=== PATIENT | female | born 1965 | race Caucasian/White ===

== ENCOUNTER → 2018-05-11 | Outpatient (CLI) | payer OTHER ==
--- NOTE | 2018-05-11 10:12 | RAD ---
EXAM: Left knee, 2 views; left hand, 2 views. HISTORY: Disability. COMPARISON: None. FINDINGS: Left knee: Frontal and lateral views of the left knee are obtained. There is no fracture, dislocation or subluxation. There is no joint effusion. There are incidental growth arrest lines within the distal femur and proximal tibia and fibula. Left hand: 2 views left hand are obtained. There is no fracture, dislocation or subluxation. IMPRESSION: No acute osseous finding or significant degenerative change. Electronically signed by: Miladys Ibarra MD (05/11/2018 10:08 AM) [place] [id number]
== END | disposition home or self-care (01) ==
LOC: DXRAD 09:32
PROVIDERS: ATTEND Surgery
DX: Z02.71 Encounter for disability determination (principal)
CPT/HCPCS: 73120; 73560

== ENCOUNTER 2018-07-06 15:14 | Emergency (ER) | payer OTHER ==
[~2018-07-06] VITALS: Ht 165.1 cm; Wt 76.2 kg
[2018-07-06] MEDS ORDERED: NAPROXEN 500 MG TABLET PO ONE (15:45)
[2018-07-06 16:32] LABS: BARBITURATES NEG (NEG); BENZODIAZEPINES NEG (NEG); CANNABINOIDS NEG (NEG); COCAINE NEG (NEG); METHADONE NEG (NEG); OPIATES NEG (NEG); PHENCYCLIDINE NEG (NEG)
[2018-07-06 16:33] LABS: BACTERIA,URINE MOD /HPF (0-FEW); BILIRUBIN,URINE NEG (NEG); CLARITY,URINE HAZY; COLOR,URINE YELLOW; GLUCOSE,URINE NEG (NEG); NITRITE,URINE NEG (NEG); RBC,URINE OCC /HPF (0-2); UROBILINOGEN,URINE 2 mg/dL (0.2 mg/dL)
[2018-07-06 16:34] LABS: SQUAMOUS EPITHELIAL CELL,UR MOD /LPF; YEAST,URINE PRESENT /HPF
[2018-07-06 16:36] LABS: AMPHETAMINE/METHAMPHETAMINE NEG (NEG)
[2018-07-06] MEDS ORDERED: NAPR-683 PO (16:48)
--- NOTE | 2018-07-06 16:48 | PHYS DOC ---
Past History Past Medical History: No Pertinent History Past Surgical History: , Other Smoking: Cigarettes Alcohol Use: None Drug Use: None Adult General Chief Complaint Chief Complaint: hurting all over [facility] HPI Patient is a 53 year old homeless female who presents with hurting all over. Patient complaining of hurting all of her body in joints and bones and the muscle for 2 months as a constant pain and rated her pain 10 over 10. Patient denies injury , focal neuro deficit, nausea and vomiting, fever and chills. Patient states she didn't take medication for her pain. Patient complaining of feeling cold after sent out of [facility] after 1500 and unable to return to the [facility] until 2100 tonight. Patient denies using alcohol and drugs. Review of Systems Review of Systems Constitutional: Denies fever or chills [] Eyes: Denies change in visual acuity, redness, or eye pain [] HENT: Denies nasal congestion or sore throat [] Respiratory: Denies cough or shortness of breath [] Cardiovascular: No additional information not addressed in HPI [] GI: Denies abdominal pain, nausea, vomiting, bloody stools or diarrhea [] : Denies dysuria or hematuria [] Musculoskeletal: Denies back pain, reports joint pain [] Integument: Denies rash or skin lesions [] Neurologic: Denies headache, focal weakness or sensory changes [] Endocrine: Denies polyuria or polydipsia [] All other systems were reviewed and found to be within normal limits, except as documented in this note. Current Medications Current Medications Current Medications Medications (Trade) Dose Ordered Sig/[facility] Start Time Stop Time Status Last Admin Dose Admin Naproxen (Naprosyn) 500 mg 1X ONCE 07/06/18 15:45 07/06/18 16:05 DC 07/06/18 16:21 500 MG Allergies Allergies Allergies Coded Allergies Type Severity Reaction Last Updated Verified aspirin Allergy Intermediate 07/06/18 Yes ketorolac Allergy Intermediate 07/06/18 Yes Physical Exam Physical Exam Constitutional: Well nourished, mild distress, non-toxic appearance. [] HENT: Normocephalic, atraumatic. Eyes: PERRLA, EOMI, conjunctiva normal, no discharge. [] Neck: Normal range of motion, no tenderness, supple, no stridor. [] Cardiovascular:Heart rate regular rhythm, no murmur [] Lungs & Thorax: Bilateral breath sounds clear to auscultation [] Abdomen: Bowel sounds normal, soft, no tenderness, no masses, no pulsatile masses. [] Skin: Warm, dry, no erythema, no rash. [] Back: No tenderness, no CVA tenderness. [] Extremities: No tenderness, no cyanosis, no clubbing, ROM intact, no edema. [] Neurologic: Alert and oriented X 3, normal motor function, normal sensory function, no focal deficits noted. [] Psychologic: Affect anxious, judgement normal, mood normal. [] Current Patient Data Vital Signs Vital Signs Date Time Temp Pulse Resp B/P (MAP) Pulse Ox O2 Delivery O2 Flow Rate FiO2 07/06/18 15:38 98.3 94 22 97 Room Air Lab Results Laboratory Tests Test 07/06/18 16:05 Urine Collection Type Unknown Urine Color Yellow Urine Clarity Hazy Urine pH 6.0 Urine Specific [place] 1.025 Urine Protein Neg (NEG-TRACE) Urine Glucose (UA) Neg mg/dL (NEG) Urine Ketones (Stick) Neg mg/dL (NEG) Urine Blood Neg (NEG) Urine Nitrite Neg (NEG) Urine Bilirubin Neg (NEG) Urine Urobilinogen Dipstick 2 mg/dL (0.2 mg/dL) Urine Leukocyte Esterase Neg (NEG) Urine RBC Occ /HPF (0-2) Urine WBC 1-4 /HPF (0-4) Urine Squamous Epithelial Cells Mod /LPF Urine Bacteria Mod /HPF (0-FEW) Urine Yeast Present /HPF Urine Opiates Screen Neg (NEG) Urine Methadone Screen Neg (NEG) Urine Barbiturates Neg (NEG) Urine Phencyclidine Screen Neg (NEG) Urine Amphetamine/Methamphetamine Neg (NEG) Urine Benzodiazepines Screen Neg (NEG) Urine Cocaine Screen Neg (NEG) Urine Cannabinoids Screen Neg (NEG) Urine Ethyl Alcohol Neg (NEG) EKG EKG [] Radiology/Procedures Radiology/Procedures [] Course & Med Decision Making Course & Med Decision Making Pertinent Labs reviewed. (See chart for details) Evaluation of patient in no showed 53-year-old female patient with complaining of hurting all over for 2 months and feeling cold after sent out of [facility]. She was anxious without sign of injury. Plan discharge patient home with diagnose of chronic pain. Dragon Disclaimer Dragon Disclaimer This electronic medical record was generated, in whole or in part, using a voice recognition dictation system. Departure Departure: Impression: Primary Impression: Chronic pain Additional Impressions: Arthralgia Tobacco abuse Tobacco abuse counseling Disposition: 01 HOME, SELF-CARE (at 1646) Condition: IMPROVED Referrals: PCP,MELANI (PCP) Patient Instructions: Arthritis, Degenerative-Brief, Smoking Cessation, Tips For Success Additional Instructions: Drink plenty of liquids Follow-up with your primary care physician in 3-5 days Return to ER if not getting better Scripts Naproxen (NAPROSYN) 500 Mg Tablet 1 TAB PO BID for pain, #20 TAB Prov: GALLITO BOGGS MD 07/06/18 Problem Qualifiers GALLITO BOGGS MD Jul 06, 2018 16:48
[2018-07-06 17:05] VITALS: BP 125/80
== END 2018-07-06 17:10 | disposition home or self-care (01) ==
LOC: ER 15:14
DX: G89.29 Other chronic pain (principal); M25.50 Pain in unspecified joint; F17.210 Nicotine dependence, cigarettes, uncomplicated; Z71.6 Tobacco abuse counseling; Z88.6 Allergy status to analgesic agent; Z88.8 Allergy status to other drugs, medicaments and biological substances; Z59.0 Homelessness
CPT/HCPCS: 36415; 80307; 81001; 87086; 99284

== ENCOUNTER 2018-07-09 22:41 | Emergency (ER) | payer OTHER ==
[~2018-07-09] VITALS: Ht 167.6 cm; Wt 86.2 kg
[~2018-07-09 22:41] MED LIST: NAPR-683 PO
--- NOTE | 2018-07-09 22:45 | ED.ADGEN ---
Past History Past Medical History: No Pertinent History, Arthritis, Bronchitis, Fibromyalgia , GERD, Other Additional Past Medical Histor: colitis, crohns Past Surgical History: Appendectomy, , Other Additional Past Surgical Histo: Partial Rt foot amputation- infection Smoking: Cigarettes Alcohol Use: Occasionally Drug Use: None Adult General Chief Complaint Chief Complaint ".. I was just sleeping on the park bench.. they said go to shelter or.. the ER... [facility] other day.. I got 10/10 pain.. all over my body.. I did drink a pint tonight for my pain... I got Crohn's... I think may be [facility] of the [facility] because I was fighting.. and was not listening to them.. " HPI HPI Patient is a 53 year old female who presents with a hx of Police referral by concerned citizen when pt found sleeping on park bench. Pt. seen on 07/06 for similar presentation after asked to leave [facility]. Pt. currently complaints of 10 / 10 all over her body pain. Admits to pint of vodka tonight. Pt. has hx chronic pain in joints. Hx of chronic pain in abdomen. Pt. Hx. of chronic bronchitis. Pt. states she drinks because she has to sleep. Review of Systems Review of Systems Constitutional: Denies fever or chills [] Eyes: Denies change in visual acuity, redness, or eye pain [] HENT: Denies nasal congestion or sore throat [] Respiratory: Denies cough or shortness of breath [] Cardiovascular: No additional information not addressed in HPI [] GI: Denies abdominal pain, nausea. Denies, vomiting, bloody stools or diarrhea [] : Denies dysuria or hematuria [] Musculoskeletal: Generalized acute on chronic back pain or joint pain [] Integument: Denies rash or skin lesions [] Neurologic: Denies headache, focal weakness or sensory changes [] Endocrine: Denies polyuria or polydipsia [] All other systems were reviewed and found to be within normal limits, except as documented in this note. Family History Family History Noncontributory Current Medications Current Medications Current Medications Medications (Trade) Dose Ordered Sig/[facility] Start Time Stop Time Status Last Admin Dose Admin Acetaminophen (Tylenol) 1,000 mg 1X ONCE 07/09/18 23:30 07/09/18 23:32 DC 07/10/18 00:06 1,000 MG Famotidine (Pepcid Vial) 20 mg 1X ONCE 07/09/18 23:30 07/09/18 23:32 DC 07/10/18 00:07 20 MG Folic Acid (FOLIC ACID SYRINGE for ER) 5 mg STK-MED ONCE 07/09/18 23:57 07/09/18 23:58 DC Multivitamins/ Minerals (Infuvite Adult) 10 ml STK-MED ONCE 07/09/18 23:56 07/09/18 23:57 DC Multivitamins/ Minerals 10 ml/ Folic Acid 1 mg/ Thiamine HCl 100 mg/Lactated Ringer's 1,011.2 ml @ 1,011.2 mls/hr 1X ONCE 07/09/18 23:30 07/10/18 00:29 DC 07/10/18 00:06 1,011.2 MLS/HR Ondansetron HCl (Zofran) 4 mg 1X ONCE 07/09/18 23:30 07/09/18 23:32 DC 07/10/18 00:06 4 MG Thiamine HCl (Thiamine Vial) 200 mg STK-MED ONCE 07/09/18 23:56 07/09/18 23:57 DC Allergies Allergies Allergies Coded Allergies Type Severity Reaction Last Updated Verified aspirin Allergy Intermediate 07/06/18 Yes ketorolac Allergy Intermediate 07/06/18 Yes Physical Exam Physical Exam Constitutional: no acute distress, intoxicated appearance. [] HENT: Normocephalic, atraumatic, bilateral external ears normal, oropharynx moist, no oral exudates, nose normal. Poor dentition Eyes: PERRLA, EOMI, conjunctiva normal, no discharge. [] Neck: Normal range of motion, no tenderness, supple, no stridor. [] Cardiovascular: Regular Heart rate regular rhythm, no murmur [] Lungs & Thorax: Bilateral breath sounds equal apex with scattered wheezes auscultation []visual nonproductive cough Abdomen: Bowel sounds normal, soft, generalized tenderness, no masses, no pulsatile masses. [] Old appendectomy and hysterectomy scar Skin: Warm, dry, no erythema, no rash. [] Poor turgor Back: No tenderness, no CVA tenderness. [] Extremities: Complains of generalized joint pain, no cyanosis, no clubbing, ROM intact, no edema. []Partial Amputation of foot on right. Diminished dorsal pedis pulses bilaterally. Capillary refill 3 seconds in toes on the left. Neurologic: Alert and oriented X 3, normal motor function, normal sensory function, no focal deficits noted. Very mild dis-coordination Psychologic: Affect anxious, judgement normal, mood normal. [] Current Patient Data Vital Signs Vital Signs Date Time Temp Pulse Resp B/P (MAP) Pulse Ox O2 Delivery O2 Flow Rate FiO2 07/10/18 02:05 72 22 100/52 (68) 99 Room Air 07/09/18 22:55 97.4 Lab Results Laboratory Tests Test 07/09/18 23:20 07/09/18 23:59 Urine Collection Type Void Urine Color Yellow Urine Clarity Clear Urine pH 5.5 Urine Specific [place] 1.015 Urine Protein Neg (NEG-TRACE) Urine Glucose (UA) Neg mg/dL (NEG) Urine Ketones (Stick) Neg mg/dL (NEG) Urine Blood Neg (NEG) Urine Nitrite Neg (NEG) Urine Bilirubin Neg (NEG) Urine Urobilinogen Dipstick 0.2 mg/dL (0.2 mg/dL) Urine Leukocyte Esterase Neg (NEG) Urine RBC 0 /HPF (0-2) Urine WBC 0 /HPF (0-4) Urine Squamous Epithelial Cells Few /LPF Urine Bacteria Few /HPF (0-FEW) Urine Mucus Slight /LPF Urine Opiates Screen Neg (NEG) Urine Methadone Screen Neg (NEG) Urine Barbiturates Neg (NEG) Urine Phencyclidine Screen Neg (NEG) Urine Amphetamine/Methamphetamine Neg (NEG) Urine Benzodiazepines Screen Neg (NEG) Urine Cocaine Screen Neg (NEG) Urine Cannabinoids Screen Neg (NEG) Urine Ethyl Alcohol Pos (NEG) White Blood Count 8.5 x10^3/uL (4.0-11.0) Red Blood Count 4.41 x10^6/uL (3.50-5.40) Hemoglobin 14.8 g/dL (12.0-15.5) Hematocrit 44.2 % (36.0-47.0) Mean Corpuscular Volume 100 fL (79-100) Mean Corpuscular Hemoglobin 34 pg (25-35) Mean Corpuscular Hemoglobin Concent 34 g/dL (31-37) Red Cell Distribution Width 12.9 % (11.5-14.5) Platelet Count 306 x10^3/uL (140-400) Neutrophils (%) (Auto) 50 % (31-73) Lymphocytes (%) (Auto) 40 % (24-48) Monocytes (%) (Auto) 6 % (0-9) Eosinophils (%) (Auto) 3 % (0-3) Basophils (%) (Auto) 1 % (0-3) Neutrophils # (Auto) 4.2 x10^3uL (1.8-7.7) Lymphocytes # (Auto) 3.4 x10^3/uL (1.0-4.8) Monocytes # (Auto) 0.5 x10^3/uL (0.0-1.1) Eosinophils # (Auto) 0.3 x10^3/uL (0.0-0.7) Basophils # (Auto) 0.1 x10^3/uL (0.0-0.2) Prothrombin Time 9.3 SEC (9.4-11.4) L Prothrombin Time INR 0.9 (0.9-1.1) PTT 26 SEC (23-33) Sodium Level 141 mmol/L (136-145) Potassium Level 3.8 mmol/L (3.5-5.1) Chloride Level 106 mmol/L (98-107) Carbon Dioxide Level 23 mmol/L (21-32) Anion Gap 12 (6-14) Blood Urea Nitrogen 17 mg/dL (7-20) Creatinine 0.8 mg/dL (0.6-1.0) Estimated GFR (Cockcroft-Gault) 75.3 Glucose Level 92 mg/dL (70-99) Calcium Level 8.7 mg/dL (8.5-10.1) Total Bilirubin 0.2 mg/dL (0.2-1.0) Direct Bilirubin 0.1 mg/dL (0.0-0.2) Aspartate Amino Transferase (AST) 21 U/L (15-37) Alanine Aminotransferase (ALT) 19 U/L (14-59) Alkaline Phosphatase 98 U/L (46-116) Total Protein 6.8 g/dL (6.4-8.2) Albumin 3.3 g/dL (3.4-5.0) L Lipase 256 U/L (73-393) Ethyl Alcohol Level 191 mg/dL (0-10) H EKG EKG My interpretation EKG shows a sinus rhythm at 86 bpm. There is occasional premature ventricular contraction. But no findings acute STEMI with contralateral changes.[] Radiology/Procedures Radiology/Procedures My interpretation of acute abdomen film shows chronic changes and lung crane. No free air under the diaphragm. Nonobstructive bowel gas pattern. Old surgery andres.[] Course & Med Decision Making Course & Med Decision Making Pertinent Labs and Imaging studies reviewed. (See chart for details). A she encouraged to stop alcohol and tobacco abuse. Patient to follow-up primary care. Patient avoid further alcohol and tobacco use. Patient to consider alcohol rehabilitation programs. [] Final Impression Final Impression 1. Chronic Pain[] 2. Bronchitis 3. Alcohol abuse Dragon Disclaimer Dragon Disclaimer This electronic medical record was generated, in whole or in part, using a voice recognition dictation system. ROBERTH ACOSTA MD Jul 09, 2018 22:45
[2018-07-09] MEDS ORDERED: ONDANSETRON PF 4 MG/2 ML VIAL. IV ONE (23:30)
[2018-07-09] MEDS ORDERED: FAMOTIDINE 20 MG/2 ML VIAL IVP ONE (23:30)
[2018-07-09] MEDS ORDERED: ACETAMINOPHEN 500 MG TABLET PO ONE (23:30)
[2018-07-09] MEDS ORDERED: MVI, ADULT NO.4 WITH VIT K 10 ML, FOLIC ACID SYRINGE for ER 1 MG, THIAMINE INJ 100 MG i... IV ONE ×4 (23:30)
--- NOTE | 2018-07-09 23:32 | EKG ---
[address] [address] Test Date: 2018-07-09 Test Time: 23:27:00 Pat Name: OUMOU GRAVES Department: Room: Gender: F Solution Strategist: : 1965 Requested By: ROBERTH ACOSTA Order Number: [id number] Reading MD: Christos Turk MD Measurements Intervals [place] Rate: 86 P: 71 OR: 176 QRS: 64 QRSD: 92 T: 36 QT: 358 QTc: 431 Interpretive Statements SINUS RHYTHM VENTRICULAR PREMATURE COMPLEX(ES) Electronically Signed On 07-12-2018 14:19:33 LEGAL REFEREE by Christos Turk MD
[2018-07-09] MEDS ORDERED: THIAMINE 200 MG/2 ML VIAL. IV ONE (23:56)
[2018-07-09] MEDS ORDERED: MVI, ADULT NO.4 WITH VIT K 10 ML VIAL IV ONE (23:56)
[2018-07-09] MEDS ORDERED: FOLIC ACID 5 MG/ML SYRINGE for ER IV ONE (23:57)
[2018-07-10 00:05] LABS: CLARITY,URINE CLEAR; COLOR,URINE YELLOW
[2018-07-10 00:06] LABS: BACTERIA,URINE FEW /HPF (0-FEW); BARBITURATES NEG (NEG); BENZODIAZEPINES NEG (NEG); BILIRUBIN,URINE NEG (NEG); CANNABINOIDS NEG (NEG); COCAINE NEG (NEG); GLUCOSE,URINE NEG (NEG); METHADONE NEG (NEG); NITRITE,URINE NEG (NEG); OPIATES NEG (NEG); PHENCYCLIDINE NEG (NEG); RBC,URINE 0 /HPF (0-2); SQUAMOUS EPITHELIAL CELL,UR FEW /LPF; UROBILINOGEN,URINE 0.2 mg/dL (0.2 mg/dL); WBC,URINE 0 /HPF (0-4)
[2018-07-10 00:08] LABS: AMPHETAMINE/METHAMPHETAMINE NEG (NEG)
[2018-07-10 00:33] LABS: ALBUMIN 3.3 g/dL (3.4-5.0); CALCIUM 8.7 mg/dL (8.5-10.1); CREATININE 0.8 mg/dL (0.6-1.0); DIRECT BILIRUBIN 0.1 mg/dL (0.0-0.2); GFR 75.3; POTASSIUM 3.8 mmol/L (3.5-5.1); TOTAL BILIRUBIN 0.2 mg/dL (0.2-1.0); TOTAL PROTEIN 6.8 g/dL (6.4-8.2)
[2018-07-10 00:36] LABS: BASO # 0.1 x10^3/uL (0.0-0.2); BASO % 1 % (0-3); EOS # 0.3 x10^3/uL (0.0-0.7); EOS % 3 % (0-3); HEMATOCRIT 44.2 % (36.0-47.0); HEMOGLOBIN 14.8 g/dL (12.0-15.5); LYMPH # 3.4 x10^3/uL (1.0-4.8); LYMPH % 40 % (24-48); MEAN CORPUSCULAR HEMOGLOBIN 34 pg (25-35); MEAN CORPUSCULAR HGB CONC 34 g/dL (31-37); MEAN CORPUSCULAR VOLUME 100 fL (79-100); MONO # 0.5 x10^3/uL (0.0-1.1); MONO % 6 % (0-9); NEUT # 4.2 x10^3uL (1.8-7.7); NEUT % 50 % (31-73); PLATELET COUNT 306 x10^3/uL (140-400); RED BLOOD COUNT 4.41 x10^6/uL (3.50-5.40); RED CELL DISTRIBUTION WIDTH 12.9 % (11.5-14.5); WHITE BLOOD COUNT 8.5 x10^3/uL (4.0-11.0)
[2018-07-10 02:05] VITALS: BP 100/52
--- NOTE | 2018-07-10 08:16 | RAD ---
EXAM: Frontal view of the chest, AP views of the abdomen in upright and supine positions. CLINICAL INDICATION: BACK PAIN, INTOXICATION COMPARISON: None. FINDINGS and IMPRESSION: The heart is not enlarged. Mediastinal and hilar contours are normal. No focal parenchymal airspace opacity. No pleural effusion or pneumothorax. No abnormal small or large bowel dilatation. Moderate colonic stool content most prominent in the ascending colon.. No abnormal soft tissue mass effect. No suspicious calcifications are seen. No free intraperitoneal gas. Electronically signed by: Jero Obrien MD (07/10/2018 8:13 AM) [facility]
== END 2018-07-10 02:05 | disposition home or self-care (01) ==
LOC: ER 22:41
DX: G89.29 Other chronic pain (principal); M54.89 Other dorsalgia; R10.84 Generalized abdominal pain; J40 Bronchitis, not specified as acute or chronic; F10.10 Alcohol abuse, uncomplicated; M19.90 Unspecified osteoarthritis, unspecified site; M79.7 Fibromyalgia; K21.9 Gastro-esophageal reflux disease without esophagitis; F17.210 Nicotine dependence, cigarettes, uncomplicated; Z90.89 Acquired absence of other organs; Z98.890 Other specified postprocedural states; Z88.8 Allergy status to other drugs, medicaments and biological substances; Z88.6 Allergy status to analgesic agent; Y90.6 Blood alcohol level of 120-199 mg/100 ml
CPT/HCPCS: 36415; 74022; 80048; 80076; 80307; 81001; 83690; 85025; 85610; 85730; 93005; 96365; 96375; 99285; G0480; J2405; J3490; J7120

== ENCOUNTER 2018-07-12 11:18 | Emergency (ER) | payer OTHER ==
[~2018-07-12] VITALS: Ht 165.1 cm; Wt 74.8 kg
[2018-07-12] MEDS ORDERED: hydrOXYzine PAMOATE 25 MG CAPSULE PO STA (11:35)
--- NOTE | 2018-07-12 11:42 | PHYS DOC ---
Past History Past Medical History: No Pertinent History, Arthritis, Bronchitis, Fibromyalgia , GERD, Other Additional Past Medical Histor: colitis, crohns Past Surgical History: Appendectomy, , Other Additional Past Surgical Histo: Partial Rt foot amputation- infection Smoking: Cigarettes Alcohol Use: Occasionally Drug Use: None Adult General Chief Complaint Chief Complaint: MULTIPLE COMPLAINTS HPI HPI 53-year-old female presents with complaints of pain. The patient is homeless and living at the longterm. She states that every day outside a local park 3 PM to 9 PM until the longterm reopens. She is having pain in her right foot which she has had all 5 toes previously amputated. She states that walking makes it worse. She also complains of generalized pain from sitting on park benches all day. She denies any recent fall or trauma. She did have an episode of flashing lights in her visual field that lasted for several minutes but has resolved at this time. She denies fever or chills. She is not taking any medications. Review of Systems Review of Systems Constitutional: Denies fever or chills [] Eyes: flashes of light [] HENT: Denies nasal congestion or sore throat [] Respiratory: Denies cough or shortness of breath [] Cardiovascular: No additional information not addressed in HPI [] GI: Denies abdominal pain, nausea, vomiting, bloody stools or diarrhea [] : Denies dysuria or hematuria [] Musculoskeletal: right foot pain and swelling [] Integument: Denies rash or skin lesions [] Neurologic: Denies headache, focal weakness or sensory changes [] Endocrine: Denies polyuria or polydipsia [] All other systems were reviewed and found to be within normal limits, except as documented in this note. Allergies Allergies Allergies Coded Allergies Type Severity Reaction Last Updated Verified aspirin Allergy Intermediate 07/06/18 Yes ketorolac Allergy Intermediate 07/06/18 Yes Physical Exam Physical Exam Constitutional: Well developed, well nourished, no acute distress, non-toxic appearance. [] HENT: Normocephalic, atraumatic, bilateral external ears normal, oropharynx moist, no oral exudates, nose normal. [] Eyes: PERRLA, EOMI, conjunctiva normal, no discharge. [] Neck: Normal range of motion, no tenderness, supple, no stridor. [] Cardiovascular:Heart rate regular rhythm, no murmur [] Lungs & Thorax: Bilateral breath sounds clear to auscultation [] Abdomen: Bowel sounds normal, soft, no tenderness, no masses, no pulsatile masses. [] Skin: Warm, dry, no erythema, no rash. [] Back: No tenderness, no CVA tenderness. [] Extremities: right foot all toes amputated, no signs of skin infection, 1+ non- pitting edema right ankle [] Neurologic: Alert and oriented X 3, normal motor function, normal sensory function, no focal deficits noted. [] Psychologic: Affect anxious, judgement normal, mood normal. [] EKG EKG [] Radiology/Procedures Radiology/Procedures [] Impressions: CT HEAD WO CONTRAST Indication: AMS, VISUAL DISTURBANCE . Flashes in visual crane. Exposure: One or more of the following individualized dose reduction techniques were utilized for this examination: 1. Automated exposure control 2. Adjustment of the mA and/or kV according to patient size 3. Use of iterative reconstruction technique. Comparison: None are available. Contrast: None FINDINGS: Small hypoattenuating region in the left cerebellar hemisphere, likely due to encephalomalacia or old infarct. No evidence of acute intracranial hemorrhage or abnormal extra-axial fluid collection. No evidence of mass effect or midline shift. Mild prominence of ventricles and sulci. Ventricles are symmetric. Visualized orbits are unremarkable. Visualized paranasal sinuses and mastoids are clear. No acute calvarial abnormality. Impression: 1. Small hypoattenuating region in the left cerebellum, most likely due to encephalomalacia or old infarct. 2. Prominence of ventricles and sulci, suggesting mild atrophy or involutional change. 3. No evidence of acute intracranial hemorrhage or mass effect. Electronically signed by: Babatunde Alfaro MD (07/12/2018 11:56 AM) [facility] Course & Med Decision Making Course & Med Decision Making Pertinent Labs and Imaging studies reviewed. (See chart for details) Patient's labs are unremarkable. Her head CT is unremarkable. She has had no further neuro symptoms. She is stable for discharge at this time. She will continue her gabapentin for pain as needed. [] Dragon Disclaimer Dragon Disclaimer This electronic medical record was generated, in whole or in part, using a voice recognition dictation system. Departure Departure: Referrals: PCP,MELANI (PCP) KAMARI ARIAS DO Jul 12, 2018 11:42
[2018-07-12] MEDS ORDERED: IV NORMAL SALINE 1,000ML 1,000 ML IV ONE (11:45)
--- NOTE | 2018-07-12 11:59 | RAD ---
CT HEAD WO CONTRAST Indication: AMS, VISUAL DISTURBANCE . Flashes in visual crane. Exposure: One or more of the following individualized dose reduction techniques were utilized for this examination: 1. Automated exposure control 2. Adjustment of the mA and/or kV according to patient size 3. Use of iterative reconstruction technique. Comparison: None are available. Contrast: None FINDINGS: Small hypoattenuating region in the left cerebellar hemisphere, likely due to encephalomalacia or old infarct. No evidence of acute intracranial hemorrhage or abnormal extra-axial fluid collection. No evidence of mass effect or midline shift. Mild prominence of ventricles and sulci. Ventricles are symmetric. Visualized orbits are unremarkable. Visualized paranasal sinuses and mastoids are clear. No acute calvarial abnormality. Impression: 1. Small hypoattenuating region in the left cerebellum, most likely due to encephalomalacia or old infarct. 2. Prominence of ventricles and sulci, suggesting mild atrophy or involutional change. 3. No evidence of acute intracranial hemorrhage or mass effect. Electronically signed by: Babatunde Alfaro MD (07/12/2018 11:56 AM) [facility]
[2018-07-12 12:33] LABS: BASO # 0.1 x10^3/uL (0.0-0.2); BASO % 1 % (0-3); EOS # 0.1 x10^3/uL (0.0-0.7); EOS % 1 % (0-3); HEMATOCRIT 41.7 % (36.0-47.0); HEMOGLOBIN 14.1 g/dL (12.0-15.5); LYMPH % 21 % (24-48); MEAN CORPUSCULAR HEMOGLOBIN 34 pg (25-35); MEAN CORPUSCULAR HGB CONC 34 g/dL (31-37); MEAN CORPUSCULAR VOLUME 101 fL (79-100); MONO # 0.6 x10^3/uL (0.0-1.1); MONO % 7 % (0-9); NEUT # 6.9 x10^3uL (1.8-7.7); NEUT % 71 % (31-73); PLATELET COUNT 252 x10^3/uL (140-400); RED BLOOD COUNT 4.15 x10^6/uL (3.50-5.40); RED CELL DISTRIBUTION WIDTH 12.7 % (11.5-14.5); WHITE BLOOD COUNT 9.8 x10^3/uL (4.0-11.0)
[2018-07-12 12:45] VITALS: BP 112/58
[2018-07-12 12:46] LABS: ALBUMIN 3.3 g/dL (3.4-5.0); GFR 58.2; POTASSIUM 3.9 mmol/L (3.5-5.1); TOTAL BILIRUBIN 0.5 mg/dL (0.2-1.0); TOTAL PROTEIN 6.7 g/dL (6.4-8.2)
[2018-07-12 13:11] LABS: % EOS 1 % (0-5); % LYMPHS 19 % (24-48); % MONOS 5 % (0-10); % SEGS 74 % (35-66); PLT ESTIMATE ADEQUATE (ADEQUATE)
== END 2018-07-12 14:10 | disposition home or self-care (01) ==
LOC: ER 11:18
DX: M79.671 Pain in right foot (principal); R22.41 Localized swelling, mass and lump, right lower limb; R41.82 Altered mental status, unspecified; H53.9 Unspecified visual disturbance; M19.90 Unspecified osteoarthritis, unspecified site; M79.7 Fibromyalgia; K21.9 Gastro-esophageal reflux disease without esophagitis; K50.90 Crohn's disease, unspecified, without complications; F17.210 Nicotine dependence, cigarettes, uncomplicated; Z59.0 Homelessness; Z88.6 Allergy status to analgesic agent; Z88.8 Allergy status to other drugs, medicaments and biological substances
CPT/HCPCS: 36415; 70450; 80053; 85007; 85025; 99284; Q0177; J7030

== ENCOUNTER 2018-07-30 22:04 | Emergency (ER) | payer OTHER ==
[~2018-07-30] VITALS: Ht 162.6 cm; Wt 70.0 kg
[2018-07-30] MEDS ORDERED: MVI, ADULT NO.4 WITH VIT K 10 ML VIAL IV ONE (22:48)
[2018-07-30] MEDS ORDERED: THIAMINE 200 MG/2 ML VIAL. IV ONE (22:48)
[2018-07-30] MEDS ORDERED: FOLIC ACID 5 MG/ML SYRINGE for ER IV ONE (22:48)
[2018-07-30 23:00] LABS: BASO # 0.1 x10^3/uL (0.0-0.2); BASO % 1 % (0-3); EOS # 0.2 x10^3/uL (0.0-0.7); EOS % 2 % (0-3); HEMOGLOBIN 13.8 g/dL (12.0-15.5); LYMPH # 3.9 x10^3/uL (1.0-4.8); LYMPH % 37 % (24-48); MEAN CORPUSCULAR HEMOGLOBIN 34 pg (25-35); MEAN CORPUSCULAR HGB CONC 34 g/dL (31-37); MEAN CORPUSCULAR VOLUME 99 fL (79-100); MONO # 0.6 x10^3/uL (0.0-1.1); MONO % 6 % (0-9); NEUT # 5.6 x10^3uL (1.8-7.7); NEUT % 54 % (31-73); PLATELET COUNT 252 x10^3/uL (140-400); RED BLOOD COUNT 4.12 x10^6/uL (3.50-5.40); RED CELL DISTRIBUTION WIDTH 13.2 % (11.5-14.5); WHITE BLOOD COUNT 10.4 x10^3/uL (4.0-11.0)
[2018-07-30] MEDS ORDERED: MVI, ADULT NO.4 WITH VIT K 10 ML, FOLIC ACID SYRINGE for ER 1 MG, THIAMINE INJ 100 MG i... IV ONE ×4 (23:00)
--- NOTE | 2018-07-30 23:35 | PHYS DOC ---
Adult General Chief Complaint Chief Complaint intoxication HPI HPI 53 female brought to ED because she is intoxicated from snf , she stated she is in pain all over her body , denies any other symptom Review of Systems Review of Systems limited due to patient intoxication Current Medications Current Medications Current Medications Medications (Trade) Dose Ordered Sig/[facility] Start Time Stop Time Status Last Admin Dose Admin Folic Acid (FOLIC ACID SYRINGE for ER) 5 mg STK-MED ONCE 07/30/18 22:48 07/30/18 22:49 DC Multivitamins/ Minerals (Infuvite Adult) 10 ml STK-MED ONCE 07/30/18 22:48 07/30/18 22:49 DC Multivitamins/ Minerals 10 ml/ Folic Acid 1 mg/ Thiamine HCl 100 mg/Sodium Chloride 1,011.1 ml @ 1,000 mls/ hr 1X ONCE 07/30/18 23:00 07/31/18 00:00 07/30/18 22:55 1,000 MLS/HR Thiamine HCl (Thiamine Vial) 200 mg STK-MED ONCE 07/30/18 22:48 07/30/18 22:49 DC Allergies Allergies Allergies Coded Allergies Type Severity Reaction Last Updated Verified aspirin Allergy Intermediate 07/06/18 Yes ketorolac Allergy Intermediate 07/06/18 Yes Physical Exam Physical Exam Eyes: PERRLA, EOMI, conjunctiva normal, no discharge. [] Neck: Normal range of motion, no tenderness, supple, no stridor. [] Cardiovascular:Heart rate regular rhythm, no murmur [] Lungs & Thorax: Bilateral breath sounds clear to auscultation [] Abdomen: Bowel sounds normal, soft, no tenderness, no masses, no pulsatile masses. [] Skin: Warm, dry, no erythema, no rash. [] Back: No tenderness, no CVA tenderness. [] Extremities: No tenderness, no cyanosis, no clubbing, ROM intact, no edema. [] Current Patient Data Vital Signs Vital Signs Date Time Temp Pulse Resp B/P (MAP) Pulse Ox O2 Delivery O2 Flow Rate FiO2 07/30/18 22:10 97.9 77 16 93 Room Air Lab Results Laboratory Tests Test 07/30/18 22:35 White Blood Count 10.4 x10^3/uL (4.0-11.0) Red Blood Count 4.12 x10^6/uL (3.50-5.40) Hemoglobin 13.8 g/dL (12.0-15.5) Hematocrit 41.0 % (36.0-47.0) Mean Corpuscular Volume 99 fL (79-100) Mean Corpuscular Hemoglobin 34 pg (25-35) Mean Corpuscular Hemoglobin Concent 34 g/dL (31-37) Red Cell Distribution Width 13.2 % (11.5-14.5) Platelet Count 252 x10^3/uL (140-400) Neutrophils (%) (Auto) 54 % (31-73) Lymphocytes (%) (Auto) 37 % (24-48) Monocytes (%) (Auto) 6 % (0-9) Eosinophils (%) (Auto) 2 % (0-3) Basophils (%) (Auto) 1 % (0-3) Neutrophils # (Auto) 5.6 x10^3uL (1.8-7.7) Lymphocytes # (Auto) 3.9 x10^3/uL (1.0-4.8) Monocytes # (Auto) 0.6 x10^3/uL (0.0-1.1) Eosinophils # (Auto) 0.2 x10^3/uL (0.0-0.7) Basophils # (Auto) 0.1 x10^3/uL (0.0-0.2) Ethyl Alcohol Level 239 mg/dL (0-10) H EKG EKG [] Radiology/Procedures Radiology/Procedures [] Course & Med Decision Making Course & Med Decision Making Pertinent Labs and Imaging studies reviewed. (See chart for details) [] Final Impression Final Impression [] Problems: (1) Intoxication Dragon Disclaimer Dragon Disclaimer This electronic medical record was generated, in whole or in part, using a voice recognition dictation system. CARLOTA GOLD MD Jul 30, 2018 23:35
[2018-07-30] MEDS ORDERED: LORazepam 2 MG/ML VIAL IV ONE (23:45)
[2018-07-31 00:08] LABS: CALCIUM 7.6 mg/dL (8.5-10.1); CREATININE 0.7 mg/dL (0.6-1.0); GFR 87.9; POTASSIUM 3.4 mmol/L (3.5-5.1)
[2018-07-31 06:30] VITALS: BP 108/65
== END 2018-07-31 06:30 | disposition home or self-care (01) ==
LOC: ER 22:04
DX: F10.129 Alcohol abuse with intoxication, unspecified (principal); M79.10 Myalgia, unspecified site; Z88.6 Allergy status to analgesic agent; Z88.8 Allergy status to other drugs, medicaments and biological substances; Y90.7 Blood alcohol level of 200-239 mg/100 ml
CPT/HCPCS: 36415; 80048; 83690; 85025; 96365; 96366; 96375; 99284; G0480; J2060; J7030

== ENCOUNTER 2018-09-01 22:24 | Emergency (ER) | payer OTHER ==
[~2018-09-01] VITALS: Ht 167.6 cm; Wt 71.7 kg
[2018-09-01 22:30] VITALS: BP 111/53
--- NOTE | 2018-09-01 23:05 | PHYS DOC ---
Past History Past Medical History: Alcoholism Additional Past Medical Histor: colitis, crohns Past Surgical History: No Surgical History Additional Past Surgical Histo: Partial Rt foot amputation- infection Smoking: Cigarettes Additional Smoking Information: 1 PPD Alcohol Use: Occasionally Drug Use: None Adult General Chief Complaint Chief Complaint: MECHANICAL FALL HPI HPI 53-year-old female presents via EMS [facility]. Patient is known to the emergency room. She was walking outside when she fell and landed on her right knee on concrete. She has an abrasion over the lower half of the knee. She denies hitting her head. She denies any other injuries. She states that it is painful to walk. The patient admits to drinking vodka today. She denies fever or chills. Review of Systems Review of Systems Constitutional: Denies fever or chills [] Eyes: Denies change in visual acuity, redness, or eye pain [] HENT: Denies nasal congestion or sore throat [] Respiratory: Denies cough or shortness of breath [] Cardiovascular: No additional information not addressed in HPI [] GI: Denies abdominal pain, nausea, vomiting, bloody stools or diarrhea [] : Denies dysuria or hematuria [] Musculoskeletal: Right knee pain[] Integument: Abrasion of the right knee[] Neurologic: Denies headache, focal weakness or sensory changes [] Endocrine: Denies polyuria or polydipsia [] All other systems were reviewed and found to be within normal limits, except as documented in this note. Allergies Allergies Allergies Coded Allergies Type Severity Reaction Last Updated Verified aspirin Allergy Intermediate 07/06/18 Yes ketorolac Allergy Intermediate 07/06/18 Yes Physical Exam Physical Exam Constitutional: Well developed, well nourished, no acute distress, non-toxic appearance. [] HENT: Normocephalic, atraumatic, bilateral external ears normal, oropharynx moist, no oral exudates, nose normal. [] Eyes: PERRLA, EOMI, conjunctiva normal, no discharge. [] Neck: Normal range of motion, no tenderness, supple, no stridor. [] Cardiovascular:Heart rate regular rhythm, no murmur [] Lungs & Thorax: Bilateral breath sounds clear to auscultation [] Abdomen: Bowel sounds normal, soft, no tenderness, no masses, no pulsatile masses. [] Skin: Superficial abrasion of the right knee. [] Back: No tenderness, no CVA tenderness. [] Extremities: Mild tenderness with palpation of the right knee. No cyanosis, no clubbing, ROM intact, no edema. Previous amputation of the right toes.[] Neurologic: Alert and oriented X 3, normal motor function, normal sensory function, no focal deficits noted. [] Psychologic: Affect inebriated, judgement normal, mood normal. [] Current Patient Data Vital Signs Vital Signs Date Time Temp Pulse Resp B/P (MAP) Pulse Ox O2 Delivery O2 Flow Rate FiO2 09/01/18 22:30 98.0 69 20 98 Room Air EKG EKG [] Radiology/Procedures Radiology/Procedures [] Impressions: Pulmonary interpretation: No acute fracture or dislocation of the right knee. Multiple surgical clips. Old healed fracture of the fibula. Course & Med Decision Making Course & Med Decision Making Pertinent Labs and Imaging studies reviewed. (See chart for details) The patient's x-rays are negative for acute fracture. We will clean and dress her abrasion. [] Dragon Disclaimer Dragon Disclaimer This electronic medical record was generated, in whole or in part, using a voice recognition dictation system. Departure Departure: Impression: Primary Impression: Intoxication Additional Impressions: Knee abrasion Knee pain, right Disposition: 01 HOME, SELF-CARE Condition: STABLE Referrals: PCP,NO (PCP) Problem Qualifiers Additional Impressions: Knee abrasion Encounter type: initial encounter Laterality: right Qualified Codes: S80.211A - Abrasion, right knee, initial encounter Knee pain, right Chronicity: acute Qualified Codes: M25.561 - Pain in right knee KAMARI ARIAS DO Sep 01, 2018 23:04
--- NOTE | 2018-09-02 01:31 | RAD ---
Right knee 3 views. HISTORY: Fall on the right knee, pain, abrasions 3 views were taken of the right knee. There is periosteal reaction along the proximal fibula which is chronic probably an old injury. There is no acute fracture at the knee. There is evidence of extensive vascular surgery with multiple andres. There is no joint effusion. IMPRESSION: 1. No fracture or acute osseous abnormality at the right knee. Electronically signed by: Adolfo Couch MD (09/02/2018 1:27 AM) [id number]
== END 2018-09-02 00:18 | disposition home or self-care (01) ==
LOC: ER 22:24
DX: S80.211A Abrasion, right knee, initial encounter (principal); F10.229 Alcohol dependence with intoxication, unspecified; M25.561 Pain in right knee; F17.210 Nicotine dependence, cigarettes, uncomplicated; Z88.6 Allergy status to analgesic agent; Z59.0 Homelessness; Z88.8 Allergy status to other drugs, medicaments and biological substances; Y90.9 Presence of alcohol in blood, level not specified; W18.30XA Fall on same level, unspecified, initial encounter; Y93.01 Activity, walking, marching and hiking; Y92.89 Other specified places as the place of occurrence of the external cause; Y99.8 Other external cause status
CPT/HCPCS: 73562; 99284

== ENCOUNTER 2018-09-09 15:19 | Emergency (ER) | payer OTHER ==
[~2018-09-09] VITALS: Ht 162.6 cm; Wt 68.0 kg
[2018-09-09] MEDS ORDERED: ONDANSETRON PF 4 MG/2 ML VIAL. ONE (15:33)
[2018-09-09] MEDS ORDERED: ONDANSETRON PF 4 MG/2 ML VIAL. IV ONE (15:45)
[2018-09-09] MEDS ORDERED: MVI, ADULT NO.4 WITH VIT K 10 ML, FOLIC ACID SYRINGE for ER 1 MG, THIAMINE INJ 100 MG i... IV ONE ×4 (15:45)
[2018-09-09 15:55] LABS: BASO # 0.1 x10^3/uL (0.0-0.2); BASO % 1 % (0-3); EOS # 0.1 x10^3/uL (0.0-0.7); EOS % 1 % (0-3); HEMATOCRIT 41.4 % (36.0-47.0); HEMOGLOBIN 13.9 g/dL (12.0-15.5); LYMPH # 3.6 x10^3/uL (1.0-4.8); LYMPH % 35 % (24-48); MEAN CORPUSCULAR HEMOGLOBIN 34 pg (25-35); MEAN CORPUSCULAR HGB CONC 34 g/dL (31-37); MEAN CORPUSCULAR VOLUME 100 fL (79-100); MONO % 9 % (0-9); NEUT # 5.7 x10^3uL (1.8-7.7); NEUT % 54 % (31-73); PLATELET COUNT 202 x10^3/uL (140-400); RED BLOOD COUNT 4.13 x10^6/uL (3.50-5.40); RED CELL DISTRIBUTION WIDTH 13.8 % (11.5-14.5); WHITE BLOOD COUNT 10.4 x10^3/uL (4.0-11.0)
[2018-09-09 16:15] LABS: ALBUMIN 3.3 g/dL (3.4-5.0); CALCIUM 8.7 mg/dL (8.5-10.1); CREATININE 0.9 mg/dL (0.6-1.0); GFR 65.8; POTASSIUM 3.5 mmol/L (3.5-5.1); TOTAL BILIRUBIN 0.3 mg/dL (0.2-1.0); TOTAL PROTEIN 6.6 g/dL (6.4-8.2)
[2018-09-09 16:29] LABS: BARBITURATES NEG (NEG); BENZODIAZEPINES NEG (NEG); CANNABINOIDS NEG (NEG); COCAINE NEG (NEG); METHADONE NEG (NEG); OPIATES NEG (NEG); PHENCYCLIDINE NEG (NEG)
[2018-09-09 16:33] LABS: AMPHETAMINE/METHAMPHETAMINE NEG (NEG)
--- NOTE | 2018-09-09 16:38 | RAD ---
EXAM: CT Head without IV contrast CLINICAL HISTORY: ALTERED MENTAL STATUS COMPARISON: 09/09/2018, 07/12/2018 TECHNIQUE: Routine CT of the head without contrast. Soft tissues and bone windows were reviewed. PQRS compliance statement - One or more of the following individualized dose reduction techniques were utilized for this study: 1. Automated exposure control 2. Adjustment of the mA and/or kV according to patient size 3. Use of iterative reconstruction technique FINDINGS: There is no evidence of hemorrhage, mass or extra-axial fluid collection. Hypodensity in the left cerebellum is stable. Melvin-white differentiation is otherwise maintained with no evidence of edema. There is no mass effect or shift of the intracranial structures. The ventricles and cerebral sulci are prominent for the patients age consistent with generalized cerebral volume loss. The cerebellum and brainstem are unremarkable. The calvarium demonstrates no evidence of fracture or focal lesion. There is normal aeration of the visualized paranasal sinuses and mastoid air cells. The visualized portions of the orbits are normal. IMPRESSION: No evidence for acute intracranial process. Electronically signed by: Jero Obrien MD (09/09/2018 4:34 PM) [id number]
--- NOTE | 2018-09-09 17:05 | PHYS DOC ---
CARLOTA GOLD MD 09/09/18 1705: Adult General Chief Complaint Chief Complaint intoxicated HPI HPI was found outside , unresponsive, smelling like ETOH , pt refused at answer any question, vitals stable . Review of Systems Review of Systems limited due to pat clinical condition Current Medications Current Medications Current Medications Medications (Trade) Dose Ordered Sig/Sharron Start Time Stop Time Status Last Admin Dose Admin Multivitamins/ Minerals 10 ml/ Folic Acid 1 mg/ Thiamine HCl 100 mg/Sodium Chloride 1,011.1 ml @ 1,000 mls/ hr 1X ONCE 09/09/18 15:45 09/09/18 16:45 DC Ondansetron HCl (Zofran) 4 mg STK-MED ONCE 09/09/18 15:33 09/09/18 15:34 DC Allergies Allergies Allergies Coded Allergies Type Severity Reaction Last Updated Verified aspirin Allergy Intermediate 07/06/18 Yes ketorolac Allergy Intermediate 07/06/18 Yes Physical Exam Physical Exam HENT: Normocephalic, atraumatic, bilateral external ears normal, oropharynx moist, no oral exudates, nose normal. [] Eyes: PERRLA, EOMI, conjunctiva normal, no discharge. [] Neck: Normal range of motion, no tenderness, supple, no stridor. [] Cardiovascular:Heart rate regular rhythm, no murmur [] Lungs & Thorax: Bilateral breath sounds clear to auscultation [] Abdomen: Bowel sounds normal, soft, no tenderness, no masses, no pulsatile masses. [] Skin: Warm, dry, no erythema, no rash. [] Back: No tenderness, no CVA tenderness. [] Extremities: No tenderness, no cyanosis, no clubbing, ROM intact, no edema. [] Current Patient Data Vital Signs Vital Signs Date Time Temp Pulse Resp B/P (MAP) Pulse Ox O2 Delivery O2 Flow Rate FiO2 09/09/18 15:20 96.7 73 24 95 Room Air Lab Results Laboratory Tests Test 09/09/18 15:40 09/09/18 16:00 White Blood Count 10.4 x10^3/uL (4.0-11.0) Red Blood Count 4.13 x10^6/uL (3.50-5.40) Hemoglobin 13.9 g/dL (12.0-15.5) Hematocrit 41.4 % (36.0-47.0) Mean Corpuscular Volume 100 fL (79-100) Mean Corpuscular Hemoglobin 34 pg (25-35) Mean Corpuscular Hemoglobin Concent 34 g/dL (31-37) Red Cell Distribution Width 13.8 % (11.5-14.5) Platelet Count 202 x10^3/uL (140-400) Neutrophils (%) (Auto) 54 % (31-73) Lymphocytes (%) (Auto) 35 % (24-48) Monocytes (%) (Auto) 9 % (0-9) Eosinophils (%) (Auto) 1 % (0-3) Basophils (%) (Auto) 1 % (0-3) Neutrophils # (Auto) 5.7 x10^3uL (1.8-7.7) Lymphocytes # (Auto) 3.6 x10^3/uL (1.0-4.8) Monocytes # (Auto) 1.0 x10^3/uL (0.0-1.1) Eosinophils # (Auto) 0.1 x10^3/uL (0.0-0.7) Basophils # (Auto) 0.1 x10^3/uL (0.0-0.2) Sodium Level 140 mmol/L (136-145) Potassium Level 3.5 mmol/L (3.5-5.1) Chloride Level 105 mmol/L (98-107) Carbon Dioxide Level 23 mmol/L (21-32) Anion Gap 12 (6-14) Blood Urea Nitrogen 20 mg/dL (7-20) Creatinine 0.9 mg/dL (0.6-1.0) Estimated GFR (Cockcroft-Gault) 65.8 BUN/Creatinine Ratio 22 (6-20) H Glucose Level 104 mg/dL (70-99) H Calcium Level 8.7 mg/dL (8.5-10.1) Total Bilirubin 0.3 mg/dL (0.2-1.0) Aspartate Amino Transferase (AST) 27 U/L (15-37) Alanine Aminotransferase (ALT) 27 U/L (14-59) Alkaline Phosphatase 105 U/L (46-116) Total Protein 6.6 g/dL (6.4-8.2) Albumin 3.3 g/dL (3.4-5.0) L Albumin/Globulin Ratio 1.0 (1.0-1.7) Lipase 211 U/L (73-393) Ethyl Alcohol Level 368 mg/dL (0-10) H Urine Opiates Screen Neg (NEG) Urine Methadone Screen Neg (NEG) Urine Barbiturates Neg (NEG) Urine Phencyclidine Screen Neg (NEG) Urine Amphetamine/Methamphetamine Neg (NEG) Urine Benzodiazepines Screen Neg (NEG) Urine Cocaine Screen Neg (NEG) Urine Cannabinoids Screen Neg (NEG) Urine Ethyl Alcohol Pos (NEG) EKG EKG [] Radiology/Procedures Radiology/Procedures [] Course & Med Decision Making Course & Med Decision Making Pertinent Labs and Imaging studies reviewed. (See chart for details) [] Final Impression Final Impression [] Problems: (1) Intoxication (2) ETOH abuse Dragon Disclaimer Dragon Disclaimer This electronic medical record was generated, in whole or in part, using a voice recognition dictation system. NEISHA PAULA DO 09/09/18 2008: Adult General Physical Exam Physical Exam Gen: Arousable to voice, Resp: No acute distress, no accessory muscle use Neuro: Awake and moving all extremities, normal speech Psych: Mood- irritated, Course & Med Decision Making Course & Med Decision Making Sign out received from Dr. Gold for patient who was brought in by EMS for ETOH intoxication. Patient with history of chronic ETOH abuse. Patient still sleeping at time of sign out. Patient with history of homelessness. Patient lives at shelters. Labs reviewed. Patient evaluated by myself. Arousable to voice and moving all extremities. Patient started to become belligerent with staff. Patient appears clinically sober. Estimated blood alcohol content at time of discharge around 250. [facility] contacted regarding reservation of bed. Patient stable for discharge with outpatient follow-up with PCP. Discussed findings and plan with patient, who acknowledges understanding and agreement. Final Impression Final Impression 1) Alcohol Abuse 2) Intoxication CARLOTA GOLD MD Sep 09, 2018 17:05 NEISHA PAULA DO Sep 09, 2018 20:08
[2018-09-09 18:38] VITALS: BP 110/38
== END 2018-09-09 20:18 | disposition home or self-care (01) ==
LOC: ER 15:19
DX: F10.129 Alcohol abuse with intoxication, unspecified (principal); Z59.0 Homelessness; Z88.6 Allergy status to analgesic agent; Z88.8 Allergy status to other drugs, medicaments and biological substances; Y90.8 Blood alcohol level of 240 mg/100 ml or more
CPT/HCPCS: 36415; 51701; 70450; 80053; 80307; 83690; 85025; 96365; 96366; 96375; 99284; G0480; J2405; J7030

== ENCOUNTER 2018-10-02 13:34 | Emergency (ER) | payer OTHER ==
[~2018-10-02] VITALS: Ht 162.6 cm; Wt 70.8 kg
[2018-10-02] MEDS ORDERED: IV NORMAL SALINE 1,000ML 1,000 ML IV SCH (13:42)
[2018-10-02 14:13] LABS: BASO # 0.1 x10^3/uL (0.0-0.2); BASO % 1 % (0-3); EOS # 0.2 x10^3/uL (0.0-0.7); EOS % 3 % (0-3); HEMOGLOBIN 15.3 g/dL (12.0-15.5); LYMPH # 2.2 x10^3/uL (1.0-4.8); LYMPH % 29 % (24-48); MEAN CORPUSCULAR HEMOGLOBIN 34 pg (25-35); MEAN CORPUSCULAR HGB CONC 34 g/dL (31-37); MEAN CORPUSCULAR VOLUME 100 fL (79-100); MONO # 0.6 x10^3/uL (0.0-1.1); MONO % 7 % (0-9); NEUT # 4.6 x10^3uL (1.8-7.7); NEUT % 60 % (31-73); PLATELET COUNT 259 x10^3/uL (140-400); RED BLOOD COUNT 4.51 x10^6/uL (3.50-5.40); RED CELL DISTRIBUTION WIDTH 13.7 % (11.5-14.5); WHITE BLOOD COUNT 7.7 x10^3/uL (4.0-11.0)
--- NOTE | 2018-10-02 14:33 | RAD ---
ANKLE LEFT 3V History: Fell 3 days ago. Twisting. Pain and swelling. FINDINGS: No evidence of acute fracture. No bone destruction. Mild soft tissue swelling. IMPRESSION: No evidence of acute fracture or dislocation. Electronically signed by: Babatunde Alfaro MD (10/02/2018 2:29 PM) [facility]
--- NOTE | 2018-10-02 14:37 | PHYS DOC ---
Past History Past Medical History: Alcoholism Additional Past Medical Histor: colitis, crohns Past Surgical History: No Surgical History Additional Past Surgical Histo: Partial Rt foot amputation- infection Smoking: Cigarettes Alcohol Use: Occasionally Drug Use: None Adult General Chief Complaint Chief Complaint: DIARRHEA HPI HPI Patient is a 53 year old female who brought in by EMS from homeless [facility] term complaining of diarrhea and left ankle injury. Patient complaining of episodes of diarrhea after eating breakfast, lunch and dinner for the last 4 or 5 days without abdominal pain, nausea and vomiting, fever and chills, urinary symptom. Patient also states she twisted her left ankle several days ago and complaining of pain in medial malleolus that getting worse with bearing weight. Patient has history of alcoholism and states she had a pint of vodka yesterday or the day before yesterday and denies drinking alcohol today. Review of Systems Review of Systems Constitutional: Denies fever or chills [] Eyes: Denies change in visual acuity, redness, or eye pain [] HENT: Denies nasal congestion or sore throat [] Respiratory: Denies cough or shortness of breath [] Cardiovascular: No additional information not addressed in HPI [] GI: Denies abdominal pain, nausea, vomiting, bloody stools, reports diarrhea [] : Denies dysuria or hematuria [] Musculoskeletal: Denies back pain, reports joint pain [] Integument: Denies rash or skin lesions [] Neurologic: Denies headache, focal weakness or sensory changes [] Endocrine: Denies polyuria or polydipsia [] All other systems were reviewed and found to be within normal limits, except as documented in this note. Current Medications Current Medications Current Medications Medications (Trade) Dose Ordered Sig/Sharron Start Time Stop Time Status Last Admin Dose Admin Sodium Chloride 1,000 ml @ 1,000 mls/hr Q1H 10/02/18 13:42 10/02/18 14:41 Allergies Allergies Allergies Coded Allergies Type Severity Reaction Last Updated Verified aspirin Allergy Intermediate 07/06/18 Yes ketorolac Allergy Intermediate 07/06/18 Yes Physical Exam Physical Exam Constitutional: Well nourished, no acute distress, non-toxic appearance, smell of alcohol on breath. [] HENT: Normocephalic, atraumatic, oropharynx moist, no oral exudates, nose normal. [] Eyes: PERRLA, Neck: Normal range of motion, no tenderness, supple, no stridor. [] Cardiovascular:Heart rate regular rhythm, no murmur [] Lungs & Thorax: Bilateral breath sounds clear to auscultation [] Abdomen: Bowel sounds normal, soft, no tenderness, no masses, no pulsatile masses. [] Skin: Warm, dry, no erythema, no rash. [] Back: No tenderness, no CVA tenderness. [] Extremities: Left ankle with mild erythema and edema in medial malleolus without deformity or ecchymosis, painful range of motion, no neurovascular deficit. Neurologic: Alert and oriented X 3, normal motor function, normal sensory function, no focal deficits noted. [] Psychologic: Affect normal, judgement normal, mood normal. [] Current Patient Data Lab Results Laboratory Tests Test 10/02/18 13:55 White Blood Count 7.7 x10^3/uL (4.0-11.0) Red Blood Count 4.51 x10^6/uL (3.50-5.40) Hemoglobin 15.3 g/dL (12.0-15.5) Hematocrit 45.0 % (36.0-47.0) Mean Corpuscular Volume 100 fL (79-100) Mean Corpuscular Hemoglobin 34 pg (25-35) Mean Corpuscular Hemoglobin Concent 34 g/dL (31-37) Red Cell Distribution Width 13.7 % (11.5-14.5) Platelet Count 259 x10^3/uL (140-400) Neutrophils (%) (Auto) 60 % (31-73) Lymphocytes (%) (Auto) 29 % (24-48) Monocytes (%) (Auto) 7 % (0-9) Eosinophils (%) (Auto) 3 % (0-3) Basophils (%) (Auto) 1 % (0-3) Neutrophils # (Auto) 4.6 x10^3uL (1.8-7.7) Lymphocytes # (Auto) 2.2 x10^3/uL (1.0-4.8) Monocytes # (Auto) 0.6 x10^3/uL (0.0-1.1) Eosinophils # (Auto) 0.2 x10^3/uL (0.0-0.7) Basophils # (Auto) 0.1 x10^3/uL (0.0-0.2) EKG EKG [] Radiology/Procedures Radiology/Procedures [address] [address] IMAGING REPORT Signed PATIENT: OUMOU GRAVES ACCOUNT: [id number] : 1965 LOCATION: ER AGE: 53 SEX: F EXAM STATUS: PRE ER ORD. PHYSICIAN: GALLITO BOGGS MD REASON: Fall 3 days ago, twisted left ankle, pain and swelling PROCEDURE: ANKLE LEFT 3V ANKLE LEFT 3V History: Fell 3 days ago. Twisting. Pain and swelling. FINDINGS: No evidence of acute fracture. No bone destruction. Mild soft tissue swelling. IMPRESSION: No evidence of acute fracture or dislocation. Electronically signed by: Babatunde Alfaro MD (10/02/2018 2:29 PM) [facility] DICTATED AND SIGNED BY: BABATUNDE ALFARO MD DATE: 10/02/18 1427 CC: GALLITO BOGGS MD; PCP,NO ~ Course & Med Decision Making Course & Med Decision Making Pertinent Labs and Imaging studies reviewed. (See chart for details) Evaluation of patient in ER showed 53-year-old female patient with history of alcohol abuse brought in by EMS from homeless long term because of diarrhea and left ankle injury. Several days. Patient had unremarkable physical exam except for possible of alcohol on breath and mild erythema of left ankle. X-ray and labs was unremarkable except for positive radius for cocaine and blood alcohol of 67. Patient ambulated without problem. Plan discharge patient home with diagnosis of ankle sprain. Dragon Disclaimer Dragon Disclaimer This electronic medical record was generated, in whole or in part, using a voice recognition dictation system. Departure Departure: Impression: Primary Impression: Viral diarrhea Additional Impressions: Mild ankle sprain Cocaine abuse Tobacco abuse Tobacco abuse counseling Alcohol abuse Homeless Elevated liver function tests Hypoalbuminemia Hyperchloremia Disposition: HOME, SELF-CARE (at 1623) Condition: IMPROVED Referrals: PCP,NO (PCP) Patient Instructions: Alcohol Problems, Ankle Sprain, Cocaine Abuse-Brief, Diarrhea, Diet for Diarrhea, Adult, Smoking Cessation, Tips For Success Additional Instructions: Drink plenty of liquids Follow-up with your primary care physician in 3-5 days Return to ER if not getting better Scripts [Percogesic] No Conflict Check 1 TAB PO QID for pain, #10 Prov: GALLITO BOGGS MD 10/02/18 Problem Qualifiers GALLITO BOGGS MD Oct 02, 2018 14:37
[2018-10-02 14:41] LABS: AMORPHOUS SEDIMENT,UR PRESENT /HPF; BACTERIA,URINE 0 /HPF (0-FEW); BILIRUBIN,URINE NEG (NEG); CLARITY,URINE CLOUDY; COLOR,URINE YELLOW; GLUCOSE,URINE NEG (NEG); NITRITE,URINE NEG (NEG); SQUAMOUS EPITHELIAL CELL,UR MOD /LPF; UROBILINOGEN,URINE 1 mg/dL (0.2 mg/dL)
[2018-10-02 14:42] LABS: AMPHETAMINE/METHAMPHETAMINE NEG (NEG); BARBITURATES NEG (NEG); BENZODIAZEPINES NEG (NEG); CANNABINOIDS NEG (NEG); COCAINE POS (NEG); METHADONE NEG (NEG); OPIATES NEG (NEG); PHENCYCLIDINE NEG (NEG)
[2018-10-02 15:50] VITALS: BP 166/87
[2018-10-02 15:51] LABS: ALBUMIN 2.7 g/dL (3.4-5.0); ALBUMIN/GLOBULIN RATIO 0.9 (1.0-1.7); CALCIUM 7.5 mg/dL (8.5-10.1); CREATININE 0.9 mg/dL (0.6-1.0); GFR 65.8; TOTAL BILIRUBIN 0.2 mg/dL (0.2-1.0); TOTAL PROTEIN 5.8 g/dL (6.4-8.2)
[2018-10-02] MEDS ORDERED: Percogesic PO (16:27)
== END 2018-10-02 16:37 | disposition home or self-care (01) ==
LOC: ER 13:34
DX: S93.402A Sprain of unspecified ligament of left ankle, initial encounter (principal); A08.4 Viral intestinal infection, unspecified; R19.7 Diarrhea, unspecified; F17.210 Nicotine dependence, cigarettes, uncomplicated; F12.10 Cannabis abuse, uncomplicated; F14.10 Cocaine abuse, uncomplicated; F10.10 Alcohol abuse, uncomplicated; R79.89 Other specified abnormal findings of blood chemistry; E88.09 Other disorders of plasma-protein metabolism, not elsewhere classified; E87.8 Other disorders of electrolyte and fluid balance, not elsewhere classified; Z59.0 Homelessness; Z71.6 Tobacco abuse counseling; Z88.6 Allergy status to analgesic agent; Z88.8 Allergy status to other drugs, medicaments and biological substances; Y90.3 Blood alcohol level of 60-79 mg/100 ml; X50.1XXA Overexertion from prolonged static or awkward postures, initial encounter; Y93.89 Activity, other specified; Y92.89 Other specified places as the place of occurrence of the external cause; Y99.8 Other external cause status
CPT/HCPCS: 36415; 73610; 80053; 80307; 81001; 83690; 85025; 87086; 96360; 99284; G0480; J7030

== ENCOUNTER → 2018-10-07 | Outpatient (CLI) | payer OTHER ==
[2018-10-02 15:50] VITALS: BP 166/87
[~2018-10-07] MED LIST changes: +ACET325T21 PO; +CLON0.5T11 PO; +CLOP75TA57 PO; +DIVA125C2 PO; +FLUV50TA2 PO; +HYDR-3165 PO; +MAG355OR17 PO; +MAGN2400 PO; +METH29OI TP; +ONDA4TAB7 PO; +OXYC1TAB15 PO; +PHEN100C PO; +Percogesic PO; +RISP0.5T3 PO; +TRAZ-120 PO
--- NOTE | 2018-10-07 15:40 | RAD ---
Left foot, 3 views, 10/07/2018: HISTORY: Pain, injury No acute fracture or dislocation is identified. There is mild subcutaneous edema. IMPRESSION: No acute bony abnormality is detected. Electronically signed by: Delio West MD (10/07/2018 3:37 PM) [facility]
== END | disposition home or self-care (01) ==
LOC: RAD 15:06
PROVIDERS: ATTEND Registered Nurse
DX: M79.672 Pain in left foot (principal); R60.0 Localized edema
CPT/HCPCS: 73630

== ENCOUNTER 2018-11-16 09:05 | Emergency (ER) | payer OTHER ==
[~2018-11-16] VITALS: Ht 162.6 cm; Wt 75.8 kg
[~2018-11-16 09:05] MED LIST changes: -ACET325T21 PO; -CLON0.5T11 PO; -CLOP75TA57 PO; -DIVA125C2 PO; -FLUV50TA2 PO; -HYDR-3165 PO; -MAG355OR17 PO; -MAGN2400 PO; -METH29OI TP; -ONDA4TAB7 PO; -OXYC1TAB15 PO; -PHEN100C PO; -RISP0.5T3 PO; -TRAZ-120 PO
[2018-11-16] MEDS ORDERED: MORPHINE SULFATE 4 MG/ML DISP.SYRIN. IV ONE (10:00)
[2018-11-16 10:11] LABS: BASO # 0.1 x10^3/uL (0.0-0.2); BASO % 1 % (0-3); EOS # 0.1 x10^3/uL (0.0-0.7); EOS % 1 % (0-3); HEMATOCRIT 42.1 % (36.0-47.0); HEMOGLOBIN 14.3 g/dL (12.0-15.5); LYMPH # 1.9 x10^3/uL (1.0-4.8); LYMPH % 18 % (24-48); MEAN CORPUSCULAR HEMOGLOBIN 33 pg (25-35); MEAN CORPUSCULAR HGB CONC 34 g/dL (31-37); MEAN CORPUSCULAR VOLUME 97 fL (79-100); MONO # 0.5 x10^3/uL (0.0-1.1); MONO % 5 % (0-9); NEUT # 7.8 x10^3uL (1.8-7.7); NEUT % 75 % (31-73); PLATELET COUNT 336 x10^3/uL (140-400); RED BLOOD COUNT 4.33 x10^6/uL (3.50-5.40); RED CELL DISTRIBUTION WIDTH 13.7 % (11.5-14.5); WHITE BLOOD COUNT 10.5 x10^3/uL (4.0-11.0)
[2018-11-16 10:19] LABS: ALBUMIN 2.9 g/dL (3.4-5.0); ALBUMIN/GLOBULIN RATIO 0.7 (1.0-1.7); CALCIUM 9.3 mg/dL (8.5-10.1); CREATININE 0.9 mg/dL (0.6-1.0); GFR 65.8; POTASSIUM 4.1 mmol/L (3.5-5.1); TOTAL BILIRUBIN 0.3 mg/dL (0.2-1.0); TOTAL PROTEIN 6.8 g/dL (6.4-8.2)
--- NOTE | 2018-11-16 10:22 | RAD ---
Left foot radiograph 11/16/2018 9:48 AM INDICATION: Foot pain, swelling and discoloration. COMPARISON: None available. TECHNIQUE: 3 views the left foot are provided. FINDINGS: There is a 2 mm ossific fragment along the superior margin of the distal tuft of the first digit which may represent a fracture. This fragment appears new since the prior examination. Bone mineralization is within normal limits. Joint spaces are maintained. Regional soft tissues are within normal limits. There is no soft tissue gas or osseous erosion. IMPRESSION: There is a 2 mm ossific fragment along the superior margin of the distal tuft of the first digit which may represent a fracture. Electronically signed by: Twila Song MD (11/16/2018 10:19 AM) [id number]
[2018-11-16] MEDS ORDERED: MORPHINE SULFATE 4 MG/ML DISP.SYRIN. IM ONE (10:45)
[2018-11-16 11:29] LABS: BILIRUBIN,URINE NEG (NEG); CLARITY,URINE CLEAR; COLOR,URINE YELLOW; GLUCOSE,URINE NEG (NEG); NITRITE,URINE NEG (NEG); UROBILINOGEN,URINE 0.2 mg/dL (0.2 mg/dL)
[2018-11-16 11:31] LABS: BARBITURATES NEG (NEG); BENZODIAZEPINES NEG (NEG); CANNABINOIDS NEG (NEG); COCAINE NEG (NEG); METHADONE NEG (NEG); OPIATES NEG (NEG); PHENCYCLIDINE NEG (NEG)
[2018-11-16 11:32] LABS: AMPHETAMINE/METHAMPHETAMINE NEG (NEG)
--- NOTE | 2018-11-16 12:31 | PHYS DOC ---
Past History Past Medical History: Alcoholism, Cancer, DVT, [place], Seizure, Stroke, Other Additional Past Medical Histor: colitis, crohns Past Surgical History: Other Additional Past Surgical Histo: Partial Rt foot amputation- infection Smoking: Cigarettes Alcohol Use: Occasionally Additional Alcohol Information: last drink 2 weeks ago Drug Use: None Social History Narrative: hx of drug use Adult General Chief Complaint Chief Complaint: FOOT INJURY PAIN HPI HPI Patient is a 53 year old female who presents with complaining of injury to left foot. Patient has history of alcoholism and long time smoking and lives at a homeless [facility] and he states she hit her left foot 2 weeks ago and seen at [facility] and had x-ray of her foot and treated with antibiotic. She states she hit her fluid taken last night and complaining of pain in the great toe. 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 She is to take patient had left fifth toe information and discharge that did not get better with antibiotic given from [facility]. The volunteer staff stated they were not able to get appointment with podiatric for evaluation of color change toes. Patient also has history of right toes amputation. Review of Systems Review of Systems Constitutional: Denies fever or chills [] Eyes: Denies change in visual acuity, redness, or eye pain [] HENT: Denies nasal congestion or sore throat [] Respiratory: Denies cough or shortness of breath [] Cardiovascular: No additional information not addressed in HPI [] GI: Denies abdominal pain, nausea, vomiting, bloody stools or diarrhea [] : Denies dysuria or hematuria [] Musculoskeletal: Denies back pain, reports joint pain [] Integument: Denies rash or skin lesions [] Neurologic: Denies headache, focal weakness or sensory changes [] Endocrine: Denies polyuria or polydipsia [] All other systems were reviewed and found to be within normal limits, except as documented in this note. Current Medications Current Medications Current Medications Medications (Trade) Dose Ordered Sig/[facility] Start Time Stop Time Status Last Admin Dose Admin Morphine Sulfate (Morphine 4mg Syringe) 4 mg 1X ONCE 11/16/18 10:45 11/16/18 10:46 DC 11/16/18 10:36 4 MG Allergies Allergies Allergies Coded Allergies Type Severity Reaction Last Updated Verified aspirin Allergy Intermediate 07/06/18 Yes ketorolac Allergy Intermediate 07/06/18 Yes Physical Exam Physical Exam Constitutional: Well nourished, mild distress, non-toxic appearance, anxious. [ ] HENT: Normocephalic, atraumatic. Eyes: PERRLA, EOMI, conjunctiva normal, no discharge. [] Neck: Normal range of motion, no tenderness, supple, no stridor. [] Cardiovascular:Heart rate regular rhythm, no murmur [] Lungs & Thorax: Bilateral breath sounds clear to auscultation [] Skin: Warm, dry, no erythema, no rash. [] Extremities: Right toes status post amputation, left toes with cyanosis and change of the color with dry gangrene in second and fourth toes, fifth toe with change of color of stool and marked discharge, tenderness of the great toe with change of color of toe nail. Neurologic: Alert and oriented , normal motor function, normal sensory function , no focal deficits noted. [] Psychologic: Affect anxious, asking for pain medication frequently Current Patient Data Vital Signs Vital Signs Date Time Temp Pulse Resp B/P (MAP) Pulse Ox O2 Delivery O2 Flow Rate FiO2 11/16/18 10:36 18 Room Air 11/16/18 09:17 97.6 91 98 Lab Results Laboratory Tests Test 11/16/18 09:53 11/16/18 11:00 White Blood Count 10.5 x10^3/uL (4.0-11.0) Red Blood Count 4.33 x10^6/uL (3.50-5.40) Hemoglobin 14.3 g/dL (12.0-15.5) Hematocrit 42.1 % (36.0-47.0) Mean Corpuscular Volume 97 fL (79-100) Mean Corpuscular Hemoglobin 33 pg (25-35) Mean Corpuscular Hemoglobin Concent 34 g/dL (31-37) Red Cell Distribution Width 13.7 % (11.5-14.5) Platelet Count 336 x10^3/uL (140-400) Neutrophils (%) (Auto) 75 % (31-73) H Lymphocytes (%) (Auto) 18 % (24-48) L Monocytes (%) (Auto) 5 % (0-9) Eosinophils (%) (Auto) 1 % (0-3) Basophils (%) (Auto) 1 % (0-3) Neutrophils # (Auto) 7.8 x10^3uL (1.8-7.7) H Lymphocytes # (Auto) 1.9 x10^3/uL (1.0-4.8) Monocytes # (Auto) 0.5 x10^3/uL (0.0-1.1) Eosinophils # (Auto) 0.1 x10^3/uL (0.0-0.7) Basophils # (Auto) 0.1 x10^3/uL (0.0-0.2) Sodium Level 142 mmol/L (136-145) Potassium Level 4.1 mmol/L (3.5-5.1) Chloride Level 105 mmol/L (98-107) Carbon Dioxide Level 29 mmol/L (21-32) Anion Gap 8 (6-14) Blood Urea Nitrogen 19 mg/dL (7-20) Creatinine 0.9 mg/dL (0.6-1.0) Estimated GFR (Cockcroft-Gault) 65.8 BUN/Creatinine Ratio 21 (6-20) H Glucose Level 89 mg/dL (70-99) Lactic Acid Level 0.7 mmol/L (0.4-2.0) Calcium Level 9.3 mg/dL (8.5-10.1) Total Bilirubin 0.3 mg/dL (0.2-1.0) Aspartate Amino Transferase (AST) 16 U/L (15-37) Alanine Aminotransferase (ALT) 15 U/L (14-59) Alkaline Phosphatase 116 U/L (46-116) Total Protein 6.8 g/dL (6.4-8.2) Albumin 2.9 g/dL (3.4-5.0) L Albumin/Globulin Ratio 0.7 (1.0-1.7) L Ethyl Alcohol Level < 10 mg/dL (0-10) Urine Collection Type U cath Urine Color Yellow Urine Clarity Clear Urine pH 7.0 Urine Specific [place] 1.015 Urine Protein Neg (NEG-TRACE) Urine Glucose (UA) Neg mg/dL (NEG) Urine Ketones (Stick) Trace mg/dL (NEG) Urine Blood Neg (NEG) Urine Nitrite Neg (NEG) Urine Bilirubin Neg (NEG) Urine Urobilinogen Dipstick 0.2 mg/dL (0.2 mg/dL) Urine Leukocyte Esterase Neg (NEG) Urine Opiates Screen Neg (NEG) Urine Methadone Screen Neg (NEG) Urine Barbiturates Neg (NEG) Urine Phencyclidine Screen Neg (NEG) Urine Amphetamine/Methamphetamine Neg (NEG) Urine Benzodiazepines Screen Neg (NEG) Urine Cocaine Screen Neg (NEG) Urine Cannabinoids Screen Neg (NEG) Urine Ethyl Alcohol Neg (NEG) EKG EKG [] Radiology/Procedures Radiology/Procedures [address] [address] IMAGING REPORT Signed PATIENT: OUMOU GRAVES ACCOUNT: [id number] : 1965 LOCATION: ER AGE: 53 SEX: F EXAM STATUS: REG ER ORD. PHYSICIAN: GALLITO BOGGS MD REASON: injury PROCEDURE: FOOT LEFT 3V Left foot radiograph 11/16/2018 9:48 AM INDICATION: Foot pain, swelling and discoloration. COMPARISON: None available. TECHNIQUE: 3 views the left foot are provided. FINDINGS: There is a 2 mm ossific fragment along the superior margin of the distal tuft of the first digit which may represent a fracture. This fragment appears new since the prior examination. Bone mineralization is within normal limits. Joint spaces are maintained. Regional soft tissues are within normal limits. There is no soft tissue gas or osseous erosion. IMPRESSION: There is a 2 mm ossific fragment along the superior margin of the distal tuft of the first digit which may represent a fracture. Electronically signed by: Silas Rodriguez MD (11/16/2018 10:19 AM) [id number] DICTATED AND SIGNED BY: SILAS RODRIGUEZ MD DATE: 11/16/18 1019 CC: GALLITO BOGGS MD; JOAQUIM JUÁREZ BIOINFORMATICS ANALYST-C ~ Course & Med Decision Making Course & Med Decision Making Pertinent Labs and Imaging studies reviewed. (See chart for details) Evaluation of patient in ER showed 53-year-old female patient with chronic discoloration of left toes that gradually getting force. Patient complaining of new injury with possible fracture of right great toe. Patient caregiver information about problem with finding Podiatric orthopedic physician for evaluation of vascular changes. Dr. Evans was consulted at 1356 and agreed to admit patient at [facility] for evaluation by vascular and orthopedic physician. Dragon Disclaimer Dragon Disclaimer This electronic medical record was generated, in whole or in part, using a voice recognition dictation system. Departure Departure: Impression: Primary Impression: Gangrene of toe of left foot Additional Impressions: Tobacco abuse Tobacco abuse counseling History of alcohol abuse Amputated toe of right foot Disposition: XFER SHT-TRM HOSP ([facility] at 1223) Admitting Physician: Samy Evans (accepted transfer to [facility] at 1222) Condition: IMPROVED Referrals: JOAQUIM JUÁREZ BIOINFORMATICS ANALYST-C (PCP) Problem Qualifiers GALLITO BOGGS MD Nov 16, 2018 12:31
[2018-11-16 13:53] VITALS: BP 93/44
[2018-11-17] MEDS ORDERED: ALTEPLASE 2 MG VIAL INT CAT ONE (12:30)
== END 2018-11-16 14:40 | disposition short-term general hospital (02) ==
LOC: ER 09:05
DX: I96 Gangrene, not elsewhere classified (principal); F10.20 Alcohol dependence, uncomplicated; F17.210 Nicotine dependence, cigarettes, uncomplicated; I25.2 Old myocardial infarction; Z86.718 Personal history of other venous thrombosis and embolism; Z86.73 Personal history of transient ischemic attack (TIA), and cerebral infarction without residual deficits; Z71.6 Tobacco abuse counseling; Z59.0 Homelessness; Z88.6 Allergy status to analgesic agent; Z88.8 Allergy status to other drugs, medicaments and biological substances; Z89.421 Acquired absence of other right toe(s); Y90.0 Blood alcohol level of less than 20 mg/100 ml
CPT/HCPCS: 36415; 73630; 80053; 80307; 81003; 83605; 85025; 87040; 96372; 99285; G0480; J2270

== ENCOUNTER 2018-12-01 16:49 | Inpatient (IN) | payer OTHER ==
[~2018-12-01] VITALS: Ht 162.6 cm; Wt 72.7 kg
--- NOTE | 2018-12-01 17:28 | EKG ---
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
[2018-12-01 17:36] LABS: BASO # 0.1 x10^3/uL (0.0-0.2); BASO % 1 % (0-3); EOS # 0.3 x10^3/uL (0.0-0.7); EOS % 3 % (0-3); HEMATOCRIT 33.1 % (36.0-47.0); LYMPH # 3.5 x10^3/uL (1.0-4.8); LYMPH % 36 % (24-48); MEAN CORPUSCULAR HEMOGLOBIN 33 pg (25-35); MEAN CORPUSCULAR HGB CONC 33 g/dL (31-37); MEAN CORPUSCULAR VOLUME 98 fL (79-100); MONO # 0.9 x10^3/uL (0.0-1.1); MONO % 9 % (0-9); NEUT # 4.8 x10^3uL (1.8-7.7); NEUT % 50 % (31-73); PLATELET COUNT 340 x10^3/uL (140-400); RED BLOOD COUNT 3.37 x10^6/uL (3.50-5.40); RED CELL DISTRIBUTION WIDTH 13.6 % (11.5-14.5); WHITE BLOOD COUNT 9.6 x10^3/uL (4.0-11.0)
[2018-12-01 17:50] LABS: CLARITY,URINE CLEAR; COLOR,URINE YELLOW
[2018-12-01 17:51] LABS: BACTERIA,URINE 0 /HPF (0-FEW); BILIRUBIN,URINE NEG (NEG); GLUCOSE,URINE NEG (NEG); NITRITE,URINE NEG (NEG); SQUAMOUS EPITHELIAL CELL,UR MANY /LPF; UROBILINOGEN,URINE 0.2 mg/dL (0.2 mg/dL); WBC,URINE OCC /HPF (0-4)
[2018-12-01 18:04] LABS: ALBUMIN 2.7 g/dL (3.4-5.0); ALBUMIN/GLOBULIN RATIO 0.7 (1.0-1.7); CALCIUM 8.9 mg/dL (8.5-10.1); CREATININE 1.1 mg/dL (0.6-1.0); GFR 52.2; MAGNESIUM 1.8 mg/dL (1.8-2.4); POTASSIUM 4.1 mmol/L (3.5-5.1); TOTAL BILIRUBIN 0.1 mg/dL (0.2-1.0); TOTAL PROTEIN 6.7 g/dL (6.4-8.2)
[2018-12-01] MEDS ORDERED: oxyCODONE/APAP 5/325 1 TAB TABLET PO ONE (18:30)
[2018-12-01] MEDS ORDERED: ENOXAPARIN ** NOTE DOSE ** SYRINGE SQ ONE (18:30)
--- NOTE | 2018-12-01 18:41 | ED.ADGEN ---
Past History Past Medical History: Alcoholism, Cancer, COPD, Diabetes, DVT, [place], Seizure, Stroke, Other Additional Past Medical Histor: colitis, crohns Past Surgical History: Other Additional Past Surgical Histo: Partial Rt foot amputation- infection Smoking: Cigarettes Alcohol Use: Occasionally Drug Use: None Adult General Chief Complaint Chief Complaint ".. I guess .. I got sent ... because of my fit.. hitting.. and throwing stuff..." HPI HPI Patient is a 53 year old female who presents with above hx and complaints of disruptive behavior. Patient lives at [facility] since 11/29/2018. Patient previously was at the homeless [facility] [place]. Patient has been yelling and cussing at staff. throwing items. throwing food. Hallucinating both visual and auditory. Patient having paranoid delusions that others are sleeping with her . Has been aggressive towards staff. Has had increased insomnia. Impossible to redirect. Patient has peripheral vascular disease with recent amputations of toes on the left foot previous amputation of toes on the right foot. Patient is partially blind, history of lung cancer, history of DVT, history of stents and bypass surgery to legs, history of hypertension, history of borderline personality, history of diabetes, history of seizure disorder when withdrawing from alcohol. Does have a history of COPD, tobacco and alcohol abuse. Patient has history of poor impulse control and noncompliance. Patient sent to the [facility] for evaluation of her disruptive behavior. Patient seen in the ED for baseline labs. Patient's primary care physician is at [facility]. Review of Systems Review of Systems Poor historian Constitutional: Denies fever or chills [] Eyes: Denies change in visual acuity, redness, or eye pain [] HENT: Denies nasal congestion or sore throat [] Respiratory: Denies cough or shortness of breath [] Cardiovascular: No additional information not addressed in HPI [] GI: Denies abdominal pain, nausea, vomiting, bloody stools or diarrhea [] : Denies dysuria or hematuria [] Musculoskeletal: Denies back pain or joint pain []Complaints of chronic pain. Integument: Denies rash or skin lesions [] Neurologic: Denies headache, focal weakness or sensory changes [] Endocrine: Denies polyuria or polydipsia [] All other systems were reviewed and found to be within normal limits, except as documented in this note. Family History Family History Not currently available. Current Medications Current Medications Current Medications Medications (Trade) Dose Ordered Sig/[facility] Start Time Stop Time Status Last Admin Dose Admin Albuterol/ Ipratropium (Duoneb) 3 ml RTQID 12/01/18 20:00 12/01/18 20:00 DC Enoxaparin Sodium (Lovenox 80mg Syringe) 80 mg 1X ONCE 12/01/18 18:30 12/01/18 18:31 DC 12/01/18 18:23 80 MG Oxycodone/ Acetaminophen (Percocet 5/325) 2 tab QIDPRN PRN 12/01/18 18:15 12/01/18 18:32 DC See Nursing for home meds Allergies Allergies Allergies Coded Allergies Type Severity Reaction Last Updated Verified aspirin Allergy Intermediate 07/06/18 Yes ketorolac Allergy Intermediate 07/06/18 Yes Physical Exam Physical Exam Constitutional: , no acute distress, non-toxic appearance. [] HENT: Normocephalic, atraumatic, bilateral external ears normal, oropharynx moist, no oral exudates, nose normal. Eyes: PERRLA, EOMI, conjunctiva normal, no discharge. [] Neck: Normal range of motion, no tenderness, supple, no stridor. [] Cardiovascular:Heart rate regular rhythm, no murmur [ occasional PVC on monitor Lungs & Thorax: Bilateral breath sounds equal apexes with scattered wheezes on auscultation [] Abdomen: Bowel sounds normal, soft, no tenderness, no masses, no pulsatile masses. [] Skin: Warm, dry, no erythema, no rash.. left foot- breakdown Back: No tenderness, no CVA tenderness. [] Extremities: No tenderness, no cyanosis, no clubbing, ROM intact, trace ankle edema. [] Amputation toe on Rt. . Vascular breakdown Lt foot -Dressing Neurologic: Alert and oriented X 3, normal motor function, decreased plantar sensory function, no focal deficits noted. [] Psychologic: Affect agitated, judgement normal, mood normal. [] Current Patient Data Vital Signs Vital Signs Date Time Temp Pulse Resp B/P (MAP) Pulse Ox O2 Delivery O2 Flow Rate FiO2 12/01/18 18:23 18 Room Air 12/01/18 16:55 98.2 92 96 Lab Results Laboratory Tests Test 12/01/18 17:17 White Blood Count 9.6 x10^3/uL (4.0-11.0) Red Blood Count 3.37 x10^6/uL (3.50-5.40) L Hemoglobin 11.0 g/dL (12.0-15.5) L Hematocrit 33.1 % (36.0-47.0) L Mean Corpuscular Volume 98 fL (79-100) Mean Corpuscular Hemoglobin 33 pg (25-35) Mean Corpuscular Hemoglobin Concent 33 g/dL (31-37) Red Cell Distribution Width 13.6 % (11.5-14.5) Platelet Count 340 x10^3/uL (140-400) Neutrophils (%) (Auto) 50 % (31-73) Lymphocytes (%) (Auto) 36 % (24-48) Monocytes (%) (Auto) 9 % (0-9) Eosinophils (%) (Auto) 3 % (0-3) Basophils (%) (Auto) 1 % (0-3) Neutrophils # (Auto) 4.8 x10^3uL (1.8-7.7) Lymphocytes # (Auto) 3.5 x10^3/uL (1.0-4.8) Monocytes # (Auto) 0.9 x10^3/uL (0.0-1.1) Eosinophils # (Auto) 0.3 x10^3/uL (0.0-0.7) Basophils # (Auto) 0.1 x10^3/uL (0.0-0.2) Urine Collection Type Unknown Urine Color Yellow Urine Clarity Clear Urine pH 5.5 Urine Specific [place] 1.020 Urine Protein Neg (NEG-TRACE) Urine Glucose (UA) Neg mg/dL (NEG) Urine Ketones (Stick) Neg mg/dL (NEG) Urine Blood Neg (NEG) Urine Nitrite Neg (NEG) Urine Bilirubin Neg (NEG) Urine Urobilinogen Dipstick 0.2 mg/dL (0.2 mg/dL) Urine Leukocyte Esterase Neg (NEG) Urine RBC 1-2 /HPF (0-2) Urine WBC Occ /HPF (0-4) Urine Squamous Epithelial Cells Many /LPF Urine Bacteria 0 /HPF (0-FEW) Sodium Level 139 mmol/L (136-145) Potassium Level 4.1 mmol/L (3.5-5.1) Chloride Level 105 mmol/L (98-107) Carbon Dioxide Level 26 mmol/L (21-32) Anion Gap 8 (6-14) Blood Urea Nitrogen 24 mg/dL (7-20) H Creatinine 1.1 mg/dL (0.6-1.0) H Estimated GFR (Cockcroft-Gault) 52.2 BUN/Creatinine Ratio 22 (6-20) H Glucose Level 116 mg/dL (70-99) H Calcium Level 8.9 mg/dL (8.5-10.1) Magnesium Level 1.8 mg/dL (1.8-2.4) Total Bilirubin 0.1 mg/dL (0.2-1.0) L Aspartate Amino Transferase (AST) 10 U/L (15-37) L Alanine Aminotransferase (ALT) 12 U/L (14-59) L Alkaline Phosphatase 155 U/L (46-116) H Total Protein 6.7 g/dL (6.4-8.2) Albumin 2.7 g/dL (3.4-5.0) L Albumin/Globulin Ratio 0.7 (1.0-1.7) L EKG EKG My interpretation of EKG shows a sinus rhythm at 84. Does have occasional PVC.[] Radiology/Procedures Radiology/Procedures My interpretation chest x-ray shows no acute cardiopulmonary findings. No free air under the diaphragm.[] Course & Med Decision Making Course & Med Decision Making Pertinent Labs and Imaging studies reviewed. (See chart for details). Pt. admitted to [facility]- Dr. Taylor and Consults to Dr. Evans- for medical issues. [] Final Impression Final Impression 1. Mental Status Change 2. Aggressive Behavior, Hitting, Throwing objects, food, threatening staff 3. Hallucinations 4. Delusions- Paranoid 5. PVDz[]- Stents and Bypass, amputations toes (current Lt. foot ) 6. Hx. Lung Ca 7. Hx DVT 8. Hx. HTN 9. Hx. Borderline Personality 10.Hx. COPD 11. Hx. ETOH and Tob use and dependance 12. Insomnia 13. Hx. ETOH withdrawal seizure when coming off alcohol 14. Hx. Non-compliance 15. Hx. Blindness- Marked decreased vision 16. Malnutrition- Alb. 2.7 18. Elevated BUN/Crea. 24/1.1 19. Elevated Alk. Phos 155 20. Hx Crohn's and inflammatory bowel disease Dr[place]on Disclaimer Salma Disclaimer This electronic medical record was generated, in whole or in part, using a voice recognition dictation system. Discharge Summary Visit Information Final Diagnosis Problems Medical Problems: (1) Mental status change resolved Status: Acute Brief Hospital Course Allergies Allergies Coded Allergies Type Severity Reaction Last Updated Verified aspirin Allergy Intermediate 07/06/18 Yes ketorolac Allergy Intermediate 07/06/18 Yes morphine Allergy Intermediate 12/01/18 Yes Vital Signs Vital Signs Date Time Temp Pulse Resp B/P (MAP) Pulse Ox O2 Delivery O2 Flow Rate FiO2 12/01/18 22:50 18 Room Air 12/01/18 21:58 98 12/01/18 18:50 97.6 82 105/62 (76) Lab Results Laboratory Tests Test 12/01/18 17:17 White Blood Count 9.6 x10^3/uL (4.0-11.0) Red Blood Count 3.37 x10^6/uL (3.50-5.40) Hemoglobin 11.0 g/dL (12.0-15.5) Hematocrit 33.1 % (36.0-47.0) Mean Corpuscular Volume 98 fL (79-100) Mean Corpuscular Hemoglobin 33 pg (25-35) Mean Corpuscular Hemoglobin Concent 33 g/dL (31-37) Red Cell Distribution Width 13.6 % (11.5-14.5) Platelet Count 340 x10^3/uL (140-400) Neutrophils (%) (Auto) 50 % (31-73) Lymphocytes (%) (Auto) 36 % (24-48) Monocytes (%) (Auto) 9 % (0-9) Eosinophils (%) (Auto) 3 % (0-3) Basophils (%) (Auto) 1 % (0-3) Neutrophils # (Auto) 4.8 x10^3uL (1.8-7.7) Lymphocytes # (Auto) 3.5 x10^3/uL (1.0-4.8) Monocytes # (Auto) 0.9 x10^3/uL (0.0-1.1) Eosinophils # (Auto) 0.3 x10^3/uL (0.0-0.7) Basophils # (Auto) 0.1 x10^3/uL (0.0-0.2) Urine Collection Type Unknown Urine Color Yellow Urine Clarity Clear Urine pH 5.5 Urine Specific [place] 1.020 Urine Protein Neg (NEG-TRACE) Urine Glucose (UA) Neg mg/dL (NEG) Urine Ketones (Stick) Neg mg/dL (NEG) Urine Blood Neg (NEG) Urine Nitrite Neg (NEG) Urine Bilirubin Neg (NEG) Urine Urobilinogen Dipstick 0.2 mg/dL (0.2 mg/dL) Urine Leukocyte Esterase Neg (NEG) Urine RBC 1-2 /HPF (0-2) Urine WBC Occ /HPF (0-4) Urine Squamous Epithelial Cells Many /LPF Urine Bacteria 0 /HPF (0-FEW) Sodium Level 139 mmol/L (136-145) Potassium Level 4.1 mmol/L (3.5-5.1) Chloride Level 105 mmol/L (98-107) Carbon Dioxide Level 26 mmol/L (21-32) Anion Gap 8 (6-14) Blood Urea Nitrogen 24 mg/dL (7-20) Creatinine 1.1 mg/dL (0.6-1.0) Estimated GFR (Cockcroft-Gault) 52.2 BUN/Creatinine Ratio 22 (6-20) Glucose Level 116 mg/dL (70-99) Calcium Level 8.9 mg/dL (8.5-10.1) Magnesium Level 1.8 mg/dL (1.8-2.4) Total Bilirubin 0.1 mg/dL (0.2-1.0) Aspartate Amino Transf (AST/SGOT) 10 U/L (15-37) Alanine Aminotransferase (ALT/SGPT) 12 U/L (14-59) Alkaline Phosphatase 155 U/L (46-116) Total Protein 6.7 g/dL (6.4-8.2) Albumin 2.7 g/dL (3.4-5.0) Albumin/Globulin Ratio 0.7 (1.0-1.7) Brief Hospital Course Ms. Guillermo is a 53 old female who presented with mental status change- disruptive behaviors. Admitted Dr. Taylor. Consult s to Dr. Evans for medical issues. Discharge Information Condition at Discharge: Stable Dischare Medications Current Medications Oxycodone/ Acetaminophen (Percocet 5/325) 2 tab 1X ONCE PO Last administered on 12/01/18at 18:23; Start 12/01/18 at 18:30; Stop 12/01/18 at 18:31; Status DC Enoxaparin Sodium (Lovenox 80mg Syringe) 80 mg 1X ONCE SQ Last administered on 12/01/18at 18:23; Start 12/01/18 at 18:30; Stop 12/01/18 at 18:31; Status DC Albuterol/ Ipratropium (Duoneb) 3 ml RTQID NEB Last administered on 12/01/18at 21:35; Start 12/01/18 at 20:00; Stop 12/02/18 at 19:59 Oxycodone/ Acetaminophen (Percocet 5/325) 2 tab QIDPRN PRN PO MARKED PAIN; Start 12/01/18 at 18:15 Clonazepam (KlonoPIN) 0.5 mg BID PO Last administered on 12/01/18 21:47; Start 12/01/18 at 21:00 Acetaminophen/ Hydrocodone Bitart (Lortab 5/325) 2 tab PRN Q4HRS PRN PO PAIN Last administered on 12/01/18at 21:48; Start 12/01/18 at 21:00 Ondansetron HCl (Zofran Odt) 4 mg PRN Q6HRS PRN PO NAUSEA/VOMITING; Start 12/01 at 21:00 Phenytoin Sodium (Dilantin) 300 mg BID PO Last administered on 12/01/18at 21:48 ; Start 12/01/18 at 21:00 Acetaminophen (Tylenol) 650 mg PRN Q6HRS PRN PO PAIN / TEMP; Start 12/01/18 at 23:30 Multi-Ingredient Ointment (Analgesic Quincy) 1 miley PRN QID PRN TP MUSCLE PAIN; Start 12/01/18 at 23:30 Al Hydroxide/Mg Hydroxide (Mylanta Plus Xs) 15 ml PRN AFTMEALHC PRN PO DYSPEPSIA; Start 12/01/18 at 23:30 Magnesium Hydroxide (Milk Of Magnesia) 2,400 mg PRN QHS PRN PO CONSTIPATION; Start 12/01/18 at 23:30 Active Scripts Active [Percogesic] 1 Tab PO QID Naprosyn (Naproxen) 500 Mg Tablet 1 Tab PO BID Reported Plavix (Clopidogrel Bisulfate) 75 Mg Tablet 75 Mg PO DAILY Zofran (Ondansetron Hcl) 4 Mg Tablet 4 Mg PO PRN Q6HRS PRN [place] 5-325 Tablet (Hydrocodone Bit/Acetaminophen) 1 Each Tablet 2 Tab PO PRN Q4HRS PRN Dilantin (Phenytoin Sodium Extended) 100 Mg Capsule 300 Mg PO BID Clonazepam 0.5 Mg Tablet 0.5 Mg PO BID Dailyon Disclaimer This chart was dictated in whole or in part using Voice Recognition software in a busy, high-work load, and often noisy Emergency Department environment. It may contain unintended and wholly unrecognized errors or omissions. ROBERTH ACOSTA MD Dec 01, 2018 18:41
[2018-12-01 18:50] VITALS: BP 105/62
[2018-12-01] MEDS ORDERED: CLOP75TA57 PO (20:32)
[2018-12-01] MEDS ORDERED: HYDR-3165 PO (20:32)
[2018-12-01] MEDS ORDERED: ONDA4TAB7 PO (20:32)
[2018-12-01] MEDS ORDERED: PHEN100C PO (20:32)
[2018-12-01] MEDS ORDERED: CLON0.5T11 PO (20:32)
[2018-12-01] MEDS ORDERED: ONDANSETRON ODT 4 MG TAB.RAPDIS PO PRN (21:00)
[2018-12-01] MEDS: IPRATRPIUM/ALBUTEROL 0.5/2.5MG 3 ML NEBU. NEB SCH (21:35)
[2018-12-01] MEDS: clonazePAM 0.5 MG TABLET PO SCH (21:47)
[2018-12-01] MEDS: PHENYTOIN SODIUM EXTENDED 100 MG CAPSULE PO SCH (21:48)
[2018-12-01] MEDS: HYDROcodone/APAP 5/325MG 1 TAB TABLET PO PRN (21:48)
--- NOTE | 2018-12-01 22:37 | PDOC ---
Exam Note: Adolfo Note: Please also refer to the separate dictated note~for this date of service dictated separately.~Patient seen individually. Discussed the patient with Nursing staff reviewed the chart.~Reviewed interim history and current functioning. Reviewed vital signs,~Labs/ Radiology~and current medications noted below. Continue current treatment with the changes noted in the dictated addendum note Assessment: Vital Signs: Vital Signs Date Time Temp Pulse Resp B/P (MAP) Pulse Ox O2 Delivery O2 Flow Rate FiO2 12/01/18 21:58 98 Room Air 12/01/18 21:48 18 12/01/18 18:50 97.6 82 105/62 (76) Labs: Laboratory Tests Test 12/01/18 17:17 White Blood Count 9.6 x10^3/uL (4.0-11.0) Red Blood Count 3.37 x10^6/uL (3.50-5.40) L Hemoglobin 11.0 g/dL (12.0-15.5) L Hematocrit 33.1 % (36.0-47.0) L Mean Corpuscular Volume 98 fL (79-100) Mean Corpuscular Hemoglobin 33 pg (25-35) Mean Corpuscular Hemoglobin Concent 33 g/dL (31-37) Red Cell Distribution Width 13.6 % (11.5-14.5) Platelet Count 340 x10^3/uL (140-400) Neutrophils (%) (Auto) 50 % (31-73) Lymphocytes (%) (Auto) 36 % (24-48) Monocytes (%) (Auto) 9 % (0-9) Eosinophils (%) (Auto) 3 % (0-3) Basophils (%) (Auto) 1 % (0-3) Neutrophils # (Auto) 4.8 x10^3uL (1.8-7.7) Lymphocytes # (Auto) 3.5 x10^3/uL (1.0-4.8) Monocytes # (Auto) 0.9 x10^3/uL (0.0-1.1) Eosinophils # (Auto) 0.3 x10^3/uL (0.0-0.7) Basophils # (Auto) 0.1 x10^3/uL (0.0-0.2) Urine Collection Type Unknown Urine Color Yellow Urine Clarity Clear Urine pH 5.5 Urine Specific [place] 1.020 Urine Protein Neg (NEG-TRACE) Urine Glucose (UA) Neg mg/dL (NEG) Urine Ketones (Stick) Neg mg/dL (NEG) Urine Blood Neg (NEG) Urine Nitrite Neg (NEG) Urine Bilirubin Neg (NEG) Urine Urobilinogen Dipstick 0.2 mg/dL (0.2 mg/dL) Urine Leukocyte Esterase Neg (NEG) Urine RBC 1-2 /HPF (0-2) Urine WBC Occ /HPF (0-4) Urine Squamous Epithelial Cells Many /LPF Urine Bacteria 0 /HPF (0-FEW) Sodium Level 139 mmol/L (136-145) Potassium Level 4.1 mmol/L (3.5-5.1) Chloride Level 105 mmol/L (98-107) Carbon Dioxide Level 26 mmol/L (21-32) Anion Gap 8 (6-14) Blood Urea Nitrogen 24 mg/dL (7-20) H Creatinine 1.1 mg/dL (0.6-1.0) H Estimated GFR (Cockcroft-Gault) 52.2 BUN/Creatinine Ratio 22 (6-20) H Glucose Level 116 mg/dL (70-99) H Calcium Level 8.9 mg/dL (8.5-10.1) Magnesium Level 1.8 mg/dL (1.8-2.4) Total Bilirubin 0.1 mg/dL (0.2-1.0) L Aspartate Amino Transferase (AST) 10 U/L (15-37) L Alanine Aminotransferase (ALT) 12 U/L (14-59) L Alkaline Phosphatase 155 U/L (46-116) H Total Protein 6.7 g/dL (6.4-8.2) Albumin 2.7 g/dL (3.4-5.0) L Albumin/Globulin Ratio 0.7 (1.0-1.7) L Current Medications: Meds: Current Medications Oxycodone/ Acetaminophen (Percocet 5/325) 2 tab 1X ONCE PO Last administered on 12/01/18at 18:23; Start 12/01/18 at 18:30; Stop 12/01/18 at 18:31; Status DC Enoxaparin Sodium (Lovenox 80mg Syringe) 80 mg 1X ONCE SQ Last administered on 12/01/18at 18:23; Start 12/01/18 at 18:30; Stop 12/01/18 at 18:31; Status DC Albuterol/ Ipratropium (Duoneb) 3 ml RTQID NEB Last administered on 12/01/18at 21:35; Start 12/01/18 at 20:00; Stop 12/02/18 at 19:59 Oxycodone/ Acetaminophen (Percocet 5/325) 2 tab QIDPRN PRN PO MARKED PAIN; Start 12/01/18 at 18:15 Clonazepam (KlonoPIN) 0.5 mg BID PO Last administered on 12/01/18at 21:47; Start 12/01/18 at 21:00 Acetaminophen/ Hydrocodone Bitart (Lortab 5/325) 2 tab PRN Q4HRS PRN PO PAIN Last administered on 12/01/18 21:48; Start 12/01/18 at 21:00 Ondansetron HCl (Zofran Odt) 4 mg PRN Q6HRS PRN PO NAUSEA/VOMITING; Start 12/01 at 21:00 Phenytoin Sodium (Dilantin) 300 mg BID PO Last administered on 12/01/18at 21:48 ; Start 12/01/18 at 21:00 Active Scripts Active [Percogesic] 1 Tab PO QID Naprosyn (Naproxen) 500 Mg Tablet 1 Tab PO BID Reported Plavix (Clopidogrel Bisulfate) 75 Mg Tablet 75 Mg PO DAILY Zofran (Ondansetron Hcl) 4 Mg Tablet 4 Mg PO PRN Q6HRS PRN [place] 5-325 Tablet (Hydrocodone Bit/Acetaminophen) 1 Each Tablet 2 Tab PO PRN Q4HRS PRN Dilantin (Phenytoin Sodium Extended) 100 Mg Capsule 300 Mg PO BID Clonazepam 0.5 Mg Tablet 0.5 Mg PO BID I have reviewed the current psychotropics carefully including drug interactions. Risk benefit ratio favors no change other than as noted in my dictated progress note. Diagnosis: Problems: (1) Viral diarrhea (2) Mild ankle sprain (3) Cocaine abuse (4) Tobacco abuse (5) Tobacco abuse counseling (6) Knee pain, right (7) Knee abrasion (8) Intoxication MAHENDRA THOMAS MD Dec 01, 2018 22:37
[2018-12-01] MEDS ORDERED: MAGNESIUM HYDROXIDE 2,400 MG/30 ML ORAL.SUSP. PO PRN (23:30)
[2018-12-01] MEDS ORDERED: MAG HYDROX/AL HYDROX/SIMETH 30 ML ORAL.SUSP PO PRN (23:30)
[2018-12-01] MEDS ORDERED: ACETAMINOPHEN 325 MG TABLET PO PRN (23:30)
[2018-12-01] MEDS ORDERED: METHYL SALICYLATE/MENTHOL TOPICAL OINTMENT 29GM TUBE. TP PRN (23:30)
--- NOTE | 2018-12-02 00:30 | NUR ---
Admission Note with Justification for Admission to [facility] Patient admitted to [facility] for protective oversight for emergency stabilization of acute psychiatric crisis. Pt admitted from: Hospital ER Mode of arrival: EMS Accompanied By: [facility] Staff Precipitating behaviors that initiated intake and admission: mood lability, throwing food, cussing and aggressive towards staff, visual and auditory hallucinations, yelling, paranoid that others are sleeping with her Description of failure of out patient attempts at stabilization in previous setting list behavior and medication trials: Klonopin BID, moved roommate out of room Behaviors and assessment findings upon admission: calm, cooperative, alert and oriented x 3, confused to situation, c/o pain bilateral feet, medication seeking, labile Plan: Admit for protective oversight for adjustment and stabilization of medications, behaviors and mood. Intense treatment regimen including groups, medication adjustments, therapy, consistent regimen for ADL's, self care, and sleep hygiene. Daily monitoring by Inpatient staff, Psychiatry, and Medical Physician.
[2018-12-02] MEDS: HYDROcodone/APAP 5/325MG 1 TAB TABLET PO PRN ×2 (02:43→07:35)
[2018-12-02 05:55] VITALS: BP 101/54
[2018-12-02] MEDS: IPRATRPIUM/ALBUTEROL 0.5/2.5MG 3 ML NEBU. NEB SCH ×3 (06:01→16:32)
[2018-12-02 07:41] LABS: PHENY 15.1 mcg/mL (10.0-20.0)
--- NOTE | 2018-12-02 07:42 | RAD ---
Examination: PORTABLE CHEST 1V History: admission to [facility], hx lung cancer, collapsed lung Comparison/Correlation: 06/24/2009 chest x-ray exam Findings: AP frontal view of the chest was obtained. Heart size and pulmonary vasculature are normal. No infiltrate or pleural effusion. No pneumothorax. Bony structures are unremarkable with no acute process. Impression: No active disease. Electronically signed by: Dennis Mead MD (12/02/2018 7:39 AM) [facility]
--- NOTE | 2018-12-02 08:33 | NUR ---
On 12/01/18 at 3:07pm, FLORIDALMA contacted [place] at [employer] [place] [address], [address], or [address] that no prior authorization or concurrent reviews would be required. Call reference number is [id number].
--- NOTE | 2018-12-02 09:06 | NUR ---
Wound Care Wound care consult for wounds to left foot. 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 Pt also has necrotic tip on 3rd toe from arterial insufficiency. Cleansed incisions with ChloraPrep and covered with Xeroform and ABD with Kerlix, Painted 3rd toe with Betadine and covered with ABD and Kerlix. Recommend to change every other day. Left TMA site is calloused and dry but no wounds found. No other wounds noted on full skin inspection. Discussed POC with Krystal STEEN. WC will continue to follow for possible changes.
[2018-12-02] MEDS: PHENYTOIN SODIUM EXTENDED 100 MG CAPSULE PO SCH ×2 (09:16→20:15)
[2018-12-02] MEDS: clonazePAM 0.5 MG TABLET PO SCH ×2 (09:17→20:16)
--- NOTE | 2018-12-02 09:20 | NUR ---
Nursing Note After breakfast in the day room, staff assisted pt in propping her feet in a chair as they were instructed. Pt became very upset and began to yell at staff saying, "You don't understand, I can't sit up for very long because my legs hurt too bad." When staff tried to explain that after she received her medications they would help her to bed. When this nurse attempted to explain to pt, pt put her hands over her ears and yelled, "You won't let me talk!! I can't sit here! I need to go to bed!!!" Pt was escorted to [facility] to calm. Pt given her medications. Attempted to explain that a Broda had been ordered to help pt be able to sit in a reclining position so that she could participate in groups and generally be out in the milieu. Pt was argumentative, and began yelling, "you killed my father, you killed my whole family." Pt was referring to the fact that her family had been killed in [place]. Pt was escorted to her room so that she could lie down. Will continue to monitor.
--- NOTE | 2018-12-02 11:41 | NUR ---
Nursing Note PT recommends that pt use a wheelchair w/ leg rests put up to 90 degrees and Broda. Pt is to switch between the two. The concern is that if pt uses only the Broda that pt will choose to do less for herself and loose the strength that she currently has.
--- NOTE | 2018-12-02 11:45 | NUR ---
WEEKLY NOTE: Pt is medication seeking and demanding things from staff. Pt is irritable and reports that she is blind in her right eye. Pt appeared to have some visual hallucinations in the hallway this morning and due to her behaviors, she was placed in the [facility] Hallway to calm down. Pt came in last night from [facility]. SW will complete PSA and figure out pt discharge plans.
[2018-12-02] MEDS: oxyCODONE/APAP 5/325 1 TAB TABLET PO PRN ×2 (13:14→20:22)
[2018-12-02 13:15] LABS: THYROID STIM HORMONE (TSH) 9.235 uIU/mL (0.358-3.740)
--- NOTE | 2018-12-02 16:08 | NUR ---
FLORIDALMA returned call from Gail at [employer]. She educated FLORIDALMA on what services they would be able to offer pt on a short term and residential basis. Gail reports that it will be a embedded case manager service offered to pt; however, pt does not have to agree on the service if she does not feel as though it is needed. FLORIDALMA explained that pt was still pretty irritable and acting out since admission; therefore, FLORIDALMA will meet with her tomorrow to not only complete the PSA, but would be able to let her know whether or not pt would be able to agree to the services. Gail's direct line is ; if she is not available, her cell number is .
[2018-12-02 16:26] VITALS: BP 105/68
[2018-12-02 17:08] LABS: THYROXINE 4.7 ug/dL (4.5-12.0)
--- NOTE | 2018-12-02 19:45 | NUR ---
Behavior Intervention Response and Plan: BIRP Note: Behavior: Assumed Care of patient, patient located in Hallway at shift change. Patient exhibited the following behavior Disorganized, Compulsive, Demanding. Brief assessment on rounds of vital signs, medication needs, lab studies, and pain. Treatment plan problems . Intervention: Patient assessed and the following interventions initiated safety checks 15 Minute Checks Cognitive Assessment , Head to toe Assessment , Medications. Response: After interactions and interventions patient responded in the following manner, Drowsy , Demanding ,Disorganized. Continue to assess behaviors and condition will continue to monitor throughout the shift as needed. Patient educated on ADL's, and hand hygiene. Plan: Continue to monitor Master Treatment Plan for patient's progress toward short term goals of Decreased Agitation, Decreased Anxiety, skilled nursing goals to return to previous living setting vs placement. Continue to assess patient for changes in above assessment. Monitor for medication needs, pain, and safety concerns. Hourly rounding performed to ensure safe environment.
--- NOTE | 2018-12-02 21:00 | HP ---
ADMIT DATE: 12/01/2018 PSYCHIATRIC ADMISSION HISTORY/EVALUATION IDENTIFYING DATA: The patient is a 53-year-old female, referred to us from [facility] by her primary care physician, Dr. Evans on account of worsening mood lability, throwing food, cursing at staff, yelling, hallucinating, both visual and auditory hallucinations with worsening paranoia that others were sleeping with her . They have been recent changes psychosocially that her roommate moved out of the room. Klonopin had been initiated to help with her anxiety. She has failed all of this has been aggressive towards staff as having marked insomnia and yelling. She has failed outpatient psychiatric interventions resulting in this referral. CHIEF COMPLAINT: "I have been here 4 days. They are lying. I did not come last night." In fact, the patient was admitted last evening. HISTORY OF PRESENT ILLNESS: The patient reportedly has poor vision, but she makes it out worse than it really is. She has been somatically preoccupied with marked mood lability and psychotic symptoms, and some increase in confusion. She has had sleep and appetite changes. No active suicidal or homicidal ideation. PAST PSYCHIATRIC HISTORY: As above. MEDICAL HISTORY: Peripheral vascular disease, poor vision, history of lung cancer, history of DVT, stents were placed, history of hypertension, borderline diabetes mellitus; history of seizure disorder, phenytoin level is 15.1; history of COPD, and past history of alcohol abuse. The patient has had a first and fifth toe amputated dressing changes are being done daily. ALLERGIES: ASPIRIN, MORPHINE, TORADOL. FAMILY HISTORY: Noncontributory. SOCIAL HISTORY: Positive for past history of alcohol abuse. No physical, sexual or elder abuse history is noted. She is not known to be a perpetrator. REVIEW OF SYSTEMS: Ambulation impaired. No CV, , pulmonary, eye, ENT system symptoms on review. MENTAL STATUS EXAMINATION: The patient is oriented to herself and situation. She is conveyed when she came here about 4 days back. Speech coherent, rapid at times, extremely paranoid, dismissive, abstraction fair, computation impaired, language function intact, attention span short. Mood and affect remains quite suspicious, irritable, and anxious. Earlier, she had been telling nursing staff "you killed my father." IMPRESSION: Psychotic disorder, unspecified; possible alcohol related, delusional disorder, probable major neurocognitive disorder, early multifactorial, consequent to alcohol, vascular with delusion, depression, behavioral disturbance; rule out bipolar disorder, unspecified. Rest as above including history of alcohol abuse dependence. TREATMENT PLAN: Admit to geropsychiatry unit at [facility]. I will see the patient daily individually from a psychiatric standpoint. We will check a CT head if not done in the past 1 month to rule out any intracranial lesion accounting for the above symptoms. She will maintain on Klonopin 0.5 b.i.d., but in fact would probably need the addition of Risperdal as an atypical antipsychotic. We will observe baseline, then make final decision in this respect. Estimated length of stay 10-12 days. DISPOSITION: Plans back to half-way. MAN Betty THOMAS MD DR: ASHLEY/miguelito JOB#: [id number] / [id number]
--- NOTE | 2018-12-02 22:44 | PDOC ---
Exam Note: Adolfo Note: Please also refer to the separate dictated note~for this date of service dictated separately.~Patient seen individually. Discussed the patient with Nursing staff reviewed the chart.~Reviewed interim history and current functioning. Reviewed vital signs,~Labs/ Radiology~and current medications noted below. Continue current treatment with the changes noted in the dictated addendum note Assessment: Vital Signs: Vital Signs Date Time Temp Pulse Resp B/P (MAP) Pulse Ox O2 Delivery O2 Flow Rate FiO2 12/02/18 20:22 Room Air 12/02/18 16:32 98 12/02/18 16:26 98.7 81 16 105/68 (80) I&O Intake and Output 12/02/18 07:00 Intake Total 240 ml Balance 240 ml Intake Oral 240 ml Labs: Laboratory Tests Test 12/02/18 07:20 Phenytoin (Dilantin) Level 15.1 mcg/mL (10.0-20.0) Phenytoin Last Dose Date 12/01/18 Phenytoin Last Dose Time 2200 Current Medications: Meds: Current Medications Oxycodone/ Acetaminophen (Percocet 5/325) 2 tab 1X ONCE PO Last administered on 12/01/18at 18:23; Start 12/01/18 at 18:30; Stop 12/01/18 at 18:31; Status DC Enoxaparin Sodium (Lovenox 80mg Syringe) 80 mg 1X ONCE SQ Last administered on 12/01/18at 18:23; Start 12/01/18 at 18:30; Stop 12/01/18 at 18:31; Status DC Albuterol/ Ipratropium (Duoneb) 3 ml RTQID NEB Last administered on 12/02/18at 16:32; Start 12/01/18 at 20:00; Stop 12/02/18 at 19:59; Status DC Oxycodone/ Acetaminophen (Percocet 5/325) 2 tab QIDPRN PRN PO MARKED PAIN Last administered on 12/02/18 20:22; Start 12/01/18 at 18:15 Clonazepam (KlonoPIN) 0.5 mg BID PO Last administered on 12/02/18at 20:16; Start 12/01/18 at 21:00 Acetaminophen/ Hydrocodone Bitart (Lortab 5/325) 2 tab PRN Q4HRS PRN PO PAIN Last administered on 12/02/18at 07:35; Start 12/01/18 at 21:00 Ondansetron HCl (Zofran Odt) 4 mg PRN Q6HRS PRN PO NAUSEA/VOMITING; Start 12/01 at 21:00 Phenytoin Sodium (Dilantin) 300 mg BID PO Last administered on 12/02/18at 20:15 ; Start 12/01/18 at 21:00 Acetaminophen (Tylenol) 650 mg PRN Q6HRS PRN PO PAIN / TEMP; Start 12/01/18 at 23:30 Multi-Ingredient Ointment (Analgesic [place]) 1 miley PRN QID PRN TP MUSCLE PAIN; Start 12/01/18 at 23:30 Al Hydroxide/Mg Hydroxide (Mylanta Plus Xs) 15 ml PRN AFTMEALHC PRN PO DYSPEPSIA; Start 12/01/18 at 23:30 Magnesium Hydroxide (Milk Of Magnesia) 2,400 mg PRN QHS PRN PO CONSTIPATION; Start 12/01/18 at 23:30 Active Scripts Active [Percogesic] 1 Tab PO QID Naprosyn (Naproxen) 500 Mg Tablet 1 Tab PO BID Reported Plavix (Clopidogrel Bisulfate) 75 Mg Tablet 75 Mg PO DAILY Zofran (Ondansetron Hcl) 4 Mg Tablet 4 Mg PO PRN Q6HRS PRN [place] 5-325 Tablet (Hydrocodone Bit/Acetaminophen) 1 Each Tablet 2 Tab PO PRN Q4HRS PRN Dilantin (Phenytoin Sodium Extended) 100 Mg Capsule 300 Mg PO BID Clonazepam 0.5 Mg Tablet 0.5 Mg PO BID I have reviewed the current psychotropics carefully including drug interactions. Risk benefit ratio favors no change other than as noted in my dictated progress note. 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
[2018-12-03 00:08] LABS: HEMOGLOBIN A1C 5.8 % (4.8-5.6)
[2018-12-03 06:09] VITALS: BP 101/53
--- NOTE | 2018-12-03 07:57 | RAD ---
Examination: CT HEAD WO CONTRAST History: altered in mental status Comparison/Correlation: 09/09/2018 CT head without contrast Findings: Axial images of the head were obtained without contrast. Ventricles are normal size. Mild atrophy. No intracranial hemorrhage, midline shift, or mass effect. Globes and optic nerves are grossly unremarkable. Subtle coloboma bilaterally suggested. Achalasia of the frontal sinuses noted. Impression: No suspicious process. PQRS Compliance Statement: One or more of the following individualized dose reduction techniques were utilized for this examination: 1. Automated exposure control 2. Adjustment of the mA and/or kV according to patient size 3. Use of iterative reconstruction technique Electronically signed by: Dennis Mead MD (12/03/2018 7:54 AM) [facility]
[2018-12-03] MEDS: PHENYTOIN SODIUM EXTENDED 100 MG CAPSULE PO SCH ×2 (07:58→20:09)
[2018-12-03] MEDS: clonazePAM 0.5 MG TABLET PO SCH ×2 (07:59→20:08)
[2018-12-03] MEDS: HYDROcodone/APAP 5/325MG 1 TAB TABLET PO PRN ×2 (08:06→20:08)
--- NOTE | 2018-12-03 08:49 | CONS ---
DATE OF CONSULTATION: 12/02/2018 REASON FOR CONSULTATION: Medical management. HISTORY OF PRESENT ILLNESS: The patient is a 53-year-old female patient, a resident at [facility] in [place], who was discharged recently from [facility] after undergoing revascularization of her left lower extremity and amputation of her left first and fifth toes. She used to [facility] at [facility] in [place] and that she has wounds and unable to walk. A decision was made to admit her to a correction facility; however, while there, she has been extremely disruptive, yelling, cursing at staff, throwing items, throwing food, hallucinating both visually and auditory, having paranoid delusion. She has been aggressive towards staff, has had increased insomnia and at times impossible to redirect, and therefore, she was admitted to this unit for inpatient psychiatric stabilization. PAST MEDICAL HISTORY: Significant for severe peripheral vascular disease, status post right forefoot amputation and left first and fifth toe amputation. She is legally blind, history of severe peripheral vascular disease requiring stent deployment to her left internal iliac artery as well as left tibial and peroneal arteries. She has a history of seizures for which she is on phenytoin, COPD, tobacco and alcohol abuse. PAST SURGICAL HISTORY: Significant for borderline personality, history of poor impulse control and noncompliance with medication. PAST SURGICAL HISTORY: Significant for right forefoot amputation, left first and fifth toe amputation. She has also underwent angioplasty and stent deployment of her left internal iliac artery as well as left peroneal as well as left tibial arteries. ALLERGIES: SHE IS ALLERGIC TO KETOROLAC AND MORPHINE. MEDICATIONS: She is currently on following medications: She is on Plavix 75 mg once a day, naproxen 500 mg twice a day, hydrocodone/APAP 2 tablets every 4 hours, clonazepam 0.5 mg twice a day, phenytoin sodium 300 mg p.o. b.i.d., ondansetron 4 mg every 6 hours. FAMILY HISTORY: Noncontributory. SOCIAL HISTORY: She lives in a homeless penitentiary in [place]. REVIEW OF SYSTEMS: She has a history of tobacco and alcohol abuse. PHYSICAL EXAMINATION: GENERAL: On examining her, she looked somewhat pale, but no jaundice, cyanosis, or thyromegaly. No jugular venous distension. No lower limb edema. VITAL SIGNS: Her heart rate was 78, blood pressure was 101/54, temperature was 97.9, respiratory rate 20 and oxygen saturation was 97% on room air. HEAD, EYES, EARS, NOSE AND THROAT: Showed normocephalic, atraumatic. NECK: Supple. HEART: Showed normal first and second heart sounds. No gallop, rub or murmur. CHEST: Clear to auscultation. No crepitation or rhonchi. ABDOMEN: Distended, soft, nontender. NEUROLOGIC: She is visually impaired, but all her other cranial nerves are intact. EXTREMITIES: She moves extremities without difficulty. She is mostly bedbound, chair bound that she has recently had her left first and fifth toe amputated. LABORATORY DATA: On admission showed that her white cell count was 9600, hemoglobin 11, hematocrit 33, MCV 98 and platelet count 340,000. Her chemistry showed a serum sodium 139, potassium 4.1, chloride 105, bicarbonate 26, anion gap of 8, BUN 24, creatinine 1.1. Estimated GFR was 52 mL per minute. Her glucose 116, calcium was 8.9, magnesium was 1.8. Her serum iron, TIBC and percent saturation are all low. Her total bilirubin, AST, ALT, alkaline phosphatase were normal. Total protein was 6.7, albumin was 2.7. Her serum triglycerides were 142. Total cholesterol was 223, LDL was 138, VLDL was 28, HDL cholesterol was 57 and cholesterol to HDL cholesterol ratio was 3. Her TSH was slightly elevated at 9.235. Urinalysis was unremarkable and toxic screen showed her phenytoin to be 15.1, which is well within therapeutic range. IMPRESSION: So in summary, this is a 53-year-old female patient, who was admitted through the Emergency Room on account of being very disruptive, has been yelling, cursing at staff, throwing items, throwing food, has both auditory and visual hallucination and having paranoid delusions and has been aggressive towards the staff, has increased insomnia and impossible to direct, all this on a background of borderline personality with poor impulse control. She generally seemed to be stable medically. She has all of these multiple medical problems including hypertension, seizure disorder, chronic obstructive pulmonary disease, chronic kidney disease, has protein-calorie malnutrition and severe peripheral vascular disease as well as hypothyroidism at least biochemically. PLAN: My plan is to check her T3, T4, free T4 and start her on Synthroid if all the T3, T4, free T4 are low. TANESHA HARRIS MD DR: DEVIN/miguelito JOB#: [id number] / [id number]
--- NOTE | 2018-12-03 10:00 | NUR ---
PSYCHOSOCIAL ASSESSMENT ADMISSION DATE: 12/01/18 CONTACT INFORMATION: DPOA/Guardian Contact Name: Pt is her own guardian Contact Address: Contact Phone #: ETHNIC ORIGIN: REASONS FOR ADMISSION: Agitated Delusions Hallucinations Poor impulse control Suspicious/paranoid ADDITIONAL ADMISSION COMMENTS: cursing staff, throwing food and thinks someone is sleeping with REASON FOR ADMISSION IN PATIENT/FAMILY'S OWN WORDS: Pt just wants to get healthy and back on her medications; otherwise, "nothing is wrong with me" PATIENT/FAMILY EXPECTATIONS FOR ADMISSION: Pt facility will look forward to medication and behavioral management. LIVING SITUATION: Patient lives with: Senior Living Contact Name: [facility] Contact Address: [address] [place] [address]; [place] [address] Contact Phone #: Contact Fax #: FAMILY RELATIONS: Marital Status: # of Marriages: # of Children: [facility] Family Support: Unavailable Uninvolved Additional Comments r/t Family: Pt did not wish to talk about her family. Pt mentioned that she lost her due to rumors and that she has children "I just don't want to talk about any of this". SIGNIFICANT PSYCHIATRIC/MEDICAL HISTORY: Psychiatric/Treatment History: Pt reports she has 14 medical conditions but denies any psychiatric hx. According to records, pt will be evaluated for a mood d/o Pertinent Family History: Pt reports that she was adoptive but has no relationship with her adoptive or biological family HISTORICAL DATA: Childhood Environment: Other-see below Comment: Pt reports that her biological father was an alcoholic and left the kids alone. Her biological mother "was a whore and left to sleep with random men all the time". Pt does report that she has one brother and one sister. They were all adopted out to different families Psychological Abuse: Additional Comments: Pt denies abuse; SW is unsure if pt is a reliable historian Drug Abuse History last 12 months: No Past Use Comment: Pt reports that she used to sling dope, but "I'm clean now". PERSONAL HISTORY: Vocational history: never worked according to pt service: N Synagogue background: No preference Sexual orientation: Heterosexual Educational Level: "I graduated high school with all A's and 1 B; I'm not stupid". Past/Present Interests/Hobbies: N/A Financial support/resources: SS Disability Monthly income: 975 Person handling finances: Pt handles her own finances Do you have a history of legal problems: Y Cultural considerations: None SOCIAL RELATIONSHIPS-CURRENT/PAST: Psychiatrist: None PCP: Dr. 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 Anxiety/Panic Dec. Hallucination/Delus Promote Coping Skill Improved Social Skills Medication Stabilization Other preliminary treatment comments: DISCHARGE PLANNING: Discharge planning/disposition: Current Living [facility]. [facility] Additional discharge needs identified: [facility] has agreed to take pt back once she is stable. ADDITIONAL INFORMATION: Other Pertinent Data: Pt met with SW and was irritated with staff and how "they treat me like I'm nobody". Pt made statement about how she knows people in high places and even lived in the [facility] before. Pt reports that everyone here thinks they know everything when they don't. Pt has no toes on her right foot and is missing 2 toes on the left. Pt does not believe she is able to walk and SW discussed making sure that pt can have a boot that would allow her to work with therapy and walk instead of using the w/c. Pt reports having arthritis, scoliosis, Crohn's and other medical challenges that need assistance. "they gave me 3-6 months to live and I have beat that by 15 years now". Pt reports that she was in [facility] Apr.25 but did not wish to talk about that either. Pt does not believe that staff is giving her medication appropriately and feels like she is being targeted all the time. SW and pt discussed pt volume with her voice and how she addresses others. Pt will work on her volume and thanked SW for her time.
--- NOTE | 2018-12-03 11:00 | NUR ---
Assumed care of pt @ approx 0700. Pt alert/oriented x 3. Was initially very angry and was shouting at the aides at the beginning of the shift, demanding to be allowed to brush her hair before going to the restroom. She was yelling about this as they were trying to assist her out of bed to go to the restroom. Pt calmed down shortly thereafter and was taken to Radiology for a head CT. She returned and was pleasant at the breakfast table, but made inappropriate comments such as: "Are there any men here around my age?" "What kind of men are around?" and "I need a man to take me out, maybe to dinner." Pt was redirected to drop the subject and eat her breakfast. Pt remained pleasant afterwards. May be med-seeking, as she requested PRN pain medication at breakfast, which was administered. A short time later, she asked for more pain medication and was advised that she had just taken 2 Lortab, and it is too soon to take any additional medication for pain. No other needs voiced @ this time. No signs of hallucinations, delusions, or paranoia so far this shift. Denies SI/HI. Pt is currently sitting in the Day Room quietly with her peers. Will continue to monitor and assist pt in working towards her treatment and D/C goals.
[2018-12-03] MEDS: oxyCODONE/APAP 5/325 1 TAB TABLET PO PRN (15:17)
[2018-12-03 16:04] VITALS: BP 99/67
--- NOTE | 2018-12-03 20:00 | NUR ---
Behavior Intervention Response and Plan: BIRP Note: Behavior: Assumed Care of patient, patient located in Patient Room at shift change. Patient exhibited the following behavior Interactive, Drowsy, Social. Brief assessment on rounds of vital signs, medication needs, lab studies, and pain. Treatment plan problems . Intervention: Patient assessed and the following interventions initiated safety checks 15 Minute Checks Cognitive Assessment , Head to toe Assessment , Medications. Response: After interactions and interventions patient responded in the following manner, Calm , Sleeping ,Drowsy. Continue to assess behaviors and condition will continue to monitor throughout the shift as needed. Patient educated on ADL's, and hand hygiene. 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 Continue to assess patient for changes in above assessment. Monitor for medication needs, pain, and safety concerns. Hourly rounding performed to ensure safe environment.
[2018-12-03] MEDS ORDERED: risperiDONE 0.25 MG TABLET. PO SCH (21:00)
--- NOTE | 2018-12-03 22:51 | PDOC ---
Exam Note: Adolfo Note: Please also refer to the separate dictated note~for this date of service dictated separately.~Patient seen individually. Discussed the patient with Nursing staff reviewed the chart.~Reviewed interim history and current functioning. Reviewed vital signs,~Labs/ Radiology~and current medications noted below. Continue current treatment with the changes noted in the dictated addendum note Assessment: Vital Signs: Vital Signs Date Time Temp Pulse Resp B/P (MAP) Pulse Ox O2 Delivery O2 Flow Rate FiO2 12/03/18 16:20 18 Room Air 12/03/18 16:04 97.3 94 99/67 (78) 100 I&O Intake and Output 12/03/18 07:00 Intake Total 1380 ml Balance 1380 ml Intake Oral 1380 ml # Voids 1 # Bowel Movements 1 Current Medications: Meds: Current Medications Oxycodone/ Acetaminophen (Percocet 5/325) 2 tab 1X ONCE PO Last administered on 12/01/18at 18:23; Start 12/01/18 at 18:30; Stop 12/01/18 at 18:31; Status DC Enoxaparin Sodium (Lovenox 80mg Syringe) 80 mg 1X ONCE SQ Last administered on 12/01/18 18:23; Start 12/01/18 at 18:30; Stop 12/01/18 at 18:31; Status DC Albuterol/ Ipratropium (Duoneb) 3 ml RTQID NEB Last administered on 12/02/18at 16:32; Start 12/01/18 at 20:00; Stop 12/02/18 at 19:59; Status DC Oxycodone/ Acetaminophen (Percocet 5/325) 2 tab QIDPRN PRN PO MARKED PAIN Last administered on 12/03/18at 15:17; Start 12/01/18 at 18:15 Clonazepam (KlonoPIN) 0.5 mg BID PO Last administered on 12/03/18 20:08; Start 12/01/18 at 21:00 Acetaminophen/ Hydrocodone Bitart (Lortab 5/325) 2 tab PRN Q4HRS PRN PO PAIN Last administered on 12/03/18 20:08; Start 12/01/18 at 21:00 Ondansetron HCl (Zofran Odt) 4 mg PRN Q6HRS PRN PO NAUSEA/VOMITING; Start 12/01 at 21:00 Phenytoin Sodium (Dilantin) 300 mg BID PO Last administered on 12/03/18at 20:09 ; Start 12/01/18 at 21:00 Acetaminophen (Tylenol) 650 mg PRN Q6HRS PRN PO PAIN / TEMP Last administered on 12/03/18at 18:11; Start 12/01/18 at 23:30 Multi-Ingredient Ointment (Analgesic [place]) 1 miley PRN QID PRN TP MUSCLE PAIN; Start 12/01/18 at 23:30 Al Hydroxide/Mg Hydroxide (Mylanta Plus Xs) 15 ml PRN AFTMEALHC PRN PO DYSPEPSIA; Start 12/01/18 at 23:30 Magnesium Hydroxide (Milk Of Magnesia) 2,400 mg PRN QHS PRN PO CONSTIPATION; Start 12/01/18 at 23:30 Risperidone (RisperDAL) 0.25 mg HS PO Last administered on 12/03/18at 20:08; Start 12/03/18 at 21:00 Active Scripts Active [Percogesic] 1 Tab PO QID Naprosyn (Naproxen) 500 Mg Tablet 1 Tab PO BID Reported Plavix (Clopidogrel Bisulfate) 75 Mg Tablet 75 Mg PO DAILY Zofran (Ondansetron Hcl) 4 Mg Tablet 4 Mg PO PRN Q6HRS PRN Sharps 5-325 Tablet (Hydrocodone Bit/Acetaminophen) 1 Each Tablet 2 Tab PO PRN Q4HRS PRN Dilantin (Phenytoin Sodium Extended) 100 Mg Capsule 300 Mg PO BID Clonazepam 0.5 Mg Tablet 0.5 Mg PO BID I have reviewed the current psychotropics carefully including drug interactions. Risk benefit ratio favors no change other than as noted in my dictated progress note. 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
[2018-12-04 06:24] VITALS: BP 110/71
[2018-12-04] MEDS: PHENYTOIN SODIUM EXTENDED 100 MG CAPSULE PO SCH ×2 (09:56→20:07)
[2018-12-04] MEDS: clonazePAM 0.5 MG TABLET PO SCH ×2 (10:51→20:01)
[2018-12-04] MEDS: HYDROcodone/APAP 5/325MG 1 TAB TABLET PO PRN (10:52)
[2018-12-04] MEDS: oxyCODONE/APAP 5/325 1 TAB TABLET PO PRN ×2 (13:41→20:11)
--- NOTE | 2018-12-04 14:45 | NUR ---
Behavior Intervention Response and Plan: BIRP Note: Behavior: Assumed Care of patient, patient located in Hallway at shift change. Patient exhibited the following behavior Disorganized, Compliant, Demanding. Brief assessment on rounds of vital signs, medication needs, lab studies, and pain. Treatment plan problems . Intervention: Patient assessed and the following interventions initiated safety checks 15 Minute Checks Cognitive Assessment , Head to toe Assessment , Medications. Response: After interactions and interventions patient responded in the following manner, Drowsy , Demanding ,Disorganized. Continue to assess behaviors and condition will continue to monitor throughout the shift as needed. Patient educated on ADL's, and hand hygiene. 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 Continue to assess patient for changes in above assessment. Monitor for medication needs, pain, and safety concerns. Hourly rounding performed to ensure safe environment.
[2018-12-04 16:02] VITALS: BP 100/61
[2018-12-04] MEDS: risperiDONE 0.25 MG TABLET. PO SCH (20:08)
--- NOTE | 2018-12-04 20:20 | NUR ---
Behavior Intervention Response and Plan: BIRP Note: Behavior: Assumed Care of patient, patient located in Patient Room at shift change. Patient exhibited the following behavior Interactive, Drowsy, Withdrawn. Brief assessment on rounds of vital signs, medication needs, lab studies, and pain. Treatment plan problems . Intervention: Patient assessed and the following interventions initiated safety checks 15 Minute Checks Cognitive Assessment , Head to toe Assessment , Medications. Response: After interactions and interventions patient responded in the following manner, Drowsy , Sleeping ,Cooperative. Continue to assess behaviors and condition will continue to monitor throughout the shift as needed. Patient educated on ADL's, and hand hygiene. 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 Continue to assess patient for changes in above assessment. Monitor for medication needs, pain, and safety concerns. Hourly rounding performed to ensure safe environment.
--- NOTE | 2018-12-04 21:04 | PN ---
DATE: 12/03/2018 PSYCHIATRIC PROGRESS NOTE This late entry 12/03/2018 covers elements not covered in my initial note. SUBJECTIVE: I met with the patient in the morning. The patient seemed angry, irritable, loud in the morning, throwing the ____. She slept 6-3/4 hours. She received 2 Lortab and then was calmer, remains extremely paranoid, psychotic. REVIEW OF SYSTEMS: Poor vision, blind right eye; low vision, left eye. Impaired ambulation, in a wheelchair. No CV, , pulmonary, ENT system symptoms on review. MENTAL STATUS EXAMINATION: Oriented to herself and situation. Speech is coherent, rapid at times. She minimizes any and all problems. Abstraction fair, computation impaired. Reviewed her history of significant psychosis or hallucinations. Attention span short. Language function intact. Affect remains labile. LABORATORY DATA: Reviewed. IMPRESSION: Psychotic disorder, unspecified; possible bipolar 1 disorder, mixed with psychotic features; cognitive disorder, unspecified versus major neurocognitive disorder, multifactorial consequent to past alcohol abuse; vascular with delusion, behavioral disturbance. Rest unchanged. PLAN: Continue current psychotropics, Klonopin 0.5 mg b.i.d. Start Risperdal 0.25 mg at bedtime, may consider a mood stabilizer depending on her progress. MAHENDRA THOMAS MD DR: ASHLEY/miguelito JOB#: [id number] / [id number]
[2018-12-05] MEDS: HYDROcodone/APAP 5/325MG 1 TAB TABLET PO PRN (03:56)
--- NOTE | 2018-12-05 03:57 | PN ---
DATE: 12/03/2018 PSYCHIATRIC PROGRESS NOTE This is a late entry, 12/03/2018 covers elements not covered in my initial note. SUBJECTIVE: I met with the patient in the evening. The patient DICTATION ENDS HERE MAN Betty THOMAS MD DR: ASHLEY/miguelito JOB#: [id number] / [id number]
[2018-12-05 05:43] VITALS: BP 95/60
--- NOTE | 2018-12-05 05:54 | PN ---
DATE: 12/04/2018 PSYCHIATRIC PROGRESS NOTE SUBJECTIVE: The patient was seen today, met with the staff, chart reviewed. The patient continues to be agitated, highly anxious, nervous. The patient is also blind. Complains of chronic pain. The patient states that she has been homeless in the past. The patient denies of any falls. She is on Broda chair. OBSERVATION: VITAL SIGNS: Temperature 98.6, blood pressure 110/71, pulse 83, respirations 18, O2 sat 94%. Slept about 6 hours last night. Her appetite is fair. MEDICATIONS: Reviewed. Currently on Risperdal 0.25 mg at night, to be increased to 0.75 mg at night. The patient also on phenytoin sodium 300 mg b.i.d., clonazepam 0.5 mg b.i.d. p.o., . ASSESSMENT: Psychotic disorder, unspecified; delusional disorder; neurocognitive disorder, most likely vascular and also alcohol-induced with behavior problems; rule out bipolar disorder. PLAN: The patient's Risperdal to be increased to 0.75 mg at night. The patient encouraged to attend all the activities. LENGTH OF STAY: Seven to ten days. MCKAY LASW MD DR: MEL/miguelito JOB#: [id number] / [id number]
[2018-12-05] MEDS: PHENYTOIN SODIUM EXTENDED 100 MG CAPSULE PO SCH ×2 (09:00→20:28)
[2018-12-05] MEDS: clonazePAM 0.5 MG TABLET PO SCH ×2 (09:01→20:27)
[2018-12-05] MEDS: oxyCODONE/APAP 5/325 1 TAB TABLET PO PRN ×4 (09:01→23:45)
--- NOTE | 2018-12-05 13:50 | NUR ---
ACTIVITY THERAPY ASSESSMENT Completed based on observation and interview. Pt. began talking with COUNTER HELPER at 1320. COUNTER HELPER asked if Adrianna was her name and Pt. replied "if I say yes will I get in trouble?" Pt. had difficulty focusing. She needed medication for pain and asked to talk to COUNTER HELPER at a different time. About 20 minutes later, another patient called COUNTER HELPER over to this patient and proceeded to speak for this patient. The other patient seemed to cheer on this Pt. as she talked about having carpet in her house and with the recent surgery she know when she can walk on it and doesn't like being yelled at and told to get up and walk, claiming staff was calling her a "B I" as the other patient finished it by repeating "bitch." She stated she is fearful of falling and busting her head open, she knows her limits and doesn't want to lópez it. Pt was difficult to redirect and to keep on topic. She is talkative with a loud voice and restless, often readjusting herself in her chair. She stated she has a visual impairment. Initial goal aimed to increase engagement for at least 30 minutes at a time: Pt. will participate in at least one Activity Therapy group per day, at least moderately.
--- NOTE | 2018-12-05 15:04 | NUR ---
Pt is alert and oriented to person and place. Per Dr Nagel orders at [facility] patient can be full weight bearing on left leg despite patient stating she needs to be non weight bearing for 1 year. Pt compliant with medications. Dressing changed today, incisions CDI, approximated and no signs or symptoms of infections. WCTM.
[2018-12-05 16:15] VITALS: BP 114/72
[2018-12-05] MEDS: risperiDONE 0.25 MG TABLET. PO SCH (20:28)
--- NOTE | 2018-12-06 00:02 | NUR ---
Patient in day room during initial assessment. Alert and oriented, compliant with medication administration and assessment. Patient educated on medications. Complaints of pain in foot and PRN medication given. No behaviors noted this shift. Will continue to monitor.
--- NOTE | 2018-12-06 04:50 | PN ---
DATE: 12/05/2018 SUBJECTIVE: The patient was seen today, met with the staff, chart reviewed. The patient continues to be agitated, highly anxious and nervous. The patient also has been complaining of chronic pain. The patient denies of any falls. The patient is on Broda chair. OBSERVATION: VITAL SIGNS: Temperature 98.8, blood pressure 95/60, pulse 78, respirations 20, O2 sat 96%. Slept about 5 hours last night. Her appetite decreased. MEDICATIONS: The patient's current medications include Risperdal 0.25 mg at night that was increased to 0.75 mg at night. The patient is also on phenytoin sodium 300 mg b.i.d. and Klonopin 0.5 mg b.i.d. p.o. p.r.n. ASSESSMENT: Psychotic disorder, unspecified; delusional disorder, neurocognitive disorder, most likely vascular and alcohol-induced dementia with behavior problems. The patient currently is not having any physical complaints and no falls. PLAN: To continue with the treatment. LENGTH OF STAY: 5-7 days. MCKAY LAWS MD DR: MEL/miguelito JOB#: [id number] / [id number]
[2018-12-06] MEDS: oxyCODONE/APAP 5/325 1 TAB TABLET PO PRN ×2 (05:23→21:07)
[2018-12-06 06:04] VITALS: BP 91/58
[2018-12-06] MEDS: PHENYTOIN SODIUM EXTENDED 100 MG CAPSULE PO SCH ×2 (08:28→20:11)
[2018-12-06] MEDS: clonazePAM 0.5 MG TABLET PO SCH ×2 (08:28→20:13)
[2018-12-06] MEDS: HYDROcodone/APAP 5/325MG 1 TAB TABLET PO PRN (12:46)
[2018-12-06 16:30] VITALS: BP 95/60
--- NOTE | 2018-12-06 18:07 | NUR ---
Pt has been cooperative and compliant with meds and assessment. Pt c/o pain and asks for specific pain meds (percocet versus lortab). Pt can be restless in her chair. Pt tends to sit with feet up on w/c; pt c/o PT/OT wanting pt to walk/transfer and pt claims to not be able to do it bc of her recent surgery. Pt assured that walking after surgery is normal and expected and part of rehab.
[2018-12-06] MEDS ORDERED: risperiDONE 0.5 MG TABLET. PO PRN (18:30)
[2018-12-06] MEDS: risperiDONE 0.25 MG TABLET. PO SCH (20:11)
--- NOTE | 2018-12-07 02:11 | PN ---
DATE: 12/06/2018 SUBJECTIVE: The patient was seen today, met with the staff, chart reviewed. The patient continues to show mood swings, irritability, high level of anxiety, and periods of agitation. The patient seems to be in chronic pain. The patient denies of any falls. OBSERVATION: VITAL SIGNS: Temperature 97.5, blood pressure , pulse 77, respiration 18, O2 sat 99%. Slept about 6 hours last night. Her appetite improved. CURRENT MEDICATIONS: Reviewed. Currently not having any side effects and she is on Risperdal 0.25 mg at night that was increased to 0.75 mg at night. The patient is also on Risperdal 0.5 mg q. 6 hours p.r.n. The patient is also on clonazepam 0.5 mg b.i.d. p.o. p.r.n. ASSESSMENT: 1. Psychotic disorder, unspecified; delusional disorder, neurocognitive disorder, most likely vascular versus alcohol induced. PLAN: To continue with the treatment. LENGTH OF STAY: 7 days. MCKAY LAWS MD DR: MEL/miguelito JOB#: [id number] / [id number]
[2018-12-07] MEDS: clonazePAM 0.5 MG TABLET PO SCH ×2 (06:11→20:37)
[2018-12-07] MEDS: oxyCODONE/APAP 5/325 1 TAB TABLET PO PRN ×4 (06:12→20:38)
[2018-12-07] MEDS: PHENYTOIN SODIUM EXTENDED 100 MG CAPSULE PO SCH ×2 (06:12→20:37)
[2018-12-07 06:20] VITALS: BP 92/53
--- NOTE | 2018-12-07 07:45 | NUR ---
Wound Care patient seen per f/u of Wound care consult for wounds to left foot. 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 Pt also has necrotic tip on 3rd toe from arterial insufficiency. Cleansed incisions and covered with Xeroform and ABD with Kerlix, Painted 3rd toe with Betadine and covered with ABD and Kerlix. Recommend to change every other day. Left TMA site is calloused and dry but no wounds found. No other wounds noted on full skin inspection. WC will continue to follow for possible changes.
--- NOTE | 2018-12-07 09:50 | NUR ---
SW met with pt who was escorted out of group for being disruptive. Pt reports that she didn't do anything wrong and really wanted to participate in that group. SW attempted to distract pt by discussing discharge plans. Pt put her hand up and "said don't go there". SW gave pt a minute to calm and then addressed discharge again. Pt has no recollection that she came from [facility] but said she came from the homeless assisted [facility]. [facility]. Pt brought up the fact again that she was not getting her medications. SW looked up pt medications and showed that she had received a pain med (Percocet), Dilantin and Klonopin this AM at 0612. Pt is adamant that she has not been getting her Dilantin since she's been here and said, "I'll have seizures without it and they are not pretty. Last time I had one, I bit my tongue". FLORIDALMA informed pt nurse that pt does not believe she is getting her meds and nursing will continue to educate pt on her medications when they are passed. FLORIDALMA also informed pt that she is not able to get her pain medications except for within a 4-6 hour time frame. Pt understood and requested to get her pain meds, as well as her wish to return to the day room. Pt did ask SW if she could have SW card "not that I can read it, but I can at least reference to it if I need to with staff".
--- NOTE | 2018-12-07 10:32 | NUR ---
Pt was cooperative with assessment; but stated that she never got her meds this morning, particularly Klonopin and Percocet. Pt was reassured that she did get her meds, and pt continued to argue that she did not, stating "I am not a liar." At approximately 0930, pt was in day room sitting at the table with group going on. Pt started to become agitated and started speaking loudly, stating "everyone is picking on me." This nurse asked the neonatal social worker that was leading group what was happening in group when she started saying this, and SW said that they were discussing a quote when out of nowhere the pt started saying that. Pt was redirected to talk to her neonatal social worker and was taken down to the SW's office. Pt c/o not getting her meds this morning to SW and SW confirmed through [employer] that she did get her meds.
--- NOTE | 2018-12-07 13:52 | NUR ---
FLORIDALMA received a call from the advocate at the [facility] to see if pt was transferred to [facility]. Pt is a self-sign and does not have a code; however, FLORIDALMA asked the advocate for pt D.O.B and SSN, which she had on file as they helped pt receive a new SS card and a photo ID. The advocate did have that information so SW confirmed that pt was here. The advocate just wanted to make sure the SW knew that pt could not come back to the [place] [facility] and would have to return to [place] upon discharge. She reports that the [facility] took all of her belongings there.
[2018-12-07 15:55] VITALS: BP 97/52
[2018-12-07] MEDS: risperiDONE 0.25 MG TABLET. PO SCH (20:37)
--- NOTE | 2018-12-07 23:01 | NUR ---
Behavior Intervention Response and Plan: BIRP Note: Behavior: Assumed Care of patient, patient located in Day Room at shift change. Patient exhibited the following behavior Able to Focus on Task, Calm, Interactive. Brief assessment on rounds of vital signs, medication needs, lab studies, and pain. Treatment plan problems . Intervention: Patient assessed and the following interventions initiated safety checks 15 Minute Checks Head to toe Assessment , Cognitive Assessment , Medications. Response: After interactions and interventions patient responded in the following manner, Appropriate , Compliant ,Cooperative. Continue to assess behaviors and condition will continue to monitor throughout the shift as needed. Patient educated on ADL's, and hand hygiene. 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 Continue to assess patient for changes in above assessment. Monitor for medication needs, pain, and safety concerns. Hourly rounding performed to ensure safe environment.
--- NOTE | 2018-12-08 05:37 | PN ---
DATE: 12/07/2018 SUBJECTIVE: The patient was seen today, met with the staff, chart reviewed. The patient is constantly asking for pain medications. The patient tends to get paranoid and suspicious. The patient also has episodes of increased agitation. The patient is not ____ stripping of her clothes lately. Overall, behavior has improved. OBSERVATION: VITAL SIGNS: Temperature 97.3, blood pressure 92/53, pulse 77, respirations 20, O2 sat 97%. Slept about 6 hours last night. The patient is not having any physical complaints. MEDICATIONS: The patient's medication reviewed. Currently, on Risperdal 0.5 mg q. 6 hours p.r.n. and also 0.75 mg at night. The patient is also on phenytoin sodium 300 mg b.i.d. Also, Klonopin 0.5 mg b.i.d. p.o. LABORATORY DATA: The patient's labs, no change from the previous level, her hemoglobin is 11, RBC 3.37, her hemoglobin A1c was 5.8. 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 PLAN: To continue with the treatment. LENGTH OF STAY: 5-7 days. MCKAY LAWS MD DR: MEL/miguelito JOB#: [id number] / [id number]
[2018-12-08 06:10] VITALS: BP 90/57
[2018-12-08] MEDS: PHENYTOIN SODIUM EXTENDED 100 MG CAPSULE PO SCH ×2 (07:47→19:51)
[2018-12-08] MEDS: clonazePAM 0.5 MG TABLET PO SCH ×2 (07:47→19:53)
[2018-12-08] MEDS: HYDROcodone/APAP 5/325MG 1 TAB TABLET PO PRN ×2 (08:43→20:05)
--- NOTE | 2018-12-08 11:13 | NUR ---
SW received a call from [employer], stating she has been trying to get in contact with pt. older adult social work specialist but hasn't received a call back. She is inquiring about pt. interest in case management services. SW took down her information and will pass along to pt. older adult social work specialist.
[2018-12-08] MEDS: oxyCODONE/APAP 5/325 1 TAB TABLET PO PRN ×2 (12:27→15:32)
--- NOTE | 2018-12-08 13:35 | NUR ---
FLORIDALMA returned call to Fern from [facility] who wanted to call the main number and speak with the pt; however, she did not have a code and needed SW to give it to her. FLORIDALMA explained that pt is a self-sign. Anytime she gets a phone call, she is at liberty to either accept the call or deny it. Fern reports that she is currently with another client and asked for the number to call. FLORIDALMA reported she could either call my number or call the main line at .
[2018-12-08 16:32] VITALS: BP 97/64
--- NOTE | 2018-12-08 18:54 | NUR ---
Patient complaining of persistent anxiety today and emotional lability. Very interactive and participating in group therapy and treatment. Received prn pain medications for right foot pain q 4 hours. Will continue to monitor.
[2018-12-08] MEDS: risperiDONE 0.25 MG TABLET. PO SCH (19:51)
[2018-12-08] MEDS: DIVALPROEX 125 MG CAP.SPRINK PO SCH (19:53)
--- NOTE | 2018-12-08 21:21 | NUR ---
Nursing Note The patient was located in the day room for her assessment and medication pass. The patient was compliant with her medications and assessment. The patient requested PRN Lortab with her HS medication. The patient was disorganized during her assessment but was appropriate. The patient is currently sleeping in her room.
[2018-12-09] MEDS: oxyCODONE/APAP 5/325 1 TAB TABLET PO PRN ×2 (01:24→15:02)
[2018-12-09 06:05] VITALS: BP 95/65
[2018-12-09] MEDS: PHENYTOIN SODIUM EXTENDED 100 MG CAPSULE PO SCH ×2 (07:41→19:47)
[2018-12-09] MEDS: DIVALPROEX 125 MG CAP.SPRINK PO SCH ×2 (07:41→19:47)
[2018-12-09] MEDS: clonazePAM 0.5 MG TABLET PO SCH ×2 (07:43→19:50)
[2018-12-09] MEDS: HYDROcodone/APAP 5/325MG 1 TAB TABLET PO PRN ×2 (07:50→19:53)
--- NOTE | 2018-12-09 09:23 | NUR ---
WEEKLY ACTIVITY THERAPY NOTE Date of Admission: 12/02/2018 Date of AT Assessment: 12/05/2018 Goal aimed: to increase engagement for a at least 30 minutes at a time Initial goal: Pt. will participate in at least one Activity Therapy group per day, at least moderately. Weekly progress towards goal: achieved Group participation level: moderate Weekly highlights: singing in group on Thursday morning Behaviors observed: less irritable and restless as week goes on, more engaged and social Plan: no change to goal Beneficial adaptations: enjoys music groups, cog stim
[2018-12-09 11:10] LABS: BASO # 0.1 x10^3/uL (0.0-0.2); BASO % 1 % (0-3); EOS # 0.2 x10^3/uL (0.0-0.7); EOS % 3 % (0-3); HEMATOCRIT 32.5 % (36.0-47.0); HEMOGLOBIN 10.7 g/dL (12.0-15.5); LYMPH # 2.4 x10^3/uL (1.0-4.8); LYMPH % 33 % (24-48); MEAN CORPUSCULAR HEMOGLOBIN 32 pg (25-35); MEAN CORPUSCULAR HGB CONC 33 g/dL (31-37); MEAN CORPUSCULAR VOLUME 98 fL (79-100); MONO # 0.5 x10^3/uL (0.0-1.1); MONO % 7 % (0-9); NEUT # 4.1 x10^3uL (1.8-7.7); NEUT % 57 % (31-73); PLATELET COUNT 353 x10^3/uL (140-400); RED BLOOD COUNT 3.31 x10^6/uL (3.50-5.40); RED CELL DISTRIBUTION WIDTH 14.5 % (11.5-14.5); WHITE BLOOD COUNT 7.2 x10^3/uL (4.0-11.0)
--- NOTE | 2018-12-09 11:23 | PN ---
DATE: 12/08/2018 SUBJECTIVE: The patient was seen today, met with the staff, chart reviewed. The patient continued to have behavior problems, increased agitation, restlessness, also periods where she tends to hallucinate both auditory and visual. Staff reports that she has been getting more paranoid and suspicious and also increased agitation at times. Overall, her behavior has improved. OBSERVATION: VITAL SIGNS: Temperature 98, blood pressure 90/57, respirations 18, pulse 71, O2 sat 97%. Slept about 5 hours last night. The patient's appetite is fair. LABORATORY DATA: The patient's lab reviewed. MEDICATIONS: Her medications also reviewed. She is currently on Risperdal 0.5 mg q.6 hours p.r.n. and Risperdal 0.75 mg at night. The patient is also on Klonopin 0.5 mg b.i.d. p.o. The patient is also on phenytoin sodium 300 mg b.i.d. 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 PLAN: To continue with the treatment. LENGTH OF STAY: 4-5 days. MCKAY LAWS MD DR: MEL/miguelito JOB#: [id number] / [id number]
[2018-12-09 11:25] LABS: ALBUMIN 2.6 g/dL (3.4-5.0); ALBUMIN/GLOBULIN RATIO 0.7 (1.0-1.7); CALCIUM 8.6 mg/dL (8.5-10.1); CREATININE 0.9 mg/dL (0.6-1.0); GFR 65.8; POTASSIUM 4.1 mmol/L (3.5-5.1); TOTAL BILIRUBIN 0.3 mg/dL (0.2-1.0); TOTAL PROTEIN 6.1 g/dL (6.4-8.2)
[2018-12-09 16:06] VITALS: BP 112/66
--- NOTE | 2018-12-09 17:49 | NUR ---
Behavior Intervention Response and Plan: BIRP Note: Behavior: Assumed Care of patient, patient located in Day Room at shift change. Patient exhibited the following behavior Compliant, Calm, Interactive. Brief assessment on rounds of vital signs, medication needs, lab studies, and pain. Treatment plan problems . Intervention: Patient assessed and the following interventions initiated safety checks 15 Minute Checks Head to toe Assessment , Cognitive Assessment , Medications. Response: After interactions and interventions patient responded in the following manner, Appropriate , Compliant , Interactive. Continue to assess behaviors and condition will continue to monitor throughout the shift as needed. Patient educated on ADL's, and hand hygiene. 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 Continue to assess patient for changes in above assessment. Monitor for medication needs, pain, and safety concerns. Hourly rounding performed to ensure safe environment.
[2018-12-09] MEDS: risperiDONE 0.25 MG TABLET. PO SCH (19:48)
--- NOTE | 2018-12-10 00:49 | PN ---
DATE: 12/09/2018 SUBJECTIVE: The patient was seen today, met with the staff, chart reviewed. The patient continues to present problems. The patient is argumentative, indifferent, also increased agitation. The patient also tends to get paranoid and suspicious at times. OBSERVATION: VITAL SIGNS: Temperature 97.6, blood pressure 97/64, pulse 76, respirations 18, O2 sat 95%. GENERAL: The patient's appetite is fair. Sleep fair. MEDICATIONS: The patient's current medications include Risperdal 0.75 mg at night and also Risperdal 0.5 mg q. 6 hours p.r.n. She is also on Klonopin 0.5 mg b.i.d. p.o. The patient is also on phenytoin sodium 300 mg b.i.d. ASSESSMENT: Psychotic disorder, unspecified, delusional disorder, neurocognitive disorder most likely vascular versus alcohol induced. PLAN: To continue with treatment. LENGTH OF STAY: 4 days. MCKAY LAWS MD DR: MEL/miguelito JOB#: [id number] / [id number]
--- NOTE | 2018-12-10 01:35 | NUR ---
Nursing Note The patient was located in the day room for her medications and assessment. The patient was compliant with her medications and took them whole. The patient requested PRN Lortab with her HS medications. The patient received a shower and her bandage on her left foot became wet and was changed and cleaned by this nurse. The patient is currently sleeping in her room.
[2018-12-10] MEDS: oxyCODONE/APAP 5/325 1 TAB TABLET PO PRN ×3 (04:41→20:00)
--- NOTE | 2018-12-10 04:58 | NUR ---
Nursing Note The patient required another dressing change R/T soiling her dressing with urine. The patient stated that she was in pain and requested PRN Percocet. The patient is currently laying in her bed.
[2018-12-10 05:49] VITALS: BP 95/59
[2018-12-10] MEDS: clonazePAM 0.5 MG TABLET PO SCH ×2 (10:25→20:05)
[2018-12-10] MEDS: DIVALPROEX 125 MG CAP.SPRINK PO SCH ×2 (10:25→19:58)
[2018-12-10] MEDS: PHENYTOIN SODIUM EXTENDED 100 MG CAPSULE PO SCH ×2 (10:26→19:58)
--- NOTE | 2018-12-10 10:44 | NUR ---
Behavior Intervention Response and Plan: BIRP Note: Behavior: Assumed Care of patient, patient located in Dining Room at shift change. Patient exhibited the following behavior Calm, Social, Cooperative. Brief assessment on rounds of vital signs, medication needs, lab studies, and pain. Treatment plan problems . Intervention: Patient assessed and the following interventions initiated safety checks 15 Minute Checks Personal Alarm in place , Cognitive Assessment , Head to toe Assessment. Response: After interactions and interventions patient responded in the following manner, Calm , Compliant ,Cooperative. Continue to assess behaviors and condition will continue to monitor throughout the shift as needed. Patient educated on ADL's, and hand hygiene. 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 Continue to assess patient for changes in above assessment. Monitor for medication needs, pain, and safety concerns. Hourly rounding performed to ensure safe environment.
--- NOTE | 2018-12-10 12:15 | NUR ---
FLORIDALMA returned call to Gail from [facility] to inform her that her request to visit pt on Thursday is fine. Gail requested to meet pt between 11 and 1330. FLORIDALMA just asked that if she came during noon that she allow for pt to eat lunch. If anything is to change, FLORIDALMA requested that Gail let FLORIDALMA know.
[2018-12-10 15:44] VITALS: BP 97/67
[2018-12-10] MEDS: risperiDONE 0.25 MG TABLET. PO SCH (19:58)
--- NOTE | 2018-12-10 22:31 | NUR ---
Nursing Note The patient was located in her room for her medications and assessment. The patient was compliant with her medications and took them whole. The patient requested PRN Percocet with her HS medications. The patient was appropriate during interactions with this nurse. The patient is currently sleeping in her room.
[2018-12-11] MEDS: clonazePAM 0.5 MG TABLET PO SCH ×2 (08:19→20:20)
[2018-12-11] MEDS: PHENYTOIN SODIUM EXTENDED 100 MG CAPSULE PO SCH ×2 (08:19→20:20)
[2018-12-11] MEDS: DIVALPROEX 125 MG CAP.SPRINK PO SCH ×2 (08:19→20:20)
[2018-12-11 09:00] VITALS: BP 97/82
--- NOTE | 2018-12-11 10:05 | NUR ---
Behavior Intervention Response and Plan: BIRP Note: Behavior: Assumed Care of patient, patient located in Dining Room at shift change. Patient exhibited the following behavior Attention Seeking, Social, Cooperative. Brief assessment on rounds of vital signs, medication needs, lab studies, and pain. Treatment plan problems . Intervention: Patient assessed and the following interventions initiated safety checks 15 Minute Checks Personal Alarm in place , Call alvarenga in reach , Head to toe Assessment. Response: After interactions and interventions patient responded in the following manner, Calm , Compliant ,Compliant. Continue to assess behaviors and condition will continue to monitor throughout the shift as needed. Patient educated on ADL's, and hand hygiene. 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 Continue to assess patient for changes in above assessment. Monitor for medication needs, pain, and safety concerns. Hourly rounding performed to ensure safe environment.
[2018-12-11 15:55] VITALS: BP 100/78
--- NOTE | 2018-12-11 17:29 | PN ---
DATE: 12/10/2018 SUBJECTIVE: The patient was seen today, met with the staff, chart reviewed. The patient tends to isolate herself on wheelchair, able to make eye contact, able to hold a conversation. The patient mainly focusing on physical complaints, complaining of pain around her hips and also lower extremity. The patient also is irritable and morin at times. The patient has not exhibited any psychotic symptoms at this time, but the patient tends to be paranoid, suspicious, and episodes of agitation. OBSERVATION: VITAL SIGNS: Temperature 98, blood pressure 95/59, pulse 76, respirations 18, O2 sat 96%. GENERAL: Slept about 6 hours last night. CURRENT MEDICATIONS: The patient's current medications include Risperdal 0.5 mg q. 6 hours p.r.n., Risperdal 0.75 mg at night. The patient is also on Klonopin 0.5 mg b.i.d. p.o. The patient is also on phenytoin sodium 300 mg daily. ASSESSMENT: 1. Psychotic disorder, unspecified. 2. Delusional disorder, paranoid type. 3. Neurocognitive disorder, most likely vascular versus alcohol induced. PLAN: To continue with the treatment. Length of stay four days. MCKAY LAWS MD DR: MEL/miguelito JOB#: [id number] / [id number]
[2018-12-11] MEDS: oxyCODONE/APAP 5/325 1 TAB TABLET PO PRN (18:34)
--- NOTE | 2018-12-11 18:42 | NUR ---
Patient complained of pain in her feet gave patient prn gisselleet will continue to monitor patient for med effectiveness.
[2018-12-11] MEDS: risperiDONE 0.25 MG TABLET. PO SCH (20:21)
--- NOTE | 2018-12-11 23:26 | PN ---
DATE: 12/11/2018 SUBJECTIVE: The patient was seen today, met with the staff, chart reviewed. Staff reports increased behavior problems, being argumentative, indifferent, increased agitation, also tends to get paranoid and suspicious, and also argumentative and talking to imaginary figures. VITAL SIGNS: Temperature 98.7, blood pressure 97/62, pulse 53, respirations 16, O2 sat 98%. Slept about 8 hours last night. The patient's appetite improved. MEDICATIONS: The patient is currently on Risperdal 0.75 mg at night and also Risperdal 0.5 mg q.6 hours p.r.n. The patient is also on Klonopin 0.5 mg b.i.d. p.o. The patient is also on phenytoin sodium 300 mg b.i.d. 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 PLAN: To continue with the treatment. Length of stay 3-4 days. MCKAY LAWS MD DR: MEL/miguelito JOB#: [id number] / [id number]
--- NOTE | 2018-12-11 23:36 | NUR ---
Nursing Note The patient was located in the shower room for her medication pass. The patient took her medications whole and was compliant but irritable during cares. The patient is currently sleeping in her room.
[2018-12-12] MEDS: HYDROcodone/APAP 5/325MG 1 TAB TABLET PO PRN ×3 (04:23→20:28)
[2018-12-12 05:53] VITALS: BP 105/60
[2018-12-12] MEDS: PHENYTOIN SODIUM EXTENDED 100 MG CAPSULE PO SCH ×2 (08:09→19:59)
[2018-12-12] MEDS: DIVALPROEX 125 MG CAP.SPRINK PO SCH ×2 (08:09→19:59)
[2018-12-12] MEDS: clonazePAM 0.5 MG TABLET PO SCH ×2 (08:09→19:58)
[2018-12-12] MEDS: oxyCODONE/APAP 5/325 1 TAB TABLET PO PRN (09:12)
--- NOTE | 2018-12-12 10:10 | NUR ---
Behavior Intervention Response and Plan: BIRP Note: Behavior: Assumed Care of patient, patient located in Dining Room at shift change. Patient exhibited the following behavior Attention Seeking, Disorganized, Cooperative. Brief assessment on rounds of vital signs, medication needs, lab studies, and pain. Treatment plan problems . Intervention: Patient assessed and the following interventions initiated safety checks 15 Minute Checks Personal Alarm in place , Cognitive Assessment , Head to toe Assessment. Response: After interactions and interventions patient responded in the following manner, Disorganized , Calm ,Sarcastic. Continue to assess behaviors and condition will continue to monitor throughout the shift as needed. Patient educated on ADL's, and hand hygiene. 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 Continue to assess patient for changes in above assessment. Monitor for medication needs, pain, and safety concerns. Hourly rounding performed to ensure safe environment.
--- NOTE | 2018-12-12 10:13 | NUR ---
Patient requested prn percocet for pain in both feet 9/10 medication effective will continue to monitor patient.
[2018-12-12 15:41] VITALS: BP 100/63
--- NOTE | 2018-12-12 16:49 | NUR ---
Patient stated percocet wore off and needed something else for pain. Patient was given lortab for pain 8/10 in both feet which she stated was slightly effective. Will continue to monitor patient.
[2018-12-12] MEDS: risperiDONE 0.25 MG TABLET. PO SCH (19:58)
--- NOTE | 2018-12-12 21:00 | NUR ---
Nursing Note: Pt is restless, anxious, rubbing legs with her hands and c/o pain while sitting in the dayroom. Pt compliant with assessment and medications and otherwise pleasant.
[2018-12-13] MEDS: oxyCODONE/APAP 5/325 1 TAB TABLET PO PRN ×3 (02:00→22:42)
[2018-12-13 05:51] VITALS: BP 102/70
--- NOTE | 2018-12-13 06:35 | PN ---
DATE: 12/12/2018 SUBJECTIVE: The patient was seen today, and staff reports continued behavior problems. OBSERVATION: VITAL SIGNS: Temperature 97.5, blood pressure 105/68, pulse 95, respirations 20, and O2 sat 95%. Slept about 4 hours last night. CURRENT MEDICATIONS: The patient's current medications include Risperdal 0.75 mg at night and also Risperdal 0.5 mg q.6 hours p.r.n. She is also on Klonopin 0.5 mg b.i.d. p.o. 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 PLAN: The plan is to continue with the treatment. LENGTH OF STAY: Three to four days. MCKAY LAWS MD DR: MEL/miguelito JOB#: [id number] / [id number]
[2018-12-13] MEDS: DIVALPROEX 125 MG CAP.SPRINK PO SCH ×2 (07:24→19:27)
[2018-12-13] MEDS: PHENYTOIN SODIUM EXTENDED 100 MG CAPSULE PO SCH ×2 (07:24→19:27)
[2018-12-13] MEDS: clonazePAM 0.5 MG TABLET PO SCH ×2 (07:24→19:32)
--- NOTE | 2018-12-13 09:43 | NUR ---
Behavior Intervention Response and Plan: BIRP Note: Behavior: Assumed Care of patient, patient located in Dining Room at shift change. Patient exhibited the following behavior Calm, Cooperative, Compliant. Brief assessment on rounds of vital signs, medication needs, lab studies, and pain. Treatment plan problems . Intervention: Patient assessed and the following interventions initiated safety checks 15 Minute Checks Personal Alarm in place , Cognitive Assessment , Head to toe Assessment. Response: After interactions and interventions patient responded in the following manner, Calm , Cooperative ,Compliant. Continue to assess behaviors and condition will continue to monitor throughout the shift as needed. Patient educated on ADL's, and hand hygiene. 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 Continue to assess patient for changes in above assessment. Monitor for medication needs, pain, and safety concerns. Hourly rounding performed to ensure safe environment.
[2018-12-13 16:18] VITALS: BP 110/66
--- NOTE | 2018-12-13 18:17 | NUR ---
At dinner patient complained of her feet hurting 04/02 gave patient prn percocet which she stated medication was effective. Will continue to monitor patient.
[2018-12-13] MEDS: risperiDONE 0.25 MG TABLET. PO SCH (19:29)
--- NOTE | 2018-12-13 20:00 | NUR ---
Behavior Intervention Response and Plan: BIRP Note: Behavior: Assumed Care of patient, patient located in Patient Room at shift change. Patient exhibited the following behavior Disorganized, Cooperative, Anxious. Brief assessment on rounds of vital signs, medication needs, lab studies, and pain. Treatment plan problems . Intervention: Patient assessed and the following interventions initiated safety checks 15 Minute Checks Cognitive Assessment , Head to toe Assessment , Medications. Response: After interactions and interventions patient responded in the following manner, Drowsy , Compulsive ,Calm. Continue to assess behaviors and condition will continue to monitor throughout the shift as needed. Patient educated on ADL's, and hand hygiene. 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 Continue to assess patient for changes in above assessment. Monitor for medication needs, pain, and safety concerns. Hourly rounding performed to ensure safe environment.
--- NOTE | 2018-12-13 20:00 | NUR ---
Behavior Intervention Response and Plan: BIRP Note: Behavior: Assumed Care of patient, patient located in Patient Room at shift change. Patient exhibited the following behavior Drowsy, Withdrawn, Interactive. Brief assessment on rounds of vital signs, medication needs, lab studies, and pain. Treatment plan problems . Intervention: Patient assessed and the following interventions initiated safety checks 15 Minute Checks Cognitive Assessment , Head to toe Assessment , Medications. Response: After interactions and interventions patient responded in the following manner, Drowsy , Calm ,Interactive. Continue to assess behaviors and condition will continue to monitor throughout the shift as needed. Patient educated on ADL's, and hand hygiene. 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 Continue to assess patient for changes in above assessment. Monitor for medication needs, pain, and safety concerns. Hourly rounding performed to ensure safe environment.
--- NOTE | 2018-12-13 22:48 | PDOC ---
Exam Note: Adolfo Note: Please also refer to the separate dictated note~for this date of service dictated separately.~Patient seen individually. Discussed the patient with Nursing staff reviewed the chart.~Reviewed interim history and current functioning. Reviewed vital signs,~Labs/ Radiology~and current medications noted below. Continue current treatment with the changes noted in the dictated addendum note Assessment: Vital Signs: Vital Signs Date Time Temp Pulse Resp B/P (MAP) Pulse Ox O2 Delivery O2 Flow Rate FiO2 12/13/18 18:17 96 12/13/18 16:18 98.1 83 20 110/66 (81) 12/13/18 03:00 Room Air I&O Intake and Output 12/13/18 06:59 Intake Total 1320 ml Balance 1320 ml Intake Oral 1320 ml # Voids 1 Current Medications: Meds: Current Medications Oxycodone/ Acetaminophen (Percocet 5/325) 2 tab 1X ONCE PO Last administered on 12/01/18at 18:23; Start 12/01/18 at 18:30; Stop 12/01/18 at 18:31; Status DC Enoxaparin Sodium (Lovenox 80mg Syringe) 80 mg 1X ONCE SQ Last administered on 12/01/18at 18:23; Start 12/01/18 at 18:30; Stop 12/01/18 at 18:31; Status DC Albuterol/ Ipratropium (Duoneb) 3 ml RTQID NEB Last administered on 12/02/18at 16:32; Start 12/01/18 at 20:00; Stop 12/02/18 at 19:59; Status DC Oxycodone/ Acetaminophen (Percocet 5/325) 2 tab QIDPRN PRN PO MARKED PAIN Last administered on 12/13/18at 22:42; Start 12/01/18 at 18:15 Clonazepam (KlonoPIN) 0.5 mg BID PO Last administered on 12/13/18at 19:32; St art 12/01/18 at 21:00 Acetaminophen/ Hydrocodone Bitart (Lortab 5/325) 2 tab PRN Q4HRS PRN PO PAIN Last administered on 12/12/18at 20:28; Start 12/01/18 at 21:00 Ondansetron HCl (Zofran Odt) 4 mg PRN Q6HRS PRN PO NAUSEA/VOMITING; Start 12/01/18 at 21:00 Phenytoin Sodium (Dilantin) 300 mg BID PO Last administered on 12/13/18at 19:27; Start 12/01/18 at 21:00 Acetaminophen (Tylenol) 650 mg PRN Q6HRS PRN PO PAIN / TEMP Last administered on 12/03/18at 18:11; Start 12/01/18 at 23:30 Multi-Ingredient Ointment (Analgesic [place]) 1 miley PRN QID PRN TP MUSCLE PAIN; Start 12/01/18 at 23:30 Al Hydroxide/Mg Hydroxide (Mylanta Plus Xs) 15 ml PRN AFTMEALHC PRN PO DYSPEPSIA; Start 12/01/18 at 23:30 Magnesium Hydroxide (Milk Of Magnesia) 2,400 mg PRN QHS PRN PO CONSTIPATION; Start 12/01/18 at 23:30 Risperidone (RisperDAL) 0.25 mg HS PO Last administered on 12/03/18at 20:08; Start 12/03/18 at 21:00; Stop 12/04/18 at 18:21; Status DC Risperidone (RisperDAL) 0.75 mg HS PO Last administered on 12/13/18at 19:29; Start 12/04/18 at 21:00 Risperidone (RisperDAL) 0.5 mg PRN Q6HRS PRN PO ANXIETY; Start 12/06/18 at 18:30 Divalproex Sodium (Depakote Sprinkles) 125 mg BID PO Last administered on 12/13/18at 19:27; Start 12/08/18 at 21:00 Active Scripts Active [Percogesic] 1 Tab PO QID Naprosyn (Naproxen) 500 Mg Tablet 1 Tab PO BID Reported Plavix (Clopidogrel Bisulfate) 75 Mg Tablet 75 Mg PO DAILY Zofran (Ondansetron Hcl) 4 Mg Tablet 4 Mg PO PRN Q6HRS PRN [place] 5-325 Tablet (Hydrocodone Bit/Acetaminophen) 1 Each Tablet 2 Tab PO PRN Q4HRS PRN Dilantin (Phenytoin Sodium Extended) 100 Mg Capsule 300 Mg PO BID Clonazepam 0.5 Mg Tablet 0.5 Mg PO BID I have reviewed the current psychotropics carefully including drug interactions. Risk benefit ratio favors no change other than as noted in my dictated progress note. 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
[2018-12-14 05:10] VITALS: BP 103/39
[2018-12-14] MEDS: PHENYTOIN SODIUM EXTENDED 100 MG CAPSULE PO SCH ×2 (07:33→19:13)
[2018-12-14] MEDS: oxyCODONE/APAP 5/325 1 TAB TABLET PO PRN ×4 (07:34→22:48)
[2018-12-14] MEDS: clonazePAM 0.5 MG TABLET PO SCH ×2 (07:34→19:14)
[2018-12-14] MEDS: DIVALPROEX 125 MG CAP.SPRINK PO SCH ×2 (07:34→19:49)
--- NOTE | 2018-12-14 08:59 | NUR ---
Wound Care patient seen per f/u of Wound care consult for wounds to left foot. 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 Pt also has necrotic tip on 3rd toe from arterial insufficiency. Cleansed incisions with betadine and covered with Xeroform and Kerlix, Painted 3rd toe with Betadine and covered with Kerlix. Recommend to change every other day. Left TMA site is calloused and dry but no wounds found. No other wounds noted on full skin inspection. WC will continue to follow for possible changes.
--- NOTE | 2018-12-14 09:40 | NUR ---
Pt has been very agitated and angry. Upset that we took bed batista away, pt is able to get self into and out of wheelchair. Was yelling in dining room, placed patient in secured west hallway, pt calmed down and is now back in day room. DAVID.
[2018-12-14 16:25] VITALS: BP 118/78
[2018-12-14] MEDS: risperiDONE 0.25 MG TABLET. PO SCH (19:14)
--- NOTE | 2018-12-14 22:47 | PDOC ---
Exam Note: Adolfo Note: Please also refer to the separate dictated note~for this date of service dictated separately.~Patient seen individually. Discussed the patient with Nursing staff reviewed the chart.~Reviewed interim history and current functioning. Reviewed vital signs,~Labs/ Radiology~and current medications noted below. Continue current treatment with the changes noted in the dictated addendum note Assessment: Vital Signs: Vital Signs Date Time Temp Pulse Resp B/P (MAP) Pulse Ox O2 Delivery O2 Flow Rate FiO2 12/14/18 18:42 98 12/14/18 16:25 98.4 74 20 118/78 (91) 12/14/18 05:10 Room Air I&O Intake and Output 12/14/18 07:00 Intake Total 1440 ml Balance 1440 ml Intake Oral 1440 ml Current Medications: Meds: Current Medications Oxycodone/ Acetaminophen (Percocet 5/325) 2 tab 1X ONCE PO Last administered on 12/01/18 18:23; Start 12/01/18 at 18:30; Stop 12/01/18 at 18:31; Status DC Enoxaparin Sodium (Lovenox 80mg Syringe) 80 mg 1X ONCE SQ Last administered on 12/01/18at 18:23; Start 12/01/18 at 18:30; Stop 12/01/18 at 18:31; Status DC Albuterol/ Ipratropium (Duoneb) 3 ml RTQID NEB Last administered on 12/02/18at 16:32; Start 12/01/18 at 20:00; Stop 12/02/18 at 19:59; Status DC Oxycodone/ Acetaminophen (Percocet 5/325) 2 tab QIDPRN PRN PO MARKED PAIN Last administered on 12/14/18at 17:42; Start 12/01/18 at 18:15 Clonazepam (KlonoPIN) 0.5 mg BID PO Last administered on 12/14/18 19:14; Start 12/01/18 at 21:00 Acetaminophen/ Hydrocodone Bitart (Lortab 5/325) 2 tab PRN Q4HRS PRN PO PAIN Last administered on 12/12/18at 20:28; Start 12/01/18 at 21:00 Ondansetron HCl (Zofran Odt) 4 mg PRN Q6HRS PRN PO NAUSEA/VOMITING; Start 12/01/18 at 21:00 Phenytoin Sodium (Dilantin) 300 mg BID PO Last administered on 12/14/18at 19:13; Start 12/01/18 at 21:00 Acetaminophen (Tylenol) 650 mg PRN Q6HRS PRN PO PAIN / TEMP Last administered on 12/03/18at 18:11; Start 12/01/18 at 23:30 Multi-Ingredient Ointment (Analgesic [place]) 1 miley PRN QID PRN TP MUSCLE PAIN; Start 12/01/18 at 23:30 Al Hydroxide/Mg Hydroxide (Mylanta Plus Xs) 15 ml PRN AFTMEALHC PRN PO DYSPEPSIA; Start 12/01/18 at 23:30 Magnesium Hydroxide (Milk Of Magnesia) 2,400 mg PRN QHS PRN PO CONSTIPATION; Start 12/01/18 at 23:30 Risperidone (RisperDAL) 0.25 mg HS PO Last administered on 12/03/18at 20:08; Start 12/03/18 at 21:00; Stop 12/04/18 at 18:21; Status DC Risperidone (RisperDAL) 0.75 mg HS PO Last administered on 12/14/18at 19:14; Start 12/04/18 at 21:00 Risperidone (RisperDAL) 0.5 mg PRN Q6HRS PRN PO ANXIETY; Start 12/06/18 at 18:30 Divalproex Sodium (Depakote Sprinkles) 125 mg BID PO Last administered on 12/14/18at 07:34; Start 12/08/18 at 21:00; Stop 12/14/18 at 17:38; Status DC Divalproex Sodium (Depakote Sprinkles) 250 mg BID PO Last administered on 12/14/18at 19:49; Start 12/14/18 at 21:00 Active Scripts Active [Percogesic] 1 Tab PO QID Naprosyn (Naproxen) 500 Mg Tablet 1 Tab PO BID Reported Plavix (Clopidogrel Bisulfate) 75 Mg Tablet 75 Mg PO DAILY Zofran (Ondansetron Hcl) 4 Mg Tablet 4 Mg PO PRN Q6HRS PRN [place] 5-325 Tablet (Hydrocodone Bit/Acetaminophen) 1 Each Tablet 2 Tab PO PRN Q4HRS PRN Dilantin (Phenytoin Sodium Extended) 100 Mg Capsule 300 Mg PO BID Clonazepam 0.5 Mg Tablet 0.5 Mg PO BID I have reviewed the current psychotropics carefully including drug interactions. Risk benefit ratio favors no change other than as noted in my dictated progress note. 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
--- NOTE | 2018-12-14 23:35 | PN ---
DATE: 12/13/2018 PSYCHIATRIC PROGRESS NOTE This late entry 12/13/2018 covers elements not covered in my initial note. SUBJECTIVE: I met with the patient in the evening and reviewed detailed history and interim history from Dr. Jordan. The patient slept 6 hours previous night. I met with her at length in her room. She has been talking to herself at times. States she is still having voices intermittently. No CV, , pulmonary, eye system symptoms on review. MENTAL STATUS EXAM: Oriented to herself and situation. Speech has some latency, often responses monosyllabic. Abstraction fair, computation impaired, language function intact. Tearful at times. LABORATORY DATA: Reviewed. IMPRESSION: Unchanged from initial note. She remains in a wheelchair. PLAN: Continue psychotropics from initial note including Klonopin, Risperdal, and Depakote Sprinkles. We may need to adjust the Depakote depending on her progress. Valproic acid level 15.1 on 12/02/2018. MAN Betty THOMAS MD DR: ASHLEY/miguelito JOB#: [id number] / [id number]
[2018-12-15] MEDS: oxyCODONE/APAP 5/325 1 TAB TABLET PO PRN ×3 (05:12→14:29)
[2018-12-15 06:25] VITALS: BP 100/68
[2018-12-15] MEDS: PHENYTOIN SODIUM EXTENDED 100 MG CAPSULE PO SCH ×2 (07:59→19:13)
[2018-12-15] MEDS: clonazePAM 0.5 MG TABLET PO SCH ×2 (07:59→19:12)
[2018-12-15] MEDS: DIVALPROEX 125 MG CAP.SPRINK PO SCH ×2 (07:59→19:12)
--- NOTE | 2018-12-15 15:59 | NUR ---
Patient observed in her room for breakfast, she stated she had a granola bar and wasn't hungry and also did not feel good, calm/cooperative with assessment, she requested her "pain pill" again and was advised that it was 2 hours too early, she was assisted from her bed to her wheel chair to the bathroom, she needed assistance into the bathroom , she used the bathroom and needed assistance getting back into bed, she attempts to wheel herself in her wheel chair using her hands and then after a short time she states "oh, I can't anymore my hands hurt" patient took her prn of percocet of 1010 and 1430, she stated her pain was "all over and her whole body burned",
[2018-12-15 16:32] VITALS: BP 106/73
[2018-12-15] MEDS: risperiDONE 0.25 MG TABLET. PO SCH (19:13)
--- NOTE | 2018-12-15 20:00 | NUR ---
Behavior Intervention Response and Plan: BIRP Note: Behavior: Assumed Care of patient, patient located in Day Room at shift change. Patient exhibited the following behavior Compulsive, Demanding, Anxious. Brief assessment on rounds of vital signs, medication needs, lab studies, and pain. Treatment plan problems . Intervention: Patient assessed and the following interventions initiated safety checks 15 Minute Checks Cognitive Assessment , Head to toe Assessment , Medications. Response: After interactions and interventions patient responded in the following manner, Drowsy , Cooperative ,Withdrawn. Continue to assess behaviors and condition will continue to monitor throughout the shift as needed. Patient educated on ADL's, and hand hygiene. 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 Continue to assess patient for changes in above assessment. Monitor for medication needs, pain, and safety concerns. Hourly rounding performed to ensure safe environment.
--- NOTE | 2018-12-15 22:48 | PDOC ---
Exam Note: Adolfo Note: Please also refer to the separate dictated note~for this date of service dictated separately.~Patient seen individually. Discussed the patient with Nursing staff reviewed the chart.~Reviewed interim history and current functioning. Reviewed vital signs,~Labs/ Radiology~and current medications noted below. Continue current treatment with the changes noted in the dictated addendum note Assessment: Vital Signs: Vital Signs Date Time Temp Pulse Resp B/P (MAP) Pulse Ox O2 Delivery O2 Flow Rate FiO2 12/15/18 16:32 98.4 75 17 106/73 (84) 98 12/15/18 15:42 Room Air I&O Intake and Output 12/15/18 07:00 Intake Total 780 ml Balance 780 ml Intake Oral 780 ml Current Medications: Meds: Current Medications Oxycodone/ Acetaminophen (Percocet 5/325) 2 tab 1X ONCE PO Last administered on 12/01/18 18:23; Start 12/01/18 at 18:30; Stop 12/01/18 at 18:31; Status DC Enoxaparin Sodium (Lovenox 80mg Syringe) 80 mg 1X ONCE SQ Last administered on 12/01/18at 18:23; Start 12/01/18 at 18:30; Stop 12/01/18 at 18:31; Status DC Albuterol/ Ipratropium (Duoneb) 3 ml RTQID NEB Last administered on 12/02/18at 16:32; Start 12/01/18 at 20:00; Stop 12/02/18 at 19:59; Status DC Oxycodone/ Acetaminophen (Percocet 5/325) 2 tab QIDPRN PRN PO MARKED PAIN Last administered on 12/15/18 14:29; Start 12/01/18 at 18:15 Clonazepam (KlonoPIN) 0.5 mg BID PO Last administered on 12/15/18 19:12; Start 12/01/18 at 21:00 Acetaminophen/ Hydrocodone Bitart (Lortab 5/325) 2 tab PRN Q4HRS PRN PO PAIN Last administered on 12/12/18at 20:28; Start 12/01/18 at 21:00 Ondansetron HCl (Zofran Odt) 4 mg PRN Q6HRS PRN PO NAUSEA/VOMITING; Start 12/01/18 at 21:00 Phenytoin Sodium (Dilantin) 300 mg BID PO Last administered on 12/15/18 19:13; Start 12/01/18 at 21:00 Acetaminophen (Tylenol) 650 mg PRN Q6HRS PRN PO PAIN / TEMP Last administered on 12/03/18at 18:11; Start 12/01/18 at 23:30 Multi-Ingredient Ointment (Analgesic [place]) 1 miley PRN QID PRN TP MUSCLE PAIN; Start 12/01/18 at 23:30 Al Hydroxide/Mg Hydroxide (Mylanta Plus Xs) 15 ml PRN AFTMEALHC PRN PO DYSPEPSIA; Start 12/01/18 at 23:30 Magnesium Hydroxide (Milk Of Magnesia) 2,400 mg PRN QHS PRN PO CONSTIPATION; Start 12/01/18 at 23:30 Risperidone (RisperDAL) 0.25 mg HS PO Last administered on 12/03/18 20:08; Start 12/03/18 at 21:00; Stop 12/04/18 at 18:21; Status DC Risperidone (RisperDAL) 0.75 mg HS PO Last administered on 12/15/18 19:13; Start 12/04/18 at 21:00 Risperidone (RisperDAL) 0.5 mg PRN Q6HRS PRN PO ANXIETY; Start 12/06/18 at 18:30 Divalproex Sodium (Depakote Sprinkles) 125 mg BID PO Last administered on 11/23 07:34; Start 12/08/18 at 21:00; Stop 12/14/18 at 17:38; Status DC Divalproex Sodium (Depakote Sprinkles) 250 mg BID PO Last administered on 12/15/18 19:12; Start 12/14/18 at 21:00 Active Scripts Active [Percogesic] 1 Tab PO QID Naprosyn (Naproxen) 500 Mg Tablet 1 Tab PO BID Reported Plavix (Clopidogrel Bisulfate) 75 Mg Tablet 75 Mg PO DAILY Zofran (Ondansetron Hcl) 4 Mg Tablet 4 Mg PO PRN Q6HRS PRN [place] 5-325 Tablet (Hydrocodone Bit/Acetaminophen) 1 Each Tablet 2 Tab PO PRN Q4HRS PRN Dilantin (Phenytoin Sodium Extended) 100 Mg Capsule 300 Mg PO BID Clonazepam 0.5 Mg Tablet 0.5 Mg PO BID I have reviewed the current psychotropics carefully including drug interactions. Risk benefit ratio favors no change other than as noted in my dictated progress note. 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
[2018-12-16] MEDS: oxyCODONE/APAP 5/325 1 TAB TABLET PO PRN ×4 (00:20→19:50)
--- NOTE | 2018-12-16 01:23 | PN ---
DATE: 12/14/2018 PSYCHIATRIC PROGRESS NOTE This late entry 12/14/2018 covers elements not covered in my initial note. SUBJECTIVE: I met with the patient in the evening. The patient slept 6 hours previous night. In the morning, she was quite agitated when staff members took a bedpan away. She had to being in the west hallway and continues to have some mood lability. I met with her in her room at length. REVIEW OF SYSTEMS: No CV, , pulmonary, eye system symptoms on review, but she complains of impaired ambulation. MENTAL STATUS EXAM: Oriented to herself and situation. Speech coherent, rapid at times. She was anxious, restless, constantly moving in her bed as I sat with her in her room. Abstraction fair, computation impaired, language function intact. She remains somewhat paranoid, suspicious. LABORATORY DATA: Reviewed. IMPRESSION: Bipolar 1 disorder, unspecified; anxiety disorder, unspecified; impulse control disorder, unspecified; mild cognitive impairment. PLAN: Valproic acid level was 15 on day 11th, on Depakote 1 Sprinkle 125 b.i.d., we will increase to 250 b.i.d. Check CBC, CMP, valproic acid level in 3 days. Rest unchanged per initial note. MAHENDRA THOMAS MD DR: ASHLEY/miguelito JOB#: [id number] / [id number]
[2018-12-16 05:49] VITALS: BP 106/74
[2018-12-16] MEDS: clonazePAM 0.5 MG TABLET PO SCH ×2 (09:11→19:44)
[2018-12-16] MEDS: DIVALPROEX 125 MG CAP.SPRINK PO SCH ×2 (09:11→19:41)
[2018-12-16] MEDS: PHENYTOIN SODIUM EXTENDED 100 MG CAPSULE PO SCH ×2 (09:12→19:41)
--- NOTE | 2018-12-16 09:24 | NUR ---
WEEKLY ACTIVITY THERAPY NOTE Date of Admission: 12/02/2018 Date of AT Assessment: 12/05/2018 Goal aimed: to increase engagement for a at least 30 minutes at a time Initial goal: Pt. will participate in at least one Activity Therapy group per day, at least moderately. Weekly progress towards goal: did not achieve, only minimal group participation in both groups on Thursday Group participation level: moderate Weekly highlights: full participation in egg toss on Thursday morning and Thursday afternoon Behaviors observed: enjoys music, trivia, social with others Plan: no change to goal Beneficial adaptations: enjoys music groups, cog stim
--- NOTE | 2018-12-16 10:04 | NUR ---
WEEKLY NOTE: Pt is medication seeking and has poor tolerance; she has explosive verbal aggression. Pt attends groups and appears to have some behaviors in them during the morning hours. Pt is eating and sleeping okay. Pt Depakote will be increased and labs will be checked in 3 days. Team is requesting a mini-mental and SW will access. Pt will return to [facility] in [place] within the next week to 10 days.
--- NOTE | 2018-12-16 14:26 | NUR ---
Pt has been labile all morning. Pt pleasant and compliant with medications and assessment. Pt was interactive and social. After lunch, pt tearful and yelling, stating that she was in pain. PRN Percocet administered at 1300.
[2018-12-16 16:17] VITALS: BP 93/58
[2018-12-16] MEDS: risperiDONE 0.25 MG TABLET. PO SCH (19:41)
--- NOTE | 2018-12-16 22:58 | PDOC ---
Exam Note: Adolfo Note: Please also refer to the separate dictated note~for this date of service dictated separately.~Patient seen individually. Discussed the patient with Nursing staff reviewed the chart.~Reviewed interim history and current functioning. Reviewed vital signs,~Labs/ Radiology~and current medications noted below. Continue current treatment with the changes noted in the dictated addendum note Assessment: Vital Signs: Vital Signs Date Time Temp Pulse Resp B/P (MAP) Pulse Ox O2 Delivery O2 Flow Rate FiO2 12/16/18 20:38 18 97 12/16/18 19:50 Room Air 12/16/18 16:17 97.1 78 93/58 (70) I&O Intake and Output 12/16/18 07:00 Intake Total 600 ml Balance 600 ml Intake Oral 600 ml # Voids 1 Current Medications: Meds: Current Medications Oxycodone/ Acetaminophen (Percocet 5/325) 2 tab 1X ONCE PO Last administered on 12/01/18 18:23; Start 12/01/18 at 18:30; Stop 12/01/18 at 18:31; Status DC Enoxaparin Sodium (Lovenox 80mg Syringe) 80 mg 1X ONCE SQ Last administered on 12/01/18 18:23; Start 12/01/18 at 18:30; Stop 12/01/18 at 18:31; Status DC Albuterol/ Ipratropium (Duoneb) 3 ml RTQID NEB Last administered on 12/02/18at 16:32; Start 12/01/18 at 20:00; Stop 12/02/18 at 19:59; Status DC Oxycodone/ Acetaminophen (Percocet 5/325) 2 tab QIDPRN PRN PO MARKED PAIN Last administered on 12/16/18 19:50; Start 12/01/18 at 18:15 Clonazepam (KlonoPIN) 0.5 mg BID PO Last administered on 12/16/18 19:44; Start 12/01/18 at 21:00 Acetaminophen/ Hydrocodone Bitart (Lortab 5/325) 2 tab PRN Q4HRS PRN PO PAIN Last administered on 12/12/18at 20:28; Start 12/01/18 at 21:00 Ondansetron HCl (Zofran Odt) 4 mg PRN Q6HRS PRN PO NAUSEA/VOMITING; Start 12/01/18 at 21:00 Phenytoin Sodium (Dilantin) 300 mg BID PO Last administered on 12/16/18at 19:41; Start 12/01/18 at 21:00 Acetaminophen (Tylenol) 650 mg PRN Q6HRS PRN PO PAIN / TEMP Last administered on 12/03/18 18:11; Start 12/01/18 at 23:30 Multi-Ingredient Ointment (Analgesic [place]) 1 miley PRN QID PRN TP MUSCLE PAIN; Start 12/01/18 at 23:30 Al Hydroxide/Mg Hydroxide (Mylanta Plus Xs) 15 ml PRN AFTMEALHC PRN PO DYSPEPSIA; Start 12/01/18 at 23:30 Magnesium Hydroxide (Milk Of Magnesia) 2,400 mg PRN QHS PRN PO CONSTIPATION; Start 12/01/18 at 23:30 Risperidone (RisperDAL) 0.25 mg HS PO Last administered on 12/03/18at 20:08; Start 12/03/18 at 21:00; Stop 12/04/18 at 18:21; Status DC Risperidone (RisperDAL) 0.75 mg HS PO Last administered on 12/16/18 19:41; Start 12/04/18 at 21:00 Risperidone (RisperDAL) 0.5 mg PRN Q6HRS PRN PO ANXIETY; Start 12/06/18 at 18:30 Divalproex Sodium (Depakote Sprinkles) 125 mg BID PO Last administered on 12/14/18at 07:34; Start 12/08/18 at 21:00; Stop 12/14/18 at 17:38; Status DC Divalproex Sodium (Depakote Sprinkles) 250 mg BID PO Last administered on 12/16/18 19:41; Start 12/14/18 at 21:00 Active Scripts Active [Percogesic] 1 Tab PO QID Naprosyn (Naproxen) 500 Mg Tablet 1 Tab PO BID Reported Plavix (Clopidogrel Bisulfate) 75 Mg Tablet 75 Mg PO DAILY Zofran (Ondansetron Hcl) 4 Mg Tablet 4 Mg PO PRN Q6HRS PRN [place] 5-325 Tablet (Hydrocodone Bit/Acetaminophen) 1 Each Tablet 2 Tab PO PRN Q4HRS PRN Dilantin (Phenytoin Sodium Extended) 100 Mg Capsule 300 Mg PO BID Clonazepam 0.5 Mg Tablet 0.5 Mg PO BID I have reviewed the current psychotropics carefully including drug interactions. Risk benefit ratio favors no change other than as noted in my dictated progress note. 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
[2018-12-17] MEDS: oxyCODONE/APAP 5/325 1 TAB TABLET PO PRN ×3 (01:14→17:26)
[2018-12-17 05:48] VITALS: BP 109/53
[2018-12-17 07:51] LABS: ALBUMIN 2.5 g/dL (3.4-5.0); ALBUMIN/GLOBULIN RATIO 0.6 (1.0-1.7); ALK PHOS 124 U/L (46-116); ALT (SGPT) 12 U/L (14-59); ANION GAP 5 (6-14); AST (SGOT) 13 U/L (15-37); BLOOD UREA NITROGEN 23 mg/dL (7-20); BUN/CREATININE RATIO 23 (6-20); CALCIUM 8.7 mg/dL (8.5-10.1); CARBON DIOXIDE 32 mmol/L (21-32); CHLORIDE 105 mmol/L (98-107); GFR 58.2; GLUCOSE 81 mg/dL (70-99); POTASSIUM 4.4 mmol/L (3.5-5.1); SODIUM 142 mmol/L (136-145); TOTAL BILIRUBIN 0.2 mg/dL (0.2-1.0); TOTAL PROTEIN 6.4 g/dL (6.4-8.2)
[2018-12-17 07:58] LABS: VAL ACID 17 mcg/mL (50-100)
[2018-12-17 08:06] LABS: HEMOGLOBIN 11.1 g/dL (12.0-15.5); RED BLOOD COUNT 3.45 x10^6/uL (3.50-5.40); RED CELL DISTRIBUTION WIDTH 15.5 % (11.5-14.5)
[2018-12-17] MEDS: DIVALPROEX 125 MG CAP.SPRINK PO SCH ×2 (08:31→19:14)
[2018-12-17] MEDS: PHENYTOIN SODIUM EXTENDED 100 MG CAPSULE PO SCH ×2 (08:31→19:15)
[2018-12-17] MEDS: clonazePAM 0.5 MG TABLET PO SCH ×2 (08:32→19:17)
--- NOTE | 2018-12-17 11:47 | NUR ---
Pt calm and social this morning. Complaining of pain. PRN Percocet administered.
[2018-12-17] MEDS: HYDROcodone/APAP 5/325MG 1 TAB TABLET PO PRN ×2 (13:01→22:19)
[2018-12-17 16:12] VITALS: BP 111/68
[2018-12-17] MEDS ORDERED: traZODone 50 MG TABLET. PO PRN (19:00)
[2018-12-17] MEDS: risperiDONE 0.25 MG TABLET. PO SCH (19:15)
[2018-12-17] MEDS: traZODone 50 MG TABLET. PO SCH (19:17)
--- NOTE | 2018-12-17 21:18 | NUR ---
Behavior Intervention Response and Plan: BIRP Note: Behavior: Assumed Care of patient, patient located in Patient room at shift change. Patient exhibited the following behavior Somatic, Helpless, Compulsive. Brief assessment on rounds of vital signs, medication needs, lab studies, and pain. Treatment plan problems 1-2. Intervention: Patient assessed and the following interventions initiated safety checks 15 Minute Checks Cognitive Assessment , Head to toe Assessment , Medications. Response: After interactions and interventions patient responded in the following manner, Drowsy , Cooperative ,Withdrawn. Continue to assess behaviors and condition will continue to monitor throughout the shift as needed. Patient educated on ADL's, and hand hygiene. 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 Continue to assess patient for changes in above assessment. Monitor for medication needs, pain, and safety concerns. Hourly rounding performed to ensure safe environment.
--- NOTE | 2018-12-17 22:39 | PDOC ---
Exam Note: Adolfo Note: Please also refer to the separate dictated note~for this date of service dictated separately.~Patient seen individually. Discussed the patient with Nursing staff reviewed the chart.~Reviewed interim history and current functioning. Reviewed vital signs,~Labs/ Radiology~and current medications noted below. Continue current treatment with the changes noted in the dictated addendum note Assessment: Vital Signs: Vital Signs Date Time Temp Pulse Resp B/P (MAP) Pulse Ox O2 Delivery O2 Flow Rate FiO2 12/17/18 22:19 20 99 Room Air 12/17/18 16:12 97.2 88 111/68 (82) I&O Intake and Output 12/17/18 07:00 Intake Total 1200 ml Balance 1200 ml Intake Oral 1200 ml # Voids 1 Labs: Laboratory Tests Test 12/17/18 06:52 White Blood Count 6.0 x10^3/uL (4.0-11.0) Red Blood Count 3.45 x10^6/uL (3.50-5.40) L Hemoglobin 11.1 g/dL (12.0-15.5) L Hematocrit 34.0 % (36.0-47.0) L Mean Corpuscular Volume 99 fL (79-100) Mean Corpuscular Hemoglobin 32 pg (25-35) Mean Corpuscular Hemoglobin Concent 33 g/dL (31-37) Red Cell Distribution Width 15.5 % (11.5-14.5) H Platelet Count 365 x10^3/uL (140-400) Sodium Level 142 mmol/L (136-145) Potassium Level 4.4 mmol/L (3.5-5.1) Chloride Level 105 mmol/L (98-107) Carbon Dioxide Level 32 mmol/L (21-32) Anion Gap 5 (6-14) L Blood Urea Nitrogen 23 mg/dL (7-20) H Creatinine 1.0 mg/dL (0.6-1.0) Estimated GFR (Cockcroft-Gault) 58.2 BUN/Creatinine Ratio 23 (6-20) H Glucose Level 81 mg/dL (70-99) Calcium Level 8.7 mg/dL (8.5-10.1) Total Bilirubin 0.2 mg/dL (0.2-1.0) Aspartate Amino Transferase (AST) 13 U/L (15-37) L Alanine Aminotransferase (ALT) 12 U/L (14-59) L Alkaline Phosphatase 124 U/L (46-116) H Total Protein 6.4 g/dL (6.4-8.2) Albumin 2.5 g/dL (3.4-5.0) L Albumin/Globulin Ratio 0.6 (1.0-1.7) L Valproic Acid Level 17 mcg/mL (50-100) L Valproic Acid Last Dose Date 12/16/18 Valproic Acid Last Dose Time 1700 Current Medications: Meds: Current Medications Oxycodone/ Acetaminophen (Percocet 5/325) 2 tab 1X ONCE PO Last administered on 12/01/18at 18:23; Start 12/01/18 at 18:30; Stop 12/01/18 at 18:31; Status DC Enoxaparin Sodium (Lovenox 80mg Syringe) 80 mg 1X ONCE SQ Last administered on 12/01/18 18:23; Start 12/01/18 at 18:30; Stop 12/01/18 at 18:31; Status DC Albuterol/ Ipratropium (Duoneb) 3 ml RTQID NEB Last administered on 12/02/18at 16:32; Start 12/01/18 at 20:00; Stop 12/02/18 at 19:59; Status DC Oxycodone/ Acetaminophen (Percocet 5/325) 2 tab QIDPRN PRN PO MARKED PAIN Last administered on 12/17/18 17:26; Start 12/01/18 at 18:15 Clonazepam (KlonoPIN) 0.5 mg BID PO Last administered on 12/17/18at 19:17; St art 12/01/18 at 21:00 Acetaminophen/ Hydrocodone Bitart (Lortab 5/325) 2 tab PRN Q4HRS PRN PO PAIN Last administered on 12/17/18 22:19; Start 12/01/18 at 21:00 Ondansetron HCl (Zofran Odt) 4 mg PRN Q6HRS PRN PO NAUSEA/VOMITING; Start 12/01/18 at 21:00 Phenytoin Sodium (Dilantin) 300 mg BID PO Last administered on 12/17/18 19:15; Start 12/01/18 at 21:00 Acetaminophen (Tylenol) 650 mg PRN Q6HRS PRN PO PAIN / TEMP Last administered on 12/03/18at 18:11; Start 12/01/18 at 23:30 Multi-Ingredient Ointment (Analgesic [place]) 1 miley PRN QID PRN TP MUSCLE PAIN; Start 12/01/18 at 23:30 Al Hydroxide/Mg Hydroxide (Mylanta Plus Xs) 15 ml PRN AFTMEALHC PRN PO DYSPEPSIA; Start 12/01/18 at 23:30 Magnesium Hydroxide (Milk Of Magnesia) 2,400 mg PRN QHS PRN PO CONSTIPATION; Start 12/01/18 at 23:30 Risperidone (RisperDAL) 0.25 mg HS PO Last administered on 12/03/18at 20:08; Start 12/03/18 at 21:00; Stop 12/04/18 at 18:21; Status DC Risperidone (RisperDAL) 0.75 mg HS PO Last administered on 12/17/18at 19:15; Start 12/04/18 at 21:00 Risperidone (RisperDAL) 0.5 mg PRN Q6HRS PRN PO ANXIETY; Start 12/06/18 at 18:30 Divalproex Sodium (Depakote Sprinkles) 125 mg BID PO Last administered on 12/14/18at 07:34; Start 12/08/18 at 21:00; Stop 12/14/18 at 17:38; Status DC Divalproex Sodium (Depakote Sprinkles) 250 mg BID PO Last administered on 12/17/18at 19:14; Start 12/14/18 at 21:00 Trazodone HCl (Desyrel) 50 mg QHS PO Last administered on 12/17/18at 19:17; Start 12/17/18 at 21:00 Trazodone HCl (Desyrel) 50 mg PRN QHS PRN PO INSOMNIA; Start 12/17/18 at 19:00 Active Scripts Active [Percogesic] 1 Tab PO QID Naprosyn (Naproxen) 500 Mg Tablet 1 Tab PO BID Reported Plavix (Clopidogrel Bisulfate) 75 Mg Tablet 75 Mg PO DAILY Zofran (Ondansetron Hcl) 4 Mg Tablet 4 Mg PO PRN Q6HRS PRN [place] 5-325 Tablet (Hydrocodone Bit/Acetaminophen) 1 Each Tablet 2 Tab PO PRN Q 4HRS PRN Dilantin (Phenytoin Sodium Extended) 100 Mg Capsule 300 Mg PO BID Clonazepam 0.5 Mg Tablet 0.5 Mg PO BID I have reviewed the current psychotropics carefully including drug interactions. Risk benefit ratio favors no change other than as noted in my dictated progress note. 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
--- NOTE | 2018-12-18 00:55 | PN ---
DATE: 12/16/2018 PSYCHIATRIC PROGRESS NOTE This late entry 12/16/2018 covers elements not covered in my initial note. SUBJECTIVE: I met with the patient in the early afternoon, staffed at a treatment team meeting in the morning with the entire team. Reviewed her history at length of homelessness, alcohol abuse, fairly dramatic presentation. She has lost her vision due to glaucoma and inadequate followup previously. We will check a Mini-Mental Status Exam. Plan is for her to return to [facility]. She used to live in homeless shelters in the past. REVIEW OF SYSTEMS: Poor vision, impaired ambulation, in wheelchair. No CV, , pulmonary, ENT system symptoms on review. MENTAL STATUS EXAM: Oriented to herself and situation. Speech coherent, rapid at times. Abstraction fair, computation impaired, language function intact, attention span short. Mood and affect remain somewhat anxious, labile, dramatic, but improved. LABORATORY DATA: Reviewed. IMPRESSION: Unchanged from initial note. PLAN: No change from initial note. We have increased the Depakote. Labs are awaited on 12/17/2018 and we will adjust thereafter. MAHENDRA THOMAS MD DR: SAHLEY/miguelito JOB#: [id number] / [id number]
--- NOTE | 2018-12-18 01:19 | PN ---
DATE: 12/15/2018 PSYCHIATRIC PROGRESS NOTE This late entry 12/15/2018 covers elements not covered in my initial note. SUBJECTIVE: I met with the patient in the evening. The patient slept 4 hours previous night. Previous night, she got quite angry, labile, obsessive regarding Percocet being given every 4 hours and I addressed this with her. 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 Ambulation impaired, in wheelchair. No CV, , pulmonary, ENT system symptoms on review. MENTAL STATUS EXAM: Oriented to herself and situation. Speech coherent. We talked at some length about her past homelessness, alcohol abuse, which she minimizes. She states she used to walk from town to town with her partner. Speech is coherent, rapid at times. She still had some yelling at times. Abstraction fair, computation impaired, language function intact, attention span short. Mood and affect labile, but showing improvement. LABORATORY DATA: Reviewed. IMPRESSION: Unchanged from initial note. PLAN: No change from initial note. We will maintain Dilantin for her seizures and we are adjusting the Depakote to reach therapeutic level. MAHENDRA THOMAS MD DR: ASHLEY/miguelito JOB#: [id number] / [id number]
[2018-12-18] MEDS: oxyCODONE/APAP 5/325 1 TAB TABLET PO PRN ×3 (06:01→22:45)
[2018-12-18 06:10] VITALS: BP 119/47
[2018-12-18] MEDS: DIVALPROEX 125 MG CAP.SPRINK PO SCH ×2 (08:02→19:19)
[2018-12-18] MEDS: PHENYTOIN SODIUM EXTENDED 100 MG CAPSULE PO SCH ×2 (08:03→19:19)
[2018-12-18] MEDS: clonazePAM 0.5 MG TABLET PO SCH ×2 (08:04→19:20)
[2018-12-18] MEDS: HYDROcodone/APAP 5/325MG 1 TAB TABLET PO PRN ×2 (11:00→20:13)
--- NOTE | 2018-12-18 14:45 | NUR ---
Patient in dining room during initial assessment. Cooperative with assessment and medication administration. Teary periodically throughout the day, saying " no one comes to see me" and "I am a burden to everyone here." Complaints of pain 05/03, pain medication given at 1055. Patient currently in day room watching movie. Will continue to monitor.
[2018-12-18 15:55] VITALS: BP 102/65
[2018-12-18] MEDS: risperiDONE 0.25 MG TABLET. PO SCH (19:19)
[2018-12-18] MEDS: traZODone 50 MG TABLET. PO SCH (19:19)
--- NOTE | 2018-12-18 22:49 | PDOC ---
Exam Note: Adolfo Note: Please also refer to the separate dictated note~for this date of service dictated separately.~Patient seen individually. Discussed the patient with Nursing staff reviewed the chart.~Reviewed interim history and current functioning. Reviewed vital signs,~Labs/ Radiology~and current medications noted below. Continue current treatment with the changes noted in the dictated addendum note Assessment: Vital Signs: Vital Signs Date Time Temp Pulse Resp B/P (MAP) Pulse Ox O2 Delivery O2 Flow Rate FiO2 12/18/18 22:45 99 12/18/18 17:38 14 12/18/18 15:55 97.5 82 102/65 (77) Room Air I&O Intake and Output 12/18/18 07:00 Intake Total 1200 ml Balance 1200 ml Intake Oral 1200 ml # Voids 1 # Bowel Movements 1 Current Medications: Meds: Current Medications Oxycodone/ Acetaminophen (Percocet 5/325) 2 tab 1X ONCE PO Last administered on 12/01/18at 18:23; Start 12/01/18 at 18:30; Stop 12/01/18 at 18:31; Status DC Enoxaparin Sodium (Lovenox 80mg Syringe) 80 mg 1X ONCE SQ Last administered on 12/01/18at 18:23; Start 12/01/18 at 18:30; Stop 12/01/18 at 18:31; Status DC Albuterol/ Ipratropium (Duoneb) 3 ml RTQID NEB Last administered on 12/02/18at 16:32; Start 12/01/18 at 20:00; Stop 12/02/18 at 19:59; Status DC Oxycodone/ Acetaminophen (Percocet 5/325) 2 tab QIDPRN PRN PO MARKED PAIN Last administered on 12/18/18at 22:45; Start 12/01/18 at 18:15 Clonazepam (KlonoPIN) 0.5 mg BID PO Last administered on 12/18/18at 19:20; Start 12/01/18 at 21:00 Acetaminophen/ Hydrocodone Bitart (Lortab 5/325) 2 tab PRN Q4HRS PRN PO PAIN Last administered on 12/18/18at 20:13; Start 12/01/18 at 21:00 Ondansetron HCl (Zofran Odt) 4 mg PRN Q6HRS PRN PO NAUSEA/VOMITING; Start 12/01/18 at 21:00 Phenytoin Sodium (Dilantin) 300 mg BID PO Last administered on 12/18/18 19:19; Start 12/01/18 at 21:00 Acetaminophen (Tylenol) 650 mg PRN Q6HRS PRN PO PAIN / TEMP Last administered on 12/03/18at 18:11; Start 12/01/18 at 23:30 Multi-Ingredient Ointment (Analgesic [place]) 1 miley PRN QID PRN TP MUSCLE PAIN; Start 12/01/18 at 23:30 Al Hydroxide/Mg Hydroxide (Mylanta Plus Xs) 15 ml PRN AFTMEALHC PRN PO DYSPEPSIA; Start 12/01/18 at 23:30 Magnesium Hydroxide (Milk Of Magnesia) 2,400 mg PRN QHS PRN PO CONSTIPATION; Start 12/01/18 at 23:30 Risperidone (RisperDAL) 0.25 mg HS PO Last administered on 12/03/18at 20:08; Start 12/03/18 at 21:00; Stop 12/04/18 at 18:21; Status DC Risperidone (RisperDAL) 0.75 mg HS PO Last administered on 12/18/18 19:19; Start 12/04/18 at 21:00 Risperidone (RisperDAL) 0.5 mg PRN Q6HRS PRN PO ANXIETY; Start 12/06/18 at 18:30 Divalproex Sodium (Depakote Sprinkles) 125 mg BID PO Last administered on 12/14/18at 07:34; Start 12/08/18 at 21:00; Stop 12/14/18 at 17:38; Status DC Divalproex Sodium (Depakote Sprinkles) 250 mg BID PO Last administered on 12/18/18 19:19; Start 12/14/18 at 21:00 Trazodone HCl (Desyrel) 50 mg QHS PO Last administered on 12/18/18at 19:19; Start 12/17/18 at 21:00 Trazodone HCl (Desyrel) 50 mg PRN QHS PRN PO INSOMNIA; Start 12/17/18 at 19:00 Clonazepam (KlonoPIN) 0.25 mg DAILY@1500 PO ; Start 4/28/19 at 15:00 Active Scripts Active [Percogesic] 1 Tab PO QID Naprosyn (Naproxen) 500 Mg Tablet 1 Tab PO BID Reported Plavix (Clopidogrel Bisulfate) 75 Mg Tablet 75 Mg PO DAILY Zofran (Ondansetron Hcl) 4 Mg Tablet 4 Mg PO PRN Q6HRS PRN [place] 5-325 Tablet (Hydrocodone Bit/Acetaminophen) 1 Each Tablet 2 Tab PO PRN Q4HRS PRN Dilantin (Phenytoin Sodium Extended) 100 Mg Capsule 300 Mg PO BID Clonazepam 0.5 Mg Tablet 0.5 Mg PO BID I have reviewed the current psychotropics carefully including drug interactions. Risk benefit ratio favors no change other than as noted in my dictated progress note. 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
--- NOTE | 2018-12-18 23:41 | NUR ---
Pt withdrawn to room all evening. No tearfulness noted, pt in pleasant spirits. Complaining of pain 05/03. Lortab administered with HS medications. Pt continued to be restless, stating she was still in pain. PRN Percocet administered at 2245.
[2018-12-19 05:52] VITALS: BP 100/60
[2018-12-19] MEDS: clonazePAM 0.5 MG TABLET PO SCH ×3 (07:53→19:49)
[2018-12-19] MEDS: PHENYTOIN SODIUM EXTENDED 100 MG CAPSULE PO SCH ×2 (07:53→19:48)
[2018-12-19] MEDS: DIVALPROEX 125 MG CAP.SPRINK PO SCH ×2 (07:53→19:49)
[2018-12-19] MEDS: oxyCODONE/APAP 5/325 1 TAB TABLET PO PRN ×3 (07:54→20:26)
--- NOTE | 2018-12-19 10:34 | NUR ---
Pt up in wheelchair. Alert. RN gave patient pain medications this morning. At 10:00 pt asking when she can have more. Complaining of pain left 5th toe amputation site. Site is intact, no signs or symptoms of swelling, however right leg red and swollen. Dr Evans notified, order for LE duplex. Pt states that she wants to go to the hospital because she feels sick. Will discuss more with Dr Evans when he arrives to unit. While RN talking with another patient, this patient kept interrupting. Pt had to be told that RN was talking to someone else and she needed to allow us to finish our conversation. Pt followed instructions. WCTM.
--- NOTE | 2018-12-19 12:29 | RAD ---
Right lower extremity venous Doppler ultrasound exam HISTORY:Right lower extremity swelling greater in the calf COMPARISON: None FINDINGS: Multiple grayscale and color images and spectral analysis waveform images were acquired of the right lower extremity veins to evaluate for the presence of DVT. Normal compression, color-flow, and augmentation is demonstrated from the right common femoral to the popliteal veins. There is normal phasicity. There is normal color flow of the proximal profunda femoris and greater saphenous veins. There is normal color flow in segments of calf veins. There is a large heterogeneous collection in the right calf region about 8.8 x 4.2 x 1.57 m, no internal vascularity on color Doppler imaging. Impression: 1. There is no evidence of deep venous thrombosis from the right common femoral to popliteal veins. 2. There is a large heterogeneous avascular collection in the right calf region likely a large hematoma. If there has not been recent trauma or explanation for the findings, short-term follow-up is recommended.
[2018-12-19 16:29] VITALS: BP 106/66
[2018-12-19] MEDS: traZODone 50 MG TABLET. PO SCH (19:48)
[2018-12-19] MEDS: risperiDONE 0.25 MG TABLET. PO SCH (19:48)
--- NOTE | 2018-12-19 23:09 | PDOC ---
Exam Note: Adolfo Note: Please also refer to the separate dictated note~for this date of service dictated separately.~Patient seen individually. Discussed the patient with Nursing staff reviewed the chart.~Reviewed interim history and current functioning. Reviewed vital signs,~Labs/ Radiology~and current medications noted below. Continue current treatment with the changes noted in the dictated addendum note Assessment: Vital Signs: Vital Signs Date Time Temp Pulse Resp B/P (MAP) Pulse Ox O2 Delivery O2 Flow Rate FiO2 12/19/18 21:38 91 12/19/18 16:29 98.0 74 16 106/66 (79) 12/18/18 15:55 Room Air I&O Intake and Output 12/19/18 06:59 Intake Total 1710 ml Balance 1710 ml Intake Oral 1710 ml # Bowel Movements 1 Current Medications: Meds: Current Medications Oxycodone/ Acetaminophen (Percocet 5/325) 2 tab 1X ONCE PO Last administered on 12/01/18 18:23; Start 12/01/18 at 18:30; Stop 12/01/18 at 18:31; Status DC Enoxaparin Sodium (Lovenox 80mg Syringe) 80 mg 1X ONCE SQ Last administered on 12/01/18at 18:23; Start 12/01/18 at 18:30; Stop 12/01/18 at 18:31; Status DC Albuterol/ Ipratropium (Duoneb) 3 ml RTQID NEB Last administered on 12/02/18at 16:32; Start 12/01/18 at 20:00; Stop 12/02/18 at 19:59; Status DC Oxycodone/ Acetaminophen (Percocet 5/325) 2 tab QIDPRN PRN PO MARKED PAIN Last administered on 12/19/18 20:26; Start 12/01/18 at 18:15 Clonazepam (KlonoPIN) 0.5 mg BID PO Last administered on 12/19/18at 19:49; Start 12/01/18 at 21:00 Acetaminophen/ Hydrocodone Bitart (Lortab 5/325) 2 tab PRN Q4HRS PRN PO PAIN Last administered on 12/18/18at 20:13; Start 12/01/18 at 21:00 Ondansetron HCl (Zofran Odt) 4 mg PRN Q6HRS PRN PO NAUSEA/VOMITING; Start 12/01/18 at 21:00 Phenytoin Sodium (Dilantin) 300 mg BID PO Last administered on 12/19/18at 19:48; Start 12/01/18 at 21:00 Acetaminophen (Tylenol) 650 mg PRN Q6HRS PRN PO PAIN / TEMP Last administered on 12/03/18at 18:11; Start 12/01/18 at 23:30 Multi-Ingredient Ointment (Analgesic [place]) 1 miley PRN QID PRN TP MUSCLE PAIN; Start 12/01/18 at 23:30 Al Hydroxide/Mg Hydroxide (Mylanta Plus Xs) 15 ml PRN AFTMEALHC PRN PO DYSPEPSIA; Start 12/01/18 at 23:30 Magnesium Hydroxide (Milk Of Magnesia) 2,400 mg PRN QHS PRN PO CONSTIPATION; Start 12/01/18 at 23:30 Risperidone (RisperDAL) 0.25 mg HS PO Last administered on 12/03/18at 20:08; Start 12/03/18 at 21:00; Stop 12/04/18 at 18:21; Status DC Risperidone (RisperDAL) 0.75 mg HS PO Last administered on 12/19/18at 19:48; Start 12/04/18 at 21:00 Risperidone (RisperDAL) 0.5 mg PRN Q6HRS PRN PO ANXIETY; Start 12/06/18 at 18:30 Divalproex Sodium (Depakote Sprinkles) 125 mg BID PO Last administered on 12/14/18at 07:34; Start 12/08/18 at 21:00; Stop 12/14/18 at 17:38; Status DC Divalproex Sodium (Depakote Sprinkles) 250 mg BID PO Last administered on 12/19/18at 07:53; Start 12/14/18 at 21:00; Stop 12/19/18 at 17:49; Status DC Trazodone HCl (Desyrel) 50 mg QHS PO Last administered on 12/19/18at 19:48; Start 12/17/18 at 21:00 Trazodone HCl (Desyrel) 50 mg PRN QHS PRN PO INSOMNIA; Start 12/17/18 at 19:00 Clonazepam (KlonoPIN) 0.25 mg DAILY@1500 PO Last administered on 12/19/18at 14:29; Start 12/19/18 at 15:00 Divalproex Sodium (Depakote Sprinkles) 500 mg BID PO Last administered on 11/23 04/11at 19:49; Start 12/19/18 at 21:00 Active Scripts Active [Percogesic] 1 Tab PO QID Naprosyn (Naproxen) 500 Mg Tablet 1 Tab PO BID Reported Plavix (Clopidogrel Bisulfate) 75 Mg Tablet 75 Mg PO DAILY Zofran (Ondansetron Hcl) 4 Mg Tablet 4 Mg PO PRN Q6HRS PRN [place] 5-325 Tablet (Hydrocodone Bit/Acetaminophen) 1 Each Tablet 2 Tab PO PRN Q4HRS PRN Dilantin (Phenytoin Sodium Extended) 100 Mg Capsule 300 Mg PO BID Clonazepam 0.5 Mg Tablet 0.5 Mg PO BID I have reviewed the current psychotropics carefully including drug interactions. Risk benefit ratio favors no change other than as noted in my dictated progress note. 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
--- NOTE | 2018-12-19 23:21 | NUR ---
Pt sitting calmly in wheelchair in dayroom this evening. Pt pleasant and interactive. Requested pain medication, rating pain 9/10. PRN Percocet administered with HS medications. Pt very thankful and hugged nurse.
[2018-12-20 05:42] VITALS: BP 106/69
[2018-12-20] MEDS: PHENYTOIN SODIUM EXTENDED 100 MG CAPSULE PO SCH ×2 (07:43→20:04)
[2018-12-20] MEDS: DIVALPROEX 125 MG CAP.SPRINK PO SCH ×2 (07:43→20:05)
[2018-12-20] MEDS: clonazePAM 0.5 MG TABLET PO SCH ×3 (07:44→20:09)
[2018-12-20] MEDS: oxyCODONE/APAP 5/325 1 TAB TABLET PO PRN ×2 (07:52→20:18)
--- NOTE | 2018-12-20 11:55 | NUR ---
NURSING NOTE PT WAS UP IN HER WHEELCHAIR FOR A MAJORITY OF THE MORNING. PT WAS SPEAKING OUT TO HERSELF. PT C/O PAIN IN HER RIGHT FOOT 04/02. PERCOCET GIVEN THIS AM WITH MORNING MEDS. PT ASKING FOR MORE PAIN MEDICATION AT 1100. PT STATES SHE DOES NOT WANT TO EAT LUNCH AND IS WITHDRAWN IN HER ROOM AND STATES SHE WANTS TO TAKE A NAP. WILL CONTINUE TO MONITOR. CELSA HERNANDEZ.
[2018-12-20 16:47] VITALS: BP 93/65
[2018-12-20] MEDS: risperiDONE 0.25 MG TABLET. PO SCH (20:05)
[2018-12-20] MEDS: traZODone 50 MG TABLET. PO SCH (20:05)
--- NOTE | 2018-12-20 21:45 | PN ---
DATE: 12/18/2018 PSYCHIATRIC PROGRESS NOTE This late entry 12/18/2018 covers elements not covered in my initial note. SUBJECTIVE: I met with the patient in the evening. She has been tearful at times, repeatedly stating to me that "no one likes me." She has many somatic symptoms, wanting more of her narcotics and her Klonopin. REVIEW OF SYSTEMS: Ambulation impaired. No CV, , pulmonary, eye system symptoms on review. She does complain of chronic pain. MENTAL STATUS EXAMINATION: Oriented to herself and situation. Speech is coherent, rapid at times. Abstraction fair, computation impaired, language function intact, attention span short. Mood and affect remains labile. LABORATORY DATA: Reviewed. IMPRESSION: Unchanged from initial note. PLAN: Increase Klonopin from 0.5 b.i.d. to 0.5 b.i.d. plus 0.25 mg daily. Maintain Risperdal along with Depakote. Check labs level on the Depakote, adjust to reach therapeutic level as a mood stabilizer. MAN Betty THOMAS MD DR: ASHLEY/miguelito JOB#: [id number] / [id number]
--- NOTE | 2018-12-20 22:03 | PN ---
DATE: 12/19/2018 PSYCHIATRIC PROGRESS NOTE This late entry 12/19/2018 covers elements not covered in my initial note. SUBJECTIVE: I met with the patient in the evening. The patient slept 5-1/2 hours previous night. Overall, the patient continues to have ongoing mood lability, anxiety, yelling out at staff, wanting narcotics in increasing dosage and Klonopin. REVIEW OF SYSTEMS: Positive for chronic pain, impaired ambulation, in wheelchair. No CV, , pulmonary, eye, ENT system symptoms on review. MENTAL STATUS EXAM: Oriented to herself and situation. Speech coherent, rapid at times. Abstraction fair, computation impaired, language function intact, attention span short. Mood and affect remain somewhat labile. LABORATORY DATA: Reviewed. IMPRESSION: Unchanged from initial note; probable bipolar 1 disorder, mixed; impulse control disorder; anxiety disorder, unspecified; mild cognitive impairment. PLAN: Valproic acid level subtherapeutic at 17 on Depakote 250 b.i.d. We will increase to 500 b.i.d. Check CBC, CMP, valproic acid level in 3 days. Continue rest psychotropics of the unchanged. MAN Betty THOMAS MD DR: ASHLEY/miguelito JOB#: [id number] / [id number]
--- NOTE | 2018-12-20 22:37 | PN ---
DATE: 12/17/2018 PSYCHIATRIC PROGRESS NOTE This late entry 12/17/2018 covers elements not covered in my initial note. SUBJECTIVE: I met with the patient in the evening. The patient slept 5-1/2 hours previous night. She is quite labile in her mood, pleasant, one minute screaming in pain and otherwise anxious, labile the next minute per nursing report or when she requested to go to the bathroom is the same sequence. REVIEW OF SYSTEMS: Ambulation impaired, in wheelchair. No CV, , pulmonary, eye system symptoms on review. Does complain of chronic pain, wanting more narcotics. MENTAL STATUS EXAM: Oriented to herself and situation. Speech is coherent, rapid at times, fixated on wanting more narcotics. I addressed this with her. Abstraction fair, computation impaired, language function intact, attention span short. Mood and affect remains labile. LABORATORY DATA: Reviewed. IMPRESSION: Unchanged from initial note. PLAN: Continue current psychotropics and we will add trazodone at bedtime p.r.n. insomnia, Dilantin is therapeutic. We will adjust Depakote to reach therapeutic level for her bipolar symptoms. MAHENDRA THOMAS MD DR: ASHLEY/miguelito JOB#: [id number] / [id number]
--- NOTE | 2018-12-20 22:39 | PDOC ---
Exam Note: Adolfo Note: Please also refer to the separate dictated note~for this date of service dictated separately.~Patient seen individually. Discussed the patient with Nursing staff reviewed the chart.~Reviewed interim history and current functioning. Reviewed vital signs,~Labs/ Radiology~and current medications noted below. Continue current treatment with the changes noted in the dictated addendum note Assessment: Vital Signs: Vital Signs Date Time Temp Pulse Resp B/P (MAP) Pulse Ox O2 Delivery O2 Flow Rate FiO2 12/20/18 20:18 20 97 Room Air 12/20/18 16:47 98.2 88 93/65 (74) I&O Intake and Output 12/20/18 07:00 Intake Total 1560 ml Balance 1560 ml Intake Oral 1560 ml Current Medications: Meds: Current Medications Oxycodone/ Acetaminophen (Percocet 5/325) 2 tab 1X ONCE PO Last administered on 12/01/18 18:23; Start 12/01/18 at 18:30; Stop 12/01/18 at 18:31; Status DC Enoxaparin Sodium (Lovenox 80mg Syringe) 80 mg 1X ONCE SQ Last administered on 12/01/18at 18:23; Start 12/01/18 at 18:30; Stop 12/01/18 at 18:31; Status DC Albuterol/ Ipratropium (Duoneb) 3 ml RTQID NEB Last administered on 12/02/18at 16:32; Start 12/01/18 at 20:00; Stop 12/02/18 at 19:59; Status DC Oxycodone/ Acetaminophen (Percocet 5/325) 2 tab QIDPRN PRN PO MARKED PAIN Last administered on 12/20/18 20:18; Start 12/01/18 at 18:15 Clonazepam (KlonoPIN) 0.5 mg BID PO Last administered on 12/20/18 20:09; Start 12/01/18 at 21:00 Acetaminophen/ Hydrocodone Bitart (Lortab 5/325) 2 tab PRN Q4HRS PRN PO PAIN Last administered on 12/18/18 20:13; Start 12/01/18 at 21:00 Ondansetron HCl (Zofran Odt) 4 mg PRN Q6HRS PRN PO NAUSEA/VOMITING; Start 12/01/18 at 21:00 Phenytoin Sodium (Dilantin) 300 mg BID PO Last administered on 12/20/18 20:04; Start 12/01/18 at 21:00 Acetaminophen (Tylenol) 650 mg PRN Q6HRS PRN PO PAIN / TEMP Last administered on 12/03/18at 18:11; Start 12/01/18 at 23:30 Multi-Ingredient Ointment (Analgesic [place]) 1 miley PRN QID PRN TP MUSCLE PAIN; Start 12/01/18 at 23:30 Al Hydroxide/Mg Hydroxide (Mylanta Plus Xs) 15 ml PRN AFTMEALHC PRN PO DYSPEPSIA; Start 12/01/18 at 23:30 Magnesium Hydroxide (Milk Of Magnesia) 2,400 mg PRN QHS PRN PO CONSTIPATION; Start 12/01/18 at 23:30 Risperidone (RisperDAL) 0.25 mg HS PO Last administered on 12/03/18at 20:08; Start 12/03/18 at 21:00; Stop 12/04/18 at 18:21; Status DC Risperidone (RisperDAL) 0.75 mg HS PO Last administered on 12/20/18 20:05; Start 12/04/18 at 21:00 Risperidone (RisperDAL) 0.5 mg PRN Q6HRS PRN PO ANXIETY; Start 12/06/18 at 18:30 Divalproex Sodium (Depakote Sprinkles) 125 mg BID PO Last administered on at 07:34; Start 12/08/18 at 21:00; Stop 12/14/18 at 17:38; Status DC Divalproex Sodium (Depakote Sprinkles) 250 mg BID PO Last administered on 12/19/18at 07:53; Start 12/14/18 at 21:00; Stop 12/19/18 at 17:49; Status DC Trazodone HCl (Desyrel) 50 mg QHS PO Last administered on 12/20/18 20:05; Start 12/17/18 at 21:00 Trazodone HCl (Desyrel) 50 mg PRN QHS PRN PO INSOMNIA; Start 12/17/18 at 19:00 Clonazepam (KlonoPIN) 0.25 mg DAILY@1500 PO Last administered on 12/20/18at 14:39; Start 12/19/18 at 15:00 Divalproex Sodium (Depakote Sprinkles) 500 mg BID PO Last administered on 12/20/18at 20:05; Start 12/19/18 at 21:00 Active Scripts Active [Percogesic] 1 Tab PO QID Naprosyn (Naproxen) 500 Mg Tablet 1 Tab PO BID Reported Plavix (Clopidogrel Bisulfate) 75 Mg Tablet 75 Mg PO DAILY Zofran (Ondansetron Hcl) 4 Mg Tablet 4 Mg PO PRN Q6HRS PRN [place] 5-325 Tablet (Hydrocodone Bit/Acetaminophen) 1 Each Tablet 2 Tab PO PRN Q4HRS PRN Dilantin (Phenytoin Sodium Extended) 100 Mg Capsule 300 Mg PO BID Clonazepam 0.5 Mg Tablet 0.5 Mg PO BID I have reviewed the current psychotropics carefully including drug interactions. Risk benefit ratio favors no change other than as noted in my dictated progress note. 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
[2018-12-21] MEDS: oxyCODONE/APAP 5/325 1 TAB TABLET PO PRN ×2 (04:34→19:40)
[2018-12-21 06:16] VITALS: BP 118/78
[2018-12-21] MEDS: PHENYTOIN SODIUM EXTENDED 100 MG CAPSULE PO SCH ×2 (08:26→19:38)
[2018-12-21] MEDS: DIVALPROEX 125 MG CAP.SPRINK PO SCH ×2 (08:26→19:37)
[2018-12-21] MEDS: clonazePAM 0.5 MG TABLET PO SCH ×3 (08:28→19:40)
--- NOTE | 2018-12-21 10:25 | NUR ---
Wound Care patient seen per f/u of Wound care consult for wounds to left foot. 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 Pt also has necrotic tip on 3rd toe from arterial insufficiency. Incisions are beginning to look red and swollen with scant serous drainage, but remain approximated with sutures intact. Cleansed incisions with betadine and covered with Xeroform and ABD and Kerlix, Painted 3rd toe with Betadine and covered with Kerlix. Recommend to change every other day. Left TMA site is calloused and dry but no wounds found. No other wounds noted on full skin inspection. Discussed wound assessment with CELSA Trivedi. WC will continue to follow for possible changes.
[2018-12-21] MEDS: HYDROcodone/APAP 5/325MG 1 TAB TABLET PO PRN (10:56)
--- NOTE | 2018-12-21 12:29 | NUR ---
Patient in dining room during initial assessment. Patient finished breakfast and was sleeping in her w/c. Patient weepy at times, and wanted to lay down after breakfast. PRN pain meds given at 1100 for foot pain. No behaviors noted at this time. Will continue to monitor.
[2018-12-21 15:58] VITALS: BP 95/58
[2018-12-21] MEDS: risperiDONE 0.25 MG TABLET. PO SCH (19:37)
[2018-12-21] MEDS: traZODone 50 MG TABLET. PO SCH (19:37)
--- NOTE | 2018-12-21 21:41 | PDOC ---
Exam Note: Adolfo Note: Please also refer to the separate dictated note~for this date of service dictated separately.~Patient seen individually. Discussed the patient with Nursing staff reviewed the chart.~Reviewed interim history and current functioning. Reviewed vital signs,~Labs/ Radiology~and current medications noted below. Continue current treatment with the changes noted in the dictated addendum note Assessment: Vital Signs: Vital Signs Date Time Temp Pulse Resp B/P (MAP) Pulse Ox O2 Delivery O2 Flow Rate FiO2 12/21/18 20:40 18 92 12/21/18 15:58 97.2 70 95/58 (70) Room Air I&O Intake and Output 12/21/18 07:00 Intake Total 1320 ml Balance 1320 ml Intake Oral 1320 ml # Voids 1 Current Medications: Meds: Current Medications Oxycodone/ Acetaminophen (Percocet 5/325) 2 tab 1X ONCE PO Last administered on 12/01/18at 18:23; Start 12/01/18 at 18:30; Stop 12/01/18 at 18:31; Status DC Enoxaparin Sodium (Lovenox 80mg Syringe) 80 mg 1X ONCE SQ Last administered on 12/01/18at 18:23; Start 12/01/18 at 18:30; Stop 12/01/18 at 18:31; Status DC Albuterol/ Ipratropium (Duoneb) 3 ml RTQID NEB Last administered on 12/02/18at 16:32; Start 12/01/18 at 20:00; Stop 12/02/18 at 19:59; Status DC Oxycodone/ Acetaminophen (Percocet 5/325) 2 tab QIDPRN PRN PO MARKED PAIN Last administered on 12/21/18at 19:40; Start 12/01/18 at 18:15 Clonazepam (KlonoPIN) 0.5 mg BID PO Last administered on 12/21/18 19:40; Start 12/01/18 at 21:00 Acetaminophen/ Hydrocodone Bitart (Lortab 5/325) 2 tab PRN Q4HRS PRN PO PAIN Last administered on 12/21/18at 10:56; Start 12/01/18 at 21:00 Ondansetron HCl (Zofran Odt) 4 mg PRN Q6HRS PRN PO NAUSEA/VOMITING; Start 12/01/18 at 21:00 Phenytoin Sodium (Dilantin) 300 mg BID PO Last administered on 12/21/18 19:38; Start 12/01/18 at 21:00 Acetaminophen (Tylenol) 650 mg PRN Q6HRS PRN PO PAIN / TEMP Last administered on 12/03/18at 18:11; Start 12/01/18 at 23:30 Multi-Ingredient Ointment (Analgesic [place]) 1 miley PRN QID PRN TP MUSCLE PAIN; Start 12/01/18 at 23:30 Al Hydroxide/Mg Hydroxide (Mylanta Plus Xs) 15 ml PRN AFTMEALHC PRN PO DYSPEPSIA; Start 12/01/18 at 23:30 Magnesium Hydroxide (Milk Of Magnesia) 2,400 mg PRN QHS PRN PO CONSTIPATION; Start 12/01/18 at 23:30 Risperidone (RisperDAL) 0.25 mg HS PO Last administered on 12/03/18at 20:08; Start 12/03/18 at 21:00; Stop 12/04/18 at 18:21; Status DC Risperidone (RisperDAL) 0.75 mg HS PO Last administered on 12/21/18 19:37; Start 12/04/18 at 21:00 Risperidone (RisperDAL) 0.5 mg PRN Q6HRS PRN PO ANXIETY; Start 12/06/18 at 18:30 Divalproex Sodium (Depakote Sprinkles) 125 mg BID PO Last administered on 12/14/18 07:34; Start 12/08/18 at 21:00; Stop 12/14/18 at 17:38; Status DC Divalproex Sodium (Depakote Sprinkles) 250 mg BID PO Last administered on 12/19/18 07:53; Start 12/14/18 at 21:00; Stop 12/19/18 at 17:49; Status DC Trazodone HCl (Desyrel) 50 mg QHS PO Last administered on 12/21/18 19:37; Start 12/17/18 at 21:00 Trazodone HCl (Desyrel) 50 mg PRN QHS PRN PO INSOMNIA; Start 12/17/18 at 19:00 Clonazepam (KlonoPIN) 0.25 mg DAILY@1500 PO Last administered on 4/30/19at 14:29; Start 12/19/18 at 15:00 Divalproex Sodium (Depakote Sprinkles) 500 mg BID PO Last administered on 12/21/18at 19:37; Start 12/19/18 at 21:00 Active Scripts Active [Percogesic] 1 Tab PO QID Naprosyn (Naproxen) 500 Mg Tablet 1 Tab PO BID Reported Plavix (Clopidogrel Bisulfate) 75 Mg Tablet 75 Mg PO DAILY Zofran (Ondansetron Hcl) 4 Mg Tablet 4 Mg PO PRN Q6HRS PRN [place] 5-325 Tablet (Hydrocodone Bit/Acetaminophen) 1 Each Tablet 2 Tab PO PRN Q4HRS PRN Dilantin (Phenytoin Sodium Extended) 100 Mg Capsule 300 Mg PO BID Clonazepam 0.5 Mg Tablet 0.5 Mg PO BID I have reviewed the current psychotropics carefully including drug interactions. Risk benefit ratio favors no change other than as noted in my dictated progress note. 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
--- NOTE | 2018-12-22 00:55 | NUR ---
Behavior Intervention Response and Plan: BIRP Note: Behavior: Assumed Care of patient, patient located in Patient Room at shift change. Patient exhibited the following behavior Calm, Able to Focus on Task, Compliant. Brief assessment on rounds of vital signs, medication needs, lab studies, and pain. Treatment plan problems . Intervention: Patient assessed and the following interventions initiated safety checks 15 Minute Checks Head to toe Assessment , Cognitive Assessment , Medications. Response: After interactions and interventions patient responded in the following manner, Sleeping , Withdrawn ,Cooperative. Continue to assess behaviors and condition will continue to monitor throughout the shift as needed. Patient educated on ADL's, and hand hygiene. 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 Continue to assess patient for changes in above assessment. Monitor for medication needs, pain, and safety concerns. Hourly rounding performed to ensure safe environment.
--- NOTE | 2018-12-22 01:16 | PN ---
DATE: 12/20/2018 PSYCHIATRIC PROGRESS NOTE This late entry 12/20/2018 covers elements not covered in my initial note. SUBJECTIVE: I met with the patient in the evening. The patient slept 6-3/4 hours previous night. She has been withdrawn, spending much time in her room, wanting to lie down in bed, frequently asking for her pain medications. She took a nap after lunch, very intense as I met with her in the evening, wanting extra narcotics, wanting to be taken back to her room as the staff are encouraging her to stay out with the group and activities after supper. Quite agitated as she addressed this with me. REVIEW OF SYSTEMS: Ambulation impaired, in wheelchair. No CV, , pulmonary, eye system symptoms on review. Complains of chronic pain. Reliability poor. MENTAL STATUS EXAM: Oriented to herself and situation. Speech coherent, rapid at times. Abstraction fair, computation impaired, language function intact, attention span short. Mood and affect remains labile. LABORATORY DATA: Reviewed. IMPRESSION: Bipolar 1 disorder, mixed with psychotic features; impulse control disorder; anxiety disorder, unspecified; mild cognitive impairment. Rest unchanged. PLAN: Continue current psychotropics. Depakote was increased. Repeat labs level with a plan to reach therapeutic level on the valproic acid. MAHENDRA THOMAS MD DR: ASHLEY/miguelito JOB#: [id number] / [id number]
[2018-12-22 06:27] VITALS: BP 108/72
[2018-12-22 07:42] LABS: HEMATOCRIT 39.3 % (36.0-47.0); RED BLOOD COUNT 3.92 x10^6/uL (3.50-5.40); RED CELL DISTRIBUTION WIDTH 16.1 % (11.5-14.5); WHITE BLOOD COUNT 7.1 x10^3/uL (4.0-11.0)
[2018-12-22] MEDS: oxyCODONE/APAP 5/325 1 TAB TABLET PO PRN ×2 (07:45→14:50)
[2018-12-22 07:57] LABS: ALBUMIN 2.9 g/dL (3.4-5.0); ALBUMIN/GLOBULIN RATIO 0.7 (1.0-1.7); ALK PHOS 135 U/L (46-116); ALT (SGPT) 9 U/L (14-59); ANION GAP 9 (6-14); AST (SGOT) 15 U/L (15-37); BLOOD UREA NITROGEN 22 mg/dL (7-20); BUN/CREATININE RATIO 22 (6-20); CALCIUM 9.1 mg/dL (8.5-10.1); CARBON DIOXIDE 27 mmol/L (21-32); CHLORIDE 105 mmol/L (98-107); GFR 58.2; GLUCOSE 77 mg/dL (70-99); POTASSIUM 4.2 mmol/L (3.5-5.1); SODIUM 141 mmol/L (136-145); TOTAL BILIRUBIN 0.2 mg/dL (0.2-1.0); TOTAL PROTEIN 7.2 g/dL (6.4-8.2)
[2018-12-22 07:58] LABS: VAL ACID 23 mcg/mL (50-100)
[2018-12-22] MEDS: PHENYTOIN SODIUM EXTENDED 100 MG CAPSULE PO SCH ×2 (08:35→19:40)
[2018-12-22] MEDS: clonazePAM 0.5 MG TABLET PO SCH ×3 (08:35→19:42)
[2018-12-22] MEDS: DIVALPROEX 125 MG CAP.SPRINK PO SCH ×2 (08:35→19:39)
[2018-12-22 15:55] VITALS: BP 107/71
--- NOTE | 2018-12-22 16:24 | NUR ---
Patient was observed attending groups today, she denies SI/HI/AVH, rated her anxiety 1/10, patient stated she had no goal for the day, she was asked what her plan was for where she was going when she left the facility and she began to cry, she stated "I don't have anywhere to go, people are picking on me" she received her scheduled anxiety meds and her prn pain meds for her foot pain which she rated a 9/10
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
[2018-12-22] MEDS: traZODone 50 MG TABLET. PO SCH (19:39)
[2018-12-22] MEDS: risperiDONE 0.25 MG TABLET. PO SCH (19:40)
[2018-12-22] MEDS: HYDROcodone/APAP 5/325MG 1 TAB TABLET PO PRN (19:54)
--- NOTE | 2018-12-22 22:12 | NUR ---
Nursing note: Assumed care of pt in the seclusion hallway where she was yelling and demanding her medication. She was taken in to the quiet room but soon after was attempting to climb onto the window ledge. She was put on a mattress on the floor for her safety. She calmed down after a few minutes. She was compliant w/meds and requested and given PRN lortab. I assisted her to the restroom where she acted like she couldn't see. I explained to her that her behavior was inappropriate and she stated she could not see more than 30%.
--- NOTE | 2018-12-22 23:10 | PDOC ---
Exam Note: Adolfo Note: Please also refer to the separate dictated note~for this date of service dictated separately.~Patient seen individually. Discussed the patient with Nursing staff reviewed the chart.~Reviewed interim history and current functioning. Reviewed vital signs,~Labs/ Radiology~and current medications noted below. Continue current treatment with the changes noted in the dictated addendum note Assessment: Vital Signs: Vital Signs Date Time Temp Pulse Resp B/P (MAP) Pulse Ox O2 Delivery O2 Flow Rate FiO2 12/22/18 20:54 98 Room Air 12/22/18 19:54 18 12/22/18 15:55 98.2 69 107/71 (83) I&O Intake and Output0 12/22/18 06:59 Intake Total 960 ml Balance 960 ml Intake Oral 960 ml # Voids 1 Labs: Laboratory Tests Test 12/22/18 07:29 White Blood Count 7.1 x10^3/uL (4.0-11.0) Red Blood Count 3.92 x10^6/uL (3.50-5.40) Hemoglobin 13.0 g/dL (12.0-15.5) Hematocrit 39.3 % (36.0-47.0) Mean Corpuscular Volume 100 fL (79-100) Mean Corpuscular Hemoglobin 33 pg (25-35) Mean Corpuscular Hemoglobin Concent 33 g/dL (31-37) Red Cell Distribution Width 16.1 % (11.5-14.5) H Platelet Count 355 x10^3/uL (140-400) Sodium Level 141 mmol/L (136-145) Potassium Level 4.2 mmol/L (3.5-5.1) Chloride Level 105 mmol/L (98-107) Carbon Dioxide Level 27 mmol/L (21-32) Anion Gap 9 (6-14) Blood Urea Nitrogen 22 mg/dL (7-20) H Creatinine 1.0 mg/dL (0.6-1.0) Estimated GFR (Cockcroft-Gault) 58.2 BUN/Creatinine Ratio 22 (6-20) H Glucose Level 77 mg/dL (70-99) Calcium Level 9.1 mg/dL (8.5-10.1) Total Bilirubin 0.2 mg/dL (0.2-1.0) Aspartate Amino Transferase (AST) 15 U/L (15-37) Alanine Aminotransferase (ALT) 9 U/L (14-59) L Alkaline Phosphatase 135 U/L (46-116) H Total Protein 7.2 g/dL (6.4-8.2) Albumin 2.9 g/dL (3.4-5.0) L Albumin/Globulin Ratio 0.7 (1.0-1.7) L Valproic Acid Level 23 mcg/mL (50-100) L Valproic Acid Last Dose Date 12/21/18 Valproic Acid Last Dose Time 2100 Current Medications: Meds: Current Medications Oxycodone/ Acetaminophen (Percocet 5/325) 2 tab 1X ONCE PO Last administered on 12/01/18 18:23; Start 12/01/18 at 18:30; Stop 12/01/18 at 18:31; Status DC Enoxaparin Sodium (Lovenox 80mg Syringe) 80 mg 1X ONCE SQ Last administered on 12/01/18 18:23; Start 12/01/18 at 18:30; Stop 12/01/18 at 18:31; Status DC Albuterol/ Ipratropium (Duoneb) 3 ml RTQID NEB Last administered on 12/02/18at 16:32; Start 12/01/18 at 20:00; Stop 12/02/18 at 19:59; Status DC Oxycodone/ Acetaminophen (Percocet 5/325) 2 tab QIDPRN PRN PO MARKED PAIN Last administered on 12/22/18 14:50; Start 12/01/18 at 18:15 Clonazepam (KlonoPIN) 0.5 mg BID PO Last administered on 12/22/18 19:42; Start 12/01/18 at 21:00 Acetaminophen/ Hydrocodone Bitart (Lortab 5/325) 2 tab PRN Q4HRS PRN PO PAIN Last administered on 12/22/18 19:54; Start 12/01/18 at 21:00 Ondansetron HCl (Zofran Odt) 4 mg PRN Q6HRS PRN PO NAUSEA/VOMITING; Start 12/01/18 at 21:00 Phenytoin Sodium (Dilantin) 300 mg BID PO Last administered on 12/22/18 19:40; Start 12/01/18 at 21:00 Acetaminophen (Tylenol) 650 mg PRN Q6HRS PRN PO PAIN / TEMP Last administered on 12/03/18at 18:11; Start 12/01/18 at 23:30 Multi-Ingredient Ointment (Analgesic [place]) 1 miley PRN QID PRN TP MUSCLE PAIN; Start 12/01/18 at 23:30 Al Hydroxide/Mg Hydroxide (Mylanta Plus Xs) 15 ml PRN AFTMEALHC PRN PO DYSPEPSIA; Start 12/01/18 at 23:30 Magnesium Hydroxide (Milk Of Magnesia) 2,400 mg PRN QHS PRN PO CONSTIPATION; Start 12/01/18 at 23:30 Risperidone (RisperDAL) 0.25 mg HS PO Last administered on 12/03/18at 20:08; Start 12/03/18 at 21:00; Stop 12/04/18 at 18:21; Status DC Risperidone (RisperDAL) 0.75 mg HS PO Last administered on 12/22/18at 19:40; Start 12/04/18 at 21:00 Risperidone (RisperDAL) 0.5 mg PRN Q6HRS PRN PO ANXIETY; Start 12/06/18 at 18:30 Divalproex Sodium (Depakote Sprinkles) 125 mg BID PO Last administered on 12/14/18 07:34; Start 12/08/18 at 21:00; Stop 12/14/18 at 17:38; Status DC Divalproex Sodium (Depakote Sprinkles) 250 mg BID PO Last administered on 12/19/18at 07:53; Start 12/14/18 at 21:00; Stop 12/19/18 at 17:49; Status DC Trazodone HCl (Desyrel) 50 mg QHS PO Last administered on 12/22/18at 19:39; Start 12/17/18 at 21:00 Trazodone HCl (Desyrel) 50 mg PRN QHS PRN PO INSOMNIA; Start 12/17/18 at 19:00 Clonazepam (KlonoPIN) 0.25 mg DAILY@1500 PO Last administered on 12/22/18at 14:50; Start 12/19/18 at 15:00 Divalproex Sodium (Depakote Sprinkles) 500 mg BID PO Last administered on 12/22/18 08:35; Start 12/19/18 at 21:00; Stop 12/22/18 at 17:07; Status DC Divalproex Sodium (Depakote Sprinkles) 750 mg BID PO Last administered on 12/22/18at 19:39; Start 12/22/18 at 21:00 Active Scripts Active [Percogesic] 1 Tab PO QID Naprosyn (Naproxen) 500 Mg Tablet 1 Tab PO BID Reported Plavix (Clopidogrel Bisulfate) 75 Mg Tablet 75 Mg PO DAILY Zofran (Ondansetron Hcl) 4 Mg Tablet 4 Mg PO PRN Q6HRS PRN [place] 5-325 Tablet (Hydrocodone Bit/Acetaminophen) 1 Each Tablet 2 Tab PO PRN Q4HRS PRN Dilantin (Phenytoin Sodium Extended) 100 Mg Capsule 300 Mg PO BID Clonazepam 0.5 Mg Tablet 0.5 Mg PO BID I have reviewed the current psychotropics carefully including drug interactions. Risk benefit ratio favors no change other than as noted in my dictated progress note. 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
--- NOTE | 2018-12-23 00:30 | PN ---
DATE: 12/21/2018 PSYCHIATRIC PROGRESS NOTE This late entry 12/21/2018 covers elements not covered in my initial note. SUBJECTIVE: I met with the patient in the evening. The patient slept 5-3/4 hours previous night. Complained of pain in the morning, received Lortab at 11:00 a.m., tearful at times. We will check labs morning of 12/22/2018. REVIEW OF SYSTEMS: Ambulation impaired, in a wheelchair, complains of pain as above. No CV, , pulmonary, eye, ENT system symptoms on review. MENTAL STATUS EXAM: Oriented to herself. 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 Poor vision, left eye. Speech coherent, rapid at times. Abstraction fair, computation impaired, language function intact. Quite insistent repetitively asking me to take a wheelchair down to her room, so that she could get into bed. LABORATORY DATA: Reviewed. IMPRESSION: Unchanged from initial note. PLAN: No change from initial note. We will check labs morning of 12/22/2018 for the valproic acid level, then adjust Depakote to reach therapeutic level. MAN Betty THOMAS MD DR: ASHLEY/miguelito JOB#: [id number] / [id number]
[2018-12-23] MEDS: HYDROcodone/APAP 5/325MG 1 TAB TABLET PO PRN ×2 (05:10→19:25)
[2018-12-23 05:37] VITALS: BP 121/76
[2018-12-23] MEDS: DIVALPROEX 125 MG CAP.SPRINK PO SCH ×2 (07:49→19:19)
[2018-12-23] MEDS: PHENYTOIN SODIUM EXTENDED 100 MG CAPSULE PO SCH ×2 (07:50→19:20)
[2018-12-23] MEDS: clonazePAM 0.5 MG TABLET PO SCH ×3 (07:53→19:20)
--- NOTE | 2018-12-23 09:55 | NUR ---
WEEKLY ACTIVITY THERAPY NOTE Date of Admission: 12/02/2018 Date of AT Assessment: 12/05/2018 Goal aimed: to increase engagement for a at least 30 minutes at a time Initial goal: Pt. will participate in at least one Activity Therapy group per day, at least moderately. Weekly progress towards goal: did not achieve Group participation level: moderate Weekly highlights: Thursday's participation and discussion on emptying out the negative Behaviors observed: more frustrated this week-Thursday morning over coffee, less group participation as week continues Plan: no change to goal Beneficial adaptations: enjoys music groups and music to help deescalate, cog stim
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
--- NOTE | 2018-12-23 12:40 | NUR ---
Patient in dining room when care assumed and was finishing her breakfast. Patient stated she had a pain pill and asked if she could have another one. I told her she had one at 0500 and she stated it was working. Continues to say she doesn't know how to get to her room and I again explained she was the 6th door on the left when leaving dining reid. No further complaints of pain. Compliant with medication administration and assessment. Needs reassurance that this nurse will be back and will not forget about her. Will continue to monitor.
[2018-12-23] MEDS: oxyCODONE/APAP 5/325 1 TAB TABLET PO PRN (14:45)
[2018-12-23 16:12] VITALS: BP 119/79
[2018-12-23] MEDS: risperiDONE 0.25 MG TABLET. PO SCH (19:20)
[2018-12-23] MEDS: traZODone 50 MG TABLET. PO SCH (19:20)
--- NOTE | 2018-12-23 21:25 | NUR ---
Nursing note: Assumed care of pt in her room after she had her shower. She was pleasant and conversational. She was combing her hair. I changed the bandage on her toes and she was compliant and cooperative meds/assessment. Pt was appreciative. A&OX2. Pain 6/10 but pain meds given w/HS meds.
--- NOTE | 2018-12-23 22:39 | PDOC ---
Exam Note: Adolfo Note: Please also refer to the separate dictated note~for this date of service dictated separately.~Patient seen individually. Discussed the patient with Nursing staff reviewed the chart.~Reviewed interim history and current functioning. Reviewed vital signs,~Labs/ Radiology~and current medications noted below. Continue current treatment with the changes noted in the dictated addendum note Assessment: Vital Signs: Vital Signs Date Time Temp Pulse Resp B/P (MAP) Pulse Ox O2 Delivery O2 Flow Rate FiO2 12/23/18 20:39 18 94 Room Air 12/23/18 16:12 97.9 75 119/79 (92) I&O Intake and Output 12/23/18 07:00 Intake Total 600 ml Balance 600 ml Intake Oral 600 ml # Voids 1 Current Medications: Meds: Current Medications Oxycodone/ Acetaminophen (Percocet 5/325) 2 tab 1X ONCE PO Last administered on 12/01/18 18:23; Start 12/01/18 at 18:30; Stop 12/01/18 at 18:31; Status DC Enoxaparin Sodium (Lovenox 80mg Syringe) 80 mg 1X ONCE SQ Last administered on 12/01/18at 18:23; Start 12/01/18 at 18:30; Stop 12/01/18 at 18:31; Status DC Albuterol/ Ipratropium (Duoneb) 3 ml RTQID NEB Last administered on 12/02/18at 16:32; Start 12/01/18 at 20:00; Stop 12/02/18 at 19:59; Status DC Oxycodone/ Acetaminophen (Percocet 5/325) 2 tab QIDPRN PRN PO MARKED PAIN Last administered on 12/23/18 14:45; Start 12/01/18 at 18:15 Clonazepam (KlonoPIN) 0.5 mg BID PO Last administered on 12/23/18 19:20; Start 12/01/18 at 21:00 Acetaminophen/ Hydrocodone Bitart (Lortab 5/325) 2 tab PRN Q4HRS PRN PO PAIN Last administered on 12/23/18 19:25; Start 12/01/18 at 21:00 Ondansetron HCl (Zofran Odt) 4 mg PRN Q6HRS PRN PO NAUSEA/VOMITING; Start 12/01/18 at 21:00 Phenytoin Sodium (Dilantin) 300 mg BID PO Last administered on 12/23/18 19:20; Start 12/01/18 at 21:00 Acetaminophen (Tylenol) 650 mg PRN Q6HRS PRN PO PAIN / TEMP Last administered on 12/03/18at 18:11; Start 12/01/18 at 23:30 Multi-Ingredient Ointment (Analgesic [place]) 1 miley PRN QID PRN TP MUSCLE PAIN; Start 12/01/18 at 23:30 Al Hydroxide/Mg Hydroxide (Mylanta Plus Xs) 15 ml PRN AFTMEALHC PRN PO DYSPEPSIA; Start 12/01/18 at 23:30 Magnesium Hydroxide (Milk Of Magnesia) 2,400 mg PRN QHS PRN PO CONSTIPATION; Start 12/01/18 at 23:30 Risperidone (RisperDAL) 0.25 mg HS PO Last administered on 12/03/18at 20:08; Start 12/03/18 at 21:00; Stop 12/04/18 at 18:21; Status DC Risperidone (RisperDAL) 0.75 mg HS PO Last administered on 12/23/18 19:20; Start 12/04/18 at 21:00 Risperidone (RisperDAL) 0.5 mg PRN Q6HRS PRN PO ANXIETY; Start 12/06/18 at 18:30 Divalproex Sodium (Depakote Sprinkles) 125 mg BID PO Last administered on 12/14/18at 07:34; Start 12/08/18 at 21:00; Stop 12/14/18 at 17:38; Status DC Divalproex Sodium (Depakote Sprinkles) 250 mg BID PO Last administered on 12/19/18at 07:53; Start 12/14/18 at 21:00; Stop 12/19/18 at 17:49; Status DC Trazodone HCl (Desyrel) 50 mg QHS PO Last administered on 12/23/18 19:20; Start 12/17/18 at 21:00 Trazodone HCl (Desyrel) 50 mg PRN QHS PRN PO INSOMNIA; Start 12/17/18 at 19:00 Clonazepam (KlonoPIN) 0.25 mg DAILY@1500 PO Last administered on 12/23/18at 14:40; Start 12/19/18 at 15:00 Divalproex Sodium (Depakote Sprinkles) 500 mg BID PO Last administered on 12/22/18at 08:35; Start 12/19/18 at 21:00; Stop 12/22/18 at 17:07; Status DC Divalproex Sodium (Depakote Sprinkles) 750 mg BID PO Last administered on 12/23/18at 19:19; Start 12/22/18 at 21:00 Fluvoxamine Maleate (Luvox) 25 mg DAILY PO ; Start 12/24/18 at 09:00; Stop 12/26/18 at 09:01 Fluvoxamine Maleate (Luvox) 50 mg DAILY PO ; Start 12/27/18 at 09:00 Active Scripts Active [Percogesic] 1 Tab PO QID Naprosyn (Naproxen) 500 Mg Tablet 1 Tab PO BID Reported Plavix (Clopidogrel Bisulfate) 75 Mg Tablet 75 Mg PO DAILY Zofran (Ondansetron Hcl) 4 Mg Tablet 4 Mg PO PRN Q6HRS PRN [place] 5-325 Tablet (Hydrocodone Bit/Acetaminophen) 1 Each Tablet 2 Tab PO PRN Q4HRS PRN Dilantin (Phenytoin Sodium Extended) 100 Mg Capsule 300 Mg PO BID Clonazepam 0.5 Mg Tablet 0.5 Mg PO BID I have reviewed the current psychotropics carefully including drug interactions. Risk benefit ratio favors no change other than as noted in my dictated progress note. Diagnosis: Problems: (1) Alcohol-induced persisting dementia (2) Anxiety disorder (3) Alcoholic psychosis (4) Dementia, vascular, with delusions (5) Dementia, vascular, with depression (6) Impulse control disorder (7) Knee pain, right (8) Knee abrasion MAHENDRA THOMAS MD December 23, 2018 22:39
[2018-12-24] MEDS: oxyCODONE/APAP 5/325 1 TAB TABLET PO PRN ×2 (04:45→20:22)
[2018-12-24 05:30] VITALS: BP 108/70
[2018-12-24] MEDS: PHENYTOIN SODIUM EXTENDED 100 MG CAPSULE PO SCH ×2 (07:40→19:57)
[2018-12-24] MEDS: DIVALPROEX 125 MG CAP.SPRINK PO SCH ×2 (07:41→19:56)
[2018-12-24] MEDS: clonazePAM 0.5 MG TABLET PO SCH ×3 (07:42→19:58)
--- NOTE | 2018-12-24 08:55 | NUR ---
Wound Care patient seen per f/u of Wound care consult for wounds to left foot. 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 Pt also has necrotic tip on 3rd toe from arterial insufficiency. Incision redness and drainage have resolved and remain approximated with sutures intact. Cleansed incisions with Betadine and covered with Xeroform and ABD and Kerlix, Painted 3rd toe with Betadine and covered with Kerlix. Recommend to change every other day. Left TMA site is calloused and dry but no wounds found. No other wounds noted on full skin inspection. WC will continue to follow for possible changes.
[2018-12-24] MEDS: HYDROcodone/APAP 5/325MG 1 TAB TABLET PO PRN (11:06)
--- NOTE | 2018-12-24 11:40 | NUR ---
Pt very pleasant and interactive this morning. Compliant with whole medications. Around 1100, pt became tearful and stated pain 9/10. PRN Lortab administered.
[2018-12-24 15:42] VITALS: BP 94/62
[2018-12-24] MEDS: traZODone 50 MG TABLET. PO SCH (19:56)
[2018-12-24] MEDS: risperiDONE 0.25 MG TABLET. PO SCH (19:57)
--- NOTE | 2018-12-24 22:07 | NUR ---
Nursing note: Assumed care of pt in her room. She was pleasant, compliant, c/o pain 04/02 and gave PRN Percocet per order. I showed her how to "find" her bathroom and helped her get on the toilet. Pt still acting as though she is blind and helpless.
--- NOTE | 2018-12-24 22:33 | PN ---
DATE: 12/22/2018 PSYCHIATRIC PROGRESS NOTE This late entry 12/22/2018 covers elements not covered in my initial note. SUBJECTIVE: I met with the patient in the evening. The patient slept 6-1/2 hours previous night. She has been tearful, labile, anxious, believes people are picking on her. I addressed this at length with her individually. REVIEW OF SYSTEMS: Ambulation impaired, in wheelchair, poor vision. No CV, , pulmonary, ENT system symptoms on review. MENTAL STATUS EXAM: Oriented to herself and situation. Speech coherent, rapid, loud at times. Abstraction fair, computation impaired, language function intact, attention span short. Mood and affect remains labile. PLAN: Valproic acid level is 23. We will increase Depakote Sprinkles from 500 mg b.i.d. to 750 mg b.i.d. Check CBC, CMP, valproic acid level, ammonia level in 3 days. Rest unchanged per initial note. Increasing the Depakote as mood stabilizer should help some of her marked mood lability, which persists. MAHENDRA THOMAS MD DR: ASHLEY/miguelito JOB#: [id number] / [id number]
--- NOTE | 2018-12-24 22:50 | PDOC ---
Exam Note: Adolfo Note: Please also refer to the separate dictated note~for this date of service dictated separately.~Patient seen individually. Discussed the patient with Nursing staff reviewed the chart.~Reviewed interim history and current functioning. Reviewed vital signs,~Labs/ Radiology~and current medications noted below. Continue current treatment with the changes noted in the dictated addendum note Assessment: Vital Signs: Vital Signs Date Time Temp Pulse Resp B/P (MAP) Pulse Ox O2 Delivery O2 Flow Rate FiO2 12/24/18 21:22 96 Room Air 12/24/18 20:22 16 12/24/18 15:42 98.0 89 94/62 (73) I&O Intake and Output 12/24/18 07:00 Intake Total 1440 ml Balance 1440 ml Intake Oral 1440 ml Current Medications: Meds: Current Medications Oxycodone/ Acetaminophen (Percocet 5/325) 2 tab 1X ONCE PO Last administered on 12/01/18 18:23; Start 12/01/18 at 18:30; Stop 12/01/18 at 18:31; Status DC Enoxaparin Sodium (Lovenox 80mg Syringe) 80 mg 1X ONCE SQ Last administered on 12/01/18 18:23; Start 12/01/18 at 18:30; Stop 12/01/18 at 18:31; Status DC Albuterol/ Ipratropium (Duoneb) 3 ml RTQID NEB Last administered on 12/02/18at 16:32; Start 12/01/18 at 20:00; Stop 12/02/18 at 19:59; Status DC Oxycodone/ Acetaminophen (Percocet 5/325) 2 tab QIDPRN PRN PO MARKED PAIN Last administered on 12/24/18 20:22; Start 12/01/18 at 18:15 Clonazepam (KlonoPIN) 0.5 mg BID PO Last administered on 12/24/18 19:58; Start 12/01/18 at 21:00 Acetaminophen/ Hydrocodone Bitart (Lortab 5/325) 2 tab PRN Q4HRS PRN PO PAIN Last administered on 12/24/18 11:06; Start 12/01/18 at 21:00 Ondansetron HCl (Zofran Odt) 4 mg PRN Q6HRS PRN PO NAUSEA/VOMITING; Start 12/01/18 at 21:00 Phenytoin Sodium (Dilantin) 300 mg BID PO Last administered on 12/24/18 19:57; Start 12/01/18 at 21:00 Acetaminophen (Tylenol) 650 mg PRN Q6HRS PRN PO PAIN / TEMP Last administered on 12/03/18at 18:11; Start 12/01/18 at 23:30 Multi-Ingredient Ointment (Analgesic [place]) 1 miley PRN QID PRN TP MUSCLE PAIN; Start 12/01/18 at 23:30 Al Hydroxide/Mg Hydroxide (Mylanta Plus Xs) 15 ml PRN AFTMEALHC PRN PO DYSPE PSIA; Start 12/01/18 at 23:30 Magnesium Hydroxide (Milk Of Magnesia) 2,400 mg PRN QHS PRN PO CONSTIPATION; Start 12/01/18 at 23:30 Risperidone (RisperDAL) 0.25 mg HS PO Last administered on 12/03/18at 20:08; Start 12/03/18 at 21:00; Stop 12/04/18 at 18:21; Status DC Risperidone (RisperDAL) 0.75 mg HS PO Last administered on 12/24/18 19:57; Start 12/04/18 at 21:00 Risperidone (RisperDAL) 0.5 mg PRN Q6HRS PRN PO ANXIETY; Start 12/06/18 at 18:30 Divalproex Sodium (Depakote Sprinkles) 125 mg BID PO Last administered on 12/14/18at 07:34; Start 12/08/18 at 21:00; Stop 12/14/18 at 17:38; Status DC Divalproex Sodium (Depakote Sprinkles) 250 mg BID PO Last administered on 12/19/18at 07:53; Start 12/14/18 at 21:00; Stop 12/19/18 at 17:49; Status DC Trazodone HCl (Desyrel) 50 mg QHS PO Last administered on 12/24/18at 19:56; Start 12/17/18 at 21:00 Trazodone HCl (Desyrel) 50 mg PRN QHS PRN PO INSOMNIA; Start 12/17/18 at 19:00 Clonazepam (KlonoPIN) 0.25 mg DAILY@1500 PO Last administered on 12/24/18at 15:12; Start 12/19/18 at 15:00 Divalproex Sodium (Depakote Sprinkles) 500 mg BID PO Last administered on 12/22/18at 08:35; Start 12/19/18 at 21:00; Stop 12/22/18 at 17:07; Status DC Divalproex Sodium (Depakote Sprinkles) 750 mg BID PO Last administered on 12/24/18at 19:56; Start 12/22/18 at 21:00 Fluvoxamine Maleate (Luvox) 25 mg DAILY PO Last administered on 12/24/18at 07:42; Start 12/24/18 at 09:00; Stop 12/26/18 at 09:01 Fluvoxamine Maleate (Luvox) 50 mg DAILY PO ; Start 12/27/18 at 09:00 Active Scripts Active [Percogesic] 1 Tab PO QID Naprosyn (Naproxen) 500 Mg Tablet 1 Tab PO BID Reported Plavix (Clopidogrel Bisulfate) 75 Mg Tablet 75 Mg PO DAILY Zofran (Ondansetron Hcl) 4 Mg Tablet 4 Mg PO PRN Q6HRS PRN [place] 5-325 Tablet (Hydrocodone Bit/Acetaminophen) 1 Each Tablet 2 Tab PO PRN Q4HRS PRN Dilantin (Phenytoin Sodium Extended) 100 Mg Capsule 300 Mg PO BID Clonazepam 0.5 Mg Tablet 0.5 Mg PO BID I have reviewed the current psychotropics carefully including drug interactions. Risk benefit ratio favors no change other than as noted in my dictated progress note. Diagnosis: Problems: (1) Anxiety disorder (2) Alcohol-induced persisting dementia (3) Alcoholic psychosis (4) Dementia, vascular, with delusions (5) Dementia, vascular, with depression (6) Impulse control disorder (7) Knee pain, right (8) Knee abrasion MAHENDRA THOMAS MD December 24, 2018 22:50
--- NOTE | 2018-12-24 23:24 | PN ---
DATE: 12/23/2018 PSYCHIATRIC PROGRESS NOTE This late entry 12/23/2018 covers elements not covered in my initial note. SUBJECTIVE: I met with the patient in the evening. The patient was staffed at a treatment team meeting with the entire team in the morning. I reviewed the patient's history, diagnosis, placement options at length. She reportedly had a "bad day." Per nursing report, the patient has been yelling, climbing on the window, slapped nursing staff, had to be in seclusion, tried to climb on to the ledge of the window, remains quite obsessive. REVIEW OF SYSTEMS: Ambulation impaired, in wheelchair. Poor vision. No CV, , pulmonary, ENT system symptoms on review. MENTAL STATUS EXAM: Oriented to herself and situation. Speech is coherent, rapid at times, loud. Abstraction fair, computation impaired, language function intact. Complains of chronic pain, obsessed about this. LABORATORY DATA: Reviewed. IMPRESSION: Unchanged from initial note. PLAN: Start Luvox 25 mg a day for 3 days and 50 mg a day. We will check a valproic acid level on 12/25/2018. Continue Risperdal, Klonopin at current dosage, Depakote and trazodone for now. MAHENDRA THOMAS MD DR: ASHLEY/miguelito JOB#: [id number] / [id number]
[2018-12-25] MEDS: HYDROcodone/APAP 5/325MG 1 TAB TABLET PO PRN ×3 (03:32→15:31)
[2018-12-25 06:25] VITALS: BP 114/78
[2018-12-25 07:29] LABS: BASO % 1 % (0-3); EOS # 0.2 x10^3/uL (0.0-0.7); EOS % 4 % (0-3); HEMATOCRIT 35.2 % (36.0-47.0); HEMOGLOBIN 11.7 g/dL (12.0-15.5); LYMPH # 2.2 x10^3/uL (1.0-4.8); LYMPH % 37 % (24-48); MEAN CORPUSCULAR HEMOGLOBIN 33 pg (25-35); MEAN CORPUSCULAR HGB CONC 33 g/dL (31-37); MEAN CORPUSCULAR VOLUME 98 fL (79-100); MONO # 0.5 x10^3/uL (0.0-1.1); MONO % 9 % (0-9); NEUT % 50 % (31-73); PLATELET COUNT 381 x10^3/uL (140-400); RED CELL DISTRIBUTION WIDTH 15.3 % (11.5-14.5); WHITE BLOOD COUNT 5.9 x10^3/uL (4.0-11.0)
[2018-12-25 07:45] LABS: ALBUMIN 2.7 g/dL (3.4-5.0); ALBUMIN/GLOBULIN RATIO 0.8 (1.0-1.7); ALK PHOS 119 U/L (46-116); ALT (SGPT) 10 U/L (14-59); ANION GAP 9 (6-14); AST (SGOT) 12 U/L (15-37); BLOOD UREA NITROGEN 22 mg/dL (7-20); BUN/CREATININE RATIO 22 (6-20); CALCIUM 8.7 mg/dL (8.5-10.1); CARBON DIOXIDE 28 mmol/L (21-32); CHLORIDE 106 mmol/L (98-107); GFR 58.2; GLUCOSE 78 mg/dL (70-99); POTASSIUM 4.2 mmol/L (3.5-5.1); SODIUM 143 mmol/L (136-145); TOTAL BILIRUBIN 0.2 mg/dL (0.2-1.0); TOTAL PROTEIN 6.3 g/dL (6.4-8.2)
[2018-12-25 07:47] LABS: VAL ACID 28 mcg/mL (50-100)
[2018-12-25] MEDS: clonazePAM 0.5 MG TABLET PO SCH ×3 (08:51→19:13)
[2018-12-25] MEDS: DIVALPROEX 125 MG CAP.SPRINK PO SCH ×2 (08:52→19:11)
[2018-12-25] MEDS: PHENYTOIN SODIUM EXTENDED 100 MG CAPSULE PO SCH ×2 (08:52→19:12)
[2018-12-25 16:17] VITALS: BP 123/86
--- NOTE | 2018-12-25 17:28 | NUR ---
Behavior Intervention Response and Plan: BIRP Note: Behavior: Assumed Care of patient, patient located in Patient Room at shift change. Patient exhibited the following behavior Calm, Able to Focus on Task, Compliant. Brief assessment on rounds of vital signs, medication needs, lab studies, and pain. Treatment plan problems . Intervention: Patient assessed and the following interventions initiated safety checks 15 Minute Checks Head to toe Assessment , Cognitive Assessment , Medications. Response: After interactions and interventions patient responded in the following manner, Sleeping , Withdrawn ,Cooperative. Continue to assess behaviors and condition will continue to monitor throughout the shift as needed. Patient educated on ADL's, and hand hygiene. Plan: Continue to monitor Master Treatment Plan for patient's progress toward short term goals of Improved Mood, Decreased Agitation, termination clerk goals to return to previous living setting vs placement. Continue to assess patient for changes in above assessment. Monitor for medication needs, pain, and safety concerns. Hourly rounding performed to ensure safe environment.
[2018-12-25] MEDS: risperiDONE 0.25 MG TABLET. PO SCH (19:11)
[2018-12-25] MEDS: traZODone 50 MG TABLET. PO SCH (19:12)
[2018-12-25] MEDS: oxyCODONE/APAP 5/325 1 TAB TABLET PO PRN (21:18)
--- NOTE | 2018-12-25 23:00 | NUR ---
Patient in dayroom during initial assessment. Patient agitated, stating "I just want to go to my room" and "everybody hates me." Patient argumentative and demanding. Pain pill given at 2120. Will continue to monitor.
--- NOTE | 2018-12-25 23:15 | PDOC ---
Exam Note: Adolfo Note: Please also refer to the separate dictated note~for this date of service dictated separately.~Patient seen individually. Discussed the patient with Nursing staff reviewed the chart.~Reviewed interim history and current functioning. Reviewed vital signs,~Labs/ Radiology~and current medications noted below. Continue current treatment with the changes noted in the dictated addendum note Assessment: Vital Signs: Vital Signs Date Time Temp Pulse Resp B/P (MAP) Pulse Ox O2 Delivery O2 Flow Rate FiO2 12/25/18 22:49 12 12/25/18 16:17 98.1 78 123/86 (98) 94 12/25/18 06:25 Room Air I&O Intake and Output0 12/25/18 06:59 Intake Total 1200 ml Balance 1200 ml Intake Oral 1200 ml Labs: Laboratory Tests Test 12/25/18 07:07 White Blood Count 5.9 x10^3/uL (4.0-11.0) Red Blood Count 3.60 x10^6/uL (3.50-5.40) Hemoglobin 11.7 g/dL (12.0-15.5) L Hematocrit 35.2 % (36.0-47.0) L Mean Corpuscular Volume 98 fL (79-100) Mean Corpuscular Hemoglobin 33 pg (25-35) Mean Corpuscular Hemoglobin Concent 33 g/dL (31-37) Red Cell Distribution Width 15.3 % (11.5-14.5) H Platelet Count 381 x10^3/uL (140-400) Neutrophils (%) (Auto) 50 % (31-73) Lymphocytes (%) (Auto) 37 % (24-48) Monocytes (%) (Auto) 9 % (0-9) Eosinophils (%) (Auto) 4 % (0-3) H Basophils (%) (Auto) 1 % (0-3) Neutrophils # (Auto) 3.0 x10^3uL (1.8-7.7) Lymphocytes # (Auto) 2.2 x10^3/uL (1.0-4.8) Monocytes # (Auto) 0.5 x10^3/uL (0.0-1.1) Eosinophils # (Auto) 0.2 x10^3/uL (0.0-0.7) Basophils # (Auto) 0.0 x10^3/uL (0.0-0.2) Sodium Level 143 mmol/L (136-145) Potassium Level 4.2 mmol/L (3.5-5.1) Chloride Level 106 mmol/L (98-107) Carbon Dioxide Level 28 mmol/L (21-32) Anion Gap 9 (6-14) Blood Urea Nitrogen 22 mg/dL (7-20) H Creatinine 1.0 mg/dL (0.6-1.0) Estimated GFR (Cockcroft-Gault) 58.2 BUN/Creatinine Ratio 22 (6-20) H Glucose Level 78 mg/dL (70-99) Calcium Level 8.7 mg/dL (8.5-10.1) Total Bilirubin 0.2 mg/dL (0.2-1.0) Aspartate Amino Transferase (AST) 12 U/L (15-37) L Alanine Aminotransferase (ALT) 10 U/L (14-59) L Alkaline Phosphatase 119 U/L (46-116) H Ammonia 41 mcmol/L (11-34) H Total Protein 6.3 g/dL (6.4-8.2) L Albumin 2.7 g/dL (3.4-5.0) L Albumin/Globulin Ratio 0.8 (1.0-1.7) L Valproic Acid Level 28 mcg/mL (50-100) L Valproic Acid Last Dose Date 12/24/18 Valproic Acid Last Dose Time 2100 Current Medications: Meds: Current Medications Oxycodone/ Acetaminophen (Percocet 5/325) 2 tab 1X ONCE PO Last administered on 12/01/18at 18:23; Start 12/01/18 at 18:30; Stop 12/01/18 at 18:31; Status DC Enoxaparin Sodium (Lovenox 80mg Syringe) 80 mg 1X ONCE SQ Last administered on 12/01/18at 18:23; Start 12/01/18 at 18:30; Stop 12/01/18 at 18:31; Status DC Albuterol/ Ipratropium (Duoneb) 3 ml RTQID NEB Last administered on 12/02/18at 16:32; Start 12/01/18 at 20:00; Stop 12/02/18 at 19:59; Status DC Oxycodone/ Acetaminophen (Percocet 5/325) 2 tab QIDPRN PRN PO MARKED PAIN Last administered on 12/25/18 21:18; Start 12/01/18 at 18:15 Clonazepam (KlonoPIN) 0.5 mg BID PO Last administered on 12/25/18 19:13; Start 12/01/18 at 21:00 Acetaminophen/ Hydrocodone Bitart (Lortab 5/325) 2 tab PRN Q4HRS PRN PO PAIN Last administered on 12/25/18 15:31; Start 12/01/18 at 21:00 Ondansetron HCl (Zofran Odt) 4 mg PRN Q6HRS PRN PO NAUSEA/VOMITING; Start 12/01/18 at 21:00 Phenytoin Sodium (Dilantin) 300 mg BID PO Last administered on 12/25/18 19:12; Start 12/01/18 at 21:00 Acetaminophen (Tylenol) 650 mg PRN Q6HRS PRN PO PAIN / TEMP Last administered on 12/03/18 18:11; Start 12/01/18 at 23:30 Multi-Ingredient Ointment (Analgesic [place]) 1 miley PRN QID PRN TP MUSCLE PAIN; Start 12/01/18 at 23:30 Al Hydroxide/Mg Hydroxide (Mylanta Plus Xs) 15 ml PRN AFTMEALHC PRN PO DYSPEPSIA; Start 12/01/18 at 23:30 Magnesium Hydroxide (Milk Of Magnesia) 2,400 mg PRN QHS PRN PO CONSTIPATION; Start 12/01/18 at 23:30 Risperidone (RisperDAL) 0.25 mg HS PO Last administered on 12/03/18 20:08; Start 12/03/18 at 21:00; Stop 12/04/18 at 18:21; Status DC Risperidone (RisperDAL) 0.75 mg HS PO Last administered on 12/25/18 19:11; Start 12/04/18 at 21:00 Risperidone (RisperDAL) 0.5 mg PRN Q6HRS PRN PO ANXIETY; Start 12/06/18 at 18:30 Divalproex Sodium (Depakote Sprinkles) 125 mg BID PO Last administered on 12/14/18 07:34; Start 12/08/18 at 21:00; Stop 12/14/18 at 17:38; Status DC Divalproex Sodium (Depakote Sprinkles) 250 mg BID PO Last administered on at 07:53; Start 12/14/18 at 21:00; Stop 12/19/18 at 17:49; Status DC Trazodone HCl (Desyrel) 50 mg QHS PO Last administered on 12/25/18at 19:12; Start 12/17/18 at 21:00 Trazodone HCl (Desyrel) 50 mg PRN QHS PRN PO INSOMNIA; Start 12/17/18 at 19:00 Clonazepam (KlonoPIN) 0.25 mg DAILY@1500 PO Last administered on 12/25/18at 15:31; Start 12/19/18 at 15:00 Divalproex Sodium (Depakote Sprinkles) 500 mg BID PO Last administered on 12/22/18at 08:35; Start 12/19/18 at 21:00; Stop 12/22/18 at 17:07; Status DC Divalproex Sodium (Depakote Sprinkles) 750 mg BID PO Last administered on 12/25/18at 19:11; Start 12/22/18 at 21:00 Fluvoxamine Maleate (Luvox) 25 mg DAILY PO Last administered on 12/25/18at 08:52; Start 12/24/18 at 09:00; Stop 12/26/18 at 09:01 Fluvoxamine Maleate (Luvox) 50 mg DAILY PO ; Start 12/27/18 at 09:00 Active Scripts Active [Percogesic] 1 Tab PO QID Naprosyn (Naproxen) 500 Mg Tablet 1 Tab PO BID Reported Plavix (Clopidogrel Bisulfate) 75 Mg Tablet 75 Mg PO DAILY Zofran (Ondansetron Hcl) 4 Mg Tablet 4 Mg PO PRN Q6HRS PRN [place] 5-325 Tablet (Hydrocodone Bit/Acetaminophen) 1 Each Tablet 2 Tab PO PRN Q4HRS PRN Dilantin (Phenytoin Sodium Extended) 100 Mg Capsule 300 Mg PO BID Clonazepam 0.5 Mg Tablet 0.5 Mg PO BID I have reviewed the current psychotropics carefully including drug interactions. Risk benefit ratio favors no change other than as noted in my dictated progress note. Diagnosis: Problems: (1) Anxiety disorder (2) Alcohol-induced persisting dementia (3) Alcoholic psychosis (4) Viral diarrhea (5) Dementia, vascular, with delusions (6) Dementia, vascular, with depression (7) Mild ankle sprain (8) Impulse control disorder (9) Cocaine abuse (10) Tobacco abuse (11) Tobacco abuse counseling (12) Knee pain, right (13) Knee abrasion (14) Intoxication MAHENDRA THOMAS MD December 25, 2018 23:15
[2018-12-26] MEDS: oxyCODONE/APAP 5/325 1 TAB TABLET PO PRN ×3 (05:20→16:34)
[2018-12-26 06:08] VITALS: BP 118/80
[2018-12-26] MEDS: DIVALPROEX 125 MG CAP.SPRINK PO SCH ×2 (08:10→19:51)
[2018-12-26] MEDS: PHENYTOIN SODIUM EXTENDED 100 MG CAPSULE PO SCH ×2 (08:11→19:51)
[2018-12-26] MEDS: clonazePAM 0.5 MG TABLET PO SCH ×3 (08:13→19:53)
--- NOTE | 2018-12-26 11:13 | NUR ---
Patient has had a good morning. Has been asking when her next pain pill was. Her last one was at 0520. She mentioned starting to have some pain in her legs and elbows. Allowed for morning assessment, took medications well. No signs of agitation noted.
--- NOTE | 2018-12-26 12:20 | NUR ---
During lunch patient still mentioned that she was in pain. Asked for PRN pain med. Percocet given @8146.
[2018-12-26 15:48] VITALS: BP 105/65
--- NOTE | 2018-12-26 16:45 | NUR ---
The nurse removed seven stitches from patients left foot along her big toe as well as her pinki toe. PRN Percocet given @1634. Patient tolerated procedure well. Patient is currently resting in her bed. Will continue to monitor.
[2018-12-26] MEDS: risperiDONE 0.25 MG TABLET. PO SCH (19:51)
[2018-12-26] MEDS: traZODone 50 MG TABLET. PO SCH (19:53)
[2018-12-26] MEDS: HYDROcodone/APAP 5/325MG 1 TAB TABLET PO PRN (20:48)
--- NOTE | 2018-12-26 22:44 | PDOC ---
Exam Note: Adolfo Note: Please also refer to the separate dictated note~for this date of service dictated separately.~Patient seen individually. Discussed the patient with Nursing staff reviewed the chart.~Reviewed interim history and current functioning. Reviewed vital signs,~Labs/ Radiology~and current medications noted below. Continue current treatment with the changes noted in the dictated addendum note Assessment: Vital Signs: Vital Signs Date Time Temp Pulse Resp B/P (MAP) Pulse Ox O2 Delivery O2 Flow Rate FiO2 12/26/18 22:21 97 12/26/18 17:50 16 Room Air 12/26/18 15:48 97.8 72 105/65 (78) I&O Intake and Output0 12/26/18 07:00 Intake Total 1200 ml Balance 1200 ml Intake Oral 1200 ml # Bowel Movements 1 Current Medications: Meds: Current Medications Oxycodone/ Acetaminophen (Percocet 5/325) 2 tab 1X ONCE PO Last administered on 12/01/18 18:23; Start 12/01/18 at 18:30; Stop 12/01/18 at 18:31; Status DC Enoxaparin Sodium (Lovenox 80mg Syringe) 80 mg 1X ONCE SQ Last administered on 12/01/18at 18:23; Start 12/01/18 at 18:30; Stop 12/01/18 at 18:31; Status DC Albuterol/ Ipratropium (Duoneb) 3 ml RTQID NEB Last administered on 12/02/18at 16:32; Start 12/01/18 at 20:00; Stop 12/02/18 at 19:59; Status DC Oxycodone/ Acetaminophen (Percocet 5/325) 2 tab QIDPRN PRN PO MARKED PAIN Last administered on 12/26/18 16:34; Start 12/01/18 at 18:15 Clonazepam (KlonoPIN) 0.5 mg BID PO Last administered on 12/26/18 19:53; Start 12/01/18 at 21:00 Acetaminophen/ Hydrocodone Bitart (Lortab 5/325) 2 tab PRN Q4HRS PRN PO PAIN Last administered on 12/26/18 20:48; Start 12/01/18 at 21:00 Ondansetron HCl (Zofran Odt) 4 mg PRN Q6HRS PRN PO NAUSEA/VOMITING; Start 12/01/18 at 21:00 Phenytoin Sodium (Dilantin) 300 mg BID PO Last administered on 12/26/18 19:51; Start 12/01/18 at 21:00 Acetaminophen (Tylenol) 650 mg PRN Q6HRS PRN PO PAIN / TEMP Last administered on 12/03/18at 18:11; Start 12/01/18 at 23:30 Multi-Ingredient Ointment (Analgesic [place]) 1 miley PRN QID PRN TP MUSCLE PAIN; Start 12/01/18 at 23:30 Al Hydroxide/Mg Hydroxide (Mylanta Plus Xs) 15 ml PRN AFTMEALHC PRN PO DYSPEPSIA; Start 12/01/18 at 23:30 Magnesium Hydroxide (Milk Of Magnesia) 2,400 mg PRN QHS PRN PO CONSTIPATION; Start 12/01/18 at 23:30 Risperidone (RisperDAL) 0.25 mg HS PO Last administered on 12/03/18at 20:08; Start 12/03/18 at 21:00; Stop 12/04/18 at 18:21; Status DC Risperidone (RisperDAL) 0.75 mg HS PO Last administered on 12/26/18 19:51; Start 12/04/18 at 21:00 Risperidone (RisperDAL) 0.5 mg PRN Q6HRS PRN PO ANXIETY; Start 12/06/18 at 18:30 Divalproex Sodium (Depakote Sprinkles) 125 mg BID PO Last administered on 12/14/18at 07:34; Start 12/08/18 at 21:00; Stop 12/14/18 at 17:38; Status DC Divalproex Sodium (Depakote Sprinkles) 250 mg BID PO Last administered on 12/19/18at 07:53; Start 12/14/18 at 21:00; Stop 12/19/18 at 17:49; Status DC Trazodone HCl (Desyrel) 50 mg QHS PO Last administered on 12/26/18 19:53; Start 12/17/18 at 21:00 Trazodone HCl (Desyrel) 50 mg PRN QHS PRN PO INSOMNIA; Start 12/17/18 at 19:00 Clonazepam (KlonoPIN) 0.25 mg DAILY@1500 PO Last administered on 12/26/18at 14:46; Start 12/19/18 at 15:00 Divalproex Sodium (Depakote Sprinkles) 500 mg BID PO Last administered on 12/22/18at 08:35; Start 12/19/18 at 21:00; Stop 12/22/18 at 17:07; Status DC Divalproex Sodium (Depakote Sprinkles) 750 mg BID PO Last administered on 12/26/18at 19:51; Start 12/22/18 at 21:00 Fluvoxamine Maleate (Luvox) 25 mg DAILY PO Last administered on 12/26/18at 08:11; Start 12/24/18 at 09:00; Stop 12/26/18 at 09:01; Status DC Fluvoxamine Maleate (Luvox) 50 mg DAILY PO ; Start 12/27/18 at 09:00 Active Scripts Active [Percogesic] 1 Tab PO QID Naprosyn (Naproxen) 500 Mg Tablet 1 Tab PO BID Reported Plavix (Clopidogrel Bisulfate) 75 Mg Tablet 75 Mg PO DAILY Zofran (Ondansetron Hcl) 4 Mg Tablet 4 Mg PO PRN Q6HRS PRN [place] 5-325 Tablet (Hydrocodone Bit/Acetaminophen) 1 Each Tablet 2 Tab PO PRN Q4HRS PRN Dilantin (Phenytoin Sodium Extended) 100 Mg Capsule 300 Mg PO BID Clonazepam 0.5 Mg Tablet 0.5 Mg PO BID I have reviewed the current psychotropics carefully including drug interactions. Risk benefit ratio favors no change other than as noted in my dictated prog ress note. 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
--- NOTE | 2018-12-27 00:27 | NUR ---
Pt located in her room this evening. Pt pleasant and interactive. Pt complaining of pain 05/03. PRN Lortab administered with HS medications. Pt tearful at times, voicing frustration over not being able to see anymore.
[2018-12-27] MEDS: oxyCODONE/APAP 5/325 1 TAB TABLET PO PRN ×3 (01:31→19:29)
[2018-12-27 06:00] VITALS: BP 115/62
[2018-12-27] MEDS: HYDROcodone/APAP 5/325MG 1 TAB TABLET PO PRN (06:06)
[2018-12-27] MEDS: DIVALPROEX 125 MG CAP.SPRINK PO SCH ×2 (07:37→19:16)
[2018-12-27] MEDS: PHENYTOIN SODIUM EXTENDED 100 MG CAPSULE PO SCH ×2 (07:38→19:15)
[2018-12-27] MEDS: clonazePAM 0.5 MG TABLET PO SCH ×3 (07:40→19:19)
--- NOTE | 2018-12-27 11:09 | NUR ---
Patient has had a sleepy morning, slept through breakfast. Took medications well and allowed morning assessment. Asked for Percocet once waking up. Received this @1026. No signs of agitation noted. Patient is quietly resting in her room.
[2018-12-27 15:21] VITALS: BP 93/58
[2018-12-27] MEDS: risperiDONE 0.25 MG TABLET. PO SCH (19:15)
[2018-12-27] MEDS: traZODone 50 MG TABLET. PO SCH (19:19)
--- NOTE | 2018-12-27 21:50 | PDOC ---
Exam Note: Adolfo Note: Please also refer to the separate dictated note~for this date of service dictated separately.~Patient seen individually. Discussed the patient with Nursing staff reviewed the chart.~Reviewed interim history and current functioning. Reviewed vital signs,~Labs/ Radiology~and current medications noted below. Continue current treatment with the changes noted in the dictated addendum note Assessment: Vital Signs: Vital Signs Date Time Temp Pulse Resp B/P (MAP) Pulse Ox O2 Delivery O2 Flow Rate FiO2 12/27/18 19:29 20 95 12/27/18 15:21 97.8 73 93/58 (70) 12/27/18 11:26 Room Air I&O Intake and Output 12/27/18 06:59 Intake Total 680 ml Balance 680 ml Intake Oral 680 ml # Bowel Movements 1 Labs: Laboratory Tests Test 12/27/18 06:58 Ammonia 48 mcmol/L (11-34) H Current Medications: Meds: Current Medications Oxycodone/ Acetaminophen (Percocet 5/325) 2 tab 1X ONCE PO Last administered on 12/01/18at 18:23; Start 12/01/18 at 18:30; Stop 12/01/18 at 18:31; Status DC Enoxaparin Sodium (Lovenox 80mg Syringe) 80 mg 1X ONCE SQ Last administered on 12/01/18 18:23; Start 12/01/18 at 18:30; Stop 12/01/18 at 18:31; Status DC Albuterol/ Ipratropium (Duoneb) 3 ml RTQID NEB Last administered on 12/02/18at 16:32; Start 12/01/18 at 20:00; Stop 12/02/18 at 19:59; Status DC Oxycodone/ Acetaminophen (Percocet 5/325) 2 tab QIDPRN PRN PO MARKED PAIN Last administered on 12/27/18 19:29; Start 12/01/18 at 18:15 Clonazepam (KlonoPIN) 0.5 mg BID PO Last administered on 12/27/18 19:19; Start 12/01/18 at 21:00 Acetaminophen/ Hydrocodone Bitart (Lortab 5/325) 2 tab PRN Q4HRS PRN PO PAIN Last administered on 12/27/18at 06:06; Start 12/01/18 at 21:00 Ondansetron HCl (Zofran Odt) 4 mg PRN Q6HRS PRN PO NAUSEA/VOMITING; Start 12/01/18 at 21:00 Phenytoin Sodium (Dilantin) 300 mg BID PO Last administered on 12/27/18at 19:15; Start 12/01/18 at 21:00 Acetaminophen (Tylenol) 650 mg PRN Q6HRS PRN PO PAIN / TEMP Last administered on 12/03/18at 18:11; Start 12/01/18 at 23:30 Multi-Ingredient Ointment (Analgesic [place]) 1 miley PRN QID PRN TP MUSCLE PAIN; Start 12/01/18 at 23:30 Al Hydroxide/Mg Hydroxide (Mylanta Plus Xs) 15 ml PRN AFTMEALHC PRN PO DYSPEPSIA; Start 12/01/18 at 23:30 Magnesium Hydroxide (Milk Of Magnesia) 2,400 mg PRN QHS PRN PO CONSTIPATION; Start 12/01/18 at 23:30 Risperidone (RisperDAL) 0.25 mg HS PO Last administered on 12/03/18at 20:08; Start 12/03/18 at 21:00; Stop 12/04/18 at 18:21; Status DC Risperidone (RisperDAL) 0.75 mg HS PO Last administered on 12/27/18 19:15; Start 12/04/18 at 21:00 Risperidone (RisperDAL) 0.5 mg PRN Q6HRS PRN PO ANXIETY; Start 12/06/18 at 18:30 Divalproex Sodium (Depakote Sprinkles) 125 mg BID PO Last administered on 12/14/18at 07:34; Start 12/08/18 at 21:00; Stop 12/14/18 at 17:38; Status DC Divalproex Sodium (Depakote Sprinkles) 250 mg BID PO Last administered on 12/19/18at 07:53; Start 12/14/18 at 21:00; Stop 12/19/18 at 17:49; Status DC Trazodone HCl (Desyrel) 50 mg QHS PO Last administered on 12/27/18 19:19; Start 12/17/18 at 21:00 Trazodone HCl (Desyrel) 50 mg PRN QHS PRN PO INSOMNIA; Start 12/17/18 at 19:00 Clonazepam (KlonoPIN) 0.25 mg DAILY@1500 PO Last administered on 12/27/18at 15:00; Start 12/19/18 at 15:00 Divalproex Sodium (Depakote Sprinkles) 500 mg BID PO Last administered on 12/22/18at 08:35; Start 12/19/18 at 21:00; Stop 12/22/18 at 17:07; Status DC Divalproex Sodium (Depakote Sprinkles) 750 mg BID PO Last administered on 12/27/18at 19:16; Start 12/22/18 at 21:00 Fluvoxamine Maleate (Luvox) 25 mg DAILY PO Last administered on 12/26/18at 08:11; Start 12/24/18 at 09:00; Stop 12/26/18 at 09:01; Status DC Fluvoxamine Maleate (Luvox) 50 mg DAILY PO Last administered on 12/27/18at 07:40; Start 12/27/18 at 09:00 Active Scripts Active [Percogesic] 1 Tab PO QID Naprosyn (Naproxen) 500 Mg Tablet 1 Tab PO BID Reported Plavix (Clopidogrel Bisulfate) 75 Mg Tablet 75 Mg PO DAILY Zofran (Ondansetron Hcl) 4 Mg Tablet 4 Mg PO PRN Q6HRS PRN [place] 5-325 Tablet (Hydrocodone Bit/Acetaminophen) 1 Each Tablet 2 Tab PO PRN Q4HRS PRN Dilantin (Phenytoin Sodium Extended) 100 Mg Capsule 300 Mg PO BID Clonazepam 0.5 Mg Tablet 0.5 Mg PO BID I have reviewed the current psychotropics carefully including drug interactions. Risk benefit ratio favors no change other than as noted in my dictated progress note. 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
--- NOTE | 2018-12-27 22:48 | NUR ---
Pt. was out in the day room this evening, when this blurb writer came on shift. Pt. has been compliant with taking her medications this evening/HS. Pt. still saying that she can not see, staff have been encouraging her to do as much as she can for herself. Dressing to her left foot is still C/D/I.
--- NOTE | 2018-12-27 23:43 | PN ---
DATE: 12/25/2018 PSYCHIATRIC PROGRESS NOTE This late entry 12/25/2018 covers elements not covered in my initial note. SUBJECTIVE: I met with the patient in the evening of 12/25/2018. The patient remains somewhat withdrawn, anxious, at times somewhat labile. REVIEW OF SYSTEMS: No CV, , pulmonary, eye system symptoms on review. Reliability varies. Vision is poor and ambulation impaired, in wheelchair. MENTAL STATUS EXAM: Oriented to herself, situation. Insight, judgment, recent memory is impaired. Language function is intact. Attention span short. Mood and affect remain somewhat anxious, labile, but less so than before. LABORATORY DATA: Reviewed. IMPRESSION: Unchanged from initial note. PLAN: No change from initial note. Luvox has been adjusted for his OCD symptoms. May need to increase beyond 50 mg a day, which we will reach on 12/27/2018. MAN Betty THOMAS MD DR: ASHLEY/miguelito JOB#: [id number] / [id number]
--- NOTE | 2018-12-27 23:55 | PN ---
DATE: 12/24/2018 PSYCHIATRIC PROGRESS NOTE This late entry 12/24/2018 covers elements not covered in my initial note. SUBJECTIVE: I met with the patient in the evening. The patient slept 7 hours previous night, was quite tearful in the evening. Did better in the morning, more compliant, but still labile. REVIEW OF SYSTEMS: Poor vision, impaired ambulation, in wheelchair. No CV, , pulmonary, ENT system symptoms on review, slightly hard of hearing. MENTAL STATUS EXAM: Oriented to herself and situation. Speech is coherent, rapid at times. Abstraction fair, computation impaired, language function intact, attention span short. Mood and affect remain somewhat anxious, labile at times, very intense when she wants something, obsessive. LABORATORY DATA: Reviewed. IMPRESSION: Unchanged from initial note. PLAN: No change from initial note. MAN Betty THOMAS MD DR: ASHLEY/miguelito JOB#: [id number] / [id number]
--- NOTE | 2018-12-28 00:12 | PN ---
DATE: 12/26/2018 PSYCHIATRIC PROGRESS NOTE This late entry 12/26/2018 covers elements not covered in my initial note. SUBJECTIVE: I met with the patient in the evening of 12/26/2018. The patient slept 5-3/4 hours previous night. For the most part, she is doing reasonably well. The patient gets a little anxious, but no active hallucinations noted, and yelling and cursing have not been noted. Ammonia was elevated at 41. We are repeating it on 12/27/2018 and then we will decide on the Depakote. Depakote is probably being additionally used for her seizure disorder and we may have to have Dr. Courtney, Neurology consult as well to make recommendations. REVIEW OF SYSTEMS: Poor vision, impaired ambulation, in wheelchair. No CV, , pulmonary, ENT system symptoms on review, slightly hard of hearing. MENTAL STATUS EXAM: Oriented to herself and situation. Speech coherent, abstraction fair, computation impaired, language function intact, attention span short. Mood and affect, somewhat anxious, at times labile, but improved. LABORATORY DATA: Reviewed. IMPRESSION: Unchanged from initial note. PLAN: No change from initial note other than what is noted above. We will make further decision after ammonia is repeated on 12/27/2018. MAHENDRA THOMAS MD DR: ASHLEY/miguelito JOB#: [id number] / [id number]
--- NOTE | 2018-12-28 05:28 | NUR ---
This morning it was found that pt. had peed in a styform cup, trash can, and on the floor. Pt. said that she had called out for help throughout the night. None of the aids or nurse heard her calling out during the night and she was visual check q15 mins. She was never up, when the staff did the q15 mins checks. Pt. stated, "i'm a good Yazidi women and I would not do that."
[2018-12-28 06:10] VITALS: BP 104/67
[2018-12-28] MEDS: HYDROcodone/APAP 5/325MG 1 TAB TABLET PO PRN (06:26)
[2018-12-28] MEDS: DIVALPROEX 125 MG CAP.SPRINK PO SCH ×2 (08:03→19:56)
[2018-12-28] MEDS: PHENYTOIN SODIUM EXTENDED 100 MG CAPSULE PO SCH ×2 (08:04→19:55)
[2018-12-28] MEDS: clonazePAM 0.5 MG TABLET PO SCH ×3 (08:06→19:58)
--- NOTE | 2018-12-28 10:22 | NUR ---
Patient has had a sleepy morning. Upon assessment she was in the dining room. Took medications as prescribed, allowed nursing assessment. After eating breakfast she did want to go back to her room. Once there, patient asked to be back in bed and she became tearful. She stated that she felt she was "getting teamed up on, and that no one likes her." When the nurse further asked patient who is causing her to feel that way she said she didn't want to say and that she just wanted to go back to sleep. Patient is currently sleeping in her room. No signs of agitation noted. Will continue to monitor.
--- NOTE | 2018-12-28 11:45 | NUR ---
Wound Care Wound care follow up visit. Sutures were reported to be removed by RN on 12/26. Cleansed suture lines with Betadine and covered with ABD and Kerlix for padding. Great toe incision line is slightly dehisced, pt states she keeps bumping it. Painted 3rd toe with Betadine, appears to be slowly resolving. Recommend to change dressings every 3 days. Discussed lack of footwear with RN, she will follow up on Draw End Hand referral today. No other wounds noted on full skin inspection. WC will continue to follow for possible changes.
[2018-12-28] MEDS: oxyCODONE/APAP 5/325 1 TAB TABLET PO PRN ×2 (15:11→20:10)
--- NOTE | 2018-12-28 15:22 | NUR ---
Upon med pass patient mentioned needing something for pain. PRN Percocet given @1511. Will continue to monitor.
[2018-12-28 16:20] VITALS: BP 117/75
[2018-12-28] MEDS: risperiDONE 0.25 MG TABLET. PO SCH (19:56)
[2018-12-28] MEDS: traZODone 50 MG TABLET. PO SCH (19:58)
--- NOTE | 2018-12-28 21:46 | NUR ---
Pt. was in her bedroom this evening when her medication was taken to her. She was cooperative with taking her HS medications this evening. When she took her HS medicine, she requested percocet. Percocet given, Per OCT.
--- NOTE | 2018-12-28 22:35 | PDOC ---
Exam Note: Adolfo Note: Please also refer to the separate dictated note~for this date of service dictated separately.~Patient seen individually. Discussed the patient with Nursing staff reviewed the chart.~Reviewed interim history and current functioning. Reviewed vital signs,~Labs/ Radiology~and current medications noted below. Continue current treatment with the changes noted in the dictated addendum note Assessment: Vital Signs: Vital Signs Date Time Temp Pulse Resp B/P (MAP) Pulse Ox O2 Delivery O2 Flow Rate FiO2 12/28/18 20:10 14 12/28/18 16:27 Room Air 12/28/18 16:20 98.1 75 117/75 (89) 96 I&O Intake and Output0 12/28/18 07:00 Intake Total 600 ml Balance 600 ml Intake Oral 600 ml # Voids 1 Current Medications: Meds: Current Medications Oxycodone/ Acetaminophen (Percocet 5/325) 2 tab 1X ONCE PO Last administered on 12/01/18at 18:23; Start 12/01/18 at 18:30; Stop 12/01/18 at 18:31; Status DC Enoxaparin Sodium (Lovenox 80mg Syringe) 80 mg 1X ONCE SQ Last administered on 12/01/18at 18:23; Start 12/01/18 at 18:30; Stop 12/01/18 at 18:31; Status DC Albuterol/ Ipratropium (Duoneb) 3 ml RTQID NEB Last administered on 12/02/18at 16:32; Start 12/01/18 at 20:00; Stop 12/02/18 at 19:59; Status DC Oxycodone/ Acetaminophen (Percocet 5/325) 2 tab QIDPRN PRN PO MARKED PAIN Last administered on 12/28/18at 20:10; Start 12/01/18 at 18:15 Clonazepam (KlonoPIN) 0.5 mg BID PO Last administered on 12/28/18 19:58; Start 12/01/18 at 21:00 Acetaminophen/ Hydrocodone Bitart (Lortab 5/325) 2 tab PRN Q4HRS PRN PO PAIN Last administered on 12/28/18 06:26; Start 12/01/18 at 21:00 Ondansetron HCl (Zofran Odt) 4 mg PRN Q6HRS PRN PO NAUSEA/VOMITING; Start 12/01/18 at 21:00 Phenytoin Sodium (Dilantin) 300 mg BID PO Last administered on 12/28/18 19:55; Start 12/01/18 at 21:00 Acetaminophen (Tylenol) 650 mg PRN Q6HRS PRN PO PAIN / TEMP Last administered on 12/03/18at 18:11; Start 12/01/18 at 23:30 Multi-Ingredient Ointment (Analgesic [place]) 1 miley PRN QID PRN TP MUSCLE PAIN; Start 12/01/18 at 23:30 Al Hydroxide/Mg Hydroxide (Mylanta Plus Xs) 15 ml PRN AFTMEALHC PRN PO DYSPEPSIA; Start 12/01/18 at 23:30 Magnesium Hydroxide (Milk Of Magnesia) 2,400 mg PRN QHS PRN PO CONSTIPATION; Start 12/01/18 at 23:30 Risperidone (RisperDAL) 0.25 mg HS PO Last administered on 12/03/18at 20:08; Start 12/03/18 at 21:00; Stop 12/04/18 at 18:21; Status DC Risperidone (RisperDAL) 0.75 mg HS PO Last administered on 12/28/18 19:56; Start 12/04/18 at 21:00 Risperidone (RisperDAL) 0.5 mg PRN Q6HRS PRN PO ANXIETY; Start 12/06/18 at 18:30 Divalproex Sodium (Depakote Sprinkles) 125 mg BID PO Last administered on 12/14/18at 07:34; Start 12/08/18 at 21:00; Stop 12/14/18 at 17:38; Status DC Divalproex Sodium (Depakote Sprinkles) 250 mg BID PO Last administered on 12/19/18at 07:53; Start 12/14/18 at 21:00; Stop 12/19/18 at 17:49; Status DC Trazodone HCl (Desyrel) 50 mg QHS PO Last administered on 12/28/18at 19:58; Start 12/17/18 at 21:00 Trazodone HCl (Desyrel) 50 mg PRN QHS PRN PO INSOMNIA; Start 12/17/18 at 19:00 Clonazepam (KlonoPIN) 0.25 mg DAILY@1500 PO Last administered on 12/28/18 14:59 ; Start 12/19/18 at 15:00 Divalproex Sodium (Depakote Sprinkles) 500 mg BID PO Last administered on 12/22/18at 08:35; Start 12/19/18 at 21:00; Stop 12/22/18 at 17:07; Status DC Divalproex Sodium (Depakote Sprinkles) 750 mg BID PO Last administered on 9at 19:56; Start 12/22/18 at 21:00 Fluvoxamine Maleate (Luvox) 25 mg DAILY PO Last administered on 12/26/18at 08:11; Start 12/24/18 at 09:00; Stop 12/26/18 at 09:01; Status DC Fluvoxamine Maleate (Luvox) 50 mg DAILY PO Last administered on 12/28/18at 08:04; Start 12/27/18 at 09:00 Active Scripts Active [Percogesic] 1 Tab PO QID Naprosyn (Naproxen) 500 Mg Tablet 1 Tab PO BID Reported Plavix (Clopidogrel Bisulfate) 75 Mg Tablet 75 Mg PO DAILY Zofran (Ondansetron Hcl) 4 Mg Tablet 4 Mg PO PRN Q6HRS PRN [place] 5-325 Tablet (Hydrocodone Bit/Acetaminophen) 1 Each Tablet 2 Tab PO PRN Q4HRS PRN Dilantin (Phenytoin Sodium Extended) 100 Mg Capsule 300 Mg PO BID Clonazepam 0.5 Mg Tablet 0.5 Mg PO BID I have reviewed the current psychotropics carefully including drug interactions. Risk benefit ratio favors no change other than as noted in my dictated progress note. 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
--- NOTE | 2018-12-28 22:54 | PN ---
DATE: 12/27/2018 PSYCHIATRIC PROGRESS NOTE This late entry 12/27/2018 covers elements not covered in my initial note. SUBJECTIVE: I met with the patient at great length in her room. The patient reportedly has had a good day. Stitches were taken off the day before. She slept through breakfast, slept 5-1/2 hours previous night. Ammonia level is still elevated at 48, perhaps a little more than on 12/26/2018, which was at 41. She does have a history of seizure disorder, is on Depakote, which could increase ammonia level. We will consult Dr. Courtney, Neurology for possible consideration of changing Depakote to an alternate anti-seizure medication. REVIEW OF SYSTEMS: Poor vision, impaired ambulation, in wheelchair. No CV, , pulmonary, eye system symptoms on review other than above. MENTAL STATUS EXAM: Oriented to herself and situation. Speech coherent, rapid at times. Abstraction fair, computation impaired, language function intact, attention span short. Mood and affect remain somewhat anxious, labile. LABORATORY DATA: Reviewed. IMPRESSION: Unchanged from initial note. PLAN: No change from initial note other than noted above. MAN Betty THOMAS MD DR: ASHLEY/miguelito JOB#: [id number] / [id number]
[2018-12-29 05:54] VITALS: BP 104/72
[2018-12-29] MEDS: DIVALPROEX 125 MG CAP.SPRINK PO SCH ×2 (08:03→19:51)
[2018-12-29] MEDS: PHENYTOIN SODIUM EXTENDED 100 MG CAPSULE PO SCH ×2 (08:03→19:49)
[2018-12-29] MEDS: clonazePAM 0.5 MG TABLET PO SCH ×3 (08:05→19:53)
[2018-12-29] MEDS: HYDROcodone/APAP 5/325MG 1 TAB TABLET PO PRN ×2 (08:06→14:42)
--- NOTE | 2018-12-29 10:46 | NUR ---
Behavior Intervention Response and Plan: BIRP Note: Behavior: Assumed Care of patient, patient located in Patient Room at shift change. Patient exhibited the following behavior Calm, Able to Focus on Task, Compliant. Brief assessment on rounds of vital signs, medication needs, lab studies, and pain. Treatment plan problems . Intervention: Patient assessed and the following interventions initiated safety checks 15 Minute Checks Head to toe Assessment , Cognitive Assessment , Medications. Response: After interactions and interventions patient responded in the following manner, Sleeping , Withdrawn ,Cooperative. Continue to assess behaviors and condition will continue to monitor throughout the shift as needed. Patient educated on ADL's, and hand hygiene. Plan: Continue to monitor Master Treatment Plan for patient's progress toward short term goals of Improved Mood, Decreased Agitation, inspector materials and processes goals to return to previous living setting vs placement. Continue to assess patient for changes in above assessment. Monitor for medication needs, pain, and safety concerns. Hourly rounding performed to ensure safe environment.
--- NOTE | 2018-12-29 12:11 | NUR ---
FLORIDALMA returned call to Dolly, one of the volunteers at the homeless group home. Dolly just wanted to update FLORIDALMA on their visits with pt; they have told pt multiple times that she is not allowed to return to the group home, as they cannot meet her needs. FLORIDALMA did let Dolly know that pt will look towards discharge on Thursday; unless the psychiatrist has plans otherwise.
[2018-12-29 16:26] VITALS: BP 92/60
[2018-12-29] MEDS: risperiDONE 0.25 MG TABLET. PO SCH (19:48)
[2018-12-29] MEDS: traZODone 50 MG TABLET. PO SCH (19:49)
[2018-12-29] MEDS: oxyCODONE/APAP 5/325 1 TAB TABLET PO PRN (19:54)
--- NOTE | 2018-12-29 21:35 | NUR ---
Pt. is in the bathroom in her room this evening when this scientific technical writer took her medications to her. Her roommate was trying to help her in the bathroom, this scientific technical writer finish helping the pt. With a lot of encouragement she was able to pull her pants up, transfer back into her W/C and make it to her bed with this scientific technical writer doing standby assist only. She was at the chair that sit at they end of her roommate bed and asked is that my bed over their and she was pointing at her bed when she asked the question. Pt. has been cooperative with taking her HS medications this evening. Gave PRN Percocet, Per OCT because pt. was requesting it for pain.
--- NOTE | 2018-12-29 22:25 | PN ---
DATE: 12/28/2018 PSYCHIATRIC PROGRESS NOTE This late entry 12/28/2018 covers elements not covered in my initial note. SUBJECTIVE: I met with the patient in the evening of 12/28/2018 in her room at length. The patient slept 5-3/4 hours previous night. Earlier in the day per nursing report, she had urinated in a Styrofoam cup and put this in the trashcan. She stated she had been calling out to nursing staff for help, but no one had heard her. She received her pain medications x 1. Per nursing report, tearful in the morning, frequently wanting to be taken back to her bed. Her ammonia level is awaited and she is on Depakote for her seizure disorder. We have consulted Dr. Courtney for consideration of an alternate medication, but in the meantime, we are repeating ammonia level as well. REVIEW OF SYSTEMS: Poor vision, impaired ambulation, in wheelchair. No CV, , pulmonary, eye system symptoms on review. MENTAL STATUS EXAM: Oriented to herself and situation. Speech is coherent, somewhat rapid at times. Abstraction fair, computation impaired, language function intact, attention span short. Mood and affect somewhat anxious, labile. LABORATORY DATA: Reviewed. IMPRESSION: Unchanged from initial note. PLAN: No change other than above. MAHENDRA THOMAS MD DR: ASHLEY/miguelito JOB#: [id number] / [id number]
--- NOTE | 2018-12-29 22:40 | PDOC ---
Exam Note: Adolfo Note: Please also refer to the separate dictated note~for this date of service dictated separately.~Patient seen individually. Discussed the patient with Nursing staff reviewed the chart.~Reviewed interim history and current functioning. Reviewed vital signs,~Labs/ Radiology~and current medications noted below. Continue current treatment with the changes noted in the dictated addendum note Assessment: Vital Signs: Vital Signs Date Time Temp Pulse Resp B/P (MAP) Pulse Ox O2 Delivery O2 Flow Rate FiO2 12/29/18 20:50 18 96 12/29/18 16:26 97.8 65 92/60 (71) 12/29/18 05:54 Room Air I&O Intake and Output 12/29/18 06:59 Intake Total 1000 ml Balance 1000 ml Intake Oral 1000 ml # Voids 1 Labs: Laboratory Tests Test 12/29/18 07:55 Ammonia < 10 mcmol/L (11-34) L Current Medications: Meds: Current Medications Oxycodone/ Acetaminophen (Percocet 5/325) 2 tab 1X ONCE PO Last administered on 12/01/18 18:23; Start 12/01/18 at 18:30; Stop 12/01/18 at 18:31; Status DC Enoxaparin Sodium (Lovenox 80mg Syringe) 80 mg 1X ONCE SQ Last administered on 12/01/18 18:23; Start 12/01/18 at 18:30; Stop 12/01/18 at 18:31; Status DC Albuterol/ Ipratropium (Duoneb) 3 ml RTQID NEB Last administered on 12/02/18 16:32; Start 12/01/18 at 20:00; Stop 12/02/18 at 19:59; Status DC Oxycodone/ Acetaminophen (Percocet 5/325) 2 tab QIDPRN PRN PO MARKED PAIN Last administered on 12/29/18 19:54; Start 12/01/18 at 18:15 Clonazepam (KlonoPIN) 0.5 mg BID PO Last administered on 12/29/18 19:53; Start 12/01/18 at 21:00 Acetaminophen/ Hydrocodone Bitart (Lortab 5/325) 2 tab PRN Q4HRS PRN PO PAIN Last administered on 12/29/18 14:42; Start 12/01/18 at 21:00 Ondansetron HCl (Zofran Odt) 4 mg PRN Q6HRS PRN PO NAUSEA/VOMITING; Start 12/01/18 at 21:00 Phenytoin Sodium (Dilantin) 300 mg BID PO Last administered on 12/29/18 19:49; Start 12/01/18 at 21:00 Acetaminophen (Tylenol) 650 mg PRN Q6HRS PRN PO PAIN / TEMP Last administered on 12/03/18at 18:11; Start 12/01/18 at 23:30 Multi-Ingredient Ointment (Analgesic [place]) 1 miley PRN QID PRN TP MUSCLE PAIN; Start 12/01/18 at 23:30 Al Hydroxide/Mg Hydroxide (Mylanta Plus Xs) 15 ml PRN AFTMEALHC PRN PO DYSPEPSIA; Start 12/01/18 at 23:30 Magnesium Hydroxide (Milk Of Magnesia) 2,400 mg PRN QHS PRN PO CONSTIPATION; Start 12/01/18 at 23:30 Risperidone (RisperDAL) 0.25 mg HS PO Last administered on 12/03/18at 20:08; Start 12/03/18 at 21:00; Stop 12/04/18 at 18:21; Status DC Risperidone (RisperDAL) 0.75 mg HS PO Last administered on 12/29/18 19:48; Start 12/04/18 at 21:00 Risperidone (RisperDAL) 0.5 mg PRN Q6HRS PRN PO ANXIETY; Start 12/06/18 at 18:30 Divalproex Sodium (Depakote Sprinkles) 125 mg BID PO Last administered on 12/14/18at 07:34; Start 12/08/18 at 21:00; Stop 12/14/18 at 17:38; Status DC Divalproex Sodium (Depakote Sprinkles) 250 mg BID PO Last administered on 12/19/18 07:53; Start 12/14/18 at 21:00; Stop 12/19/18 at 17:49; Status DC Trazodone HCl (Desyrel) 50 mg QHS PO Last administered on 12/29/18 19:49; Start 12/17/18 at 21:00 Trazodone HCl (Desyrel) 50 mg PRN QHS PRN PO INSOMNIA; Start 12/17/18 at 19:00 Clonazepam (KlonoPIN) 0.25 mg DAILY@1500 PO Last administered on 12/29/18 14:47; Start 12/19/18 at 15:00 Divalproex Sodium (Depakote Sprinkles) 500 mg BID PO Last administered on 12/22/18 08:35; Start 12/19/18 at 21:00; Stop 12/22/18 at 17:07; Status DC Divalproex Sodium (Depakote Sprinkles) 750 mg BID PO Last administered on 12/29/18 08:03; Start 12/22/18 at 21:00; Stop 12/29/18 at 17:20; Status DC Fluvoxamine Maleate (Luvox) 25 mg DAILY PO Last administered on 12/26/18 08:11; Start 12/24/18 at 09:00; Stop 12/26/18 at 09:01; Status DC Fluvoxamine Maleate (Luvox) 50 mg DAILY PO Last administered on 12/29/18 08:03; Start 12/27/18 at 09:00 Divalproex Sodium (Depakote Sprinkles) 1,000 mg BID PO Last administered on 12/29/18 19:51; Start 12/29/18 at 21:00 Active Scripts Active [Percogesic] 1 Tab PO QID Naprosyn (Naproxen) 500 Mg Tablet 1 Tab PO BID Reported Plavix (Clopidogrel Bisulfate) 75 Mg Tablet 75 Mg PO DAILY Zofran (Ondansetron Hcl) 4 Mg Tablet 4 Mg PO PRN Q6HRS PRN [place] 5-325 Tablet (Hydrocodone Bit/Acetaminophen) 1 Each Tablet 2 Tab PO PRN Q4HRS PRN Dilantin (Phenytoin Sodium Extended) 100 Mg Capsule 300 Mg PO BID Clonazepam 0.5 Mg Tablet 0.5 Mg PO BID I have reviewed the current psychotropics carefully including drug interactions. Risk benefit ratio favors no change other than as noted in my dictated progress note. 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
[2018-12-30] MEDS: HYDROcodone/APAP 5/325MG 1 TAB TABLET PO PRN ×2 (00:16→14:16)
[2018-12-30 05:51] VITALS: BP 124/80
--- NOTE | 2018-12-30 06:22 | NUR ---
Pt. during the night was notice to be sitting in the hallway on the floor. Pt. denies any new pain, V/S obtained and pt. was assisted up into her W/C and taken to the bathroom. Pt. stated that "I thought it would be quicker to crawl because I had pee running down my leg" Their was no pee on the floor in her room or in the hallway. V/S within normal accept her BP was slightly low 95/58. BP was reassess later on and it was 124/80. Pt. have not requested any more pain medicine then what she usually does during the evening/night.
[2018-12-30 07:18] LABS: BASO % 1 % (0-3); EOS # 0.2 x10^3/uL (0.0-0.7); EOS % 3 % (0-3); HEMOGLOBIN 13.1 g/dL (12.0-15.5); LYMPH # 2.5 x10^3/uL (1.0-4.8); LYMPH % 29 % (24-48); MEAN CORPUSCULAR HEMOGLOBIN 33 pg (25-35); MEAN CORPUSCULAR HGB CONC 34 g/dL (31-37); MEAN CORPUSCULAR VOLUME 98 fL (79-100); MONO # 0.6 x10^3/uL (0.0-1.1); MONO % 7 % (0-9); NEUT # 5.4 x10^3uL (1.8-7.7); NEUT % 62 % (31-73); PLATELET COUNT 368 x10^3/uL (140-400); RED BLOOD COUNT 3.99 x10^6/uL (3.50-5.40); RED CELL DISTRIBUTION WIDTH 15.1 % (11.5-14.5); WHITE BLOOD COUNT 8.7 x10^3/uL (4.0-11.0)
[2018-12-30 07:32] LABS: ALBUMIN 3.1 g/dL (3.4-5.0); ALBUMIN/GLOBULIN RATIO 0.8 (1.0-1.7); GFR 58.2; POTASSIUM 4.2 mmol/L (3.5-5.1); TOTAL BILIRUBIN 0.2 mg/dL (0.2-1.0); TOTAL PROTEIN 6.8 g/dL (6.4-8.2)
[2018-12-30] MEDS: DIVALPROEX 125 MG CAP.SPRINK PO SCH ×2 (07:51→19:17)
[2018-12-30] MEDS: PHENYTOIN SODIUM EXTENDED 100 MG CAPSULE PO SCH ×2 (07:52→19:17)
[2018-12-30] MEDS: clonazePAM 0.5 MG TABLET PO SCH ×3 (07:52→19:20)
[2018-12-30] MEDS: oxyCODONE/APAP 5/325 1 TAB TABLET PO PRN ×2 (09:12→19:21)
--- NOTE | 2018-12-30 09:44 | NUR ---
WEEKLY ACTIVITY THERAPY NOTE Date of Admission: 12/02/2018 Date of AT Assessment: 12/05/2018 Goal aimed: to increase engagement for a at least 30 minutes at a time Initial goal: Pt. will participate in at least one Activity Therapy group per day, at least moderately. Weekly progress towards goal: did not achieve Group participation level: minimal Weekly highlights: full participation in activity on Thursday morning Behavioral observed: sleepy, four days without participation in activities, around the day room half the week Plan: no change to goal Beneficial adaptations: enjoys music groups and music to help deescalate, cog stim
--- NOTE | 2018-12-30 10:16 | NUR ---
WEEKLY NOTE: Pt averaged 6 hours of sleep and eating roughly 75% of meals. Pt is medication seeking and attention seeks due to her "inability to see". Pt sutures were just removed this past weekend and has minimal group participation. Pt reports being tired more but not having any behaviors. Pt to discharge to [place] on Thursday.
--- NOTE | 2018-12-30 10:58 | NUR ---
Nursing Note: On initial meeting, pt pleasant and cooperative with this nurse. Pt took medications without issue and was conversing and joking with this nurse. Pt then requested for this nurse to assist her from the dining room to her room. When this nurse told her that she would have to wait until this nurse had completed her current task, the pt became upset and stated to this nurse "I hate sitting in here! Why can't you just take me now?" Pt attempted to curl in on herself and looked as if she were crying, however no tears were observed. When pt moved to the day room following breakfast, pt became agitated and started yelling out. When this nurse spoke with her, she stated that it had been hours since she'd had any pain medication and she was in pain. PRN Percocet administered as ordered and pt has been calm and cooperative. Continue to monitor.
[2018-12-30 15:51] VITALS: BP 109/73
[2018-12-30] MEDS: traZODone 50 MG TABLET. PO SCH (19:17)
[2018-12-30] MEDS: risperiDONE 0.25 MG TABLET. PO SCH (19:17)
--- NOTE | 2018-12-30 22:12 | NUR ---
Pt laying in bed with eyes closed at shift change. Pt calm and cooperative, c/o bilateral foot pain, requesting Percocet. PRN Percocet administered as ordered. Pt compliant with assessment and medications.
--- NOTE | 2018-12-30 22:32 | PDOC ---
Exam Note: Adolfo Note: Please also refer to the separate dictated note~for this date of service dictated separately.~Patient seen individually. Discussed the patient with Nursing staff reviewed the chart.~Reviewed interim history and current functioning. Reviewed vital signs,~Labs/ Radiology~and current medications noted below. Continue current treatment with the changes noted in the dictated addendum note Assessment: Vital Signs: Vital Signs Date Time Temp Pulse Resp B/P (MAP) Pulse Ox O2 Delivery O2 Flow Rate FiO2 12/30/18 20:21 95 12/30/18 15:51 98.2 69 20 109/73 (85) Room Air I&O Intake and Output 12/30/18 07:00 Intake Total 1200 ml Balance 1200 ml Intake Oral 1200 ml Labs: Laboratory Tests Test 12/30/18 07:02 White Blood Count 8.7 x10^3/uL (4.0-11.0) Red Blood Count 3.99 x10^6/uL (3.50-5.40) Hemoglobin 13.1 g/dL (12.0-15.5) Hematocrit 39.0 % (36.0-47.0) Mean Corpuscular Volume 98 fL (79-100) Mean Corpuscular Hemoglobin 33 pg (25-35) Mean Corpuscular Hemoglobin Concent 34 g/dL (31-37) Red Cell Distribution Width 15.1 % (11.5-14.5) H Platelet Count 368 x10^3/uL (140-400) Neutrophils (%) (Auto) 62 % (31-73) Lymphocytes (%) (Auto) 29 % (24-48) Monocytes (%) (Auto) 7 % (0-9) Eosinophils (%) (Auto) 3 % (0-3) Basophils (%) (Auto) 1 % (0-3) Neutrophils # (Auto) 5.4 x10^3uL (1.8-7.7) Lymphocytes # (Auto) 2.5 x10^3/uL (1.0-4.8) Monocytes # (Auto) 0.6 x10^3/uL (0.0-1.1) Eosinophils # (Auto) 0.2 x10^3/uL (0.0-0.7) Basophils # (Auto) 0.0 x10^3/uL (0.0-0.2) Sodium Level 142 mmol/L (136-145) Potassium Level 4.2 mmol/L (3.5-5.1) Chloride Level 105 mmol/L (98-107) Carbon Dioxide Level 30 mmol/L (21-32) Anion Gap 7 (6-14) Blood Urea Nitrogen 26 mg/dL (7-20) H Creatinine 1.0 mg/dL (0.6-1.0) Estimated GFR (Cockcroft-Gault) 58.2 BUN/Creatinine Ratio 26 (6-20) H Glucose Level 109 mg/dL (70-99) H Calcium Level 9.0 mg/dL (8.5-10.1) Total Bilirubin 0.2 mg/dL (0.2-1.0) Aspartate Amino Transferase (AST) 15 U/L (15-37) Alanine Aminotransferase (ALT) 12 U/L (14-59) L Alkaline Phosphatase 120 U/L (46-116) H Total Protein 6.8 g/dL (6.4-8.2) Albumin 3.1 g/dL (3.4-5.0) L Albumin/Globulin Ratio 0.8 (1.0-1.7) L Current Medications: Meds: Current Medications Oxycodone/ Acetaminophen (Percocet 5/325) 2 tab 1X ONCE PO Last administered on 12/01/18at 18:23; Start 12/01/18 at 18:30; Stop 12/01/18 at 18:31; Status DC Enoxaparin Sodium (Lovenox 80mg Syringe) 80 mg 1X ONCE SQ Last administered on 12/01/18 18:23; Start 12/01/18 at 18:30; Stop 12/01/18 at 18:31; Status DC Albuterol/ Ipratropium (Duoneb) 3 ml RTQID NEB Last administered on 12/02/18at 16:32; Start 12/01/18 at 20:00; Stop 12/02/18 at 19:59; Status DC Oxycodone/ Acetaminophen (Percocet 5/325) 2 tab QIDPRN PRN PO MARKED PAIN Last administered on 12/30/18 19:21; Start 12/01/18 at 18:15 Clonazepam (KlonoPIN) 0.5 mg BID PO Last administered on 12/30/18 19:20; Start 12/01/18 at 21:00 Acetaminophen/ Hydrocodone Bitart (Lortab 5/325) 2 tab PRN Q4HRS PRN PO PAIN Last administered on 12/30/18 14:16; Start 12/01/18 at 21:00 Ondansetron HCl (Zofran Odt) 4 mg PRN Q6HRS PRN PO NAUSEA/VOMITING; Start 12/01/18 at 21:00 Phenytoin Sodium (Dilantin) 300 mg BID PO Last administered on 12/30/18 19:17; Start 12/01/18 at 21:00 Acetaminophen (Tylenol) 650 mg PRN Q6HRS PRN PO PAIN / TEMP Last administered on 12/03/18 18:11; Start 12/01/18 at 23:30 Multi-Ingredient Ointment (Analgesic [place]) 1 miley PRN QID PRN TP MUSCLE PAIN; Start 12/01/18 at 23:30 Al Hydroxide/Mg Hydroxide (Mylanta Plus Xs) 15 ml PRN AFTMEALHC PRN PO DYSPEPSIA; Start 12/01/18 at 23:30 Magnesium Hydroxide (Milk Of Magnesia) 2,400 mg PRN QHS PRN PO CONSTIPATION; Start 12/01/18 at 23:30 Risperidone (RisperDAL) 0.25 mg HS PO Last administered on 12/03/18 20:08; Start 12/03/18 at 21:00; Stop 12/04/18 at 18:21; Status DC Risperidone (RisperDAL) 0.75 mg HS PO Last administered on 12/30/18 19:17; Start 12/04/18 at 21:00 Risperidone (RisperDAL) 0.5 mg PRN Q6HRS PRN PO ANXIETY; Start 12/06/18 at 18:30 Divalproex Sodium (Depakote Sprinkles) 125 mg BID PO Last administered on 12/14/18 07:34; Start 12/08/18 at 21:00; Stop 12/14/18 at 17:38; Status DC Divalproex Sodium (Depakote Sprinkles) 250 mg BID PO Last administered on 12/19/18 07:53; Start 12/14/18 at 21:00; Stop 12/19/18 at 17:49; Status DC Trazodone HCl (Desyrel) 50 mg QHS PO Last administered on 12/30/18at 19:17; Start 12/17/18 at 21:00 Trazodone HCl (Desyrel) 50 mg PRN QHS PRN PO INSOMNIA; Start 12/17/18 at 19:00 Clonazepam (KlonoPIN) 0.25 mg DAILY@1500 PO Last administered on 12/30/18at 14:16; Start 12/19/18 at 15:00 Divalproex Sodium (Depakote Sprinkles) 500 mg BID PO Last administered on 12/22/18at 08:35; Start 12/19/18 at 21:00; Stop 12/22/18 at 17:07; Status DC Divalproex Sodium (Depakote Sprinkles) 750 mg BID PO Last administered on 12/29/18at 08:03; Start 12/22/18 at 21:00; Stop 12/29/18 at 17:20; Status DC Fluvoxamine Maleate (Luvox) 25 mg DAILY PO Last administered on 12/26/18at 08:11; Start 12/24/18 at 09:00; Stop 12/26/18 at 09:01; Status DC Fluvoxamine Maleate (Luvox) 50 mg DAILY PO Last administered on 12/30/18at 07:52; Start 12/27/18 at 09:00 Divalproex Sodium (Depakote Sprinkles) 1,000 mg BID PO Last administered on 12/30/18at 19:17; Start 12/29/18 at 21:00 Active Scripts Active [Percogesic] 1 Tab PO QID Naprosyn (Naproxen) 500 Mg Tablet 1 Tab PO BID Reported Plavix (Clopidogrel Bisulfate) 75 Mg Tablet 75 Mg PO DAILY Zofran (Ondansetron Hcl) 4 Mg Tablet 4 Mg PO PRN Q6HRS PRN [place] 5-325 Tablet (Hydrocodone Bit/Acetaminophen) 1 Each Tablet 2 Tab PO PRN Q4HRS PRN Dilantin (Phenytoin Sodium Extended) 100 Mg Capsule 300 Mg PO BID Clonazepam 0.5 Mg Tablet 0.5 Mg PO BID I have reviewed the current psychotropics carefully including drug interactions. Risk benefit ratio favors no change other than as noted in my dictated progress note. 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
[2018-12-31] MEDS ORDERED: ACET325T21 PO (00:32)
[2018-12-31] MEDS ORDERED: MAG355OR17 PO (00:33)
[2018-12-31] MEDS ORDERED: DIVA125C2 PO (00:33)
[2018-12-31] MEDS ORDERED: MAGN2400 PO (00:34)
[2018-12-31] MEDS ORDERED: METH29OI TP (00:34)
[2018-12-31] MEDS ORDERED: FLUV50TA2 PO (00:35)
[2018-12-31] MEDS ORDERED: CLON0.5T11 PO (00:35)
[2018-12-31] MEDS ORDERED: OXYC1TAB15 PO (00:36)
[2018-12-31] MEDS ORDERED: RISP0.5T3 PO ×3 (00:36→00:37)
[2018-12-31] MEDS ORDERED: TRAZ-120 PO ×2 (00:38)
[2018-12-31] MEDS: oxyCODONE/APAP 5/325 1 TAB TABLET PO PRN ×2 (04:27→09:34)
[2018-12-31 06:21] VITALS: BP 100/70
[2018-12-31] MEDS: PHENYTOIN SODIUM EXTENDED 100 MG CAPSULE PO SCH (07:38)
[2018-12-31] MEDS: DIVALPROEX 125 MG CAP.SPRINK PO SCH (07:39)
[2018-12-31] MEDS: clonazePAM 0.5 MG TABLET PO SCH (07:40)
--- NOTE | 2018-12-31 09:49 | NUR ---
Behavior Intervention Response and Plan: BIRP Note: Behavior: Assumed Care of patient, patient located in Dining Room at shift change. Patient exhibited the following behavior Attention Seeking, Medication Seeking, Compliant. Brief assessment on rounds of vital signs, medication needs, lab studies, and pain. Treatment plan problems . Intervention: Patient assessed and the following interventions initiated safety checks 15 Minute Checks Cognitive Assessment , Head to toe Assessment , Medications. Response: After interactions and interventions patient responded in the following manner, Compliant , Medication Seeking ,Compliant. Continue to assess behaviors and condition will continue to monitor throughout the shift as needed. Patient educated on ADL's, and hand hygiene. Plan: Continue to monitor Master Treatment Plan for patient's progress toward short term goals of Decreased Agitation, Decreased Anxiety, detention goals to return to previous living setting vs placement. Continue to assess patient for changes in above assessment. Monitor for medication needs, pain, and safety concerns. Hourly rounding performed to ensure safe environment.
--- NOTE | 2018-12-31 11:43 | NUR ---
[facility] Social Work Discharge Planning Form Patient Name OUMOU GRAVES Admit Date: 12-01-2018 DISCHARGE PLAN Discharge Destination: [facility] Transportation: Access Transport DISCHARGE TO FACILITY Facility: [facility] Address: [address] [place] [address] Contact Name: FLORIDALMA Sheppard, Other: Adminstrator
--- NOTE | 2018-12-31 12:03 | NUR ---
Transition Record was faxed to follow-up provider with the following elements: Reason for admission, procedures, tests, principal diagnosis, pending studies, patient instructions, 16/03 contact information for unit, phone number to obtain pending test results, plan for follow-up care, physician follow-up, advanced directive information, and medication list with dose, duration and instructions. This information was included in the following documents: History and physical, lab results, study results, progress notes, social work planning form, DC instruction form, patient visit summary, and medication reconciliation form. Date & time record faxed:12/31/18 [id number] Record faxed to: [facility] Record discussed with/ report given to: Fernanda
--- NOTE | 2018-12-31 12:45 | NUR ---
Discussed with Nicki, [employer] at [facility] regarding patient transfer time and return to facility needs. [employer] unaware of patient return, discussed SW Ayse, Malaika, and Samson notified of patient return. [employer] requested transfer paperwork to be re faxed as Her sw did not give the patient information packet. Information faxed and confirmation received. Discussed with network engineer administrator patient behaviors are not as when she arrived to unit , patient needs firm and clean boundary setting, and to allow patient to adjust back to new environment before attempting to send her out again. NO questions or concerns voiced at this time.
--- NOTE | 2018-12-31 20:29 | PN ---
DATE: 12/29/2018 PSYCHIATRIC PROGRESS NOTE This late entry 12/29/2018 covers elements not covered in my initial note. SUBJECTIVE: I met with the patient in the evening of 12/29/2018. The patient slept 5-1/2 hours previous night. She is frequently wanting staff to do things that she can even do for herself. She has been running her wheelchair into the wall, ammonia level has dropped back to below 10, and mood lability persists. REVIEW OF SYSTEMS: Ambulation impaired, in wheelchair, poor vision. No CV, GI, , ENT system symptoms on review. MENTAL STATUS EXAM: Oriented to herself, at times situation. Speech has some latency, coherent. Abstraction fair, computation impaired, language function intact, attention span short. Mood and affect somewhat anxious, labile at times. LABORATORY DATA: Reviewed. IMPRESSION: Unchanged from initial note. PLAN: Increase Depakote Sprinkles from 750 b.i.d. to 1000 mg b.i.d. Check CBC, CMP, valproic acid level, ammonia level in 3 days. Adjust further as clinically indicated. Rest unchanged. MAN Betty THOMAS MD DR: ASHLEY/miguelito JOB#: [id number] / [id number]
--- NOTE | 2018-12-31 22:24 | PDOC ---
Exam Note: Adolfo Note: Please also refer to the separate dictated note~for this date of service dictated separately.~Patient seen individually. Discussed the patient with Nursing staff reviewed the chart.~Reviewed interim history and current functioning. Reviewed vital signs,~Labs/ Radiology~and current medications noted below. Continue current treatment with the changes noted in the dictated addendum note Assessment: Vital Signs: Vital Signs Date Time Temp Pulse Resp B/P (MAP) Pulse Ox O2 Delivery O2 Flow Rate FiO2 12/31/18 06:21 97.8 70 20 100/70 (80) 100 12/30/18 15:51 Room Air I&O Intake and Output 12/31/18 07:00 Intake Total 960 ml Balance 960 ml Intake Oral 960 ml Current Medications: Meds: Current Medications Oxycodone/ Acetaminophen (Percocet 5/325) 2 tab 1X ONCE PO Last administered on 12/01/18 18:23; Start 12/01/18 at 18:30; Stop 12/01/18 at 18:31; Status DC Enoxaparin Sodium (Lovenox 80mg Syringe) 80 mg 1X ONCE SQ Last administered on 12/01/18at 18:23; Start 12/01/18 at 18:30; Stop 12/01/18 at 18:31; Status DC Albuterol/ Ipratropium (Duoneb) 3 ml RTQID NEB Last administered on 12/02/18at 16:32; Start 12/01/18 at 20:00; Stop 12/02/18 at 19:59; Status DC Oxycodone/ Acetaminophen (Percocet 5/325) 2 tab QIDPRN PRN PO MARKED PAIN Last administered on 12/31/18 09:34; Start 12/01/18 at 18:15; Stop 12/31/18 at 12:07; Status DC Clonazepam (KlonoPIN) 0.5 mg BID PO Last administered on 12/31/18 07:40; Start 12/01/18 at 21:00; Stop 12/31/18 at 12:07; Status DC Acetaminophen/ Hydrocodone Bitart (Lortab 5/325) 2 tab PRN Q4HRS PRN PO PAIN Last administered on 12/30/18 14:16; Start 12/01/18 at 21:00; Stop 12/31/18 at 12:07; Status DC Ondansetron HCl (Zofran Odt) 4 mg PRN Q6HRS PRN PO NAUSEA/VOMITING; Start 12/01/18 at 21:00; Stop 12/31/18 at 12:07; Status DC Phenytoin Sodium (Dilantin) 300 mg BID PO Last administered on 12/31/18at 07:38; Start 12/01/18 at 21:00; Stop 12/31/18 at 12:07; Status DC Acetaminophen (Tylenol) 650 mg PRN Q6HRS PRN PO PAIN / TEMP Last administered on 12/03/18at 18:11; Start 12/01/18 at 23:30; Stop 12/31/18 at 12:07; Status DC Multi-Ingredient Ointment (Analgesic [place]) 1 dorothea PRN QID PRN TP MUSCLE PAIN; Start 12/01/18 at 23:30; Stop 12/31/18 at 12:07; Status DC Al Hydroxide/Mg Hydroxide (Mylanta Plus Xs) 15 ml PRN AFTMEALHC PRN PO DYSPEPSIA; Start 12/01/18 at 23:30; Stop 12/31/18 at 12:07; Status DC Magnesium Hydroxide (Milk Of Magnesia) 2,400 mg PRN QHS PRN PO CONSTIPATION; Start 12/01/18 at 23:30; Stop 12/31/18 at 12:07; Status DC Risperidone (RisperDAL) 0.25 mg HS PO Last administered on 12/03/18at 20:08; Start 12/03/18 at 21:00; Stop 12/04/18 at 18:21; Status DC Risperidone (RisperDAL) 0.75 mg HS PO Last administered on 12/30/18at 19:17; Start 12/04/18 at 21:00; Stop 12/31/18 at 12:07; Status DC Risperidone (RisperDAL) 0.5 mg PRN Q6HRS PRN PO ANXIETY; Start 12/06/18 at 18:30; Stop 12/31/18 at 12:07; Status DC Divalproex Sodium (Depakote Sprinkles) 125 mg BID PO Last administered on 12/14/18at 07:34; Start 12/08/18 at 21:00; Stop 12/14/18 at 17:38; Status DC Divalproex Sodium (Depakote Sprinkles) 250 mg BID PO Last administered on 12/19/18at 07:53; Start 12/14/18 at 21:00; Stop 12/19/18 at 17:49; Status DC Trazodone HCl (Desyrel) 50 mg QHS PO Last administered on 12/30/18at 19:17; Start 12/17/18 at 21:00; Stop 12/31/18 at 12:07; Status DC Trazodone HCl (Desyrel) 50 mg PRN QHS PRN PO INSOMNIA; Start 12/17/18 at 19:00; Stop 12/31/18 at 12:07; Status DC Clonazepam (KlonoPIN) 0.25 mg DAILY@1500 PO Last administered on 12/30/18at 14:16; Start 12/19/18 at 15:00; Stop 12/31/18 at 12:07; Status DC Divalproex Sodium (Depakote Sprinkles) 500 mg BID PO Last administered on 12/22/18at 08:35; Start 12/19/18 at 21:00; Stop 12/22/18 at 17:07; Status DC Divalproex Sodium (Depakote Sprinkles) 750 mg BID PO Last administered on 12/29/18at 08:03; Start 12/22/18 at 21:00; Stop 12/29/18 at 17:20; Status DC Fluvoxamine Maleate (Luvox) 25 mg DAILY PO Last administered on 12/26/18at 08:11; Start 12/24/18 at 09:00; Stop 12/26/18 at 09:01; Status DC Fluvoxamine Maleate (Luvox) 50 mg DAILY PO Last administered on 12/31/18at 07:38; Start 12/27/18 at 09:00; Stop 12/31/18 at 12:07; Status DC Divalproex Sodium (Depakote Sprinkles) 1,000 mg BID PO Last administered on 12/31/18at 07:39; Start 12/29/18 at 21:00; Stop 12/31/18 at 12:07; Status DC Active Scripts Active Reported Trazodone Hcl 50 Mg Tablet 50 Mg PO PRN QHS PRN Trazodone Hcl 50 Mg Tablet 50 Mg PO QHS Risperidone 0.5 Mg Tablet 0.5 Mg PO PRN Q6HRS PRN Risperidone 0.5 Mg Tablet 0.75 Mg PO QHS Percocet 5-325 Mg Tablet (Oxycodone Hcl/Acetaminophen) 1 Each Tablet 2 Tab PO PRN QID PRN Fluvoxamine Maleate 50 Mg Tablet 50 Mg PO DAILY Clonazepam 0.5 Mg Tablet 0.25 Mg PO DAILY @1500 Analgesic [place] (Methyl Salicylate/Menthol) 28 Gm Oint...g. 1 Dorothea TP PRN QID PRN Milk Of Magnesia (Magnesium Hydroxide) 2,400 Mg/10 Ml Oral.susp 2,400 Mg PO PRN QHS PRN Advanced Antacid Liquid (Mag Hydrox/Al Hydrox/Simeth) 355 Ml Oral.susp 15 Ml PO PRN AFTMEALHC PRN Depakote Sprinkle (Divalproex Sodium) 125 Mg Cap.sprink 1,000 Mg PO BID Acetaminophen 325 Mg Tablet 650 Mg PO PRN Q6HRS PRN Zofran (Ondansetron Hcl) 4 Mg Tablet 4 Mg PO PRN Q6HRS PRN [place] 5-325 Tablet (Hydrocodone Bit/Acetaminophen) 1 Each Tablet 2 Tab PO PRN Q4HRS PRN Dilantin (Phenytoin Sodium Extended) 100 Mg Capsule 300 Mg PO BID Clonazepam 0.5 Mg Tablet 0.5 Mg PO BID I have reviewed the current psychotropics carefully including drug interactions. Risk benefit ratio favors no change other than as noted in my dictated progress note. 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
--- NOTE | 2018-12-31 22:34 | PN ---
DATE: 12/30/2018 PSYCHIATRIC PROGRESS NOTE This late entry 12/30/2018 covers elements not covered in my initial note. SUBJECTIVE: I met with the patient in the evening. Staffed at treatment team meeting with the entire team in the morning. The patient slept 6-1/4 hours. Appetite 60%. She remains somewhat attention seeking, medication seeking per nursing report. 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 She seems calmer. REVIEW OF SYSTEMS: Ambulation impaired, in wheelchair. No CV, , pulmonary, eye, ENT system symptoms on review. Vision is poor. MENTAL STATUS EXAM: Oriented to herself. Insight, judgment, recent and remote memory, attention, concentration, fund of knowledge poor, consistent with her diagnosis mentioned in my initial note. PLAN: No change from initial note with possible transition to snf 12/31/2018. MAN Betty THOMAS MD DR: ASHLEY/miguelito JOB#: [id number] / [id number]
--- NOTE | 2019-01-01 07:15 | DS ---
DATE OF DISCHARGE: 12/31/2018 This is a late entry 12/31/2018 covers elements not covered in my initial note. REASON FOR ADMISSION: Please refer to the admission history for details. Briefly, the patient is a 53-year-old female referred to us from [facility] by her primary care physician on account of marked worsening of her mood lability and agitation. She was throwing food, yelling, cursing at staff, having auditory and visual hallucinations, paranoid that others were sleeping with her . She was aggressive to staff, totally unmanageable, had failed outpatient psychiatric interventions. SIGNIFICANT FINDINGS AND CLINICAL COURSE: Following admission, the patient was seen daily individually by myself from a psychiatric standpoint. Medical followup with Dr. Evans. The patient was extremely anxious, labile, yelling, screaming initially. Adjustments were made in her psychotropics since she seemed to respond to a combination of Risperdal 0.75 mg at bedtime, Klonopin 0.5 mg b.i.d. and 0.25 mg at 1500. Depakote Sprinkles 1000 mg b.i.d. with a therapeutic valproic acid level and CBC, CMP, valproic acid level, ammonia level should be checked in 5 days post-discharge. At one point, her ammonia was elevated. We did not change the Depakote. Dr. Courtney did consult on her for her seizure disorder since she was on Depakote, but the ammonia level seemed to return to normal without any further changes in medications. She was also extremely obsessive and was on Luvox 50 mg daily with significant improvement. Trazodone was 50 mg at bedtime, may repeat x 1 for insomnia prior to discharge on 12/31/2018. REVIEW OF SYSTEMS: Poor vision, impaired ambulation, in wheelchair. No CV, GI, , ENT system symptoms on review. Reliability poor. MENTAL STATUS EXAM: Oriented to herself, at times situation. Speech coherent, less pressured. Abstraction fair, computation impaired, language function intact, attention span short. Mood and affect less labile. CONDITION AT DISCHARGE: Improved. FINAL DIAGNOSES: Major neurocognitive disorder, multifactorial, possibly due to past alcohol, polysubstance abuse, vascular, Alzheimer's with delusion, depression, behavioral disturbance, anxiety disorder, unspecified; impulse control disorder, unspecified; probable schizoaffective disorder, bipolar type, mixed with psychotic features, in partial remission. Rest unchanged from admission. DISCHARGE MEDICATIONS: Please refer to the MRAD. Close followup of her labs on the Depakote including ammonia level should be done at the long-term as noted above. DISCHARGE INSTRUCTIONS: Outpatient psychiatric and medical followup at the long-term. Time for discharge day management is greater than 30 minutes. MAHENDRA THOMAS MD DR: ASHLEY/miguelito JOB#: [id number] / [id number]
== END 2018-12-31 12:00 | DRG 56 ==
LOC: ER 16:49 → GEROPSY 18:40
PROVIDERS: ADMIT Psychiatry & Neurology Psychiatry; ATTEND Psychiatry & Neurology Psychiatry
DX: G30.9 Alzheimer's disease, unspecified (principal); E43 Unspecified severe protein-calorie malnutrition; F23 Brief psychotic disorder; F02.81 Dementia in other diseases classified elsewhere, unspecified severity, with behavioral disturbance; F31.60 Bipolar disorder, current episode mixed, unspecified; F01.51 Vascular dementia, unspecified severity, with behavioral disturbance; J44.9 Chronic obstructive pulmonary disease, unspecified; F17.210 Nicotine dependence, cigarettes, uncomplicated; G47.00 Insomnia, unspecified; E11.51 Type 2 diabetes mellitus with diabetic peripheral angiopathy without gangrene; G40.909 Epilepsy, unspecified, not intractable, without status epilepticus; I12.9 Hypertensive chronic kidney disease with stage 1 through stage 4 chronic kidney disease, or unspecified chronic kidney disease; N18.9 Chronic kidney disease, unspecified; F60.3 Borderline personality disorder; F41.9 Anxiety disorder, unspecified; E03.9 Hypothyroidism, unspecified; E11.22 Type 2 diabetes mellitus with diabetic chronic kidney disease; F14.10 Cocaine abuse, uncomplicated; F63.9 Impulse disorder, unspecified; G89.29 Other chronic pain; H40.9 Unspecified glaucoma; H54.8 Legal blindness, as defined in USA; Z59.0 Homelessness; Z68.27 Body mass index [BMI] 27.0-27.9, adult; Z89.432 Acquired absence of left foot; Z91.14 Patient's other noncompliance with medication regimen; Z91.19 Patient's noncompliance with other medical treatment and regimen; Z85.118 Personal history of other malignant neoplasm of bronchus and lung; Z88.6 Allergy status to analgesic agent; Z86.718 Personal history of other venous thrombosis and embolism; Z86.73 Personal history of transient ischemic attack (TIA), and cerebral infarction without residual deficits; Z79.899 Other long term (current) drug therapy; Z89.431 Acquired absence of right foot
CPT/HCPCS: 36415; 70450; 71045; 80053; 80061; 80164; 80185; 81001; 82140; 82306; 82947; 83036; 83540; 83550; 83735; 84436; 84443; 84480; 85025; 85027; 86592; 93005; 93971; 94640; 96372; J1650; J7620; 99285-25

== ENCOUNTER 2019-06-30 14:24 | Inpatient (IN) | payer OTHER ==
[~2019-06-30] VITALS: Ht 167.6 cm; Wt 81.2 kg
[~2019-06-30 14:24] MED LIST changes: +ACET325T21 PO; +CLON0.5T4 PO; +CLOP75TA57 PO; +DIVA125C2 PO; +FLUV50TA2 PO; +HYDR-3165 PO; +MAG355OR17 PO; +MAGN2400 PO; +METH28OI2 TP; +ONDA4TAB7 PO; +OXYC1TAB15 PO; +PHEN100C PO; +RISP0.5T3 PO; +TRAZ-120 PO
--- NOTE | 2019-06-30 14:51 | EKG ---
[address] [address] Test Date: 2019-06-30 Test Time: 14:46:29 Pat Name: OUMOU GRAVES Department: Room: Gender: F Cross Tie Turner: NELI : 1965 Requested By: KAMARI ARIAS Order Number: [id number] Reading MD: Measurements Intervals [place] Rate: 73 P: 61 WV: 210 QRS: 31 QRSD: 84 T: 51 QT: 382 QTc: 424 Interpretive Statements SINUS RHYTHM NO SPECIFIC ECG ABNORMALITIES RI6.01 Compared to ECG 12/01/2018 17:23:31 No significant changes
[2019-06-30 15:27] LABS: BASO % 1 % (0-3); EOS # 0.2 x10^3/uL (0.0-0.7); EOS % 3 % (0-3); HEMATOCRIT 42.2 % (36.0-47.0); LYMPH # 2.8 x10^3/uL (1.0-4.8); LYMPH % 48 % (24-48); MEAN CORPUSCULAR HEMOGLOBIN 34 pg (25-35); MEAN CORPUSCULAR HGB CONC 33 g/dL (31-37); MEAN CORPUSCULAR VOLUME 101 fL (79-100); MONO # 0.5 x10^3/uL (0.0-1.1); MONO % 8 % (0-9); NEUT # 2.4 x10^3uL (1.8-7.7); NEUT % 41 % (31-73); PLATELET COUNT 240 x10^3/uL (140-400); RED BLOOD COUNT 4.19 x10^6/uL (3.50-5.40); RED CELL DISTRIBUTION WIDTH 14.5 % (11.5-14.5); WHITE BLOOD COUNT 5.9 x10^3/uL (4.0-11.0)
[2019-06-30 15:45] LABS: ALBUMIN/GLOBULIN RATIO 0.9 (1.0-1.7); CALCIUM 8.2 mg/dL (8.5-10.1); MAGNESIUM 2.1 mg/dL (1.8-2.4); TOTAL BILIRUBIN 0.1 mg/dL (0.2-1.0); TOTAL PROTEIN 6.4 g/dL (6.4-8.2)
--- NOTE | 2019-06-30 15:47 | PHYS DOC ---
Past History Past Medical History: Alcoholism, Cancer, COPD, Dementia, Diabetes, DVT, CO, Seizure, Stroke, Other Additional Past Medical Histor: colitis, crohns Past Surgical History: Other Additional Past Surgical Histo: Partial Rt foot amputation; LEFT 1ST AND 5TH TOE AMPUTATIO Smoking: Cigarettes Alcohol Use: Occasionally Drug Use: None Adult General Chief Complaint Chief Complaint: MEDICAL CLEARANCE HPI HPI 54-year-old female presents for medical clearance of behavioral health admission. The patient was reported to be running herself into simons and throwing herself on the floor her care facility. The patient denies any medical complaints to me. Denies fever or chills. Review of Systems Review of Systems Constitutional: Denies fever or chills [] Eyes: Denies change in visual acuity, redness, or eye pain [] HENT: Denies nasal congestion or sore throat [] Respiratory: Denies cough or shortness of breath [] Cardiovascular: No additional information not addressed in HPI [] GI: Denies abdominal pain, nausea, vomiting, bloody stools or diarrhea [] : Denies dysuria or hematuria [] Musculoskeletal: Denies back pain or joint pain [] Integument: Denies rash or skin lesions [] Neurologic: Denies headache, focal weakness or sensory changes [] Endocrine: Denies polyuria or polydipsia [] All other systems were reviewed and found to be within normal limits, except as documented in this note. Allergies Allergies Allergies Coded Allergies Type Severity Reaction Last Updated Verified aspirin Allergy Intermediate 07/06/18 Yes ketorolac Allergy Intermediate 07/06/18 Yes morphine Allergy Intermediate 12/01/18 Yes Physical Exam Physical Exam Constitutional: Well developed, well nourished, no acute distress, non-toxic appearance. [] HENT: Normocephalic, atraumatic, bilateral external ears normal, oropharynx moist, no oral exudates, nose normal. [] Eyes: PERRLA, EOMI, conjunctiva normal, no discharge. [] Neck: Normal range of motion, no tenderness, supple, no stridor. [] Cardiovascular:Heart rate regular rhythm, no murmur [] Lungs & Thorax: Bilateral breath sounds clear to auscultation [] Abdomen: Bowel sounds normal, soft, no tenderness, no masses, no pulsatile masses. [] Skin: Warm, dry, no erythema, no rash. [] Back: No tenderness, no CVA tenderness. [] Extremities: No tenderness, no cyanosis, no clubbing, ROM intact, no edema. [] Neurologic: Alert and oriented X 3, normal motor function, normal sensory function, no focal deficits noted. [] Psychologic: Affect normal, judgement normal, mood normal. [] Current Patient Data Vital Signs Vital Signs Date Time Temp Pulse Resp B/P (MAP) Pulse Ox O2 Delivery O2 Flow Rate FiO2 06/30/19 14:44 98.5 70 20 95 Room Air Lab Results Laboratory Tests Test 06/30/19 15:00 White Blood Count 5.9 x10^3/uL (4.0-11.0) Red Blood Count 4.19 x10^6/uL (3.50-5.40) Hemoglobin 14.0 g/dL (12.0-15.5) Hematocrit 42.2 % (36.0-47.0) Mean Corpuscular Volume 101 fL (79-100) H Mean Corpuscular Hemoglobin 34 pg (25-35) Mean Corpuscular Hemoglobin Concent 33 g/dL (31-37) Red Cell Distribution Width 14.5 % (11.5-14.5) Platelet Count 240 x10^3/uL (140-400) Neutrophils (%) (Auto) 41 % (31-73) Lymphocytes (%) (Auto) 48 % (24-48) Monocytes (%) (Auto) 8 % (0-9) Eosinophils (%) (Auto) 3 % (0-3) Basophils (%) (Auto) 1 % (0-3) Neutrophils # (Auto) 2.4 x10^3uL (1.8-7.7) Lymphocytes # (Auto) 2.8 x10^3/uL (1.0-4.8) Monocytes # (Auto) 0.5 x10^3/uL (0.0-1.1) Eosinophils # (Auto) 0.2 x10^3/uL (0.0-0.7) Basophils # (Auto) 0.0 x10^3/uL (0.0-0.2) Sodium Level 145 mmol/L (136-145) Potassium Level 4.0 mmol/L (3.5-5.1) Chloride Level 107 mmol/L (98-107) Carbon Dioxide Level 30 mmol/L (21-32) Anion Gap 8 (6-14) Blood Urea Nitrogen 18 mg/dL (7-20) Creatinine 1.0 mg/dL (0.6-1.0) Estimated GFR (Cockcroft-Gault) 58.0 BUN/Creatinine Ratio 18 (6-20) Glucose Level 83 mg/dL (70-99) Calcium Level 8.2 mg/dL (8.5-10.1) L Magnesium Level 2.1 mg/dL (1.8-2.4) Total Bilirubin 0.1 mg/dL (0.2-1.0) L Aspartate Amino Transferase (AST) 12 U/L (15-37) L Alanine Aminotransferase (ALT) 8 U/L (14-59) L Alkaline Phosphatase 114 U/L (46-116) Total Protein 6.4 g/dL (6.4-8.2) Albumin 3.0 g/dL (3.4-5.0) L Albumin/Globulin Ratio 0.9 (1.0-1.7) L EKG EKG [] Radiology/Procedures Radiology/Procedures [] Course & Med Decision Making Course & Med Decision Making Pertinent Labs and Imaging studies reviewed. (See chart for details) The patient's labs are unremarkable. Her urinalysis is negative for infection. Her EKG is unremarkable. The patient is medically stable for behavioral health admission. [] Dragon Disclaimer Dragon Disclaimer This electronic medical record was generated, in whole or in part, using a voice recognition dictation system. Departure Departure: Impression: Primary Impression: Medical clearance for psychiatric admission Disposition: ADMITTED INPATIENT Condition: STABLE Referrals: JOAQUIM JUÁREZ (PCP) KAMARI ARIAS DO Jun 30, 2019 15:47
[2019-06-30 16:13] LABS: BACTERIA,URINE 0 /HPF (0-FEW); BILIRUBIN,URINE NEG (NEG); CLARITY,URINE CLEAR; COLOR,URINE STRAW; GLUCOSE,URINE NEG (NEG); NITRITE,URINE NEG (NEG); RBC,URINE 0 /HPF (0-2); SQUAMOUS EPITHELIAL CELL,UR FEW /LPF; UROBILINOGEN,URINE 0.2 mg/dL (0.2 mg/dL); WBC,URINE OCC /HPF (0-4)
[2019-06-30 16:14] LABS: AMORPHOUS SEDIMENT,UR PRESENT /HPF
--- NOTE | 2019-06-30 18:06 | NUR ---
Admission Note with Justification for Admission to [facility] Patient admitted to [facility] for protective oversight for emergency stabilization of acute psychiatric crisis. Pt admitted from: [facility] Facility-[facility] Mode of arrival: EMS screened in ER. Accompanied By: EMS Precipitating behaviors that initiated intake and admission: it was reported that patient was ramming others with wheelchair, having increased hallucinations and increased combativeness. She also threw a TV and put herself on the floor. Description of failure of out patient attempts at stabilization in previous setting list behavior and medication trials: Facility gave patient extra smoke breaks and made changes to her medications. Behaviors and assessment findings upon admission: Patient arrived after dinner. She was observed ambulating in the room with a walker but stated that she cannot see. She stated she normally uses a wheelchair but did not bring one. Patient reports pain in her ribs/back/neck and hands. She was oriented to self, place, , and month/year. She stated she is here for pain management. She denies having rammed anyone with wheelchair and said she "accidentally" ran into the TV with her wheelchair and broke it because she cannot see. She is a current smoker, ex alcohol drinker and ex street drug user. She states she had three children but her mom took them. Brief head to toe exam performed and vital signs obtained. Dinner tray ordered for patient. Patient got under the covers and laid down. Plan: Admit for protective oversight for adjustment and stabilization of medications, behaviors and mood. Intense treatment regimen including groups, medication adjustments, therapy, consistent regimen for ADL's, self care, and sleep hygiene. Daily monitoring by Inpatient staff, Psychiatry, and Medical Physician.
[2019-06-30] MEDS ORDERED: METHYL SALICYLATE/MENTHOL TOPICAL OINTMENT 57GM TUBE. TP PRN (18:15)
[2019-06-30] MEDS ORDERED: MAGNESIUM HYDROXIDE 2,400 MG/30 ML ORAL.SUSP. PO PRN (18:15)
[2019-06-30] MEDS ORDERED: ACETAMINOPHEN 325 MG TABLET PO PRN ×2 (18:15→18:45)
[2019-06-30] MEDS ORDERED: MAG HYDROX/AL HYDROX/SIMETH 30 ML ORAL.SUSP PO PRN (18:15)
[2019-06-30] MEDS ORDERED: NON FORMULARY ITEM (Magnesium Hydroxide (Milk Of Magnesia) 2,400 MG) PO PRN (18:45)
[2019-06-30] MEDS ORDERED: NON FORMULARY ITEM (Methyl Salicylate/Menthol (Analgesic Balm) 1 APP) TP PRN (18:45)
[2019-06-30] MEDS ORDERED: MAGN400T22 PO (18:45)
[2019-06-30] MEDS ORDERED: NON FORMULARY ITEM (Mag Hydrox/Al Hydrox/Simeth (Advanced Antacid Liquid) 15 ML) PO PRN (18:45)
[2019-06-30] MEDS ORDERED: OXYC1TAB22 PO (18:45)
[2019-06-30] MEDS ORDERED: ONDANSETRON ODT 4 MG TAB.RAPDIS PO PRN (19:00)
--- NOTE | 2019-06-30 19:09 | NUR ---
Spoke with Dr. Evans about patients DVT prohphylaxis and he recommended aspirin, however the patient is allergic to aspirin.
[2019-06-30] MEDS: risperiDONE 0.5 MG TABLET. PO SCH (20:46)
[2019-06-30] MEDS: HYDROcodone/APAP 5/325MG 1 TAB TABLET PO PRN (20:47)
[2019-06-30] MEDS: clonazePAM 0.5 MG TABLET PO SCH (20:47)
[2019-06-30] MEDS: traZODone 50 MG TABLET. PO SCH (20:47)
--- NOTE | 2019-06-30 20:56 | PDOC ---
Exam Note: Adolfo Note: Please also refer to the separate dictated note~for this date of service dictated separately. Discussed the patient with Nursing staff reviewed the chart.~Reviewed interim history and current functioning. Reviewed vital signs,~Labs/ Radiology~and current medications noted below. Continue current treatment with the changes noted in the dictated addendum note Assessment: Vital Signs/I&O: Vital Signs Date Time Temp Pulse Resp B/P (MAP) Pulse Ox O2 Delivery O2 Flow Rate FiO2 06/30/19 20:47 Room Air 06/30/19 17:19 86 16 109/63 (78) 95 06/30/19 14:44 98.5 Labs: Laboratory Tests Test 06/30/19 15:00 White Blood Count 5.9 x10^3/uL (4.0-11.0) Red Blood Count 4.19 x10^6/uL (3.50-5.40) Hemoglobin 14.0 g/dL (12.0-15.5) Hematocrit 42.2 % (36.0-47.0) Mean Corpuscular Volume 101 fL (79-100) H Mean Corpuscular Hemoglobin 34 pg (25-35) Mean Corpuscular Hemoglobin Concent 33 g/dL (31-37) Red Cell Distribution Width 14.5 % (11.5-14.5) Platelet Count 240 x10^3/uL (140-400) Neutrophils (%) (Auto) 41 % (31-73) Lymphocytes (%) (Auto) 48 % (24-48) Monocytes (%) (Auto) 8 % (0-9) Eosinophils (%) (Auto) 3 % (0-3) Basophils (%) (Auto) 1 % (0-3) Neutrophils # (Auto) 2.4 x10^3uL (1.8-7.7) Lymphocytes # (Auto) 2.8 x10^3/uL (1.0-4.8) Monocytes # (Auto) 0.5 x10^3/uL (0.0-1.1) Eosinophils # (Auto) 0.2 x10^3/uL (0.0-0.7) Basophils # (Auto) 0.0 x10^3/uL (0.0-0.2) Urine Collection Type U cath Urine Color Straw Urine Clarity Clear Urine pH 7.0 Urine Specific Benedict 1.020 Urine Protein Neg (NEG-TRACE) Urine Glucose (UA) Neg mg/dL (NEG) Urine Ketones (Stick) Neg mg/dL (NEG) Urine Blood Neg (NEG) Urine Nitrite Neg (NEG) Urine Bilirubin Neg (NEG) Urine Urobilinogen Dipstick 0.2 mg/dL (0.2 mg/dL) Urine Leukocyte Esterase Neg (NEG) Urine RBC 0 /HPF (0-2) Urine WBC Occ /HPF (0-4) Urine Squamous Epithelial Cells Few /LPF Urine Amorphous Sediment Present /HPF Urine Bacteria 0 /HPF (0-FEW) Sodium Level 145 mmol/L (136-145) Potassium Level 4.0 mmol/L (3.5-5.1) Chloride Level 107 mmol/L (98-107) Carbon Dioxide Level 30 mmol/L (21-32) Anion Gap 8 (6-14) Blood Urea Nitrogen 18 mg/dL (7-20) Creatinine 1.0 mg/dL (0.6-1.0) Estimated GFR (Cockcroft-Gault) 58.0 BUN/Creatinine Ratio 18 (6-20) Glucose Level 83 mg/dL (70-99) Calcium Level 8.2 mg/dL (8.5-10.1) L Magnesium Level 2.1 mg/dL (1.8-2.4) Total Bilirubin 0.1 mg/dL (0.2-1.0) L Aspartate Amino Transferase (AST) 12 U/L (15-37) L Alanine Aminotransferase (ALT) 8 U/L (14-59) L Alkaline Phosphatase 114 U/L (46-116) Total Protein 6.4 g/dL (6.4-8.2) Albumin 3.0 g/dL (3.4-5.0) L Albumin/Globulin Ratio 0.9 (1.0-1.7) L Current Medications: Meds: Current Medications Medications (Trade) Dose Ordered Sig/Sharron Route PRN Reason Start Time Stop Time Status Last Admin Dose Admin Clonazepam (KlonoPIN) 0.5 mg BID PO 06/30/19 21:00 06/30/19 20:47 Acetaminophen/ Hydrocodone Bitart (Lortab 5/325) 2 tab PRN Q4HRS PRN PO PAIN 06/30/19 18:45 06/30/19 20:47 Risperidone (RisperDAL) 0.75 mg QHS PO 06/30/19 21:00 06/30/19 20:46 Trazodone HCl (Desyrel) 50 mg QHS PO 06/30/19 21:00 06/30/19 20:47 I have reviewed the current psychotropics carefully including drug interactions. Risk benefit ratio favors no change other than as noted in my dictated progress note. Diagnosis: Problems: (1) Major neurocognitive disorder due to Alzheimer's disease, with behavioral disturbance (2) Medical clearance for psychiatric admission (3) Anxiety disorder (4) Alcohol-induced persisting dementia (5) Alcoholic psychosis (6) Dementia, vascular, with delusions (7) Dementia, vascular, with depression (8) Impulse control disorder MAHENDRA THOMAS MD Jun 30, 2019 20:56
--- NOTE | 2019-06-30 21:00 | NUR ---
Pt in room PRN for pain given along with HS meds which were taken whole without difficulty. Pt generally cooperative but became mildly irritated with nurse while talking with her.
--- NOTE | 2019-06-30 22:23 | NUR ---
Patient has been provided with Practical Counseling for tobacco cessation. It included a face to face interaction and the following was discussed: Recognizing danger situations, Developing coping skills,Basic cessation information. Will follow for discharge needs and discharge planning.
[2019-07-01 00:50] VITALS: BP 91/60
[2019-07-01 06:04] VITALS: BP 119/82
[2019-07-01 06:44] LABS: PHENY 21.4 mcg/mL (10.0-20.0)
[2019-07-01 06:46] LABS: VAL ACID 11 mcg/mL (50-100)
[2019-07-01] MEDS: NICOTINE 14MG PATCH. TD SCH (08:25)
[2019-07-01] MEDS: clonazePAM 0.5 MG TABLET PO SCH ×3 (08:25→21:42)
--- NOTE | 2019-07-01 08:59 | NUR ---
At 0800 this shift this nurse was assisting patient with walker down to dining room for breakfast along side of [facility]. Patient was yelling at staff stating " I am blind I can't walk, this is terrible!" Staff assisted patient while she walked with walker to dining room. Patient then started yelling at staff " why are you yelling?! i am sick, I have 18 problems ! I am not taking my medications with out breakfast!" Patient was then escorted out to [address] by staff where meal tray was set up. Patient was calm and cooperative at that point and took medications with out incident.
[2019-07-01] MEDS: HYDROcodone/APAP 5/325MG 1 TAB TABLET PO PRN (12:45)
--- NOTE | 2019-07-01 13:58 | HP ---
ADMIT DATE: 06/30/2019 PSYCHIATRIC ADMISSION HISTORY AND EVALUATION IDENTIFYING DATA: The patient is a 54-year-old female referred back to us from [facility], referred by Dr. Evans on account of increased hallucinations, anger, aggression after she threw a television, ran her wheelchair into a wall in the nursing station. She was putting herself on the floor. Behaviors were unmanageable, out of control within the context of her schizoaffective disorder, bipolar type, with psychotic features. She had failed outpatient psychiatric interventions and recent admission with us in December of this year and is being readmitted for stabilization. CHIEF COMPLAINT: "I don't like the people there. They put me down. That's the reason I did this." HISTORY OF PRESENT ILLNESS: Reportedly, the patient has had worsening mood swings, anger, agitation, aggression. She has been extremely obsessive, paranoid, suspicious. She has had sleep and appetite changes. Denies active suicidal or homicidal ideation, but behaviors have been quite dangerous, unmanageable at the facility as noted above. She also appeared more confused. PAST PSYCHIATRIC HISTORY: As above. MEDICAL HISTORY: Positive for peripheral vascular disease, poor vision, history of lung cancer, DVT, stent placement for DVT, hypertension, borderline diabetes mellitus, seizure disorder, history of COPD, history of alcohol abuse. She has had her first and fifth toe amputated. ALLERGIES: ASPIRIN, MORPHINE, TORADOL. FAMILY HISTORY: Noncontributory. SOCIAL HISTORY: Positive for extensive history of past alcohol abuse. No physical, sexual or elder abuse is noted. She is not known to be a perpetrator. REACTION TO HOSPITALIZATION: The patient is accepting, but confused. REVIEW OF SYSTEMS: Ambulation impaired. No CV, , pulmonary, eye, ENT system symptoms on review. Reliability poor. MENTAL STATUS EXAMINATION: The patient was seen individually evening of 06/30/2019 shortly after she arrived in the unit. She thought I was Dr. Evans initially. She is anxious, labile, tearful at times. Speech coherent, rapid at times. Abstraction fair, computation impaired, language function intact. She did know she was admitted earlier on 06/30/2019. Mood is depressed, anxious, quite paranoid. No active suicidal or homicidal ideation. Short term memory is impaired. IMPRESSION: Schizoaffective disorder, bipolar type, mixed with psychotic features with acute exacerbation, psychotic disorder, unspecified; possible alcohol-related delusional disorder, major neurocognitive disorder, early multifactorial consequent to alcohol, vascular with delusion, depression, behavioral disturbance. Rest as above. PLAN: Admit to Geropsychiatry Unit at [facility]. I will see the patient daily individually from a psychiatric standpoint. I have reviewed her current psychotropics. We will continue these, observe baseline, get past psychiatric records and make further adjustments as clinically indicated. Estimated length of stay 10-12 days. DISCHARGE PLANS: Back to senior living when stable. MAN Betty THOMAS MD DR: ASHLEY/miguelito JOB#: [id number] / [id number]
[2019-07-01] MEDS: MAGNESIUM OXIDE 400 MG TABLET PO SCH ×2 (14:00→21:43)
--- NOTE | 2019-07-01 15:56 | CONS ---
DATE OF CONSULTATION: REASON FOR CONSULTATION: Medical management. HISTORY OF PRESENT ILLNESS: The patient is a 54-year-old female patient, resident at [facility] in [place], who was admitted on account of increasing hallucination through a television, ran wheelchair into wall at nursing station, puts herself on the floor, all this in a background of major neurocognitive disorder, multifactorial, possibly due to past alcohol and polysubstance abuse, vascular Alzheimer with delusion, depression, anxiety and impulse controlled disorder. PAST MEDICAL HISTORY: Significant for chronic obstructive pulmonary disease. She has severe peripheral vascular disease, seizure disorder, and she has severe peripheral vascular disease, status post right forefoot amputation, left first and fifth toe amputation. She is legally blind, history of severe peripheral vascular disease, requiring stent deployment to the left internal carotid artery as well as left tibial and peroneal arteries. History of seizure disorder for which she is on phenytoin, chronic obstructive pulmonary disease, tobacco and alcohol abuse. PAST SURGICAL HISTORY: Significant for right forefoot amputation, left first and fifth toe amputation. She also underwent angioplasty and stent deployment to the left internal iliac artery as well as left peroneal as well as left tibial artery. PAST PSYCHIATRIC HISTORY: Significant for borderline personality, history of poor impulse control and noncompliance with medication. ALLERGIES: SHE IS ALLERGIC TO KETOROLAC AND MORPHINE. FAMILY HISTORY: Noncontributory. SOCIAL HISTORY: She has been a resident at [facility] in [place] since she was discharged in December this year, before that she lived in homeless [facility] in [place]. She continued to smoke, does not drink alcohol or use recreational drugs. PHYSICAL EXAMINATION: GENERAL: On examining her, the patient looked well and was clearly in no apparent respiratory distress. There is no pallor, jaundice or cyanosis. No lymphadenopathy, no thyromegaly. No jugular venous distention. Mild bilateral lower limb edema. VITAL SIGNS: Her heart rate was 95, blood pressure 119/82, temperature was 97.9, respiratory rate was 18 and oxygen saturation was 96% on room air. HEAD, EYES, EARS, NOSE AND THROAT: Showed normocephalic, atraumatic. NECK: Supple. HEART: Showed normal first and second heart sounds. No gallop, rub or murmur. CHEST: Clear to auscultation. No crepitation or rhonchi. ABDOMEN: Distended, soft, nontender. NEUROLOGIC: She is legally blind. Otherwise, all other cranial nerves are intact. EXTREMITIES: She moves extremities without difficulty. She ambulates with a walker. She has a very high fall risk. LABORATORY DATA: On admission showed a white cell count 5900, hemoglobin 14, hematocrit 42, MCV 101 and platelet count 240,000 with a manual differential showed 41% polymorphs, 48% lymphocytes, 8% monocytes. Her serum sodium was 145, potassium 4, chloride 107, bicarbonate 30, anion gap of 8, BUN 18, creatinine 1, estimated GFR was 58 mL per minute. Her glucose was 83, calcium was 8.2, magnesium 2.1. Total bilirubin, AST, ALT, alkaline phosphatase were normal. Total protein was 6.4, albumin 3. Her urinalysis essentially unremarkable and toxic screen showed her phenytoin level was high at 21.4, which is supratherapeutic, therapeutic range between 10 and 20 mcg/mL. IMPRESSION: In summary, this is a 54-year-old female patient, resident at [facility] in [place], who was admitted on account of increasing hallucination through a television, ran wheelchair into wall at nursing station, she puts herself on the floor, all this is in a background of major neurocognitive disorder, multifactorial, possibly due to alcohol and polysubstance abuse, vascular Alzheimer with delusion, depression. From a medical point of view, she seems to be generally stable. Her phenytoin level is probably high and probably in toxic range increases her tendency to fall. MEDICATIONS: She is currently on clonazepam 0.25 mg once a day, fluvoxamine 50 mg once a day. She is on Nicoderm patch 14 mg topically daily. She is on trazodone 50 mg at bedtime, risperidone 0.75 mg at bedtime, clonazepam 0.5 mg twice a day, ondansetron 4 mg every 6 hours, hydrocodone/APAP 5/325 two tablets every 4 hours, Tylenol 650 mg every 6 hours, magnesium hydroxide for milk of magnesia 30 mL p.o. daily p.r.n. for constipation, Mylanta 15 mL after meals and as needed. My plan is to continue with phenytoin extended release, will cut down her dose to 100 mg 3 times a day as her phenytoin level is definitely supratherapeutic. TANESHA HARRIS MD DR: Leo JOB#: [id number] / [id number]
[2019-07-01 16:06] VITALS: BP 96/65
[2019-07-01 20:07] LABS: THYROXINE 5.1 ug/dL (4.5-12.0)
--- NOTE | 2019-07-01 20:31 | PDOC ---
Exam Note: Adolfo Note: Please also refer to the separate dictated note~for this date of service dictated separately.~Patient seen individually. Discussed the patient with Nursing staff reviewed the chart.~Reviewed interim history and current functioning. Reviewed vital signs,~Labs/ Radiology~and current medications noted below. Continue current treatment with the changes noted in the dictated addendum note Assessment: Vital Signs/I&O: Vital Signs Date Time Temp Pulse Resp B/P (MAP) Pulse Ox O2 Delivery O2 Flow Rate FiO2 07/01/19 16:06 97.7 65 20 96/65 (75) 97 06/30/19 20:47 Room Air I & O 06/30/19 06/30/19 07/01/19 15:00 23:00 07:00 Intake Total 240 ml Balance 240 ml Labs: Laboratory Tests Test 07/01/19 06:25 Phenytoin (Dilantin) Level 21.4 mcg/mL (10.0-20.0) H Phenytoin Last Dose Date 06/30/2019 Phenytoin Last Dose Time 2100 Valproic Acid Level 11 mcg/mL (50-100) L Valproic Acid Last Dose Date 06/30/2019 Valproic Acid Last Dose Time 2100 Current Medications: Meds: Current Medications Medications (Trade) Dose Ordered Sig/Sharron Route PRN Reason Start Time Stop Time Status Last Admin Dose Admin Nicotine (Nicoderm Cq 14mg) 1 patch DAILY TD 07/01/19 09:00 07/01/19 08:25 Clonazepam (KlonoPIN) 0.25 mg DAILY@1500 PO 07/01/19 15:00 07/01/19 15:43 Clonazepam (KlonoPIN) 0.5 mg BID PO 06/30/19 21:00 07/01/19 08:25 Risperidone (RisperDAL) 0.75 mg QHS PO 06/30/19 21:00 06/30/19 20:46 Trazodone HCl (Desyrel) 50 mg QHS PO 06/30/19 21:00 06/30/19 20:47 Fluvoxamine Maleate (Luvox) 50 mg DAILY PO 07/01/19 09:00 07/01/19 08:25 Magnesium Oxide (Magnesium Oxide) 400 mg TID PO 07/01/19 14:00 07/01/19 14:00 I have reviewed the current psychotropics carefully including drug interactions. Risk benefit ratio favors no change other than as noted in my dictated progress note. 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
[2019-07-01 20:36] LABS: THYROID STIM HORMONE (TSH) 1.088 uIU/mL (0.358-3.740)
[2019-07-01] MEDS: risperiDONE 0.5 MG TABLET. PO SCH (21:42)
[2019-07-01] MEDS: traZODone 50 MG TABLET. PO SCH (21:42)
[2019-07-01] MEDS: DIVALPROEX 125 MG CAP.SPRINK PO SCH (21:42)
[2019-07-01] MEDS: PHENYTOIN SODIUM EXTENDED 100 MG CAPSULE PO SCH (21:43)
[2019-07-02 01:06] LABS: HEMOGLOBIN A1C 5.1 % (4.8-5.6)
[2019-07-02] MEDS: HYDROcodone/APAP 5/325MG 1 TAB TABLET PO PRN (03:38)
--- NOTE | 2019-07-02 04:48 | NUR ---
Pt pleasant and cooperative early in the shift. She took medications without complaint. Later after resting, pt got up and urinated in her wheelchair. When staff tried to clean her up, pt got agitated; insisted on keeping her soiled clothes and obssessed over not getting them back later. She reports she never got her clothes back at her last facility. Pt laid back down to rest. Will continue to monitor.
[2019-07-02 05:38] VITALS: BP 96/60
[2019-07-02] MEDS: MAGNESIUM OXIDE 400 MG TABLET PO SCH ×3 (08:47→20:15)
[2019-07-02] MEDS: clonazePAM 0.5 MG TABLET PO SCH ×3 (08:47→20:14)
[2019-07-02] MEDS: DIVALPROEX 125 MG CAP.SPRINK PO SCH ×2 (08:49→20:14)
[2019-07-02] MEDS: PHENYTOIN SODIUM EXTENDED 100 MG CAPSULE PO SCH ×2 (08:49→20:14)
[2019-07-02] MEDS: NICOTINE 14MG PATCH. TD SCH (08:50)
[2019-07-02] MEDS: oxyCODONE/APAP 10/325 1 TAB TABLET PO PRN ×2 (08:55→15:42)
[2019-07-02 15:51] VITALS: BP 114/71
[2019-07-02] MEDS: traZODone 50 MG TABLET. PO SCH (20:14)
[2019-07-02] MEDS: risperiDONE 0.5 MG TABLET. PO SCH (20:15)
--- NOTE | 2019-07-02 23:00 | NUR ---
Pt withdrawn to her room this evening. Compliant with whole medications. Pleasant, calm and interactive. Denies hallucinations.
[2019-07-03] MEDS: HYDROcodone/APAP 5/325MG 1 TAB TABLET PO PRN ×2 (04:15→20:08)
[2019-07-03 06:17] VITALS: BP 101/58
[2019-07-03] MEDS: NICOTINE 14MG PATCH. TD SCH (09:11)
[2019-07-03] MEDS: clonazePAM 0.5 MG TABLET PO SCH ×3 (09:12→20:03)
[2019-07-03] MEDS: oxyCODONE/APAP 10/325 1 TAB TABLET PO PRN ×2 (09:12→15:26)
[2019-07-03] MEDS: MAGNESIUM OXIDE 400 MG TABLET PO SCH ×3 (09:12→20:03)
[2019-07-03] MEDS: PHENYTOIN SODIUM EXTENDED 100 MG CAPSULE PO SCH ×2 (09:12→20:03)
[2019-07-03] MEDS: DIVALPROEX 125 MG CAP.SPRINK PO SCH ×2 (09:13→20:04)
--- NOTE | 2019-07-03 10:21 | NUR ---
ACTIVITY THERAPY ASSESSMENT Completed based on observation and interview. Pt. was in her room with the lights off and curtains closed. She was sitting in a wheelchair with her eyes closed. When greeted by FOOT SETTER, she turned to her with a grimace and appeared to be crying. FOOT SETTER asked if she had been here before. Pt. knew she had' however, thought it was in 2000. FOOT SETTER explained her position and asked about leisure interest/hobbies, Pt. was able to answer "Bingo" but her thoughts jumped quickly to wanting her medication because she has already eaten breakfast. She complained of back pain from a nurse that hurt her the other day. She then complained that she just wanted to lay down but her bed wasn't made. FOOT SETTER pointed out her bed had sheets, pillow and blanket. Pt. reported being blind and appreciated help. Pt. room was warm and Pt. asked for it to be turned down because she was "baking." She requested "round Oxycodone instead of the Lortab." From Pt's previous admission in November 2018, Pt. has a positive response to music groups, she has short attention span and can be restless/disruptive at times. Initial goal aimed to increase socialization and engagement: Pt. will participate in at least five Activity Therapy groups per week.
[2019-07-03 16:17] VITALS: BP 107/70
--- NOTE | 2019-07-03 19:56 | NUR ---
Has been calm and cooperative today. Does seem to play the blind issue at times for control or attention. Tearful outbursts observed twice today. Once in dayroom with peers, then with me in her room. Quickly stops. Withdrawn to room to sleep, as she knows she does not do well when other people tell her what to do, and wants to avoid conflict.
[2019-07-03] MEDS: traZODone 50 MG TABLET. PO SCH (20:04)
[2019-07-03] MEDS: risperiDONE 0.5 MG TABLET. PO SCH (20:04)
--- NOTE | 2019-07-03 22:00 | PDOC ---
Exam Note: Adolfo Note: This is a late entry for DOS 07/02/2019. Please also refer to the separate dictated note~for this date of service dictated separately.~Patient seen individually. Discussed the patient with Nursing staff reviewed the chart.~Reviewed interim history and current functioning. Reviewed vital signs,~Labs/ Radiology~and current medications noted below. Continue current treatment with the changes noted in the dictated addendum note Assessment: Vital Signs/I&O: Vital Signs Date Time Temp Pulse Resp B/P (MAP) Pulse Ox O2 Delivery O2 Flow Rate FiO2 07/03/19 21:29 96 07/03/19 16:17 97.6 67 20 107/70 (82) 07/02/19 05:38 Room Air I & O 07/02/19 07/02/19 07/03/19 15:00 23:00 07:00 Intake Total 480 ml 360 ml 240 ml Balance 480 ml 360 ml 240 ml Current Medications: I have reviewed the current psychotropics carefully including drug interactions. Risk benefit ratio favors no change other than as noted in my dictated progress note. Diagnosis: Problems: (1) Major neurocognitive disorder due to Alzheimer's disease, with behavioral disturbance (2) Anxiety disorder (3) Alcohol-induced persisting dementia (4) Alcoholic psychosis (5) Dementia, vascular, with delusions (6) Dementia, vascular, with depression (7) Impulse control disorder MAHENDRA THOMAS MD Jul 03, 2019 22:00
--- NOTE | 2019-07-03 23:39 | NUR ---
Pt located in her room this evening. Compliant with whole medications. PRN Lortab administered per pt request. Pt was calm and pleasant until instructed to remove her clothing and put a gown on for bedtime. Pt became very angry and argumentative stating she did not want to change her clothes. Pt informed that staff needed to wash her clothes overnight. After much argument, pt removed her clothing and threw it at the nurse asking "are you happy now?"
[2019-07-04] MEDS: oxyCODONE/APAP 10/325 1 TAB TABLET PO PRN ×2 (03:36→17:22)
[2019-07-04 05:58] VITALS: BP 101/60
[2019-07-04] MEDS: clonazePAM 0.5 MG TABLET PO SCH ×3 (08:40→21:13)
[2019-07-04] MEDS: DIVALPROEX 125 MG CAP.SPRINK PO SCH ×2 (08:40→21:13)
[2019-07-04] MEDS: NICOTINE 14MG PATCH. TD SCH (08:41)
[2019-07-04] MEDS: MAGNESIUM OXIDE 400 MG TABLET PO SCH ×3 (08:41→21:13)
[2019-07-04] MEDS: PHENYTOIN SODIUM EXTENDED 100 MG CAPSULE PO SCH ×2 (08:41→21:13)
[2019-07-04] MEDS: HYDROcodone/APAP 5/325MG 1 TAB TABLET PO PRN ×2 (09:16→21:15)
[2019-07-04 09:41] LABS: PHENY 20.7 mcg/mL (10.0-20.0)
--- NOTE | 2019-07-04 12:33 | PN ---
DATE: 07/01/2019 PSYCHIATRIC PROGRESS NOTE This late entry 07/01/2019 covers elements not covered in my initial note. SUBJECTIVE: I met with the patient in the evening at length in her room. Per CELSA Queen, the patient slept 7-1/4 hours previous night. She has been withdrawn, having intermittent verbal outbursts. States she cannot walk. Vision is poor. Her Dilantin was restarted and we will follow labs level. She seems alert, oriented to situations. We will check a mini mental status examination score for baseline. REVIEW OF SYSTEMS: Other than above, no CV, GI, system symptoms on review. MENTAL STATUS EXAMINATION: The patient is oriented to herself and situation. Speech has some latency, coherent. She is quite at times animated, shaking my hand, abstraction fair, computation impaired, language function intact, attention span short. Mood and affect withdrawn. LABORATORY DATA: Reviewed. IMPRESSION: Bipolar disorder, mixed with psychotic features, mild cognitive impairment, major neurocognitive disorder, multifactorial, possibly due to alcohol, polysubstance abuse, vascular, Alzheimer with delusion, depression, behavioral disturbance, impulse control disorder. PLAN: Maintain Depakote. Follow labs level, restart Dilantin, start Risperdal 0.5 mg at bedtime, Klonopin 0.5 b.i.d., 0.25 mg at 1500, trazodone 50 mg at bedtime. Rest unchanged for now. MAN Betty THOMAS MD DR: ASHLEY/miguelito JOB#: [id number] / [id number]
[2019-07-04 16:06] VITALS: BP 123/78
--- NOTE | 2019-07-04 16:10 | NUR ---
Patient is in the dining room for assessment and medication. She is in good spirits, laughing and joking around with peers and staff. When given her morning medications, she asked for PRN Hydrocodone for back pain, which she received at 0930. Came to dining room for lunch, and was again in good spirits. After lunch, patient went to her room to take a nap. Denies SI/HI, no agitation.
--- NOTE | 2019-07-04 17:00 | NUR ---
PSYCHOSOCIAL ASSESSMENT ADMISSION DATE: 06/30/19 CONTACT INFORMATION: DPOA/Guardian Contact Name: Dolly Menendez /Sister Ann Harris Contact Address: [place], [place] Contact Phone #: / ETHNIC ORIGIN: REASONS FOR ADMISSION: Agitated Delusions Hallucinations Poor impulse control Suspicious/paranoid ADDITIONAL ADMISSION COMMENTS: According to the intake, pt is running herself into the simons, ramming her w/c into the nurses station, increased hallucinations and behaviors, threw a TV and throwing self on the floor. REASON FOR ADMISSION IN PATIENT/FAMILY'S OWN WORDS: Behavioral and Medication Mgmt PATIENT/FAMILY EXPECTATIONS FOR ADMISSION: Pt facility will look forward to medication and behavioral management. LIVING SITUATION: Patient lives with: Detention Contact Name: [facility] Contact Address: [address] [place] [id number] Contact Phone #: Contact Fax #: FAMILY RELATIONS: Marital Status: # of Marriages: # of Children: [facility] Family Support: Unavailable Uninvolved Additional Comments r/t Family: Pt did not wish to talk about her family. Pt mentioned that she lost her due to rumors and that she has children "I just don't want to talk about any of this". SIGNIFICANT PSYCHIATRIC/MEDICAL HISTORY: Psychiatric/Treatment History: Pt reports she has 14 medical conditions but denies any psychiatric hx. According to records, pt will be evaluated for a mood d/o Pertinent Family History: Pt reports that she was adoptive but has no relationship with her adoptive or biological family HISTORICAL DATA: Childhood Environment: Other-see below Comment: Pt reports that her biological father was an alcoholic and left the kids alone. Her biological mother "was a whore and left to sleep with random men all the time". Pt does report that she has one brother and one sister. They were all adopted out to different families Psychological Abuse: Additional Comments: Pt denies abuse; SW is unsure if pt is a reliable historian Drug Abuse History last 12 months: No Past Use Comment: Pt reports that she used to sling dope, but "I'm clean now". PERSONAL HISTORY: Vocational history: never worked according to pt service: N Jain background: No preference Sexual orientation: Heterosexual Educational Level: "I graduated high school with all A's and 1 B; I'm not stupid". Past/Present Interests/Hobbies: N/A Financial support/resources: SS Disability Monthly income: 975 Person handling finances: Pt handles her own finances Do you have a history of legal problems: Y Cultural considerations: None SOCIAL RELATIONSHIPS-CURRENT/PAST: Psychiatrist: None PCP: Dr. Evans @ [facility] Counselor/Therapist: None [employer]: None Support Group: None Patrol Lady/Car Packer: potential for one through pt insurance Other relationships: None STRENGTHS & WEAKNESSES: Patient's strengths: Good verbal skills Other patient strengths: wants help Patient's weaknesses: Lack of housing Lack of resources Poor family support Impulsive Poor relationships Health problems Other patient weaknesses: PRELIMINARY PLAN OF TREATMENT: Preliminary plan: Dec. Anxiety/Panic Dec. Hallucination/Delus Promote Coping Skill Improved Social Skills Medication Stabilization Other preliminary treatment comments: DISCHARGE PLANNING: Discharge planning/disposition: Current Living Arrange. Detention Additional discharge needs identified: [facility] has agreed to take pt back once she is stable. ADDITIONAL INFORMATION: Other Pertinent Data: SW attempted to contact pt guardian to clarify the next steps for pt. SW will attempt at a later time to gather information on discharge plans.
--- NOTE | 2019-07-04 20:28 | PDOC ---
Exam Note: Adolfo Note: Please also refer to the separate dictated note~for this date of service dictated separately.~Patient seen individually. Discussed the patient with Nursing staff reviewed the chart.~Reviewed interim history and current functioning. Reviewed vital signs,~Labs/ Radiology~and current medications noted below. Continue current treatment with the changes noted in the dictated addendum note Assessment: Vital Signs/I&O: Vital Signs Date Time Temp Pulse Resp B/P (MAP) Pulse Ox O2 Delivery O2 Flow Rate FiO2 07/04/19 16:06 98.1 96 18 123/78 (93) 96 07/02/19 05:38 Room Air I & O 07/03/19 07/03/19 07/04/19 14:59 22:59 06:59 Intake Total 720 ml 580 ml Balance 720 ml 580 ml Labs: Laboratory Tests Test 07/04/19 09:23 Phenytoin (Dilantin) Level 20.7 mcg/mL (10.0-20.0) H Phenytoin Last Dose Date 07/03/19 Phenytoin Last Dose Time 2100 Current Medications: Meds: Current Medications Medications (Trade) Dose Ordered Sig/Sharron Route PRN Reason Start Time Stop Time Status Last Admin Dose Admin Divalproex Sodium (Depakote Sprinkles) 625 mg BID PO 07/04/19 09:00 07/04/19 08:40 I have reviewed the current psychotropics carefully including drug interactions. Risk benefit ratio favors no change other than as noted in my dictated progress note. 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
[2019-07-04 21:04] LABS: BILIRUBIN,URINE NEG (NEG); CLARITY,URINE CLOUDY; COLOR,URINE STRAW; GLUCOSE,URINE NEG (NEG); NITRITE,URINE NEG (NEG); RBC,URINE RARE /HPF (0-2); UROBILINOGEN,URINE 0.2 mg/dL (0.2 mg/dL)
[2019-07-04 21:05] LABS: AMORPHOUS SEDIMENT,UR PRESENT /HPF; BACTERIA,URINE MANY /HPF (0-FEW); SQUAMOUS EPITHELIAL CELL,UR OCC /LPF; WBC,URINE RARE /HPF (0-4)
[2019-07-04] MEDS: traZODone 50 MG TABLET. PO SCH (21:13)
[2019-07-04] MEDS: OXYBUTYNIN CHLORIDE 5 MG TABLET PO SCH (21:13)
[2019-07-04] MEDS: risperiDONE 0.5 MG TABLET. PO SCH (21:13)
--- NOTE | 2019-07-05 01:11 | NUR ---
Pt withdrawn to room at shift change. Pt laying in bed with eyes closed but easily arouses when approached. Pt attention and medication seeking, asking for "Oxycodone" because she is in pain. Pt informed that she could not have the oxycodone at that time. PRN Hydrocodone administered instead for c/o buttock, bilateral legs, and mid-back pain. Pt calm and cooperative this evening, no agitation or aggression noted.
--- NOTE | 2019-07-05 03:51 | PN ---
DATE: 07/02/2019 PSYCHIATRIC PROGRESS NOTE This late entry 07/02/2019 covers the elements not covered in my initial note. SUBJECTIVE: I met with the patient evening of 07/02/2019. Overall, the patient remains withdrawn, spends much time in her room. Dilantin level is 21.4. We will repeat on 07/04/2019. REVIEW OF SYSTEMS: No CV, , pulmonary, eye system symptoms on review. Poor vision is significant. MENTAL STATUS EXAM: Oriented to herself and situation. Speech has some latency, coherent. Abstraction fair, computation impaired, language function intact. Mood and affect withdrawn. LABORATORY DATA: Reviewed. IMPRESSION: Unchanged from initial note. PLAN: No change from initial note. MAN Betty THOMAS MD DR: ASHLEY/miguelito JOB#: [id number] / [id number]
--- NOTE | 2019-07-05 03:54 | PN ---
DATE: 07/03/2019 PSYCHIATRIC PROGRESS NOTE This late entry 07/03/2019 covers the elements not covered in my initial note. SUBJECTIVE: I met with the patient evening of 07/03/2019. The patient slept 7-1/4 hours previous night. She has been tearful on two separate occasions quite significantly so Valproic acid level was 11 on Depakote 500 b.i.d. REVIEW OF SYSTEMS: Poor vision, tiredness. No CV, , pulmonary, ENT system symptoms on review. MENTAL STATUS EXAM: Oriented to herself and situation. Speech is coherent, abstraction fair, computation impaired, language function intact, attention span short. Mood and affect withdrawn. LABORATORY DATA: Reviewed. IMPRESSION: Unchanged from initial note. PLAN: No change from initial note, but we will increase the Depakote to 625 mg b.i.d. Check CBC, CMP, valproic acid level in 3 days and adjust to reach therapeutic level. MAHENDRA THOMAS MD DR: ASHLEY/miguelito JOB#: [id number] / [id number]
[2019-07-05] MEDS: oxyCODONE/APAP 10/325 1 TAB TABLET PO PRN ×2 (05:27→20:20)
[2019-07-05 06:19] VITALS: BP 102/61
[2019-07-05] MEDS: clonazePAM 0.5 MG TABLET PO SCH ×3 (09:27→20:17)
[2019-07-05] MEDS: DIVALPROEX 125 MG CAP.SPRINK PO SCH ×2 (09:27→20:17)
[2019-07-05] MEDS: OXYBUTYNIN CHLORIDE 5 MG TABLET PO SCH ×3 (09:27→20:17)
[2019-07-05] MEDS: MAGNESIUM OXIDE 400 MG TABLET PO SCH ×3 (09:27→20:17)
[2019-07-05] MEDS: PHENYTOIN SODIUM EXTENDED 100 MG CAPSULE PO SCH ×2 (09:27→20:18)
[2019-07-05] MEDS: NICOTINE 14MG PATCH. TD SCH ×2 (09:28→09:51)
[2019-07-05] MEDS: HYDROcodone/APAP 5/325MG 1 TAB TABLET PO PRN (09:42)
--- NOTE | 2019-07-05 09:52 | NUR ---
Patient refused nicotine patch saying "I don't think I will ever need that". Patch returned as non-administered.
--- NOTE | 2019-07-05 15:48 | NUR ---
Nursing note: Pt was in her room for her morning meds and assessment. She was compliant with taking her meds whole and she was cooperative with her assessment. Pt c/o pain in her back and her R foot and rated the pain a 9/10. PRN lortab given @ 0942. Upon reassessment, pt stated the pain was better. Pt has been withdrawn to her room for most of the day. Will continue to monitor.
[2019-07-05 15:53] VITALS: BP 105/65
[2019-07-05] MEDS: traZODone 50 MG TABLET. PO SCH (20:17)
[2019-07-05] MEDS: risperiDONE 0.5 MG TABLET. PO SCH (20:18)
--- NOTE | 2019-07-05 20:51 | PDOC ---
Exam Note: Adolfo Note: Please also refer to the separate dictated note~for this date of service dictated separately.~Patient seen individually. Discussed the patient with Nursing staff reviewed the chart.~Reviewed interim history and current functioning. Reviewed vital signs,~Labs/ Radiology~and current medications noted below. Continue current treatment with the changes noted in the dictated addendum note Assessment: Vital Signs/I&O: Vital Signs Date Time Temp Pulse Resp B/P (MAP) Pulse Ox O2 Delivery O2 Flow Rate FiO2 07/05/19 15:53 97.8 71 18 105/65 (78) 94 07/05/19 06:19 Room Air I & O 07/04/19 07/04/19 07/05/19 15:00 23:00 07:00 Intake Total 720 ml 480 ml 100 ml Balance 720 ml 480 ml 100 ml Current Medications: Meds: Current Medications Medications (Trade) Dose Ordered Sig/Sharron Route PRN Reason Start Time Stop Time Status Last Admin Dose Admin Oxybutynin Chloride (Ditropan) 5 mg [id number] PO 07/04/19 21:00 07/05/19 20:17 Fluvoxamine Maleate (Luvox) 75 mg DAILY PO 07/05/19 09:00 07/05/19 09:27 I have reviewed the current psychotropics carefully including drug interactions. Risk benefit ratio favors no change other than as noted in my dictated progress note. Diagnosis: Problems: (1) Major neurocognitive disorder due to Alzheimer's disease, with behavioral disturbance (2) Anxiety disorder (3) Alcohol-induced persisting dementia (4) Dementia, vascular, with depression (5) Alcoholic psychosis (6) Dementia, vascular, with delusions MAHENDRA THOMAS MD Jul 05, 2019 20:51
--- NOTE | 2019-07-06 00:29 | NUR ---
Pt withdrawn to room, lying in bed at shift change. Pt calm, pleasant, interactive when approached, somatic; attention and medication seeking. Pt cooperative with assessment and compliant with medications. PRN Oxycodone administered for c/o bilateral foot and back pain, rated 10/10.
[2019-07-06 05:58] VITALS: BP 107/74
[2019-07-06] MEDS: NICOTINE 14MG PATCH. TD SCH (09:00)
[2019-07-06] MEDS: OXYBUTYNIN CHLORIDE 5 MG TABLET PO SCH ×3 (09:06→20:31)
[2019-07-06] MEDS: clonazePAM 0.5 MG TABLET PO SCH ×3 (09:06→20:31)
[2019-07-06] MEDS: MAGNESIUM OXIDE 400 MG TABLET PO SCH ×3 (09:06→20:31)
[2019-07-06] MEDS: DIVALPROEX 125 MG CAP.SPRINK PO SCH ×2 (09:06→20:31)
[2019-07-06] MEDS: PHENYTOIN SODIUM EXTENDED 100 MG CAPSULE PO SCH ×2 (09:08→20:31)
[2019-07-06] MEDS: oxyCODONE/APAP 10/325 1 TAB TABLET PO PRN ×2 (09:12→15:44)
[2019-07-06 09:24] LABS: BASO % 1 % (0-3); EOS # 0.2 x10^3/uL (0.0-0.7); EOS % 3 % (0-3); HEMATOCRIT 44.8 % (36.0-47.0); HEMOGLOBIN 14.9 g/dL (12.0-15.5); LYMPH # 2.9 x10^3/uL (1.0-4.8); LYMPH % 44 % (24-48); MEAN CORPUSCULAR HEMOGLOBIN 33 pg (25-35); MEAN CORPUSCULAR HGB CONC 33 g/dL (31-37); MEAN CORPUSCULAR VOLUME 100 fL (79-100); MONO # 0.5 x10^3/uL (0.0-1.1); MONO % 8 % (0-9); NEUT # 2.9 x10^3uL (1.8-7.7); NEUT % 45 % (31-73); PLATELET COUNT 221 x10^3/uL (140-400); RED BLOOD COUNT 4.47 x10^6/uL (3.50-5.40); RED CELL DISTRIBUTION WIDTH 14.8 % (11.5-14.5); WHITE BLOOD COUNT 6.5 x10^3/uL (4.0-11.0)
[2019-07-06 09:38] LABS: ALBUMIN 3.3 g/dL (3.4-5.0); ALBUMIN/GLOBULIN RATIO 0.9 (1.0-1.7); ALK PHOS 114 U/L (46-116); ALT (SGPT) 10 U/L (14-59); ANION GAP 9 (6-14); AST (SGOT) 13 U/L (15-37); BLOOD UREA NITROGEN 20 mg/dL (7-20); BUN/CREATININE RATIO 20 (6-20); CALCIUM 8.5 mg/dL (8.5-10.1); CARBON DIOXIDE 27 mmol/L (21-32); CHLORIDE 107 mmol/L (98-107); GLUCOSE 91 mg/dL (70-99); POTASSIUM 4.2 mmol/L (3.5-5.1); SODIUM 143 mmol/L (136-145); TOTAL BILIRUBIN 0.2 mg/dL (0.2-1.0); TOTAL PROTEIN 6.9 g/dL (6.4-8.2)
[2019-07-06 09:39] LABS: VAL ACID 28 mcg/mL (50-100)
[2019-07-06] MEDS: HYDROcodone/APAP 5/325MG 1 TAB TABLET PO PRN ×2 (12:36→20:36)
--- NOTE | 2019-07-06 13:45 | NUR ---
FLORIDALMA attempted to contact pt guardian Dolly and ended up leaving a message for her to call FLORIDALMA back.
--- NOTE | 2019-07-06 15:58 | NUR ---
Nursing note: Pt was in her room for morning meds and assessment. Pt was calm and compliant with taking her meds whole and she was cooperative with her assessment. Pt refused her nicotine patch, which was returned as non-administered. Pt has been in the day room for most of the day watching TV. Pt's c/o of back and foot pain, rated a 10/10 this morning and 9/10 at 1530. PRN Percocet was given both times. Will continue to monitor.
[2019-07-06 16:10] VITALS: BP 122/78
--- NOTE | 2019-07-06 20:20 | PN ---
DATE: 07/04/2019 PSYCHIATRIC PROGRESS NOTE This late entry 07/04/2019 covers elements not covered in my initial note. SUBJECTIVE: I met with the patient evening of 07/04/2019. Per nursing report, the patient did well in the morning and at lunchtime, she was reportedly sulking with visitors around. Reportedly, Dolly, who is her guardian, came to visit with her and she was pleased with this. She does complain of frequency of urination, started on Ditropan. REVIEW OF SYSTEMS: No CV, pulmonary, eye, ENT system symptoms on review. MENTAL STATUS EXAMINATION: Oriented to herself and situation. Speech has some latency, coherent. Abstraction fair, computation impaired. Vision is poor. Mood and affect somewhat withdrawn and she is quite obsessive. LABORATORY DATA: Reviewed. IMPRESSION: Unchanged from initial note. PLAN: Given her OCD symptoms, increase Luvox from 50 mg daily after 3 days to 75 mg a day. Continue Depakote Sprinkles 625 b.i.d. Repeat labs level. UA will be checked to rule out UTI. Rest unchanged for now. MAN Betty THOMAS MD DR: ASHLEY/miguelito JOB#: [id number] / [id number]
[2019-07-06] MEDS: traZODone 50 MG TABLET. PO SCH (20:31)
[2019-07-06] MEDS: risperiDONE 0.5 MG TABLET. PO SCH (20:33)
--- NOTE | 2019-07-06 20:42 | PDOC ---
Exam Note: Adolfo Note: Please also refer to the separate dictated note~for this date of service dictated separately.~Patient seen individually. Discussed the patient with Nursing staff reviewed the chart.~Reviewed interim history and current functioning. Reviewed vital signs,~Labs/ Radiology~and current medications noted below. Continue current treatment with the changes noted in the dictated addendum note Assessment: Vital Signs/I&O: Vital Signs Date Time Temp Pulse Resp B/P (MAP) Pulse Ox O2 Delivery O2 Flow Rate FiO2 07/06/19 16:10 97.5 78 16 122/78 (93) 95 07/05/19 06:19 Room Air I & O 07/05/19 07/05/19 07/06/19 15:00 23:00 07:00 Intake Total 360 ml 360 ml 100 ml Balance 360 ml 360 ml 100 ml Labs: Laboratory Tests Test 07/06/19 09:15 White Blood Count 6.5 x10^3/uL (4.0-11.0) Red Blood Count 4.47 x10^6/uL (3.50-5.40) Hemoglobin 14.9 g/dL (12.0-15.5) Hematocrit 44.8 % (36.0-47.0) Mean Corpuscular Volume 100 fL (79-100) Mean Corpuscular Hemoglobin 33 pg (25-35) Mean Corpuscular Hemoglobin Concent 33 g/dL (31-37) Red Cell Distribution Width 14.8 % (11.5-14.5) H Platelet Count 221 x10^3/uL (140-400) Neutrophils (%) (Auto) 45 % (31-73) Lymphocytes (%) (Auto) 44 % (24-48) Monocytes (%) (Auto) 8 % (0-9) Eosinophils (%) (Auto) 3 % (0-3) Basophils (%) (Auto) 1 % (0-3) Neutrophils # (Auto) 2.9 x10^3uL (1.8-7.7) Lymphocytes # (Auto) 2.9 x10^3/uL (1.0-4.8) Monocytes # (Auto) 0.5 x10^3/uL (0.0-1.1) Eosinophils # (Auto) 0.2 x10^3/uL (0.0-0.7) Basophils # (Auto) 0.0 x10^3/uL (0.0-0.2) Sodium Level 143 mmol/L (136-145) Potassium Level 4.2 mmol/L (3.5-5.1) Chloride Level 107 mmol/L (98-107) Carbon Dioxide Level 27 mmol/L (21-32) Anion Gap 9 (6-14) Blood Urea Nitrogen 20 mg/dL (7-20) Creatinine 1.0 mg/dL (0.6-1.0) Estimated GFR (Cockcroft-Gault) 58.0 BUN/Creatinine Ratio 20 (6-20) Glucose Level 91 mg/dL (70-99) Calcium Level 8.5 mg/dL (8.5-10.1) Total Bilirubin 0.2 mg/dL (0.2-1.0) Aspartate Amino Transferase (AST) 13 U/L (15-37) L Alanine Aminotransferase (ALT) 10 U/L (14-59) L Alkaline Phosphatase 114 U/L (46-116) Total Protein 6.9 g/dL (6.4-8.2) Albumin 3.3 g/dL (3.4-5.0) L Albumin/Globulin Ratio 0.9 (1.0-1.7) L Valproic Acid Level 28 mcg/mL (50-100) L Valproic Acid Last Dose Date 07/05/19 Valproic Acid Last Dose Time 2100 Current Medications: Meds: Current Medications Medications (Trade) Dose Ordered Sig/Sharron Route PRN Reason Start Time Stop Time Status Last Admin Dose Admin Divalproex Sodium (Depakote Sprinkles) 750 mg BID PO 07/06/19 21:00 07/06/19 20:31 I have reviewed the current psychotropics carefully including drug interactions. Risk benefit ratio favors no change other than as noted in my dictated progress note. Diagnosis: Problems: (1) Anxiety disorder (2) Major neurocognitive disorder due to Alzheimer's disease, with behavioral disturbance (3) Alcohol-induced persisting dementia (4) Alcoholic psychosis (5) Dementia, vascular, with delusions (6) Dementia, vascular, with depression (7) Impulse control disorder MAHENDRA THOMAS MD Jul 06, 2019 20:42
--- NOTE | 2019-07-06 22:54 | NUR ---
Pt withdrawn to room, lying in bed at shift change. Pt irritable, interactive when approached, somatic, acts helpless; attention and medication seeking. Pt cooperative with assessment and compliant with medications. PRN Hydrocodone administered for c/o bilateral foot and back pain, rated 7/10.
--- NOTE | 2019-07-07 04:52 | PN ---
DATE: 07/05/2019 PSYCHIATRIC PROGRESS NOTE This late entry, 07/05/2019, covers elements not covered in my initial note. SUBJECTIVE: I met with the patient in evening of 07/05/2019. Per CELSA Mcclendon, the patient slept 7-1/2 hours previous night. She is compliant with medications, somewhat withdrawn, depressed, and anxious. We will check CBC, CMP, and valproic acid level in the morning of 07/06/2019. UA has reflex to culture. REVIEW OF SYSTEMS: Poor vision. No CV, , or pulmonary system symptoms on review. MENTAL STATUS EXAM: Oriented to herself and situation. Speech has some latency and can be pressured at times. Abstraction fair, computation impaired, language function intact, and attention span short. Mood and affect somewhat anxious and labile. LABORATORY DATA: Reviewed. IMPRESSION: Bipolar disorder, mixed; mild cognitive impairment; major neurocognitive disorder, multifactorial, due to past alcohol, polysubstance abuse, vascular Alzheimer with delusion; behavioral disturbance; impulse control disorder. PLAN: Continue current psychotropics. Rest changes as noted above. MAN Betty THOMAS MD DR: ASHLEY/miguelito JOB#: [id number] / [id number]
[2019-07-07 06:08] VITALS: BP 112/64
[2019-07-07 07:51] LABS: ALBUMIN 2.8 g/dL (3.4-5.0); ALBUMIN/GLOBULIN RATIO 0.9 (1.0-1.7); ALK PHOS 102 U/L (46-116); ALT (SGPT) 7 U/L (14-59); ANION GAP 6 (6-14); AST (SGOT) 13 U/L (15-37); BLOOD UREA NITROGEN 20 mg/dL (7-20); BUN/CREATININE RATIO 22 (6-20); CARBON DIOXIDE 30 mmol/L (21-32); CHLORIDE 109 mmol/L (98-107); CREATININE 0.9 mg/dL (0.6-1.0); GFR 65.5; GLUCOSE 87 mg/dL (70-99); POTASSIUM 4.7 mmol/L (3.5-5.1); SODIUM 145 mmol/L (136-145); TOTAL BILIRUBIN 0.2 mg/dL (0.2-1.0); TOTAL PROTEIN 5.8 g/dL (6.4-8.2)
[2019-07-07 07:56] LABS: VAL ACID 35 mcg/mL (50-100)
[2019-07-07 08:02] LABS: BASO % 1 % (0-3); EOS # 0.2 x10^3/uL (0.0-0.7); EOS % 4 % (0-3); HEMATOCRIT 41.4 % (36.0-47.0); HEMOGLOBIN 13.7 g/dL (12.0-15.5); LYMPH # 2.5 x10^3/uL (1.0-4.8); LYMPH % 48 % (24-48); MEAN CORPUSCULAR HEMOGLOBIN 33 pg (25-35); MEAN CORPUSCULAR HGB CONC 33 g/dL (31-37); MEAN CORPUSCULAR VOLUME 101 fL (79-100); MONO # 0.4 x10^3/uL (0.0-1.1); MONO % 9 % (0-9); NEUT % 39 % (31-73); PLATELET COUNT 197 x10^3/uL (140-400); RED BLOOD COUNT 4.11 x10^6/uL (3.50-5.40); RED CELL DISTRIBUTION WIDTH 14.8 % (11.5-14.5); WHITE BLOOD COUNT 5.1 x10^3/uL (4.0-11.0)
[2019-07-07] MEDS: DIVALPROEX 125 MG CAP.SPRINK PO SCH ×2 (08:51→20:37)
[2019-07-07] MEDS: OXYBUTYNIN CHLORIDE 5 MG TABLET PO SCH ×3 (08:51→20:37)
[2019-07-07] MEDS: MAGNESIUM OXIDE 400 MG TABLET PO SCH ×3 (08:52→20:38)
[2019-07-07] MEDS: PHENYTOIN SODIUM EXTENDED 100 MG CAPSULE PO SCH ×2 (08:52→20:37)
[2019-07-07] MEDS: clonazePAM 0.5 MG TABLET PO SCH ×3 (08:52→20:38)
[2019-07-07] MEDS: NICOTINE 14MG PATCH. TD SCH (08:53)
--- NOTE | 2019-07-07 10:30 | NUR ---
WEEKLY ACTIVITY THERAPY NOTE Date of Admission: 06/30/2019 Date of AT Assessment: 07/03/2019 Goal aimed: to increase socialization and engagement Initial Goal: Pt. will participate in at least five Activity Therapy groups per week. Weekly progress towards goal: six groups since admission Group participation level: varied Weekly highlights: singing along with gospel songs, made requests Behaviors observed: social with peers, withdrawn at times, decreased yelling out as the week has progressed Plan: no change to the goal Beneficial adaptations: positive response to music groups, invitation to group, descriptive explanation
--- NOTE | 2019-07-07 13:47 | NUR ---
Nursing note: Pt in room this morning for meds and assessment. She was compliant with her meds and cooperative with her assessment. She has been attention and medication seeking this shift. Pt has been acting helpless this shift as well. Pt has been withdrawn to her room for most of the day, but is currently in the day room.
[2019-07-07] MEDS: HYDROcodone/APAP 5/325MG 1 TAB TABLET PO PRN (14:38)
--- NOTE | 2019-07-07 15:00 | NUR ---
Nursing note: Pt stated she had pain in her back and her R foot that she rated a 9/10. PRN lortab was given @ 7619. Will continue to monitor.
[2019-07-07 16:45] VITALS: BP 105/59
--- NOTE | 2019-07-07 19:15 | NUR ---
[facility] Social Work Discharge Planning Form Patient Name OUMOU GRAVES Admit Date: 05/30/19 DISCHARGE PLAN Discharge Destination: To discharge back to [facility]. Care Assessment: N/A Level II Assessment: N/A Transportation: The facility to pick pt up around 10:30AM Special Instructions/Notes: Please fax discharge orders and medication list to the fax number listed below. DISCHARGE TO FACILITY Facility: [facility] Address: [address] [place] [address] Contact Name: Karen Martinez; DON: Contact Name: Jamison Victor; Industrial Registered Nurse: PCP: Dr. Evans
--- NOTE | 2019-07-07 19:21 | NUR ---
WEEKLY NOTE: Pt guardians, Dolly and Sister Ann, participated in tx team via telephone. Pt is eating roughly 100% of meals and sleeping on average 6 hours per night. Pt is withdrawn from peers and selectively about the groups she attends. Pt does appear to respond to Gospel music and likes to sing to that. Pt can be irritable but redirectable as needed. At this time, insurance has denied pt from 07/04 and pt will be discharge from the unit, once arrangements can be made. SW will contact pt guardians and the facility to make all arrangements for either later today if not tomorrow.
[2019-07-07] MEDS: traZODone 50 MG TABLET. PO SCH (20:36)
[2019-07-07] MEDS: oxyCODONE/APAP 10/325 1 TAB TABLET PO PRN (20:37)
[2019-07-07] MEDS: risperiDONE 0.5 MG TABLET. PO SCH (20:38)
--- NOTE | 2019-07-07 20:42 | PDOC ---
Exam Note: Adolfo Note: Please also refer to the separate dictated note~for this date of service dictated separately.~Patient seen individually. Discussed the patient with Nursing staff reviewed the chart.~Reviewed interim history and current functioning. Reviewed vital signs,~Labs/ Radiology~and current medications noted below. Continue current treatment with the changes noted in the dictated addendum note Assessment: Vital Signs/I&O: Vital Signs Date Time Temp Pulse Resp B/P (MAP) Pulse Ox O2 Delivery O2 Flow Rate FiO2 07/07/19 16:45 98.4 97 16 105/59 (74) 94 07/07/19 06:08 Room Air I & O 07/06/19 07/06/19 07/07/19 15:00 23:00 07:00 Intake Total 1450 ml 240 ml Balance 1450 ml 240 ml Labs: Laboratory Tests Test 07/07/19 07:23 White Blood Count 5.1 x10^3/uL (4.0-11.0) Red Blood Count 4.11 x10^6/uL (3.50-5.40) Hemoglobin 13.7 g/dL (12.0-15.5) Hematocrit 41.4 % (36.0-47.0) Mean Corpuscular Volume 101 fL (79-100) H Mean Corpuscular Hemoglobin 33 pg (25-35) Mean Corpuscular Hemoglobin Concent 33 g/dL (31-37) Red Cell Distribution Width 14.8 % (11.5-14.5) H Platelet Count 197 x10^3/uL (140-400) Neutrophils (%) (Auto) 39 % (31-73) Lymphocytes (%) (Auto) 48 % (24-48) Monocytes (%) (Auto) 9 % (0-9) Eosinophils (%) (Auto) 4 % (0-3) H Basophils (%) (Auto) 1 % (0-3) Neutrophils # (Auto) 2.0 x10^3uL (1.8-7.7) Lymphocytes # (Auto) 2.5 x10^3/uL (1.0-4.8) Monocytes # (Auto) 0.4 x10^3/uL (0.0-1.1) Eosinophils # (Auto) 0.2 x10^3/uL (0.0-0.7) Basophils # (Auto) 0.0 x10^3/uL (0.0-0.2) Sodium Level 145 mmol/L (136-145) Potassium Level 4.7 mmol/L (3.5-5.1) Chloride Level 109 mmol/L (98-107) H Carbon Dioxide Level 30 mmol/L (21-32) Anion Gap 6 (6-14) Blood Urea Nitrogen 20 mg/dL (7-20) Creatinine 0.9 mg/dL (0.6-1.0) Estimated GFR (Cockcroft-Gault) 65.5 BUN/Creatinine Ratio 22 (6-20) H Glucose Level 87 mg/dL (70-99) Calcium Level 8.0 mg/dL (8.5-10.1) L Total Bilirubin 0.2 mg/dL (0.2-1.0) Aspartate Amino Transferase (AST) 13 U/L (15-37) L Alanine Aminotransferase (ALT) 7 U/L (14-59) L Alkaline Phosphatase 102 U/L (46-116) Total Protein 5.8 g/dL (6.4-8.2) L Albumin 2.8 g/dL (3.4-5.0) L Albumin/Globulin Ratio 0.9 (1.0-1.7) L Valproic Acid Level 35 mcg/mL (50-100) L Valproic Acid Last Dose Date 07/06/19 Valproic Acid Last Dose Time 2100 Current Medications: Meds: Current Medications Medications (Trade) Dose Ordered Sig/Sharron Route PRN Reason Start Time Stop Time Status Last Admin Dose Admin Divalproex Sodium (Depakote Sprinkles) 750 mg BID PO 07/06/19 21:00 07/07/19 20:37 I have reviewed the current psychotropics carefully including drug interactions. Risk benefit ratio favors no change other than as noted in my dictated progress note. Diagnosis: Problems: (1) Major neurocognitive disorder due to Alzheimer's disease, with behavioral disturbance (2) Anxiety disorder (3) Alcohol-induced persisting dementia (4) Alcoholic psychosis (5) Dementia, vascular, with delusions (6) Dementia, vascular, with depression (7) Impulse control disorder MAHENDRA THOMAS MD Jul 07, 2019 20:42
[2019-07-07] MEDS ORDERED: NICO1PAT25 TD (23:47)
[2019-07-07] MEDS ORDERED: OXYB5TAB10 PO (23:48)
[2019-07-08] MEDS: oxyCODONE/APAP 10/325 1 TAB TABLET PO PRN (06:02)
[2019-07-08 06:25] VITALS: BP 107/68
[2019-07-08] MEDS: clonazePAM 0.5 MG TABLET PO SCH (09:13)
[2019-07-08] MEDS: DIVALPROEX 125 MG CAP.SPRINK PO SCH (09:13)
[2019-07-08] MEDS: OXYBUTYNIN CHLORIDE 5 MG TABLET PO SCH (09:13)
[2019-07-08] MEDS: PHENYTOIN SODIUM EXTENDED 100 MG CAPSULE PO SCH (09:13)
[2019-07-08] MEDS: MAGNESIUM OXIDE 400 MG TABLET PO SCH (09:14)
[2019-07-08] MEDS: NICOTINE 14MG PATCH. TD SCH (09:14)
--- NOTE | 2019-07-08 09:39 | NUR ---
Patient was in her room during rounding, took medications whole, asked to use the bathroom. Assisted patient to the restroom, she wanted to lay back down. Patient is in her room and is leaving today. No agitation noted, will continue to monitor.
--- NOTE | 2019-07-08 11:23 | NUR ---
Tobacco Discharge Note [facility] Tobacco Hotline called with patient prior to discharge, YES, pt refused to speak to them. Tobacco cessation medication listed with current medications for discharge. YES Transition Record was faxed to follow-up provider with the following elements: Reason for admission, procedures, tests, principal diagnosis, pending studies, patient instructions, 16/03 contact information for unit, phone number to obtain pending test results, plan for follow-up care, physician follow-up, advanced directive information, and medication list with dose, duration and instructions. This information was included in the following documents: History and physical, lab results, study results, progress notes, social work planning form, DC instruction form, patient visit summary, and medication reconciliation form. Date & time record faxed: 07/08/19 0043 Record faxed to: Thor @[phone]. Record discussed with/ report given to: Nurse not available, spoke to board certified music therapist. Left message for nurse to return phone call for report. No return phone call at this time
--- NOTE | 2019-07-08 12:48 | PN ---
DATE: 07/06/2019 This late entry 07/06 covers elements not covered in my initial note. SUBJECTIVE: I met with the patient evening of 07/06. Per CELSA Mcclendon, the patient slept 7-1/4 hours previous night. Compliant with a.m. medications. Assessment came to the dayroom little bit. Attention speaking, complains of low back pain 9 on a scale of 0-10. Valproic acid level is 28 on Depakote 625 b.i.d. We will increase to 750 b.i.d. Check CBC, CMP, valproic acid level in 3 days. REVIEW OF SYSTEMS: Poor vision, impaired ambulation, in wheelchair. No CV, , pulmonary, eye, ENT system symptoms on review. MENTAL STATUS EXAM: Oriented to herself and situation. Speech has some latency, coherent. Abstraction fair, computation impaired, language function intact, attention span short. Mood and affect overall less withdrawn, less labile. LABORATORY DATA: Reviewed. IMPRESSION: Unchanged from initial note. PLAN: No change from initial note. MAHENDRA THOMAS MD DR: ASHLEY/miguelito JOB#: [id number] / [id number]
--- NOTE | 2019-07-08 20:40 | PDOC ---
Exam Note: Adolfo Note: Please also refer to the separate dictated note~for this date of service dictated separately.~Patient seen individually. Discussed the patient with Nursing staff reviewed the chart.~Reviewed interim history and current functioning. Reviewed vital signs,~Labs/ Radiology~and current medications noted below. Continue current treatment with the changes noted in the dictated addendum note Assessment: Vital Signs/I&O: Vital Signs Date Time Temp Pulse Resp B/P (MAP) Pulse Ox O2 Delivery O2 Flow Rate FiO2 07/08/19 06:25 97.2 60 18 107/68 (81) 94 Room Air I & O 07/07/19 07/07/19 07/08/19 15:00 23:00 07:00 Intake Total 480 ml 720 ml 240 ml Balance 480 ml 720 ml 240 ml Current Medications: I have reviewed the current psychotropics carefully including drug interactions. Risk benefit ratio favors no change other than as noted in my dictated progress note. Diagnosis: Problems: (1) Major neurocognitive disorder due to Alzheimer's disease, with behavioral disturbance (2) Anxiety disorder (3) Alcohol-induced persisting dementia (4) Alcoholic psychosis (5) Dementia, vascular, with delusions (6) Dementia, vascular, with depression (7) Impulse control disorder MAHENDRA THOMAS MD Jul 08, 2019 20:40
--- NOTE | 2019-07-09 02:53 | PN ---
DATE: 07/07/2019 This late entry, 07/07/2019, covers elements not covered in my initial note. SUBJECTIVE: Met with the patient in the evening and staffed a treatment team meeting with entire team in the morning, with Dolly, patient's guardian, and a sister Ann, patient's guardian attending. The patient's sleeping average is 7 hours, appetite 80%, compliant with medications. UA negative. She is somewhat withdrawn and has power struggles with staff. Loves [employer] songs and this is a positive motivator for her. REVIEW OF SYSTEMS: Poor vision. No CV, , pulmonary, or ENT system symptoms on review. MENTAL STATUS EXAM: Oriented to herself and situation. Speech is coherent, abstraction fair, computation impaired, language function intact, and attention span short. Mood and affect somewhat withdrawn, but improved. LABORATORY DATA: Reviewed. IMPRESSION: Bipolar disorder, mixed, mild cognitive impairment, past history of polysubstance abuse, impulse control disorder. Rest unchanged. PLAN: Continue psychotropics from initial note. Possible discharge to [facility], 07/08/2018. MAN Betty THOMAS MD DR: ASHLEY/miguelito JOB#: [id number] / [id number]
--- NOTE | 2019-07-10 14:11 | DS ---
DATE OF DISCHARGE: 07/08/2019 DISCHARGE SUMMARY/PSYCHIATRIC PROGRESS NOTE This late entry, 07/08/2019, covers the elements not covered in my initial note. REASON FOR ADMISSION: Please refer to the admission history for details. Briefly, patient is a 54-year-old female referred back to us from [facility] by her primary care physician on account of increased hallucinations, agitation, and aggression. The patient threw a television at the facility and ran her wheelchair into the wall and nursing station. She is putting herself on the floor. She is increasingly psychotic, confused, and had failed the outpatient psychiatric interventions, resulting in this referral. SIGNIFICANT FINDINGS AND CLINICAL COURSE: Following admission, patient was seen daily individually by myself from a psychiatric standpoint and medical followup with Dr. Evans. The patient remains somewhat withdrawn, paranoid, and suspicious. Adjustments were made in her psychotropic. She seemed to respond to a combination of Klonopin 0.5 b.i.d. and 0.25 at 1500, trazodone 50 mg at bedtime, Risperdal 0.75 mg at bedtime, Luvox 75 mg a day for her OCD symptoms, Depakote Sprinkle 750 b.i.d., level on 07/06/2019 was subtherapeutic at 28. Depakote had since been increased with the repeat labs to be done on the current dosage. She is also on Dilantin 200 mg b.i.d. with a level of 20.7 and I defer to Dr. Evans for this. She is having no side effects from the slightly elevated Dilantin level nevertheless. REVIEW OF SYSTEMS: Prior to discharge on 07/08/2019, poor vision, impaired ambulation, in wheelchair. No CV, , pulmonary system symptoms on review. MENTAL STATUS EXAM: The patient is oriented to herself and situation. Speech has some latency, coherent, can be a little pressured at times, but much improved. Abstraction fair, computation impaired, and language function intact. Mood and affect are improved. LABORATORY DATA: Reviewed. FINAL DIAGNOSES: Schizoaffective disorder, bipolar type, mixed with psychotic features, in partial remission; major neurocognitive disorder, early, multifactorial, secondary to past alcohol and polysubstance, vascular with delusion; depression; behavioral disturbance; anxiety disorder, unspecified; impulse control disorder, unspecified. Rest unchanged from the admission. DISCHARGE MEDICATIONS: Please refer to the [facility]. DISCHARGE INSTRUCTIONS: The outpatient psychiatric and medical followup at the senior living. Time for discharge day management greater than 30 minutes. MAHENDRA THOMAS MD DR: ASHLEY/miguelito JOB#: [id number] / [id number]
== END 2019-07-08 10:50 | DRG 885 ==
LOC: ER 14:24 → GEROPSY 17:47
PROVIDERS: ADMIT Psychiatry & Neurology Psychiatry; ATTEND Psychiatry & Neurology Psychiatry
DX: F25.0 Schizoaffective disorder, bipolar type (principal); F01.51 Vascular dementia, unspecified severity, with behavioral disturbance; F02.81 Dementia in other diseases classified elsewhere, unspecified severity, with behavioral disturbance; F10.27 Alcohol dependence with alcohol-induced persisting dementia; K50.90 Crohn's disease, unspecified, without complications; F41.9 Anxiety disorder, unspecified; E11.51 Type 2 diabetes mellitus with diabetic peripheral angiopathy without gangrene; F42.9 Obsessive-compulsive disorder, unspecified; F60.3 Borderline personality disorder; F63.9 Impulse disorder, unspecified; G30.9 Alzheimer's disease, unspecified; G40.909 Epilepsy, unspecified, not intractable, without status epilepticus; H54.8 Legal blindness, as defined in USA; I10 Essential (primary) hypertension; J44.9 Chronic obstructive pulmonary disease, unspecified; R29.6 Repeated falls; Z85.118 Personal history of other malignant neoplasm of bronchus and lung; Z86.73 Personal history of transient ischemic attack (TIA), and cerebral infarction without residual deficits; Z91.14 Patient's other noncompliance with medication regimen; Z87.891 Personal history of nicotine dependence; Z79.899 Other long term (current) drug therapy; Z88.8 Allergy status to other drugs, medicaments and biological substances
CPT/HCPCS: 36415; 80053; 80061; 80164; 80185; 81001; 82306; 82607; 83036; 83540; 83550; 83735; 84436; 84443; 84480; 85025; 86592; 87086; 93005; 99407; 97110; 97116; 97530; 99285-25

== ENCOUNTER → 2019-08-30 | Day surgery (SDC) | payer OTHER ==
[~2019-08-30] MED LIST changes: +BALANCED SALT IRRIG OPHTH SOLN 15 ML BOTTLE. IRR ONE; +BUPR100T7 PO; +CATARACT OPHTH GEL 0.5 ML SYRINGE. OD ONE; +CHONDROIT-SOD-HYALURONATE KIT. OD ONE; +DIVA250T PO; +EPINEPHrine AMPULE 0.5 MG in BALANCED SALT IRRIG SOLN PLUS 500 ML IO ONE; +ERYTHROMYCIN 0.5% OPHTH OINTMENT 1GM TUBE. OD ONE; +HYALURONIDASE 75UNITS in LIDOCAINE 2% PF OPHTH 10 ML SYRINGE. OD ONE; +KETOROLAC TROMETHAMINE 0.5% OPHTH SOLUTION BOTTLE. OD SCH; +LIDO/EPI IN BSS OPHTH 8 ML SYRINGE OD SCH; +MAGN400T22 PO; +MOXIFLOXACIN 0.5% OPHTH SOLUTION 3ML BOTTLE. OD SCH; +NICO1PAT25 TD; +OXYB5TAB10 PO; +OXYC1TAB22 PO; +POVIDONE-IODINE 5% OPHTH SOLUTION 30ML BOTTLE. OD ONE; +PROPOFOL 10,000 MCG/ML (20ML) VIAL IV ONE; +PROPOFOL 20 ML IV ONE; +RISP0.5T24 PO; +TETRACAINE 0.5% OPHTH SOLUTION 4ML BOTTLE. OD ONE; +TETRACAINE 0.5% OPHTH SOLUTION 4ML BOTTLE. OU ONE; +prednisoLONE ACETATE 1% OPHTH SUSPENSION 5ML BOTTLE. OD SCH
[2019-08-30] MEDS: MOXIFLOXACIN 0.5% OPHTH SOLUTION 3ML BOTTLE. OD SCH ×3 (10:37→10:42)
--- NOTE | 2019-08-30 11:29 | PDOC4 ---
Date of Procedure: Aug 30, 2019 Preoperative Diagnosis: Mature Cataract, [right ] Eye Postoperative Diagnosis: Mature Cataract, right Eye Anesthesia: Local (Block) with monitored anesthesia care Surgeon: Pratima Lyman D.O. Procedure: 1. Phacoemulsification with Intraocular Lens Implant 2. Vision Blue Staining of Anterior Capsule: Findings: Mature cataract Indications: Worsening vision interfering with patient's lifestyle Narrative: After discussing the risks, complications and alternatives, including but not limited to loss of vision, infection, bleeding, swelling, anesthetic reaction, capsule rupture with vitreous loss, etc., the patient was given a peribulbar block. Pressure was applied to the eye for approximately 10 minutes. The patient was transferred to the main operating room and was prepped and draped in the usual sterile fashion and positioned under the microscope. A lid speculum was placed. A side port incision was made, epi-shugarcaine followed by air were injected into the anterior chamber followed by Vision Blue. After 30 seconds, a temporal 2.4 mm incision was made and the Vision Blue was aspirated from the eye. A continuous tear capsulorrhexis was performed, then hydrodissection was accomplished with balanced salt solution. The phacoemulsification needle was placed in the eye and the nucleus was emulsified. The remaining cortical material was removed with the irrigation and aspiration apparatus. The capsule was polished as needed. The posterior capsule was noted to be clean and intact. Viscoelastic was injected into the eye inflating the capsular bag. An intraocular lens was injected into the eye, unfolding as desired and was positioned in the capsular bag. The viscoelastic was aspirated from the eye. The wound edges were hydrated with balanced salt solution and there were no leaks. Viscoelastic was injected over the limbal incisions. Antibiotic and steroid were placed on the eye. The lid speculum was removed, the eye patched shut and a De La Garza shield applied. There were no complications and the patient was taken to PACU in good condition. PRATIMA LYMAN DO Aug 30, 2019 11:29
[2019-08-30 11:41] VITALS: BP 123/64
== END | disposition home or self-care (01) ==
LOC: SURG 08:19
PROVIDERS: ATTEND Ophthalmology
DX: H25.21 Age-related cataract, morgagnian type, right eye (principal); E11.40 Type 2 diabetes mellitus with diabetic neuropathy, unspecified; G20 Parkinson's disease; I25.2 Old myocardial infarction; J44.9 Chronic obstructive pulmonary disease, unspecified; F31.9 Bipolar disorder, unspecified; I73.9 Peripheral vascular disease, unspecified; E11.36 Type 2 diabetes mellitus with diabetic cataract; E66.9 Obesity, unspecified; Z86.73 Personal history of transient ischemic attack (TIA), and cerebral infarction without residual deficits; Z85.118 Personal history of other malignant neoplasm of bronchus and lung; Z98.890 Other specified postprocedural states; Z88.6 Allergy status to analgesic agent; Z79.899 Other long term (current) drug therapy; Z89.431 Acquired absence of right foot; Z88.8 Allergy status to other drugs, medicaments and biological substances; Z95.5 Presence of coronary angioplasty implant and graft; Z68.35 Body mass index [BMI] 35.0-35.9, adult
CPT/HCPCS: 66982; C1780; J0171; J2704

== ENCOUNTER → 2019-09-27 | Day surgery (SDC) | payer OTHER ==
[~2019-09-27] MED LIST changes: +ACETAMINOPHEN 325 MG TABLET PO PRN; +ALBUTEROL SULFATE 2.5 MG/3 ML NEBU. NEB PRN; +ATROPINE 0.5 MG/5 ML DISP.SYRIN. IV PRN; -CATARACT OPHTH GEL 0.5 ML SYRINGE. OD ONE; +CATARACT OPHTH GEL 0.5 ML SYRINGE. OS ONE; -CHONDROIT-SOD-HYALURONATE KIT. OD ONE; +CHONDROIT-SOD-HYALURONATE KIT. OS ONE; -ERYTHROMYCIN 0.5% OPHTH OINTMENT 1GM TUBE. OD ONE; +ERYTHROMYCIN 0.5% OPHTH OINTMENT 1GM TUBE. ONE; +ERYTHROMYCIN 0.5% OPHTH OINTMENT 1GM TUBE. OS ONE; -HYALURONIDASE 75UNITS in LIDOCAINE 2% PF OPHTH 10 ML SYRINGE. OD ONE; +HYALURONIDASE 75UNITS in LIDOCAINE 2% PF OPHTH 10 ML SYRINGE. OS ONE; +IV RINGERS SOLUTION,LACTATED 1,000 ML IV SCH; -KETOROLAC TROMETHAMINE 0.5% OPHTH SOLUTION BOTTLE. OD SCH; +KETOROLAC TROMETHAMINE 0.5% OPHTH SOLUTION BOTTLE. ONE; -LIDO/EPI IN BSS OPHTH 8 ML SYRINGE OD SCH; -MAGN2400 PO; +MAGN24003 PO; -MOXIFLOXACIN 0.5% OPHTH SOLUTION 3ML BOTTLE. OD SCH; +MOXIFLOXACIN 0.5% OPHTH SOLUTION 3ML BOTTLE. OS SCH; +ONDANSETRON PF 4 MG/2 ML VIAL. IV PRN; -POVIDONE-IODINE 5% OPHTH SOLUTION 30ML BOTTLE. OD ONE; +POVIDONE-IODINE 5% OPHTH SOLUTION 30ML BOTTLE. OS ONE; -PROPOFOL 10,000 MCG/ML (20ML) VIAL IV ONE; -PROPOFOL 20 ML IV ONE; -TETRACAINE 0.5% OPHTH SOLUTION 4ML BOTTLE. OD ONE; +TETRACAINE 0.5% OPHTH SOLUTION 4ML BOTTLE. OS ONE; +diazePAM 5 MG TABLET PO ONE; +diphenhydrAMINE 50 MG/ML VIAL IV PRN; -prednisoLONE ACETATE 1% OPHTH SUSPENSION 5ML BOTTLE. OD SCH; +prednisoLONE ACETATE 1% OPHTH SUSPENSION 5ML BOTTLE. ONE; +prednisoLONE ACETATE 1% OPHTH SUSPENSION 5ML BOTTLE. OS SCH
[2019-09-27] MEDS: MOXIFLOXACIN 0.5% OPHTH SOLUTION 3ML BOTTLE. OS SCH ×2 (09:09→09:14)
--- NOTE | 2019-09-27 10:13 | PDOC4 ---
Date of Procedure: Sep 27, 2019 Preoperative Diagnosis: Mature Cataract, left Eye Postoperative Diagnosis: Mature Cataract, Left Eye Anesthesia: Local (Block) with monitored anesthesia care Surgeon: Pratima Lyman D.O. Procedure: 1. Phacoemulsification with Intraocular Lens Implant 2. Vision Blue Staining of Anterior Capsule: Findings: Mature cataract, Left Eye Indications: Worsening vision interfering with patient's lifestyle Narrative: After discussing the risks, complications and alternatives, including but not limited to loss of vision, infection, bleeding, swelling, anesthetic reaction, capsule rupture with vitreous loss, etc., the patient was given 5mg of oral Va lium. About 30 minutes later, under cardiac monitoring the patient was given 5 cc of 50/50 mixture of 2% lidocaine and 0.75% Marcaine as a left peribulbar block. Pressure was applied to the eye for approximately 10 minutes. The patient was transferred to the main operating room and was prepped and draped in the usual sterile fashion and positioned under the microscope. A lid speculum was placed. A side port incision was made and air was injected into the anterior chamber followed by Vision Blue. After 30 seconds, a temporal 2.4 mm incision was made and the Vision Blue was aspirated from the eye. A continuous tear capsulorrhexis was performed, then hydrodissection was accomplished with balanced salt solution. The phacoemulsification needle was placed in the eye and the nucleus was emulsifying. The remaining cortical material was removed with the irrigation and aspiration apparatus. The capsule was polished as needed. The posterior capsule was noted to be clean and intact. Viscoelastic was injected into the eye inflating the capsular bag. An intraocular lens was injected to the eye, and folding as desired and was positioned in the capsular bag. The viscoelastic was aspirated from the eye. The wound edges were hydrated with balanced salt solution and there were no leaks. Viscoelastic was injected over the limbal incisions. Antibiotic and steroid were placed on the eye. The lid speculum was removed, the eye patched shut and a De La Garza shield applied. There were no complications and the patient was taken to PACU in good condition. PRATIMA LYMAN DO Sep 27, 2019 10:13
[2019-09-27 10:15] VITALS: BP 123/82
== END | disposition home or self-care (01) ==
LOC: SURG 08:12
PROVIDERS: ATTEND Ophthalmology
DX: H25.092 Other age-related incipient cataract, left eye (principal); E11.9 Type 2 diabetes mellitus without complications; F19.90 Other psychoactive substance use, unspecified, uncomplicated; I25.2 Old myocardial infarction; F17.210 Nicotine dependence, cigarettes, uncomplicated; J44.9 Chronic obstructive pulmonary disease, unspecified; E66.9 Obesity, unspecified; Z68.32 Body mass index [BMI] 32.0-32.9, adult; Z86.73 Personal history of transient ischemic attack (TIA), and cerebral infarction without residual deficits; Z85.118 Personal history of other malignant neoplasm of bronchus and lung; Z98.890 Other specified postprocedural states; Z89.421 Acquired absence of other right toe(s); Z79.84 Long term (current) use of oral hypoglycemic drugs
CPT/HCPCS: 66982; J0171; V2632

== ENCOUNTER 2020-06-18 13:18 | Inpatient (IN) | payer OTHER ==
[~2020-06-18] VITALS: Ht 152.4 cm; Wt 101.5 kg
[~2020-06-18 13:18] MED LIST changes: -ACETAMINOPHEN 325 MG TABLET PO PRN; -ALBUTEROL SULFATE 2.5 MG/3 ML NEBU. NEB PRN; -ATROPINE 0.5 MG/5 ML DISP.SYRIN. IV PRN; -BALANCED SALT IRRIG OPHTH SOLN 15 ML BOTTLE. IRR ONE; -CATARACT OPHTH GEL 0.5 ML SYRINGE. OS ONE; -CHONDROIT-SOD-HYALURONATE KIT. OS ONE; -EPINEPHrine AMPULE 0.5 MG in BALANCED SALT IRRIG SOLN PLUS 500 ML IO ONE; -ERYTHROMYCIN 0.5% OPHTH OINTMENT 1GM TUBE. ONE; -ERYTHROMYCIN 0.5% OPHTH OINTMENT 1GM TUBE. OS ONE; -HYALURONIDASE 75UNITS in LIDOCAINE 2% PF OPHTH 10 ML SYRINGE. OS ONE; -IV RINGERS SOLUTION,LACTATED 1,000 ML IV SCH; -KETOROLAC TROMETHAMINE 0.5% OPHTH SOLUTION BOTTLE. ONE; -MOXIFLOXACIN 0.5% OPHTH SOLUTION 3ML BOTTLE. OS SCH; -ONDANSETRON PF 4 MG/2 ML VIAL. IV PRN; -POVIDONE-IODINE 5% OPHTH SOLUTION 30ML BOTTLE. OS ONE; -TETRACAINE 0.5% OPHTH SOLUTION 4ML BOTTLE. OS ONE; -TETRACAINE 0.5% OPHTH SOLUTION 4ML BOTTLE. OU ONE; -diazePAM 5 MG TABLET PO ONE; -diphenhydrAMINE 50 MG/ML VIAL IV PRN; -prednisoLONE ACETATE 1% OPHTH SUSPENSION 5ML BOTTLE. ONE; -prednisoLONE ACETATE 1% OPHTH SUSPENSION 5ML BOTTLE. OS SCH
--- NOTE | 2020-06-18 13:35 | PHYS DOC ---
Past History Past Medical History: Alcoholism, Cancer, COPD, Dementia, Diabetes, DVT, [place], Seizure, Stroke, Other Additional Past Medical Histor: colitis, crohns Past Surgical History: Other Additional Past Surgical Histo: Partial Rt foot amputation; LEFT 1ST AND 5TH TOE AMPUTATIO Smoking: Cigarettes Alcohol Use: Occasionally Drug Use: None Adult General Chief Complaint Chief Complaint: OTHER COMPLAINTS HPI HPI Patient is a 55-year-old female who presents via EMS for hypoactive delirium. This was first appreciated this morning when patient was found by [facility] staff where she resides. She was found to be mildly hypoxic in the upper 80s and was placed on supplemental oxygen. Patient remains alert and oriented to person, place and time but continued to show signs of hypoactive delirium without improvement prompting [facility] to call for transport to our facility for evaluation. Per [facility] paperwork, patient is a full code. She has history of pulmonary embolism and is currently on Xarelto. She has history of congestive heart failure with unknown ejection fraction, she appears fluid heavy on arrival. No known COVID-19 contact or fever. Patient denying any chest pain but admits continued shortness of breath and inability to lie flat, she has been requiring 3 L of oxygen to keep O2 saturations greater than 90% which is unusual for patient as she typically does not require oxygen Review of Systems Review of Systems Fourteen body systems of review of systems have been reviewed. See HPI for pertinent positives and negative responses, other ga all other systems are negative, non-pertinent or non-contributory Allergies Allergies Allergies Coded Allergies Type Severity Reaction Last Updated Verified aspirin Allergy Intermediate 07/06/18 Yes ketorolac Allergy Intermediate 07/06/18 Yes morphine Allergy Intermediate 12/01/18 Yes Physical Exam Physical Exam Constitutional: Well developed, well nourished, no acute distress, non-toxic appearance. HENT: Normocephalic, atraumatic, bilateral external ears normal, oropharynx moist, no oral exudates, nose normal. Poor dentition Eyes: PERRLA, EOMI, conjunctiva normal, no discharge. Neck: Normal range of motion, no tenderness, supple, no stridor. Cardiovascular: Heart rate regular, sinus rhythm, no murmurs rubs or gallops Lungs & Thorax: Mild respiratory distress, no accessory muscle usage, on 3 L of oxygen to maintain saturations greater than 90%, rales in bilateral bases worse on the left Abdomen: Bowel sounds normal, soft, no tenderness, no masses, no pulsatile masses. Nonsurgical abdomen, no peritoneal signs Skin: Warm, dry, no erythema, no rash. Back: No tenderness, no CVA tenderness. Extremities: No tenderness, no cyanosis, no clubbing, ROM intact, trace bilateral lower extremity edema Neurologic: Alert and oriented X 3, grossly normal motor & sensory function, no focal deficits noted. Psychologic: Affect normal, judgement normal, mood normal. Current Patient Data Vital Signs Vital Signs Date Time Temp Pulse Resp B/P (MAP) Pulse Ox O2 Delivery O2 Flow Rate FiO2 06/18/20 13:20 98.8 92 18 123/82 (96) 94 3.0 Lab Results Laboratory Tests Test 06/18/20 13:38 06/18/20 13:45 06/18/20 14:17 06/18/20 15:49 Sodium Level 142 mmol/L (136-145) Potassium Level 3.8 mmol/L (3.5-5.1) Chloride Level 102 mmol/L (98-107) Carbon Dioxide Level 31 mmol/L (21-32) Anion Gap 9 (6-14) Blood Urea Nitrogen 22 mg/dL (7-20) Creatinine 1.6 mg/dL (0.6-1.0) Estimated GFR (Cockcroft-Gault) 33.6 BUN/Creatinine Ratio 14 (6-20) Glucose Level 114 mg/dL (70-99) Calcium Level 8.8 mg/dL (8.5-10.1) Total Bilirubin 0.3 mg/dL (0.2-1.0) Aspartate Amino Transf (AST/SGOT) 35 U/L (15-37) Alanine Aminotransferase (ALT/SGPT) 16 U/L (14-59) Alkaline Phosphatase 118 U/L (46-116) FR-Zep-U-Type Natriuretic Peptide 149 pg/mL (0-124) Total Protein 7.0 g/dL (6.4-8.2) Albumin 3.2 g/dL (3.4-5.0) Albumin/Globulin Ratio 0.8 (1.0-1.7) White Blood Count 7.8 x10^3/uL (4.0-11.0) Red Blood Count 4.31 x10^6/uL (3.50-5.40) Hemoglobin 13.9 g/dL (12.0-15.5) Hematocrit 41.8 % (36.0-47.0) Mean Corpuscular Volume 97 fL (79-100) Mean Corpuscular Hemoglobin 32 pg (25-35) Mean Corpuscular Hemoglobin Concent 33 g/dL (31-37) Red Cell Distribution Width 13.9 % (11.5-14.5) Platelet Count 213 x10^3/uL (140-400) Neutrophils (%) (Auto) 56 % (31-73) Lymphocytes (%) (Auto) 30 % (24-48) Monocytes (%) (Auto) 9 % (0-9) Eosinophils (%) (Auto) 5 % (0-3) Basophils (%) (Auto) 1 % (0-3) Neutrophils # (Auto) 4.3 x10^3uL (1.8-7.7) Lymphocytes # (Auto) 2.3 x10^3/uL (1.0-4.8) Monocytes # (Auto) 0.7 x10^3/uL (0.0-1.1) Eosinophils # (Auto) 0.4 x10^3/uL (0.0-0.7) Basophils # (Auto) 0.1 x10^3/uL (0.0-0.2) Lactic Acid Level 0.9 mmol/L (0.4-2.0) Troponin I Quantitative < 0.017 ng/mL (0-0.055) Urine Collection Type Unknown Urine Color Yellow Urine Clarity Hazy Urine pH 6.5 Urine Specific [place] 1.025 Urine Protein Neg (NEG-TRACE) Urine Glucose (UA) Neg mg/dL (NEG) Urine Ketones (Stick) Neg mg/dL (NEG) Urine Blood Trace (NEG) Urine Nitrite Pos (NEG) Urine Bilirubin Neg (NEG) Urine Urobilinogen Dipstick 0.2 mg/dL (0.2 mg/dL) Urine Leukocyte Esterase Small (NEG) Urine RBC 3-5 /HPF (0-2) Urine WBC >40 /HPF (0-4) Urine Squamous Epithelial Cells None /LPF Urine Bacteria Mod /HPF (0-FEW) Bedside Venous pH 7.44 (7.32-7.42) Bedside Venous pCO2 47 mmHg (41-51) Bedside Venous pO2 99 mmHg (20-40) Venous Blood HCO3 32 mmol/L (24-28) POC Venous O2 Saturation (Ale) 98 % Bedside FiO2 28 Urine Opiates Screen Pos (NEG) Urine Methadone Screen Neg (NEG) Urine Barbiturates Neg (NEG) Urine Phencyclidine Screen Neg (NEG) Urine Amphetamine/Methamphetamine Neg (NEG) Urine Benzodiazepines Screen Neg (NEG) Urine Cocaine Screen Neg (NEG) Urine Cannabinoids Screen Neg (NEG) Urine Ethyl Alcohol Neg (NEG) Ethyl Alcohol Level < 10 mg/dL (0-10) EKG EKG EKG ordered and interpreted by myself at 1334 hrs.'s sinus rhythm at 91 bpm, unremarkable intervals, no axis deviation, premature ventricular complexes seen without any acute ischemic findings, no STEMI Radiology/Procedures Radiology/Procedures PROCEDURE: PORTABLE CHEST 1V EXAM: PORTABLE CHEST 1V INDICATION: Reason: COUGH, HYPOXIA / Spl. Instructions: / History: . TECHNIQUE: Single view COMPARISON: None FINDINGS: The heart size is normal. The great vessels appear unremarkable. There is no hilar or mediastinal mass. The lungs are hypoventilatory and show mild prominence of the bilateral perihilar interstitial pulmonary markings.. There is no pleural effusion or pneumothorax. There are no significant osseous abnormalities. IMPRESSION: Hypoventilatory chest showing mild interstitial pulmonary vascular congestion. Electronically signed by: Tone Ramirez MD (06/18/2020 2:07 PM) [id number] PROCEDURE: CT HEAD WO CONTRAST CT Head W/O Contrast: History: Reason: DECREASED MENTATION / Spl. Instructions: / History: Comparison: December 03, 2018 Axial images were obtained without contrast. There is moderate diffuse atrophy. There is no mass effect, extraaxial fluid collections or hydrocephalus. There is no focal loss of cason-white matter distinction to suggest acute ischemia, i.e. stroke. Impression: Moderate diffuse atrophy is advanced for the patient's age. Otherwise no acute findings. End impression PQRS Compliance Statement: One or more of the following individualized dose reduction techniques were utilized for this examination: 1. Automated exposure control 2. Adjustment of the mA and/or kV according to patient size 3. Use of iterative reconstruction technique Electronically signed by: Jose Fierro III, MD (06/18/2020 4:00 PM) UIC-EURI Heart Score HEART Score for Chest Pain: HEART Score for Chest Pain Response (Comments) Value History Slighlty/Non-Suspicious 0 ECG Normal 0 Age >45 - < 65 1 Risk Factors >3 Risk Factors or Hx CAD 2 Troponin < Normal Limit 0 Total 3 Risk Factors: Risk Factors: DM, Current or recent (<one month) smoker, HTN, HLP, family history of CAD, obesity. Risk Scores: Risk Factors: DM, Current or recent (<one month) smoker, HTN, HLP, family history of CAD, obesity. Course & Med Decision Making Course & Med Decision Making Pertinent Labs and Imaging studies reviewed. (See chart for details) Workup most concerning for UTI treated with Rocephin. Fluid overload causing hypoxemic resp distress treated with supplemental O2 and IV diuresis. EAGLE likely due to volume overload Patient high risk for worsened prognosis if discharged home so Dr. Evans called and case discussed, he accepted patient under his care. Patient updated on this finding and was amenable. All questions and concerns addressed prior to transport to [facility] for continued medical management Dragon Disclaimer Dragon Disclaimer This electronic medical record was generated, in whole or in part, using a voice recognition dictation system. Departure Departure: Impression: Primary Impression: Respiratory distress Additional Impressions: Hypoxia Acute exacerbation of CHF (congestive heart failure) UTI (urinary tract infection) Dementia, vascular, with depression Delirium due to multiple etiologies, acute, hypoactive EAGLE (acute kidney injury) Disposition: 09 ADMITTED INPT THIS HOSP ([facility]) Admitting Physician: Samy Evans Condition: STABLE Referrals: DIANN DICKINSON (PCP) Problem Qualifiers EMILY DOMINGUEZ DO Jun 18, 2020 13:35
--- NOTE | 2020-06-18 13:46 | EKG ---
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
[2020-06-18 14:10] LABS: BASO # 0.1 x10^3/uL (0.0-0.2); BASO % 1 % (0-3); EOS # 0.4 x10^3/uL (0.0-0.7); EOS % 5 % (0-3); HEMATOCRIT 41.8 % (36.0-47.0); HEMOGLOBIN 13.9 g/dL (12.0-15.5); LYMPH # 2.3 x10^3/uL (1.0-4.8); LYMPH % 30 % (24-48); MEAN CORPUSCULAR HEMOGLOBIN 32 pg (25-35); MEAN CORPUSCULAR HGB CONC 33 g/dL (31-37); MEAN CORPUSCULAR VOLUME 97 fL (79-100); MONO # 0.7 x10^3/uL (0.0-1.1); MONO % 9 % (0-9); NEUT # 4.3 x10^3uL (1.8-7.7); NEUT % 56 % (31-73); PLATELET COUNT 213 x10^3/uL (140-400); RED BLOOD COUNT 4.31 x10^6/uL (3.50-5.40); RED CELL DISTRIBUTION WIDTH 13.9 % (11.5-14.5); WHITE BLOOD COUNT 7.8 x10^3/uL (4.0-11.0)
--- NOTE | 2020-06-18 14:10 | RAD ---
EXAM: PORTABLE CHEST 1V INDICATION: Reason: COUGH, HYPOXIA / Spl. Instructions: / History: . TECHNIQUE: Single view COMPARISON: None FINDINGS: The heart size is normal. The great vessels appear unremarkable. There is no hilar or mediastinal mass. The lungs are hypoventilatory and show mild prominence of the bilateral perihilar interstitial pulmonary markings.. There is no pleural effusion or pneumothorax. There are no significant osseous abnormalities. IMPRESSION: Hypoventilatory chest showing mild interstitial pulmonary vascular congestion. Electronically signed by: Tone Ramirez MD (06/18/2020 2:07 PM) [id number]
[2020-06-18] MEDS ORDERED: FUROSEMIDE 100 MG/10 ML VIAL IVP ONE (14:30)
[2020-06-18 15:07] LABS: CLARITY,URINE HAZY; COLOR,URINE YELLOW
[2020-06-18 15:08] LABS: BACTERIA,URINE MOD /HPF (0-FEW); BILIRUBIN,URINE NEG (NEG); GLUCOSE,URINE NEG (NEG); NITRITE,URINE POS (NEG); UROBILINOGEN,URINE 0.2 mg/dL (0.2 mg/dL); WBC,URINE >40 /HPF (0-4)
[2020-06-18] MEDS ORDERED: IV NORMAL SALINE 100ML 100 ML ONE (15:18)
[2020-06-18 15:25] LABS: CALCIUM 8.8 mg/dL (8.5-10.1); CREATININE 1.6 mg/dL (0.6-1.0); GFR 33.6; POTASSIUM 3.8 mmol/L (3.5-5.1)
[2020-06-18 15:35] LABS: AMPHETAMINE/METHAMPHETAMINE NEG (NEG); BARBITURATES NEG (NEG); BENZODIAZEPINES NEG (NEG); CANNABINOIDS NEG (NEG); COCAINE NEG (NEG); METHADONE NEG (NEG); OPIATES POS (NEG); PHENCYCLIDINE NEG (NEG)
[2020-06-18 15:39] LABS: ALBUMIN 3.2 g/dL (3.4-5.0); ALBUMIN/GLOBULIN RATIO 0.8 (1.0-1.7); TOTAL BILIRUBIN 0.3 mg/dL (0.2-1.0)
--- NOTE | 2020-06-18 16:03 | RAD ---
CT Head W/O Contrast: History: Reason: DECREASED MENTATION / Spl. Instructions: / History: Comparison: December 03, 2018 Axial images were obtained without contrast. There is moderate diffuse atrophy. There is no mass effect, extraaxial fluid collections or hydrocephalus. There is no focal loss of cason-white matter distinction to suggest acute ischemia, i.e. stroke. Impression: Moderate diffuse atrophy is advanced for the patient's age. Otherwise no acute findings. End impression PQRS Compliance Statement: One or more of the following individualized dose reduction techniques were utilized for this examination: 1. Automated exposure control 2. Adjustment of the mA and/or kV according to patient size 3. Use of iterative reconstruction technique Electronically signed by: Jose Fierro III, MD (06/18/2020 4:00 PM) [facility]
[2020-06-18 17:21] VITALS: BP 115/76
[2020-06-18] MEDS ORDERED: FURO40TA4 PO (17:33)
[2020-06-18] MEDS ORDERED: LEVE500T56 PO (17:33)
[2020-06-18] MEDS ORDERED: CYCL5TAB PO (17:33)
[2020-06-18] MEDS ORDERED: APIX5TAB3 PO (17:33)
[2020-06-18] MEDS ORDERED: ACET325T21 PO (17:33)
[2020-06-18] MEDS ORDERED: OXYC10TA PO ×3 (17:33→18:28)
--- NOTE | 2020-06-18 18:04 | NUR ---
NURSING NOTE ADMIT PT ADMIT TO ROOM 109 FOR DX OF UTI, HYPOXIA, CHF. PT COMES TO ED VIA EMS FROM FACILITY WITH LOW O2 ON ROOM AIR, PT PLACED ON 3 LITERS TO KEEP OXYGEN ABOVE 90%. PT WAS ALERT TO SELF ONLY UPON ARRIVAL, UNABLE TO STATES THE DATE. SPOKE WITH [facility], THEY STATE PT IS USUALLY A&O WITH SOME HALLUCINATIONS. PT IS USUALLY ABLE TO AMBULATE AROUND THE FACILITY AND GOES OUTSIDE TO SMOKE, PER NURSE, PT DID NOT GO OUTSIDE TODAY TO SMOKE THAT SHE KNOWS OF. PT AT TIMES REQUIRES SOME ASSISTANCE BUT MOSTLY INDEPENDENT WITH AMBULATION. DANNY PLACED IN ED. PT ACITIVITY LEVEL NOT ASSESSED UPON ADMISSION AT THIS TIME, PT CURRENTLY IN BED SITTING UP, PT UNABLE TO LAY FLAT WITHOUT SOA AND INCREASED WORK OF BREATHING. HOME MEDS IN COMPUTER, WILL NOTIFY DR HARRIS OF ARRIVAL. CELSA HERNANDEZ.
[2020-06-18] MEDS ORDERED: OXYCODONE HCL PO PRN ×2 (18:15→18:30)
[2020-06-18] MEDS ORDERED: OXYC5TAB4 PO (18:28)
[2020-06-18] MEDS ORDERED: oxyCODONE IR 5 MG TABLET PO PRN (18:30)
[2020-06-18] MEDS ORDERED: NYST15PO9 TP (18:30)
[2020-06-18] MEDS ORDERED: NICOTINE 14MG PATCH. TD PRN (18:30)
[2020-06-18 19:27] VITALS: BP 95/74
--- NOTE | 2020-06-18 20:14 | NUR ---
PT is pleasantly confused. Telephone conversation with one of her guardians, Dolly Menendez. Code given for ESTEVAN. This guardian will pass on code to second guardian, Sister Ann Harris. Addendum: 06/18/20 at 2134 by CHERYL OLIVAS RN RN PT goes by Sophie. Per madison, PT admitted to [facility] 2 weeks ago for UTI and one month prior for PE. PT placed on Eliquis subsequently. Per madison, PT has been gradually deconditioning and has gained approximately 60 pounds since the beginning of this year. PT uses a walker and wheelchair at the facility.
[2020-06-18] MEDS ORDERED: traZODone 50 MG TABLET. PO SCH (21:00)
[2020-06-18 21:16] VITALS: BP 129/82
[2020-06-18] MEDS: APIXABAN 5 MG TABLET. PO SCH (21:18)
[2020-06-18] MEDS: OXYBUTYNIN CHLORIDE 5 MG TABLET PO SCH (21:18)
[2020-06-18] MEDS: DIVALPROEX ER 250 MG TAB.ER.24H. PO SCH (21:19)
[2020-06-18] MEDS: levETIRAcetam 500 MG TABLET PO SCH (21:19)
[2020-06-18] MEDS: CYCLOBENZAPRINE 10 MG TABLET. PO SCH (21:19)
[2020-06-18] MEDS: clonazePAM 0.5 MG TABLET PO SCH (21:19)
[2020-06-18] MEDS: MAGNESIUM OXIDE 400 MG TABLET PO SCH (21:19)
[2020-06-18] MEDS: risperiDONE 0.5 MG TABLET. PO SCH (21:19)
[2020-06-18] MEDS: NYSTATIN TOPICAL POWDER 15GM BOTTLE. TP SCH (21:20)
[2020-06-18] MEDS: oxyCODONE ER 10 MG TAB.ER.12H PO SCH (21:20)
[2020-06-18 23:33] VITALS: BP 95/67
[2020-06-19 04:53] VITALS: BP 112/77
[2020-06-19] MEDS: LACTOBACILLUS RHAMNOSUS GG 1 CAPSULE. PO SCH ×2 (07:47→21:21)
[2020-06-19] MEDS: clonazePAM 0.5 MG TABLET PO SCH (07:47)
[2020-06-19] MEDS: CYCLOBENZAPRINE 10 MG TABLET. PO SCH (07:47)
[2020-06-19] MEDS: APIXABAN 5 MG TABLET. PO SCH ×2 (07:47→21:21)
[2020-06-19] MEDS: OXYBUTYNIN CHLORIDE 5 MG TABLET PO SCH ×3 (07:48→21:21)
[2020-06-19] MEDS: MAGNESIUM OXIDE 400 MG TABLET PO SCH ×3 (07:48→21:21)
[2020-06-19] MEDS: risperiDONE 0.5 MG TABLET. PO SCH ×2 (07:48→21:21)
[2020-06-19] MEDS: DIVALPROEX ER 250 MG TAB.ER.24H. PO SCH ×2 (07:48→21:21)
[2020-06-19] MEDS: levETIRAcetam 500 MG TABLET PO SCH (07:48)
[2020-06-19] MEDS: oxyCODONE ER 10 MG TAB.ER.12H PO SCH (07:48)
[2020-06-19] MEDS: buPROPion SR 100 MG TABLET.SA. PO SCH (07:53)
[2020-06-19] MEDS: NYSTATIN TOPICAL POWDER 15GM BOTTLE. TP SCH ×2 (07:53→21:21)
[2020-06-19] MEDS ORDERED: FUROSEMIDE 40 MG TABLET PO SCH (09:00)
[2020-06-19] MEDS ORDERED: FLU VACC QS 2020-21(6MOS+)/PF 0.5 ML SYRINGE. VAX IM ONE (09:00)
[2020-06-19 09:02] VITALS: BP 102/58
--- NOTE | 2020-06-19 09:16 | NUR ---
NURSING NOTE PT WAS ALERT TO SELF THIS AM UPON ASSESSMENT. PT TOOK HER MEDS WHOLE WITH NO COMPLICATIONS. PT C/O PAIN IN HER NECK 01/31. PT HAS SCHEDULED PAIN MEDICATION WELL A PRN FOR BREAKTHROUGH PAIN. PT ATE ABOUT 50% OF HER BREAKFAST INDEPENDENTLY WITH SET UP ONLY. LAB WAS UNABLE TO OBTAIN SAMPLES THIS AM, WAS TOLD IN REPORT THEY WOULD SEND SOMEONE ELSE TO TRY. PT CURRENTLY SLEEPING IN THE BED. WILL SPEAK WITH DR HARRIS ABOUT PT DAILY MEDICATIONS DURING ROUNDS, PT IS PRETTY LETHARGIC AFTER GETTING HER MORNING MEDICATIONS AND WANTING TO SLEEP. PT/OT WILL COME BACK THIS AFTERNOON TO SEE IF PT WILL GET UP AND WORK WITH THEM. PT CURRENTLY BEING TREATED WITH IV ROCEPHIN FOR UTI. WILL CONTINUE TO MONITOR. CELSA HERNANDEZ.
[2020-06-19 10:01] LABS: BASO # 0.1 x10^3/uL (0.0-0.2); BASO % 1 % (0-3); EOS # 0.3 x10^3/uL (0.0-0.7); EOS % 4 % (0-3); HEMATOCRIT 42.3 % (36.0-47.0); LYMPH # 1.5 x10^3/uL (1.0-4.8); LYMPH % 18 % (24-48); MEAN CORPUSCULAR HEMOGLOBIN 32 pg (25-35); MEAN CORPUSCULAR HGB CONC 33 g/dL (31-37); MEAN CORPUSCULAR VOLUME 97 fL (79-100); MONO # 0.6 x10^3/uL (0.0-1.1); MONO % 8 % (0-9); NEUT # 5.7 x10^3uL (1.8-7.7); NEUT % 70 % (31-73); PLATELET COUNT 196 x10^3/uL (140-400); RED BLOOD COUNT 4.38 x10^6/uL (3.50-5.40); RED CELL DISTRIBUTION WIDTH 13.6 % (11.5-14.5); WHITE BLOOD COUNT 8.1 x10^3/uL (4.0-11.0)
[2020-06-19 10:21] LABS: ALBUMIN 2.9 g/dL (3.4-5.0); ALBUMIN/GLOBULIN RATIO 0.7 (1.0-1.7); CALCIUM 8.6 mg/dL (8.5-10.1); CREATININE 1.5 mg/dL (0.6-1.0); GFR 36.2; POTASSIUM 3.2 mmol/L (3.5-5.1); TOTAL BILIRUBIN 0.3 mg/dL (0.2-1.0); TOTAL PROTEIN 7.1 g/dL (6.4-8.2)
[2020-06-19 10:30] VITALS: BP 99/71
[2020-06-19] MEDS ORDERED: POTASSIUM CHLORIDE 20 MEQ TABLET.ER. PO ONE (10:45)
--- NOTE | 2020-06-19 12:06 | NUR ---
NURSING NOTE PT HAVING INCREASED WORK OF BREATHING AND WHEN INSTRUCTED TO TAKE DEEP BREATH AND COUGH, PT HAVING DIFFICULTY COUGHING UP SECRETIONS. PAGED DR HARRIS, SPOKE WITH DR HARRIS ABOUT PT DAILY MEDICATIONS AND LETHARGY, WELL PT INCREASE WOB. DR HARRIS STATES HE IS ALMOST FINISHED AT [facility] AND WILL BE ON HIS WAY BRANDT, ORDER OBTAINED FOR [facility] TO ASSESS. CELSA HERNANDEZ.
[2020-06-19 12:39] LABS: BGAS PH 7.41 (7.35-7.45)
[2020-06-19] MEDS: IPRATRPIUM/ALBUTEROL 0.5/2.5MG 3 ML NEBU. NEB SCH ×2 (12:40→20:42)
[2020-06-19] MEDS ORDERED: NALOXONE 0.4 MG/ML VIAL. IV ONE (13:30)
--- NOTE | 2020-06-19 13:53 | NUR ---
NURSING NOTE DR HARRIS HERE ROUNDING, SPOKE WITH DR HARRIS ABOUT PT SCHEDULED MEDICATIONS. ORDERS TO DISCONTINUE SOME OF HER MEDICATIONS OBTAINED, ORDER FOR NARCAN OBTAINED, PER DR HARRIS, MAY RESTART HOME MEDS SLOWLY AT A LATER TIME WHEN PT IS MORE AWAKE. CELSA HERNANDEZ.
--- NOTE | 2020-06-19 15:00 | HP ---
ADMIT DATE: HISTORY OF PRESENT ILLNESS: The patient is a 55-year-old female patient, resident at [facility] in [place], who was noted by nursing staff to be very lethargic, delirious. She was found to be mildly hypoxic in the upper 80s and was placed on supplemental oxygen. The patient remains alert and oriented to person, place and time, but continued to show signs of hypoactive delirium without improvement, prompting detention to call for transport to [facility] for evaluation. Per detention, the patient is a full code. She has a history of pulmonary embolism and is currently on Xarelto. She has a history of congestive heart failure with unknown ejection fraction that she appears fluid overloaded at least when she arrived to the Emergency Room. No known COVID-19 contact or fever. The patient is denying any chest pain, but admits continued shortness of breath and inability to lie flat. She has been requiring 3 liters of oxygen to keep her oxygen saturation greater than 90%, which is unusual. She typically does not require any oxygen. She was evaluated in the Emergency Room and has had lab work as well as imaging studies. Her chest x-ray showed that the patient has hypoventilatory chest showing mild interstitial pulmonary vascular congestion and CT scan of the head showed that moderate diffuse atrophy is advanced in the patient's age, otherwise no acute finding. Her lab work showed that her CBC was well within normal range. Her chemistry also showed that she has slightly elevated creatinine, but otherwise unremarkable. Her blood gases showed her pH was normal at 7.44. It was a venous blood, but her pO2 was 99 and pCO2 was 47. Her oxygen saturation was 98% on FiO2 of 28%. Her urinalysis showed the urine was yellow, hazy with a pH of 6.5 and there was small amount of leukocyte esterase, 3-5 rbc's, positive for nitrite and more than 40 wbc's and moderate amount of bacteria. Her toxic screen was positive for opiates, but negative for all other drugs and the patient was admitted with altered mental status, acute hypoxic respiratory failure, urinary tract infection and delirium and acute kidney injury. PAST MEDICAL HISTORY: Significant for hypertension, borderline type 2 diabetes mellitus. She has grand mal seizures, COPD, scoliosis, visual impairment and peripheral vascular disease. PAST SURGICAL HISTORY: Significant for ganglion cyst removal from the right wrist, appendectomy, right forefoot amputation as well as multiple cysts removal from her right ovary. She underwent amputation of the left first and fifth toe and also underwent left common iliac artery angioplasty and stent deployment on 11/18/2018. Again, she underwent left posterior tibial directional atherectomy, angioplasty as well as left tibial and left peroneal artery angiography. FAMILY HISTORY: She has one brother and one sister, both . She is not sure whether her parents are still alive or not. She has not seen them for a long time. She used to live in a homeless center; however, she has been a resident at [facility] for more than a year now. SOCIAL HISTORY: She is single. She has never . She has 2 daughters and 1 son. She smokes a pack a day, does not drink alcohol or use recreational drugs. She is currently residing at [facility] in [place]. REVIEW OF SYSTEMS: As per history of present illness. ALLERGIES: She is allergic to ASPIRIN, KETOROLAC and MORPHINE. MEDICATIONS: She is currently on following medications: She is on cyclobenzaprine 5 mg 3 times a day, apixaban 5 mg twice a day, OxyContin 10 mg twice a day, oxycodone 5 mg immediate release every 6 hours, Tylenol 650 mg every 12 hours, clonazepam 0.5 mg 3 times a day, divalproex 250 mg twice a day, Keppra 500 mg twice a day, Wellbutrin SR 100 mg once a day, fluvoxamine maleate 50 mg twice a day, trazodone 50 mg at bedtime, risperidone 0.5 mg twice a day, furosemide 40 mg daily, magnesium oxide 400 mg 3 times a day, nystatin powder applied topically twice a day, oxybutynin chloride 5 mg 3 times a day. REVIEW OF SYSTEMS: As per history of present illness. PHYSICAL EXAMINATION: GENERAL: On arrival to the Emergency Room, the patient apparently was lethargic, but arousable. There was no pallor, jaundice, cyanosis or thyromegaly. No adenopathy or thyromegaly. No jugular venous distention. No lower limb edema. VITAL SIGNS: Her heart rate was 92, blood pressure was 123/82, temperature was 98.8, respiratory rate was 18 and oxygen saturation was 94% on 3 liters of oxygen. HEAD, EYES, EARS, NOSE AND THROAT: Showed normocephalic, atraumatic. NECK: Supple. HEART: Normal first and second heart sounds. No gallop, rub or murmur. CHEST: Clear to auscultation. No crepitation or rhonchi. Her chest shows central trachea, equally reduced expansion, reduced air entry, vesicular sounds, very few scattered rhonchi and bilateral basal crepitation. ABDOMEN: Distended, soft, nontender. NEUROLOGIC: She is lethargic, but arousable. All her cranial nerves intact. EXTREMITIES: She moves upper extremities without difficulty. LABORATORY DATA: Her lab works on arrival showed a white cell count of 7800, hemoglobin 14, hematocrit 42, MCV 97 and platelet count 213,000. Her serum sodium was 142, potassium 3.8, chloride 102, bicarbonate 31, anion gap of 9, BUN 22, creatinine 1.6. Estimated GFR was 33 mL per minute. Her glucose 114. Lactic acid was only 0.9. Calcium was 8.8. Total bilirubin, AST, ALT, alkaline phosphatase were normal. Total protein 7, albumin 3.2. Actually was venous blood gases showed a pH of 7.44, pCO2 of 47, pO2 of 99, bicarbonate 32 and oxygen saturation was 98% on FiO2 of 28%. Her urinalysis showed the urine was yellow, hazy with a pH of 6.5, specific gravity of 1.025. The urine was negative for protein, glucose, ketones. There was trace of blood, positive for nitrite, negative for bilirubin. There was small amount of leukocyte esterase, 3-5 rbc's, more than 40 wbc's and moderate amount of bacteria and urine drug screen was positive for opiates, but negative for all other drugs. IMAGING DATA: Her CT scan of the head showed there is moderate diffuse atrophy. There is no mass effect, extraaxial fluid collection or hydrocephalus. There is no focal loss of harvey white matter distinction to suggest acute ischemia or stroke. Her chest x-ray showed the heart size is normal. The great vessels appear unremarkable. There is no hilar or mediastinal masses. The lungs are hypoventilatory and showed mild prominence of the bilateral perihilar interstitial pulmonary markings. There is no pleural effusion or pneumothorax. There are no significant osseous abnormality with the impression is the patient has hypoventilatory. Chest is showing mild interstitial pulmonary vascular congestion. The patient was treated with IV ceftriaxone as well as Lasix 80 mg IV once was admitted and we continued all her other medications including continuation of her IV ceftriaxone for possible urinary tract infection. TANESHA HARRIS MD DR: DEVIN/miguelito JOB#: [id number] / [id number]
[2020-06-19 15:26] VITALS: BP 106/76
--- NOTE | 2020-06-19 15:43 | RAD ---
PORTABLE CHEST 1V INDICATION: SOA, COUGH, CONGESTION COMPARISON STUDY: 06/18/2020. FINDINGS: Lungs: Normal lung volume. Stable mild interstitial prominence. Pleura: Stable pleural spaces. Heart and Mediastinum: Stable cardiomediastinal silhouette and great vessels. Bones and Soft Tissues: Stable regional skeleton and soft tissues. IMPRESSION: Stable mild interstitial prominence. Electronically signed by: Altaf Ellis MD (06/19/2020 3:40 PM) [id number]
[2020-06-19] MEDS: LIDOCAINE (700MG/PATCH) PATCH. TD SCH (16:41)
--- NOTE | 2020-06-19 18:27 | NUR ---
NURSING NOTE PT GUARDICAROLINE MALHOTRA CALLED, PASSCODE PROVIDED, WANTING UPDATE. INFORMED HER THAT PT WAS BEING TREATED FOR UTI WITH IV ANTIBIOTICS AT THIS TIME. PT GUARDIAN VOICED CONCERN THAT PT WAS USING OXYGEN, STATING THAT SHE NORMALLY DOES NOT USE OXYGEN AND STATED COULD SHE HAVE A PE AGAIN BECAUSE SHE WAS RECENTLY AT [facility] WITH A PE. INFORMED GUARDIAN PT IS BEING TREATED WITH ELIQUIS FOR HER PE THAT SHE HAD DIAGNOSED AT [facility] AND SHE WILL CONTINUE ON THAT MEDICATION. PT ATE BOUT 50% OF HER DINNER AND CURRENTLY RESTING IN THE BED. PT OXGYEN DECREASED TO 2L. PT OXGYEN CURRENTLY 92-93%. WILL CONTINUE TO MONITOR. CELSA HERNANDEZ.
--- NOTE | 2020-06-19 19:14 | NUR ---
PT alert, comfortable appearing and watching television on walking rounds with CELSA Verma.
--- NOTE | 2020-06-19 19:45 | PN ---
DATE: 06/19/2020 SUBJECTIVE: The patient is resting, slightly propped up in bed, clearly lethargic, arousable. She does open her eyes and mouth some words occasionally, but generally very lethargic and seemed to be tachypneic, but there is no pallor, jaundice, cyanosis or thyromegaly. No jugular venous distention. No limb edema. OBJECTIVE: VITAL SIGNS: Her heart rate when I examined her this afternoon was 104, blood pressure was 99/72, temperature was 98.6, respiratory rate was 20, and oxygen saturation was 93% on 3 liters of oxygen. HEAD, EYES, EARS, NOSE AND THROAT: Normocephalic, atraumatic. NECK: Supple. HEART: Showed normal first and second heart sounds. No gallop, rub or murmur. CHEST: Shows central trachea, equally reduced expansion, reduced air entry, bilateral scattered rhonchi. I could not really appreciate any crepitation. ABDOMEN: Distended, soft, nontender. NEUROLOGIC: She was very lethargic, but arousable. She does open her eyes, tracks and sometimes mumbles some words. Cranial nerves seem to be grossly intact, although she has left-sided torticollis. Her intake over the last 24 hours was 800, no output was recorded. LABORATORY DATA: Her lab work this morning showed a white cell count of 8100, hemoglobin 14, hematocrit 42, MCV 97 and platelet count of 196,000. Her chemistry showed that her serum sodium was 139, potassium 3.2, chloride 102, bicarbonate 26, anion gap of 11, BUN 18, creatinine 1.5, estimated GFR was 36 mL per minute. Her glucose was 76, calcium was 8.6. Total bilirubin, AST, ALT, alkaline phosphatase were normal. She has so far 2 sets of cardiac enzymes that ruled out myocardial infarction. Her beta-natriuretic peptide was only 149. Her total protein was 7.1, albumin was 2.9. ASSESSMENT: The patient definitely has altered mental status, probably multifactorial. She is on numerous medications that I have discontinued. I have just discontinued her trazodone, oxycodone immediate release, OxyContin. I discontinued also her fluvoxamine, clonazepam as well as the oral furosemide and cyclobenzaprine. I switched her levetiracetam or Keppra to be given IV. I did repeat her blood gases this morning. It showed the pH was 7.4, pCO2 of 59, pO2 of 67, bicarbonate 37 and oxygen saturation was 93% on FiO2 of 32%. I will repeat her chest x-ray again today. I am not sure that she is in heart failure, but obviously, she is a smoker, she has chronic obstructive pulmonary disease and she has urinary tract infection. I think her encephalopathy is probably a mixture of metabolic and toxic encephalopathy. We will try also using Narcan to see if we can reverse her altered mental status because of the oxycodone and OxyContin. TANESHA HARRIS MD DR: DEVIN/miguelito JOB#: [id number] / [id number]
[2020-06-19] MEDS: PATCH REMOVAL. MC SCH (21:00)
[2020-06-19] MEDS: ACETAMINOPHEN 325 MG TABLET PO PRN (21:21)
[2020-06-20 00:07] VITALS: BP 105/64
[2020-06-20] MEDS: IPRATRPIUM/ALBUTEROL 0.5/2.5MG 3 ML NEBU. NEB SCH ×4 (05:01→20:00)
[2020-06-20 05:48] VITALS: BP 120/82
[2020-06-20 06:27] LABS: HEMOGLOBIN 13.4 g/dL (12.0-15.5); RED BLOOD COUNT 4.19 x10^6/uL (3.50-5.40); RED CELL DISTRIBUTION WIDTH 13.9 % (11.5-14.5); WHITE BLOOD COUNT 8.5 x10^3/uL (4.0-11.0)
[2020-06-20 06:54] LABS: ALBUMIN 2.8 g/dL (3.4-5.0); ALBUMIN/GLOBULIN RATIO 0.7 (1.0-1.7); CALCIUM 8.9 mg/dL (8.5-10.1); CREATININE 1.3 mg/dL (0.6-1.0); GFR 42.7; POTASSIUM 3.4 mmol/L (3.5-5.1); TOTAL BILIRUBIN 0.3 mg/dL (0.2-1.0); TOTAL PROTEIN 6.8 g/dL (6.4-8.2)
[2020-06-20] MEDS ORDERED: MAGNESIUM SULFATE 1GM 100 ML IV ONE (07:45)
[2020-06-20] MEDS ORDERED: POTASSIUM CHLORIDE 20 MEQ TABLET.ER. PO ONE (07:45)
[2020-06-20] MEDS: LIDOCAINE (700MG/PATCH) PATCH. TD SCH (08:23)
[2020-06-20] MEDS: APIXABAN 5 MG TABLET. PO SCH ×2 (08:34→20:01)
[2020-06-20] MEDS: DIVALPROEX ER 250 MG TAB.ER.24H. PO SCH ×2 (08:34→20:01)
[2020-06-20] MEDS: LACTOBACILLUS RHAMNOSUS GG 1 CAPSULE. PO SCH ×2 (08:34→20:01)
[2020-06-20] MEDS: FUROSEMIDE 40 MG/4 ML VIAL IVP SCH (08:34)
--- NOTE | 2020-06-20 08:34 | PN ---
DATE: 06/20/2020 ATTENDING PHYSICIAN: Dr. Evans. SUBJECTIVE: The patient is less dyspneic. She is very weak. She has no new complaints. She states that she is homeless, but I see that she is from [facility] in [place]. OBJECTIVE FINDINGS: VITAL SIGNS: Her blood pressure this morning is 120/82 mmHg, temperature 98.7 degrees Fahrenheit, pulse 90 and regular, oxygen saturation 91% on 2 liters of nasal cannula. HEENT: Head is without trauma. Pupils are reactive. Sclerae nonicteric. Oropharynx is clear. NECK: Supple. LUNGS: Bibasilar crackles. CARDIOVASCULAR: Showed distant heart tones. No gallops. Peripheral pulses are palpable and full. ABDOMEN: Obese, protuberant. No organomegaly. Bowel sounds are hypoactive. EXTREMITIES: Show 2+ edema in lower extremities. NEUROLOGIC: Focally intact. Speech is fluent. SKIN: Warm and dry. LABORATORY DATA: Her nonfasting blood sugar this morning is 114 mg/dL, creatinine has actually improved to 1.3 mg/dL with diuresis, sodium is 142 mEq and potassium is 3.4 mEq per liter. ASSESSMENT: 1. A 55-year-old female with acute on chronic congestive heart failure, most likely systolic. 2. Labile hypertension. 3. Borderline type 2 diabetes mellitus. 4. History of grand mal seizures. 5. Chronic obstructive pulmonary disease with continued tobacco addiction. 6. Peripheral vascular disease with previous toe amputations. PLAN: 1. She will get a daily Lasix dose. I think she is still wet. 2. Serial chemistries. 3. Potassium and magnesium replacement. 4. Meds have been simplified. 5. Diabetic diet as tolerated. 6. Follow up chest x-ray tomorrow. GEOVANNI LITTLE MD DR: ALEXANDRIA/miguelito JOB#: [id number] / [id number]
[2020-06-20] MEDS: MAGNESIUM OXIDE 400 MG TABLET PO SCH ×3 (08:35→20:01)
[2020-06-20] MEDS: risperiDONE 0.5 MG TABLET. PO SCH ×2 (08:35→20:01)
[2020-06-20] MEDS: OXYBUTYNIN CHLORIDE 5 MG TABLET PO SCH ×3 (08:35→20:01)
[2020-06-20] MEDS: buPROPion SR 100 MG TABLET.SA. PO SCH (08:35)
[2020-06-20] MEDS: NYSTATIN TOPICAL POWDER 15GM BOTTLE. TP SCH ×2 (08:35→20:03)
--- NOTE | 2020-06-20 08:50 | RAD ---
Examination: CHEST AP ONLY History: Reason: SHORTNESS OF BREATH / Spl. Instructions: / History: Comparison: 06/19/2020. Findings: AP portable upright frontal view of the chest was obtained. There is limited pulmonary inflation. The cardiomediastinal silhouette is normal. Linear atelectasis at the left lung base is minimal. There is no pneumothorax. No significant or definite effusions . No acute bone abnormality. IMPRESSION: Minimal left basilar linear atelectasis. No new infiltrate. No significant change in pulmonary aeration. Electronically signed by: Dennis Mead MD (06/20/2020 8:47 AM) [id number]
[2020-06-20 10:50] VITALS: BP 107/78
[2020-06-20 14:34] VITALS: BP 101/71
--- NOTE | 2020-06-20 17:45 | NUR ---
Wound Care Wound Type/Assessment: patient has open blisters to the right thigh. RN had just pictured and just applied the dressing, attempted to remove the dressing, able to assess the wound but patient insisted that I not remove the dressing anymore. tried to reapply the dressing. Per CELSA Luo the patient is incontinent. Treatment Recommendations/Plan: Recommendations of A & D ointment. Notified CELSA Luo that patient did not want me to remove the dressing, but recommend A & D ointment Discharge Recommendations for dressings: Recommend to continue with the A & D ointment. wound care will continue to f/u for changes
[2020-06-20 19:45] VITALS: BP 108/64
[2020-06-20] MEDS: ACETAMINOPHEN 325 MG TABLET PO PRN (20:02)
[2020-06-20] MEDS: VITS A & D/LANOLIN TOPICAL OINTMENT 42GM TUBE. TP PRN (21:00)
[2020-06-20] MEDS: PATCH REMOVAL. MC SCH (21:00)
[2020-06-20 22:18] VITALS: BP 101/69
[2020-06-21] MEDS: IPRATRPIUM/ALBUTEROL 0.5/2.5MG 3 ML NEBU. NEB SCH ×4 (04:35→21:33)
[2020-06-21 05:16] VITALS: BP 113/65
--- NOTE | 2020-06-21 06:09 | NUR ---
Pt more easily roused this shift. Irritable with all cares, but does eventually cooperate. Pt cont of urine, up to BSC x3 since kaitlin was DC'd. Pt given bed bath this morning, tolerated fair. Walked several steps in room x1 assist with walker and gait belt. Sat up in chair while bed linens were changed. Pt now back to bed, resting comfortably. Call light in reach and bed alarmed for safety.
[2020-06-21] MEDS ORDERED: MAGNESIUM SULFATE 1GM 100 ML IV ONE (08:00)
[2020-06-21] MEDS: LIDOCAINE (700MG/PATCH) PATCH. TD SCH (08:09)
[2020-06-21] MEDS: APIXABAN 5 MG TABLET. PO SCH ×2 (08:09→19:38)
[2020-06-21] MEDS: levETIRAcetam 500 MG TABLET PO SCH ×2 (08:09→19:38)
[2020-06-21] MEDS: POTASSIUM CHLORIDE 20 MEQ TABLET.ER. PO SCH ×2 (08:09→19:38)
[2020-06-21] MEDS: VITS A & D/LANOLIN TOPICAL OINTMENT 42GM TUBE. TP PRN (08:09)
[2020-06-21] MEDS: DIVALPROEX ER 250 MG TAB.ER.24H. PO SCH ×2 (08:10→19:38)
[2020-06-21] MEDS: LACTOBACILLUS RHAMNOSUS GG 1 CAPSULE. PO SCH ×2 (08:10→19:38)
[2020-06-21] MEDS: MAGNESIUM OXIDE 400 MG TABLET PO SCH ×3 (08:10→19:38)
[2020-06-21] MEDS: risperiDONE 0.5 MG TABLET. PO SCH ×2 (08:10→19:38)
[2020-06-21] MEDS: OXYBUTYNIN CHLORIDE 5 MG TABLET PO SCH ×3 (08:10→19:38)
[2020-06-21] MEDS: buPROPion SR 100 MG TABLET.SA. PO SCH (08:11)
[2020-06-21] MEDS: FUROSEMIDE 40 MG/4 ML VIAL IVP SCH (08:11)
[2020-06-21] MEDS: NYSTATIN TOPICAL POWDER 15GM BOTTLE. TP SCH ×2 (08:21→19:39)
--- NOTE | 2020-06-21 09:21 | PN ---
DATE: 06/21/2020 ATTENDING PHYSICIAN: Dr. Evans. SUBJECTIVE: Less dyspneic. Affect is still kind of flat. She has no new complaints. She had been living at [facility] in [place]. OBJECTIVE: VITAL SIGNS: Blood pressure is 113/65, temperature 97.5 degrees Fahrenheit, oxygen saturation 94% on 3 liters nasal cannula. HEENT: Head is without trauma. Pupils are reactive. Sclerae nonicteric. Oropharynx clear. NECK: Supple, no bruits. LUNGS: Minimal crackles at bases. CARDIOVASCULAR: Showed regular heart tones. No gallops. ABDOMEN: Soft, no guarding. EXTREMITIES: Show trace edema. NEUROLOGIC: Focally intact. Speech is fluent. SKIN: Otherwise, warm and dry. LABORATORY DATA: Chem B is pending this morning. Followup x-ray showed clearing of the lung crane, but a poor inspiratory effort. Hemoglobin is 13.4 g/dL. ASSESSMENT: 1. A 55-year-old female with acute on chronic congestive heart failure, most likely systolic in nature. 2. Labile hypertension. 3. Type 2 diabetes mellitus. 4. History of grand mal seizures. 5. Chronic obstructive pulmonary disease with continued tobacco addiction. 6. Peripheral vascular disease with previous toe amputation. PLAN: 1. Continue diuresis. 2. Follow up chemistries. 3. Potassium and magnesium replacement. 4. Simplification of meds. 5. Clinically, she is improved. She should go back to [facility] tomorrow. GEOVANNI LITTLE MD DR: ALEXANDRIA/miguelito JOB#: [id number] / [id number]
[2020-06-21 11:35] VITALS: BP 122/87
[2020-06-21 11:41] LABS: CALCIUM 9.4 mg/dL (8.5-10.1); CREATININE 1.2 mg/dL (0.6-1.0); GFR 46.8; POTASSIUM 3.5 mmol/L (3.5-5.1)
[2020-06-21 14:55] VITALS: BP 120/76
--- NOTE | 2020-06-21 14:55 | NUR ---
NURSING NOTE PT WAS SITTING IN BED THIS AM UPON ASSESSMENT AND MEDICATION ADMINISTRATION. PT WAS ALERT TO SELF ONLY THIS AM. PT TAKES HER MEDS WHOLE WITH NO COMPLICATIONS. PT IS INDEPENDENT WITH HER MEALS WITH SET UP ONLY. PT WAS ON 3L OF OXGYEN THIS AM, PT TITRATED DOWN TO 2L. CURRENTLY 94% ON 2L. WILL CONTINUE TO MONITOR AND TITRATE DOWN ACCORDINGLY. PER DR LITTLE, PT PLAN TO DC BACK TO FACILITY TOMORROW. PT HAD LARGE BM X2 TODAY. PT IS CONT VS INCON USING BEDSIDE COMMODE. PT HAD SEVERAL INCONTINENT EPISODES AND BED WETTINGS TODAY AFTER IV DOSE OF LASIX. PT HAS BLISTERS ON HER SKIN, USING A&D OINTMENT. PT UP TO CHAIR OFF AND ON TODAY AND WAS UP OUT OF BED MORE TODAY. PT C/O PAIN IN HER NECK, LIDOCAINE PATCH PLACED. PT TEARFUL THIS AFTERNOON, STATING THAT SHE MISSES HER DOG. PT CURRENTLY IN BED WATCHING TV. WILL CONTINUE TO MONITOR. CELSA HERNANDEZ. Addendum: 06/21/20 at 1817 by MARY CATHERINE RN RN THIS AFTERNOON, PT REQUIRED MORE ASSISTANCE WITH HER MEALS, MORE CONFUSION AND NEEDED REMINDED TO EAT. WILL PASS ALONG THAT PT NEEDS EXTRA ENCOURAGEMENT TO EAT BUT WILL EAT HER FOOD WHEN REMINDED.
[2020-06-21] MEDS: ACETAMINOPHEN 325 MG TABLET PO PRN (19:38)
[2020-06-21 19:46] VITALS: BP 114/61
[2020-06-21] MEDS: PATCH REMOVAL. MC SCH (21:00)
[2020-06-21 22:42] VITALS: BP 105/70
--- NOTE | 2020-06-22 02:24 | NUR ---
Assumed care at 0050. PT resting comfortably in bed.
[2020-06-22] MEDS: IPRATRPIUM/ALBUTEROL 0.5/2.5MG 3 ML NEBU. NEB SCH ×2 (04:35→11:16)
[2020-06-22 05:51] VITALS: BP 122/86
[2020-06-22] MEDS: VITS A & D/LANOLIN TOPICAL OINTMENT 42GM TUBE. TP PRN (07:56)
[2020-06-22] MEDS: buPROPion SR 100 MG TABLET.SA. PO SCH (07:57)
[2020-06-22] MEDS: levETIRAcetam 500 MG TABLET PO SCH (07:57)
[2020-06-22] MEDS: POTASSIUM CHLORIDE 20 MEQ TABLET.ER. PO SCH (07:57)
[2020-06-22] MEDS: APIXABAN 5 MG TABLET. PO SCH (07:57)
[2020-06-22] MEDS: OXYBUTYNIN CHLORIDE 5 MG TABLET PO SCH (07:57)
[2020-06-22] MEDS: DIVALPROEX ER 250 MG TAB.ER.24H. PO SCH (07:57)
[2020-06-22] MEDS: LACTOBACILLUS RHAMNOSUS GG 1 CAPSULE. PO SCH (07:57)
[2020-06-22] MEDS: risperiDONE 0.5 MG TABLET. PO SCH (07:57)
[2020-06-22] MEDS: MAGNESIUM OXIDE 400 MG TABLET PO SCH (07:57)
[2020-06-22] MEDS: NYSTATIN TOPICAL POWDER 15GM BOTTLE. TP SCH (07:58)
[2020-06-22] MEDS: FUROSEMIDE 40 MG/4 ML VIAL IVP SCH (07:58)
[2020-06-22] MEDS: LIDOCAINE (700MG/PATCH) PATCH. TD SCH (07:58)
[2020-06-22] MEDS: ACETAMINOPHEN 325 MG TABLET PO PRN (08:45)
[2020-06-22 11:00] VITALS: BP 91/60
--- NOTE | 2020-06-22 14:09 | NUR ---
NSG NOTE; DISCHARGE REPORT CALLED TO KRISTAN FISHER AT [facility] PAPER COPY OF CHART, INCLUDING MED REC, SENT WITH PT NEW WRITTEN RX X1 SENT WITH PT DISCHARGED AT 1340 VIA W/C W/ O2 ACCOMP BY TRANSPORT PERSONNEL FOR RETURN TO CUSTODIAL CARE
--- NOTE | 2020-06-22 16:29 | DS ---
DATE OF DISCHARGE: 06/22/2020 ATTENDING PHYSICIAN: Dr. Evans. FINAL DISCHARGE DIAGNOSES: 1. Acute on chronic congestive heart failure. 2. Hypoxemic respiratory failure, resolved. 3. Probable opiate overdose. 4. Type 2 diabetes mellitus. 5. Chronic obstructive pulmonary disease. 6. History of grand mal seizure. 7. Peripheral vascular disease. 8. Chronic alcoholism. 9. 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 HISTORY AND PHYSICAL: This is a 55-year-old female, who had been homeless. She has been living at [facility] in [place]. She was noted to be lethargic and delirious. She was found to be in hypoxic respiratory failure and volume overload, sent here for acute admission. PHYSICAL EXAMINATION: Please see the dictated note. PERTINENT LABORATORY AND X-RAY STUDIES: Chest x-ray on admission showed atelectasis, vascular congestion. No new infiltrates identified. She had some linear atelectasis. Admission hemoglobin was 13.9, white count 7800. Chemistry panel: Potassium is diminished at 3.2 mEq. This was replaced with magnesium and up to 3.5 mEq per liter, replaced with magnesium and oral potassium. Creatinine paradoxically improved from 1.5 to 1.2 mg percent with diuresis. Cardiac enzymes were negative. COURSE IN THE HOSPITAL: The patient was on antibiotics for UTI. She was treated for 4 full days. In addition, she responded to intravenous Lasix. We monitored her daily weights, serial chemistries and she had potassium and magnesium replacement. She did well. We held her narcotics. By the fifth hospital day, she was back to her baseline. She still remained very confused, but there was no respiratory distress. Her oxygen saturations were adequate off of oxygen at greater than 90%. Blood pressure 122/86, temperature 98.3 degrees Fahrenheit, and she looked well. Her lungs were clear. Heart rate was regular. At this time, she is discharged back to [facility] in [place] with the following medications: She will continue her Eliquis for her history of blood clots 5 mg b.i.d., Wellbutrin 100 mg daily, Klonopin 0.5 mg t.i.d., Depakote b.i.d., ____ 50 mg b.i.d. for OCD, Lasix 40 mg daily, Keppra 500 mg daily, nystatin, oxycodone p.r.n. pain and risperidone. For now, we held her cyclobenzaprine, oxybutynin, magnesium oxide, and trazodone doses. She remains a full code. Her prognosis is fair. She was discharged then from our hospital in stable condition with explicit instructions and followup care. Total discharge time spent, 39 minutes. GEOVANNI LITTLE MD DR: ALEXANDRIA/miguelito JOB#: [id number] / [id number] TANESHA Dickens MD
== END 2020-06-22 13:40 | disposition home or self-care (01) | DRG 917 ==
LOC: ER 13:18 → 1 SOUTH 15:50
PROVIDERS: ADMIT Internal Medicine; ATTEND Internal Medicine
DX: T40.601A Poisoning by unspecified narcotics, accidental (unintentional), initial encounter (principal); J96.01 Acute respiratory failure with hypoxia; I50.23 Acute on chronic systolic (congestive) heart failure; N17.9 Acute kidney failure, unspecified; N39.0 Urinary tract infection, site not specified; F05 Delirium due to known physiological condition; F10.27 Alcohol dependence with alcohol-induced persisting dementia; K50.90 Crohn's disease, unspecified, without complications; G93.40 Encephalopathy, unspecified; E11.51 Type 2 diabetes mellitus with diabetic peripheral angiopathy without gangrene; F01.50 Vascular dementia, unspecified severity, without behavioral disturbance, psychotic disturbance, mood disturbance, and anxiety; F10.26 Alcohol dependence with alcohol-induced persisting amnestic disorder; F17.210 Nicotine dependence, cigarettes, uncomplicated; F32.9 Major depressive disorder, single episode, unspecified; F42.9 Obsessive-compulsive disorder, unspecified; G40.409 Other generalized epilepsy and epileptic syndromes, not intractable, without status epilepticus; H54.7 Unspecified visual loss; I11.0 Hypertensive heart disease with heart failure; J44.9 Chronic obstructive pulmonary disease, unspecified; M41.9 Scoliosis, unspecified; Z79.01 Long term (current) use of anticoagulants; Z59.0 Homelessness; Z86.711 Personal history of pulmonary embolism; Z86.718 Personal history of other venous thrombosis and embolism; Z86.73 Personal history of transient ischemic attack (TIA), and cerebral infarction without residual deficits; Z89.429 Acquired absence of other toe(s), unspecified side; Z79.899 Other long term (current) drug therapy; Z88.8 Allergy status to other drugs, medicaments and biological substances; Z20.828 Contact with and (suspected) exposure to other viral communicable diseases; Y92.89 Other specified places as the place of occurrence of the external cause
CPT/HCPCS: 36415; 36600; 51702; 70450; 71045; 80048; 80053; 80307; 81001; 82803; 82947; 83605; 83880; 84484; 85025; 85027; 87040; 87077; 87086; 87186; 90471; 90686; 93005; 94640; 94760; 96365; 96375; 99406; G0480; J0696; J1940; J1953; J2310; J3475; 97110; 99285-25